=== PATIENT | male | born 1945 | race Caucasian/White ===

== ENCOUNTER 2018-10-11 19:55 | Inpatient (IN) | payer MEDICARE ==
[2018-10-11] MEDS ORDERED: FUROSEMIDE 10 MG/ML 4 ML VIAL IV STA (20:30)
[2018-10-11] MEDS ORDERED: NITROGLYCERIN OINT 1 INCH/GM PACKET TOPICAL STA (20:30)
[2018-10-11] MEDS ORDERED: ASPIRIN 81 MG PO STA (20:32)
[2018-10-11 20:44] LABS: Basophils % (A) 1 %; Eosinophils # (A) 0.1 k/uL (0-0.7); Eosinophils % (A) 3 %; HCT 33.8 % (39.0-53.0); HGB 10.2 gm/dL (13.0-17.5); Hypochromasia Marked; Lymphocytes # (A) 0.7 k/uL (1.0-4.8); Lymphocytes % (A) 26 %; MCH 25.9 pg (25.0-35.0); MCHC 30.2 g/dL (31.0-37.0); MCV 85.6 fL (80.0-100.0); Mean Platelet Volume 6.3; Monocytes # (A) 0.2 k/uL (0-1.0); Monocytes % (A) 7 %; Neutrophils # (A) 1.7 k/uL (1.3-7.7); Neutrophils % (A) 60 %; Platelet Count 306 k/uL (150-450); Poikilocytosis Slight; RBC 3.95 m/uL (4.30-5.90); RDW 14.9 % (11.5-15.5); WBC 2.9 k/uL (3.8-10.6)
[2018-10-11 20:57] LABS: Calcium 7.9 mg/dL (8.4-10.2); Potassium 4.6 mmol/L (3.5-5.1); Total Bilirubin 0.5 mg/dL (0.2-1.3); Total Protein 4.2 g/dL (6.3-8.2)
[2018-10-11 21:02] LABS: Prothrombin Time 10.3 sec (9.0-12.0)
[2018-10-11 21:03] LABS: Partial Thromboplastin Time 21.2 sec (22.0-30.0)
[2018-10-11 21:21] LABS: VBG PH 7.46 (7.31-7.41)
--- NOTE | 2018-10-11 21:35 | ED ---
General Adult HPI - General Chief complaint: Shortness of Breath Stated complaint: nstemi Time Seen by Provider: 10/11/18 20:20 Source: patient, EMS Mode of arrival: EMS - History of Present Illness Initial comments: Patient is 73-year-old male presents with a chief complaint of shortness of breath. He was initially seen at an outside hospital and transferred for an STEMI. After review of the patient's results, he had a mildly elevated troponin at 0.5. EKG shows no acute changes. Patient appears comfortable. He states that he has been increasingly short of breath for about 2 days. Is a history of CHF, COPD, and previous NH. He states that he is getting increasingly exertional short of breath and states that he felt he was going to pass out today. He cannot identify an inciting incident. There are no exacerbating or alleviating factors. - Related Data Home Medications Medication Instructions Recorded Confirmed Albuterol Inhaler [Ventolin Hfa 1 - 2 puff INHALATION RT-QID 10/11/18 10/11/18 Inhaler] Aspirin 81 mg PO HS 10/11/18 10/11/18 Atorvastatin [Lipitor] 40 mg PO HS 10/11/18 10/11/18 Clopidogrel [Plavix] 75 mg PO DAILY 10/11/18 10/11/18 Furosemide [Lasix] 20 mg PO DAILY 10/11/18 10/11/18 Lisinopril [Zestril] 5 mg PO DAILY 10/11/18 10/11/18 Metoprolol Tartrate [Lopressor] 25 mg PO BID 10/11/18 10/11/18 Montelukast [Singulair] 10 mg PO HS 10/11/18 10/11/18 Potassium Chloride ER [K-Dur 10] 10 meq PO DAILY 10/11/18 10/11/18 Allergies Allergy/AdvReac Type Severity Reaction Status Date / Time No Known Allergies Allergy Verified 10/11/18 20:43 Review of Systems ROS Statement: Those systems with pertinent positive or pertinent negative responses have been documented in the HPI. ROS Other: All systems not noted in ROS Statement are negative. Respiratory: Reports: dyspnea Cardiovascular: Reports: dyspnea on exertion Past Medical History Past Medical History: Heart Failure, COPD History of Any Multi-Drug Resistant Organisms: None Reported Past Surgical History: Coronary Bypass/CABG Past Psychological History: No Psychological Hx Reported Smoking Status: Never smoker Past Alcohol Use History: None Reported Past Drug Use History: None Reported General Exam Limitations: no limitations General appearance: alert, in no apparent distress Head exam: Present: atraumatic, normocephalic Eye exam: Present: normal appearance ENT exam: Present: normal exam Neck exam: Present: normal inspection Respiratory exam: Present: decreased breath sounds Cardiovascular Exam: Present: regular rate, normal rhythm GI/Abdominal exam: Present: soft. Absent: distended, tenderness Rectal exam: Present: deferred exam: Present: scrotal swelling Extremities exam: Present: normal inspection Back exam: Present: normal inspection Neurological exam: Present: alert, oriented X3 Psychiatric exam: Present: normal affect, normal mood Skin exam: Present: warm, dry, intact Course Vital Signs 10/11/18 20:01 Temperature 97.9 F Pulse Rate 16 L Respiratory 96 H Rate Blood Pressure 140/84 O2 Sat by Pulse 95 Oximetry Medical Decision Making - Medical Decision Making Patient presents with a chief complaint of exertional dyspnea. He is sent from an outside facility with a diagnosis of an STEMI. EKG is unremarkable. Troponin the outside facility was 0.5. Redraw in the emergency department is equivocal. We'll hold on heparin at this time as patient is likely suffering from exacerbation of congestive heart failure. He was given a half-inch of Nitropaste, 40 mg of IV Lasix. Labs are otherwise unremarkable. We'll plan to admit patient. He received aspirin. Patient is hypokalemic at 2.9, he'll be given oral replacement. 10:20 PM Case discussed with Dr. Enciso who accepts admission. Patient given 40 mg of Lasix and nitro paste to initiate diuresis. Labs ordered for the morning. Patient agreeable with the care plan. He stable for transfer to the floor. - Lab Data Result diagrams: 10/11/18 20:26 10/11/18 20:26 Lab Results 10/11/18 10/11/18 10/11/18 Range/Units 20:26 20:26 20:26 WBC 2.9 L (3.8-10.6) k/uL RBC 3.95 L (4.30-5.90) m/uL Hgb 10.2 L (13.0-17.5) gm/dL Hct 33.8 L (39.0-53.0) % MCV 85.6 (80.0-100.0) fL MCH 25.9 (25.0-35.0) pg MCHC 30.2 L (31.0-37.0) g/dL RDW 14.9 (11.5-15.5) % Plt Count 306 (150-450) k/uL Neutrophils % 60 % Lymphocytes % 26 % Monocytes % 7 % Eosinophils % 3 % Basophils % 1 % Neutrophils # 1.7 (1.3-7.7) k/uL Lymphocytes # 0.7 L (1.0-4.8) k/uL Monocytes # 0.2 (0-1.0) k/uL Eosinophils # 0.1 (0-0.7) k/uL Basophils # 0.0 (0-0.2) k/uL Hypochromasia Marked Poikilocytosis Slight PT 10.3 (9.0-12.0) sec INR 1.0 (<1.2) APTT 21.2 L (22.0-30.0) sec VBG pH (7.31-7.41) VBG pCO2 (37-51) mmHg VBG HCO3 (24-28) mmol/L Sodium (137-145) mmol/L Potassium (3.5-5.1) mmol/L Chloride (98-107) mmol/L Carbon Dioxide (22-30) mmol/L Anion Gap mmol/L BUN (9-20) mg/dL Creatinine (0.66-1.25) mg/dL Est GFR (CKD-EPI)AfAm (>60 ml/min/1.73 sqM) Est GFR (CKD-EPI)NonAf (>60 ml/min/1.73 sqM) Glucose (74-99) mg/dL Calcium (8.4-10.2) mg/dL Total Bilirubin (0.2-1.3) mg/dL AST (17-59) U/L ALT (21-72) U/L Alkaline Phosphatase (38-126) U/L Troponin I (0.000-0.034) ng/mL NT-Pro-B Natriuret Pep 4430 pg/mL Total Protein (6.3-8.2) g/dL Albumin (3.5-5.0) g/dL 10/11/18 10/11/18 10/11/18 Range/Units 20:26 20:26 20:56 WBC (3.8-10.6) k/uL RBC (4.30-5.90) m/uL Hgb (13.0-17.5) gm/dL Hct (39.0-53.0) % MCV (80.0-100.0) fL MCH (25.0-35.0) pg MCHC (31.0-37.0) g/dL RDW (11.5-15.5) % Plt Count (150-450) k/uL Neutrophils % % Lymphocytes % % Monocytes % % Eosinophils % % Basophils % % Neutrophils # (1.3-7.7) k/uL Lymphocytes # (1.0-4.8) k/uL Monocytes # (0-1.0) k/uL Eosinophils # (0-0.7) k/uL Basophils # (0-0.2) k/uL Hypochromasia Poikilocytosis PT (9.0-12.0) sec INR (<1.2) APTT (22.0-30.0) sec VBG pH 7.46 H (7.31-7.41) VBG pCO2 35 L (37-51) mmHg VBG HCO3 24 (24-28) mmol/L Sodium 136 L (137-145) mmol/L Potassium 4.6 (3.5-5.1) mmol/L Chloride 109 H (98-107) mmol/L Carbon Dioxide 27 (22-30) mmol/L Anion Gap 0 mmol/L BUN 32 H (9-20) mg/dL Creatinine 1.01 (0.66-1.25) mg/dL Est GFR (CKD-EPI)AfAm 86 (>60 ml/min/1.73 sqM) Est GFR (CKD-EPI)NonAf 75 (>60 ml/min/1.73 sqM) Glucose 92 (74-99) mg/dL Calcium 7.9 L (8.4-10.2) mg/dL Total Bilirubin 0.5 (0.2-1.3) mg/dL AST 50 (17-59) U/L ALT 42 (21-72) U/L Alkaline Phosphatase 74 (38-126) U/L Troponin I 0.528 H* (0.000-0.034) ng/mL NT-Pro-B Natriuret Pep pg/mL Total Protein 4.2 L (6.3-8.2) g/dL Albumin 2.0 L (3.5-5.0) g/dL Disposition Clinical Impression: CHF exacerbation, Elevated troponin, Hypokalemia, Anasarca Disposition: ADMITTED IP TO THIS HOSP Condition: Good Is patient prescribed a controlled substance at d/c from ED?: No Referrals: None,Stated [Primary Care Provider] - 1-2 days Decision to Admit Reason: Admit from EC - Out of Hospital Transfer - Req. Specs Out of Hospital Transfer - Requested Specifics: Other Non-Acute
[2018-10-11] MEDS ORDERED: POTASSIUM CHLORIDE ER 20 MEQ TAB.ER PO STA (21:36)
[2018-10-11] MEDS ORDERED: NALOXONE 0.4 MG/ML 1 ML VIAL IV PRN (22:16)
[2018-10-11] MEDS ORDERED: IPRATROPIUM-ALBUTEROL 3 ML NEB INHALATION PRN (23:54)
--- NOTE | 2018-10-12 00:22 | P.HPIM ---
History of Present Illness H&P Date: 10/11/18 Chief Complaint: SOB 73 year old male with history of CHF. patient presented to our hospital from another facility for NSTEMI. patient is reporting that he is feeling fine now. He claims that he went to the doctor to check on his penis as there was swelling over the pubic area most likely fluid overload. he also reported some worsening exertional dyspnea over the past two days. however, he is not sure how he ended from one facility to another to finally be admitted to our hospital . I tried to explain that at the other facility he was found to be in congestive hearrt failure exacerbation for which he was given IV lasix to help reduce the fluids around his lungs, legs and pubic area possibly . He was also found to have slightly elevated troponins at 0.5 for which he was transfered to our facility to R/O ACS. patient denies any chest pain at this time or even earlier, denies any current SOB, however, he seems to be catching his breath when he starts talking. he is not sure if he has orthopnea or PNDs and actually denies both. he claims to be comfortable at the moment and cant wait to go home. denies any fever, chills, cough, chest pain, or SOB at this time . He was also found to have low K at the other facility , however, this has since been corrected upon repeating labs here. Review of Systems Pertinent positives as noted in HPI. All other systems were reviewed and are negative Past Medical History Past Medical History: Heart Failure, COPD History of Any Multi-Drug Resistant Organisms: None Reported Past Surgical History: Coronary Bypass/CABG Past Psychological History: No Psychological Hx Reported Smoking Status: Never smoker Past Alcohol Use History: None Reported Past Drug Use History: None Reported - Past Family History family Family Medical History: No Reported History Medications and Allergies Home Medications Medication Instructions Recorded Confirmed Type Albuterol Inhaler [Ventolin Hfa 1 - 2 puff INHALATION RT-QID 10/11/18 10/11/18 History Inhaler] Aspirin 81 mg PO HS 10/11/18 10/11/18 History Atorvastatin [Lipitor] 40 mg PO HS 10/11/18 10/11/18 History Clopidogrel [Plavix] 75 mg PO DAILY 10/11/18 10/11/18 History Furosemide [Lasix] 20 mg PO DAILY 10/11/18 10/11/18 History Lisinopril [Zestril] 5 mg PO DAILY 10/11/18 10/11/18 History Metoprolol Tartrate [Lopressor] 25 mg PO BID 10/11/18 10/11/18 History Montelukast [Singulair] 10 mg PO HS 10/11/18 10/11/18 History Potassium Chloride ER [K-Dur 10] 10 meq PO DAILY 10/11/18 10/11/18 History Allergies Allergy/AdvReac Type Severity Reaction Status Date / Time No Known Allergies Allergy Verified 10/11/18 20:43 Physical Exam Vitals: Vital Signs Temp Pulse Pulse Resp BP BP Pulse Ox 10/11/18 23:35 98 18 10/11/18 23:17 97.8 F 98 18 139/71 98 10/11/18 22:59 98 16 140/89 95 10/11/18 20:01 97.9 F 16 L 96 H 140/84 95 Intake and Output 10/11/18 10/11/18 10/12/18 14:59 22:59 06:59 Other: Voiding Method Toilet Urinal # Voids 1 Weight 108.817 kg Constitutional: No acute distress, conversant, pleasant, on nasal eileen rhina currently was eating pudding Eyes: Anicteric sclerae, moist conjunctiva, no lid-lag Pupils equal round reactive to light ENMT: NC/AT Oropharynx clear, no erythema, exudates Neck: Supple, FROM, no masses, or JVD No carotid bruits No thyromegaly Lungs: decreased breath sounds at lung bases bilaterally with some inspiratory rales , some scattered end expiratory rhonchi Clear to percussion Normal respiratory effort, no accessory muscle use Cardiovascular: Heart regular in rate and rhythm, No murmurs, gallops, or rubs +2 peripheral edema bilaterally Abdominal: Soft Nontender, no guarding, rebound or rigidity Abdomen moving with respiration Normoactive bowel sounds No hepatomegaly, No splenomegaly No palpable mass No abdominal wall hernia noted Skin: Normal temperature, tone, texture, turgor No induration No subcutaneous nodules No rash, lesions No ulcers Extremities: No digital cyanosis No clubbing Pedal pulses intact and symmetrical Radial pulses intact and symmetrical No calf tenderness Psychiatric: Alert and oriented to person, place not to time Appropriate affect fair judgment Neuro Muscles Strength 4/5 in all 4 extremities Sensation to light touch grossly present throughout Cranial nerves II-XII grossly intact No focal sensory deficits Lymphatics: no palpable cervical or supraclavicular , or inguinal lymph nodes Results CBC & Chem 7: 10/11/18 20:26 10/11/18 20:26 Labs: Abnormal Lab Results - Last 24 Hours (Table) 10/11/18 10/11/18 10/11/18 Range/Units 20:26 20:26 20:26 WBC 2.9 L (3.8-10.6) k/uL RBC 3.95 L (4.30-5.90) m/uL Hgb 10.2 L (13.0-17.5) gm/dL Hct 33.8 L (39.0-53.0) % MCHC 30.2 L (31.0-37.0) g/dL Lymphocytes # 0.7 L (1.0-4.8) k/uL APTT 21.2 L (22.0-30.0) sec VBG pH (7.31-7.41) VBG pCO2 (37-51) mmHg Sodium (137-145) mmol/L Chloride (98-107) mmol/L BUN (9-20) mg/dL Calcium (8.4-10.2) mg/dL Troponin I 0.528 H* (0.000-0.034) ng/mL Total Protein (6.3-8.2) g/dL Albumin (3.5-5.0) g/dL 10/11/18 10/11/18 Range/Units 20:26 20:56 WBC (3.8-10.6) k/uL RBC (4.30-5.90) m/uL Hgb (13.0-17.5) gm/dL Hct (39.0-53.0) % MCHC (31.0-37.0) g/dL Lymphocytes # (1.0-4.8) k/uL APTT (22.0-30.0) sec VBG pH 7.46 H (7.31-7.41) VBG pCO2 35 L (37-51) mmHg Sodium 136 L (137-145) mmol/L Chloride 109 H (98-107) mmol/L BUN 32 H (9-20) mg/dL Calcium 7.9 L (8.4-10.2) mg/dL Troponin I (0.000-0.034) ng/mL Total Protein 4.2 L (6.3-8.2) g/dL Albumin 2.0 L (3.5-5.0) g/dL Thrombosis Risk Factor Assmnt - Choose All That Apply Any of the Below Risk Factors Present?: Yes Each Factor Represents 1 point: Abnormal pulmonary function (COPD) Other Risk Factors: Yes Each Risk Factor Represents 2 Points: Age 61-74 years Other congenital or acquired thrombophilia - If yes, enter type in comment: No Thrombosis Risk Factor Assessment Total Risk Factor Score: 3 Thrombosis Risk Factor Assessment Level: Moderate Risk Assessment and Plan Assessment: 73-year-old male with history of COPD and CHF admitted as an observation with anticipated length of stay of less than 48 hours for acute CHF exacerbation with exertional dyspnea and slightly elevated troponins and rule out ACS. Currently patient denies any exertional dyspnea or chest pain. Seems like he responded well to initial diuresis. We'll continue monitoring overnight trending his troponins and cardiac enzymes, with cardiac monitoring. Continue with IV Lasix. Plan: Acute systolic congestive heart failure exacerbation Worsening exertional dyspnea Worsening peripheral edema Slightly elevated troponins and rule out ACS Continue with IV diuresis Nitropaste Repeat chest x-ray in the morning Trend cardiac enzymes Resume home meds Aspirin and statin Plavix Cardiology evaluation anemia, and leukopenia unknown baseline denies any GI bleeding continue to monitor Chronic conditions Hypertension, history of CAD DVT prophylaxis heparin subcu 3 times a day Surrogate decision-maker: Patient CODE STATUS: Full code Discussed with: Patient, ER, RN Anticipated discharge: <[address]: Home A total of 60 minutes was spent on the care of this complex patient more than 50% of the time was spent in counseling and care coordination.
[2018-10-12] MEDS: METOPROLOL TARTRATE 25 MG TAB PO SCH ×3 (00:26→19:33)
[2018-10-12] MEDS: MONTELUKAST 10 MG TAB PO SCH ×2 (00:26→19:33)
[2018-10-12] MEDS: HEPARIN SODIUM,PORCINE 5,000 UNIT/ML 1 ML VIAL SQ SCH ×4 (00:26→22:50)
[2018-10-12 07:50] LABS: Basophils # (A) 0.1 k/uL (0-0.2); Basophils % (A) 1 %; Eosinophils # (A) 0.2 k/uL (0-0.7); Eosinophils % (A) 4 %; HCT 28.1 % (39.0-53.0); HGB 8.8 gm/dL (13.0-17.5); Hypochromasia Marked; Lymphocytes # (A) 0.7 k/uL (1.0-4.8); Lymphocytes % (A) 19 %; MCHC 31.4 g/dL (31.0-37.0); MCV 85.9 fL (80.0-100.0); Mean Platelet Volume 5.9; Monocytes # (A) 0.3 k/uL (0-1.0); Monocytes % (A) 7 %; Neutrophils # (A) 2.4 k/uL (1.3-7.7); Neutrophils % (A) 66 %; Platelet Count 365 k/uL (150-450); Poikilocytosis Slight; RBC 3.27 m/uL (4.30-5.90); RDW 14.3 % (11.5-15.5); WBC 3.7 k/uL (3.8-10.6)
[2018-10-12 07:56] LABS: Calcium 7.6 mg/dL (8.4-10.2); Magnesium 2.1 mg/dL (1.6-2.3); Potassium 4.9 mmol/L (3.5-5.1)
--- NOTE | 2018-10-12 08:27 | XR ---
EXAMINATION TYPE: XR chest 1V DATE OF EXAM: 10/12/2018 COMPARISON: 10/11/2018 HISTORY: Shortness of breath TECHNIQUE: Single frontal view of the chest is obtained. FINDINGS: Cardiomegaly with the postsurgical changes are noted there is a diffuse interstitial patte rn with bilateral infiltrate and pleural effusion. Calcification along the right humeral head can be associated with calcific tendinosis. IMPRESSION: Correlate for CHF with pulmonary edema otherwise consider pneumonia.
[2018-10-12] MEDS: FUROSEMIDE 10 MG/ML 2 ML VIAL IV SCH ×2 (08:38→19:33)
[2018-10-12] MEDS ORDERED: METOPROLOL TARTRATE 25 MG TAB PO SCH (09:00)
[2018-10-12] MEDS ORDERED: CLOPIDOGREL 75 MG TAB PO SCH (09:00)
--- NOTE | 2018-10-12 11:22 | P.CRDCN ---
History of Present Illness Consult date: 10/12/18 History of present illness: This is a 73-year-old gentleman, who apparently was transferred from [facility], for evaluation and treatment of congestive heart failure. This patient is unable to give any detailed history and seemed to be slightly confused. He was taken to the hospital by his complaints of shortness of breath. He was also developed scrotal swelling and peripheral edema. His chest x-ray showed evidence of congestive heart failure. His proBNP is elevated. Patient has been treated with IV Lasix with good diuresis. His renal function is normal. Patient's hemoglobin was 10 g which a drop to below 9 g. It appears that the anemia is new. Apparently his hemoglobin is normal at 2017. He denies any chest pain. Doesn't appear to be in acute distress. Lungs shows mild wheezing and diminished breath sounds. Heart sounds are distant. I'm going to get an echocardiogram done. I'm going to add Aldactone 12.5 mg. We'll going to get a GI consult. Further recommendations depend upon the clinical course Review of Systems As per the chart Past Medical History Past Medical History: Heart Failure, COPD History of Any Multi-Drug Resistant Organisms: None Reported Past Surgical History: Coronary Bypass/CABG Past Psychological History: No Psychological Hx Reported Smoking Status: Never smoker Past Alcohol Use History: None Reported Past Drug Use History: None Reported - Past Family History family Family Medical History: No Reported History Medications and Allergies Home Medications Medication Instructions Recorded Confirmed Type Albuterol Inhaler [Ventolin Hfa 1 - 2 puff INHALATION RT-QID 10/11/18 10/11/18 History Inhaler] Aspirin 81 mg PO HS 10/11/18 10/11/18 History Atorvastatin [Lipitor] 40 mg PO HS 10/11/18 10/11/18 History Clopidogrel [Plavix] 75 mg PO DAILY 10/11/18 10/11/18 History Furosemide [Lasix] 20 mg PO DAILY 10/11/18 10/11/18 History Lisinopril [Zestril] 5 mg PO DAILY 10/11/18 10/11/18 History Metoprolol Tartrate [Lopressor] 25 mg PO BID 10/11/18 10/11/18 History Montelukast [Singulair] 10 mg PO HS 10/11/18 10/11/18 History Potassium Chloride ER [K-Dur 10] 10 meq PO DAILY 10/11/18 10/11/18 History Allergies Allergy/AdvReac Type Severity Reaction Status Date / Time No Known Allergies Allergy Verified 10/11/18 20:43 Physical Exam Vitals: Vital Signs Temp Pulse Pulse Resp BP BP Pulse Ox 10/12/18 10:12 100 10/12/18 10:02 96 10/12/18 10:01 100 10/12/18 08:00 97.9 F 103 H 24 145/92 95 10/12/18 04:00 97.4 F L 89 18 107/66 90 L 10/11/18 23:35 98 18 10/11/18 23:17 97.8 F 98 18 139/71 98 10/11/18 22:59 98 16 140/89 95 10/11/18 20:01 97.9 F 16 L 96 H 140/84 95 Intake and Output 10/11/18 10/12/18 10/12/18 22:59 06:59 14:59 Output Total 100 500 Balance -100 -500 Output: Urine 100 500 Other: Voiding Method Toilet Toilet Urinal Urinal # Voids 2 Weight 108.817 kg 88 kg 88 kg GENERAL EXAM: Patient is alert but doesn't seem to fully oriented and doesn't appear to be in any acute distress HEENT: Normocephalic. Normal reaction of pupils, equal size, normal range of extraocular motion. No erythema or exudates in the throat. NECK: No masses, no nuchal rigidity. CHEST: No chest wall deformity. LUNGS: Show diminished breath sounds HEART: S1 and S2 normal . Distant heart sounds ABDOMEN: No hepatosplenomegaly, normal bowel sounds, no guarding or rigidity. SKIN: No rashes CENTRAL NERVOUS SYSTEM: No focal deficits. EXTREMITIES: Significant edema involving the scrotum also Results 10/12/18 07:25 10/12/18 07:25 Cardiac Enzymes 10/11/18 10/11/18 10/12/18 Range/Units 20:26 20:26 02:17 AST 50 (17-59) U/L Troponin I 0.528 H* 0.513 H* (0.000-0.034) ng/mL 10/12/18 Range/Units 07:25 AST (17-59) U/L Troponin I 0.438 H* (0.000-0.034) ng/mL Coagulation 10/11/18 Range/Units 20:26 PT 10.3 (9.0-12.0) sec APTT 21.2 L (22.0-30.0) sec CBC 10/11/18 10/12/18 Range/Units 20:26 07:25 WBC 2.9 L 3.7 L (3.8-10.6) k/uL RBC 3.95 L 3.27 L (4.30-5.90) m/uL Hgb 10.2 L 8.8 L (13.0-17.5) gm/dL Hct 33.8 L 28.1 L (39.0-53.0) % Plt Count 306 365 (150-450) k/uL Comprehensive Metabolic Panel 10/11/18 10/12/18 Range/Units 20:26 07:25 Sodium 136 L 139 (137-145) mmol/L Potassium 4.6 4.9 (3.5-5.1) mmol/L Chloride 109 H 109 H (98-107) mmol/L Carbon Dioxide 27 31 H (22-30) mmol/L BUN 32 H 32 H (9-20) mg/dL Creatinine 1.01 1.11 (0.66-1.25) mg/dL Glucose 92 94 (74-99) mg/dL Calcium 7.9 L 7.6 L (8.4-10.2) mg/dL AST 50 (17-59) U/L ALT 42 (21-72) U/L Alkaline Phosphatase 74 (38-126) U/L Total Protein 4.2 L (6.3-8.2) g/dL Albumin 2.0 L (3.5-5.0) g/dL Current Medications Generic Name Dose Route Start Last Admin Trade Name Freq PRN Reason Stop Dose Admin Albuterol/Ipratropium 3 ml 10/11/18 23:54 10/12/18 10:01 Duoneb 0.5 Mg-3 Mg/3 Ml Soln INHALATION 3 ml RT-QID PRN Administration Shortness Of Breath Or Wheezing Atorvastatin Calcium 40 mg 10/12/18 21:00 Lipitor PO HS JULI Clopidogrel Bisulfate 75 mg 10/12/18 09:00 10/12/18 08:38 Plavix PO 75 mg DAILY JULI Administration Furosemide 20 mg 10/12/18 09:00 10/12/18 08:38 Lasix IV 20 mg Q12HR JULI Administration Heparin Sodium (Porcine) 5,000 unit 10/12/18 00:00 10/12/18 08:28 Heparin SQ 5,000 unit Q8HR JULI Administration Lisinopril 5 mg 10/12/18 09:00 Zestril PO DAILY JULI Metoprolol Tartrate 25 mg 10/12/18 00:02 10/12/18 08:38 Lopressor PO 25 mg BID JULI Administration Montelukast Sodium 10 mg 10/11/18 23:45 10/12/18 00:26 Singulair PO 10 mg HS JULI Administration Naloxone HCl 0.2 mg 10/11/18 22:16 Narcan IV Q2M PRN Opioid Reversal Spironolactone 12.5 mg 10/12/18 11:15 Aldactone PO DAILY JULI Intake and Output 10/11/18 10/12/18 10/12/18 22:59 06:59 14:59 Output Total 100 500 Balance -100 -500 Output: Urine 100 500 Other: Voiding Method Toilet Toilet Urinal Urinal # Voids 2 Weight 108.817 kg 88 kg 88 kg Patient Weight 10/13/18 06:59 Weight 88 kg 10/12/18 07:25 10/12/18 07:25 EKG Interpretations (text) Sinus rhythm with nonspecific intraventricular conduction delay Assessment and Plan (1) COPD (chronic obstructive pulmonary disease) Current Visit: Yes Status: Acute Code(s): J44.9 - CHRONIC OBSTRUCTIVE PULMONARY DISEASE, UNSPECIFIED SNOMED Code(s): 70050225 (2) Anasarca Current Visit: Yes Status: Acute Code(s): R60.1 - GENERALIZED EDEMA SNOMED Code(s): 999268463 (3) CHF exacerbation Current Visit: Yes Status: Acute Code(s): I50.9 - HEART FAILURE, UNSPECIFIED SNOMED Code(s): 95920897 (4) Elevated troponin Current Visit: Yes Status: Acute Code(s): R74.8 - ABNORMAL LEVELS OF OTHER SERUM ENZYMES SNOMED Code(s): 265354011 (5) Hypokalemia Current Visit: Yes Status: Acute Code(s): E87.6 - HYPOKALEMIA SNOMED Code(s): 02107009 (6) Acute anemia Current Visit: Yes Status: Acute Code(s): D64.9 - ANEMIA, UNSPECIFIED SNOMED Code(s): 521646022 Plan: This patient seemed to be in congestive heart failure. The etiology is unclear. Rule out cardiomyopathy. Patient also has anemia, which may be contributing to the congestive heart failure. I'm going to continue IV Lasix and add small dose of Aldactone. Get an echocardiogram. GI consult for evaluation of anemia and possible GI bleeding. Further recommendations depends upon the clinical course. Prognosis is guarded. His troponins are elevated but the pattern is not consistent with acute NH.
[2018-10-12] MEDS: SPIRONOLACTONE 25 MG TAB PO SCH (12:21)
--- NOTE | 2018-10-12 12:27 | P.PN ---
Subjective Progress Note Date: 10/12/18 Principal diagnosis: Acute Exacerbation of CHF. 73 year old male with history of CHF, presented to our hospital from another facility for NSTEMI. patient is reporting that he is feeling fine now. He claims that he went to the doctor to check on his penis as there was swelling over the pubic area most likely fluid overload. he also reported some worsening exertional dyspnea over the past two days. however, he is not sure how he ended from one facility to another to finally be admitted to our hospital . I tried to explain that at the other facility he was found to be in congestive hearrt failure exacerbation for which he was given IV lasix to help reduce the fluids around his lungs, legs and pubic area possibly . He was also found to have slightly elevated troponins at 0.5 for which he was transfered to our facility to R/O ACS. patient denies any chest pain at this time or even earlier, denies any current SOB, however, he seems to be catching his breath when he starts talking. he is not sure if he has orthopnea or PNDs and actually denies both. he claims to be comfortable at the moment and cant wait to go home. denies any fever, chills, cough, chest pain, or SOB at this time . He was also found to have low K at the other facility, now improved. Pt. was given I/V LASIX and now he reports that he is breathing better and feeling better but still he has retracted penis and is bothering him. Cardiology input appreciated for his cardiac condition. Nurse reported that pt. is still SOB with exertion and has bilateral wheezes. Pt. was noted to have PRN HHN with Duoneb but is not getting as he is not noted to have significant SOB. Pt's trops are slowly improving (not as in the case of Acute NSTEMI). Objective - Vital Signs Vital signs: Vital Signs Temp 98.2 F 10/12/18 11:45 Pulse 86 10/12/18 11:45 Resp 16 10/12/18 11:45 BP 112/57 10/12/18 11:45 Pulse Ox 96 10/12/18 11:45 Intake & Output 10/11/18 10/12/18 10/12/18 18:59 06:59 18:59 Output Total 100 600 Balance -100 -600 Weight 88 kg 88 kg Output: Urine 100 600 Other: Voiding Method Toilet Toilet Urinal Urinal # Voids 2 - Constitutional General appearance: Present: cooperative, no acute distress, obese - EENT Eyes: Present: EOMI, PERRLA, normal appearance ENT: Present: hard of hearing. Absent: hearing grossly normal - Neck Neck: Present: normal ROM. Absent: lymphadenopathy, rigidity, stridor, thyromegaly - Respiratory Details: Scattered wheezes and ronchi with decreased breath sounds at the bases. - Cardiovascular Rhythm: regular Abnormal Heart Sounds: Absent: systolic murmur, diastolic murmur, rub, S3 Gallop, S4 Gallop - Gastrointestinal General gastrointestinal: Present: normal bowel sounds, soft. Absent: distended, organomegaly, rigid, tenderness - Genitourinary Genitourinary Comment(s): Pubic edema with some scrotal edema and retracted penis without signs of infection. - Labs CBC & Chem 7: 10/12/18 07:25 10/12/18 07:25 Labs: Abnormal Lab Results - Last 24 Hours (Table) 10/11/18 10/11/18 10/11/18 Range/Units 20:26 20:26 20:26 WBC 2.9 L (3.8-10.6) k/uL RBC 3.95 L (4.30-5.90) m/uL Hgb 10.2 L (13.0-17.5) gm/dL Hct 33.8 L (39.0-53.0) % MCHC 30.2 L (31.0-37.0) g/dL Lymphocytes # 0.7 L (1.0-4.8) k/uL APTT 21.2 L (22.0-30.0) sec VBG pH (7.31-7.41) VBG pCO2 (37-51) mmHg Sodium (137-145) mmol/L Chloride (98-107) mmol/L Carbon Dioxide (22-30) mmol/L BUN (9-20) mg/dL Calcium (8.4-10.2) mg/dL Troponin I 0.528 H* (0.000-0.034) ng/mL Total Protein (6.3-8.2) g/dL Albumin (3.5-5.0) g/dL 10/11/18 10/11/18 10/12/18 Range/Units 20:26 20:56 02:17 WBC (3.8-10.6) k/uL RBC (4.30-5.90) m/uL Hgb (13.0-17.5) gm/dL Hct (39.0-53.0) % MCHC (31.0-37.0) g/dL Lymphocytes # (1.0-4.8) k/uL APTT (22.0-30.0) sec VBG pH 7.46 H (7.31-7.41) VBG pCO2 35 L (37-51) mmHg Sodium 136 L (137-145) mmol/L Chloride 109 H (98-107) mmol/L Carbon Dioxide (22-30) mmol/L BUN 32 H (9-20) mg/dL Calcium 7.9 L (8.4-10.2) mg/dL Troponin I 0.513 H* (0.000-0.034) ng/mL Total Protein 4.2 L (6.3-8.2) g/dL Albumin 2.0 L (3.5-5.0) g/dL 10/12/18 10/12/18 10/12/18 Range/Units 07:25 07:25 07:25 WBC 3.7 L (3.8-10.6) k/uL RBC 3.27 L (4.30-5.90) m/uL Hgb 8.8 L (13.0-17.5) gm/dL Hct 28.1 L (39.0-53.0) % MCHC (31.0-37.0) g/dL Lymphocytes # 0.7 L (1.0-4.8) k/uL APTT (22.0-30.0) sec VBG pH (7.31-7.41) VBG pCO2 (37-51) mmHg Sodium (137-145) mmol/L Chloride 109 H (98-107) mmol/L Carbon Dioxide 31 H (22-30) mmol/L BUN 32 H (9-20) mg/dL Calcium 7.6 L (8.4-10.2) mg/dL Troponin I 0.438 H* (0.000-0.034) ng/mL Total Protein (6.3-8.2) g/dL Albumin (3.5-5.0) g/dL - Imaging and Cardiology Chest x-ray: report reviewed (Pulmonary edema.) Assessment and Plan (1) Acute anemia Narrative/Plan: GI consulted for the ealuation and management of acute worsening anemia, no clinical signs or symptoms of acute GI bleed noted, await GI recs. Current Visit: Yes Status: Acute Priority: Medium Code(s): D64.9 - ANEMIA, UNSPECIFIED SNOMED Code(s): 322855499 (2) CHF exacerbation Narrative/Plan: Clinically improving a little at this time but he is only less than 24 hours here at this facility, will continue current diuretic management and monitor, cardio recs appreciated. Current Visit: Yes Status: Acute Code(s): I50.9 - HEART FAILURE, UNSPECIFIED SNOMED Code(s): 39519945 (3) COPD (chronic obstructive pulmonary disease) Narrative/Plan: Baseline COPD with no scheduled treatment, will give Duoneb scheduled HHn and will monitor for wheezing. It may be cardiac wheezing but that will improve with I/V diuretics. Current Visit: Yes Status: Acute Code(s): J44.9 - CHRONIC OBSTRUCTIVE PULMONARY DISEASE, UNSPECIFIED SNOMED Code(s): 43591099 (4) Elevated troponin Narrative/Plan: Slowly improving trops, will not monitor until worsening in pt's clinical condition is noted. Current Visit: Yes Status: Acute Code(s): R74.8 - ABNORMAL LEVELS OF OTHER SERUM ENZYMES SNOMED Code(s): 617566477 (5) Hypokalemia Narrative/Plan: Stable at this point in time, may need more replacement with diuretic use, will monitor. Current Visit: Yes Status: Acute Code(s): E87.6 - HYPOKALEMIA SNOMED Code(s): 38216207 Plan: as noted above. Time with Patient: Greater than 30 (Most of the time spent in care coordination and management and counselling patient and his step son per pt's verbal consent.)
[2018-10-12] MEDS: IPRATROPIUM-ALBUTEROL 3 ML NEB INHALATION SCH ×2 (12:47→19:46)
--- NOTE | 2018-10-12 13:21 | ECHOF ---
Referral Reason:Chest pain and cardiomyopathy MEASUREMENTS -------- HEIGHT: 162.6 cm WEIGHT: 88.0 kg BP: IVSd: 1.4 cm (0.6 - 1.1) LVIDd: 5.5 cm (3.9 - 5.3) LVPWd: 0.8 cm (0.6 - 1.1) IVSs: 1.6 cm LVIDs: 4.7 cm LVPWs: 0.7 cm LA Diam: 4.5 cm (2.7 - 3.8) LAESV Index (A-L): 41.89 ml/m Ao Diam: 3.4 cm (2.0 - 3.7) AV Cusp: 1.8 cm (1.5 - 2.6) LA Diam: 4.0 cm (2.7 - 3.8) MV EXCURSION: 22.907 mm (> 18.000) MV EF SLOPE: 102 mm/s (70 - 150) EPSS: 1.4 cm MV E Armando: 1.02 m/s MV DecT: 126 ms MV A Armando: 0.95 m/s MV E/A Ratio: 1.08 RAP: 5.00 mmHg RVSP: 37.87 mmHg FINDINGS -------- Undetermined rhythm. This was a techncally difficult study with suboptimal views, , Definity utilized for enhancement of i mages. The left ventricular size is normal. Left ventricular wall thickness is normal. There is severe g lobal hypokinesis of LV . Overall left ventricular systolic function is severely impaired with, an EF < 20%. Anterseptal Hypokinesis Inferiorlateral Hypokinesis The right ventricle is normal in size. The left atrium is markedly dilated. LA is severely dilated >40 ml/m2 The right atrial size is normal. Lumason used There is mild aortic valve sclerosis. There is no evidence of aortic regurgitation. Mild mitral annular calcification present. Moderate mitral regurgitation is present. Mild tricuspid regurgitation present. There is mild pulmonary hypertension. The right ventricular systolic pressure, as measured by Doppler, is 37.87mmHg. Trace/mild (physiologic) pulmonic regurgitation. The aortic root size is normal. There is no pericardial effusion. CONCLUSIONS -------- 1. This was a techncally difficult study with suboptimal views, , Definity utilized for enhancement o f images. 2. The left ventricular size is normal. 3. Left ventricular wall thickness is normal. 4. There is severe global hypokinesis of LV . 5. Overall left ventricular systolic function is severely impaired with, an EF < 20%. 6. Anterseptal Hypokinesis 7. Inferiorlateral Hypokinesis 8. The right ventricle is normal in size. 9. The left atrium is markedly dilated. 10. LA is severely dilated >40 ml/m2 11. The right atrial size is normal. 12. Lumason used 13. There is mild aortic valve sclerosis. 14. Mild mitral annular calcification present. 15. Moderate mitral regurgitation is present. 16. Mild tricuspid regurgitation present. 17. There is mild pulmonary hypertension. 18. The right ventricular systolic pressure, as measured by Doppler, is 37.87mmHg. 19. Trace/mild (physiologic) pulmonic regurgitation. 20. The aortic root size is normal. 21. There is no pericardial effusion. NURSING PROGRAM CHAIR: Shilpa Holman RDCS
[2018-10-12] MEDS: LISINOPRIL 5 MG TAB PO SCH (15:42)
[2018-10-12] MEDS: ATORVASTATIN 40 MG TAB PO SCH (19:33)
[2018-10-13 07:28] LABS: HCT 28.4 % (39.0-53.0); HGB 8.7 gm/dL (13.0-17.5); Hypochromasia Marked; MCH 26.1 pg (25.0-35.0); MCHC 30.5 g/dL (31.0-37.0); MCV 85.6 fL (80.0-100.0); Mean Platelet Volume 6.4; Platelet Count 331 k/uL (150-450); Poikilocytosis Slight; RBC 3.32 m/uL (4.30-5.90); RDW 14.8 % (11.5-15.5); WBC 4.3 k/uL (3.8-10.6)
--- NOTE | 2018-10-13 07:50 | XR ---
EXAMINATION TYPE: XR chest 2V DATE OF EXAM: 10/13/2018 COMPARISON: 10/12/2018 HISTORY: Congestive heart failure. Shortness of breath. TECHNIQUE: Frontal and lateral views of the chest are obtained. FINDINGS: There is a small left and trace right pleural effusion. The right pleural effusion has dev eloped in the interim in the left has improved. Pulmonary vascular congestion as seen on the prior lemus s nearly resolved. Cardia mediastinal silhouette is stable with postoperative change. IMPRESSION: Near complete resolution of the interstitial edema/pulmonary vascular congestion and imp rovement of the left pleural effusion with new trace right pleural effusion.
[2018-10-13 07:55] LABS: Calcium 7.5 mg/dL (8.4-10.2); Potassium 4.5 mmol/L (3.5-5.1)
[2018-10-13] MEDS: IPRATROPIUM-ALBUTEROL 3 ML NEB INHALATION SCH ×3 (08:11→19:19)
[2018-10-13] MEDS: HEPARIN SODIUM,PORCINE 5,000 UNIT/ML 1 ML VIAL SQ SCH ×3 (08:36→22:52)
[2018-10-13] MEDS: FUROSEMIDE 10 MG/ML 2 ML VIAL IV SCH ×2 (08:37→20:27)
[2018-10-13] MEDS: METOPROLOL TARTRATE 25 MG TAB PO SCH ×2 (08:37→20:27)
[2018-10-13] MEDS: SPIRONOLACTONE 25 MG TAB PO SCH (08:37)
[2018-10-13] MEDS: LISINOPRIL 5 MG TAB PO SCH (08:37)
--- NOTE | 2018-10-13 10:29 | P.PN ---
Subjective Progress Note Date: 10/13/18 Principal diagnosis: Acute Exacerbation of CHF. 73 year old male with history of CHF, presented to our hospital from another facility for NSTEMI. patient is reporting that he is feeling fine now. He claims that he went to the doctor to check on his penis as there was swelling over the pubic area most likely fluid overload. he also reported some worsening exertional dyspnea over the past two days. however, he is not sure how he ended from one facility to another to finally be admitted to our hospital . I tried to explain that at the other facility he was found to be in congestive hearrt failure exacerbation for which he was given IV lasix to help reduce the fluids around his lungs, legs and pubic area possibly . He was also found to have slightly elevated troponins at 0.5 for which he was transfered to our facility to R/O ACS. patient denies any chest pain at this time or even earlier, denies any current SOB, however, he seems to be catching his breath when he starts talking. he is not sure if he has orthopnea or PNDs and actually denies both. he claims to be comfortable at the moment and cant wait to go home. denies any fever, chills, cough, chest pain, or SOB at this time . He was also found to have low K at the other facility, now improved. Patient reports that he is the breathing better after scheduled nebulize treatment. Patient's nurse reported that patient wheezing is improved and his coughing spells are improved. Patient was referred to gastrointestinal drug he services for anemia and there but he still pending. Patient hemoglobin was noted to be 8.7 which is stable from yesterday. No evidence of the GI bleed noted at this point in time. Patient denied bleeding per rectum. Patient denies chest pain, palpitation, diaphoresis, fever, chills, nausea, vomiting and denies rest of the review system. Patient reports his bowels are moving fairly well and is urinating well. Patient chest x-ray report was reviewed which showed almost complete resolution of interstitial edema in the lungs and possible new development of small right pleural effusion when compared to prior x-ray. But this was compared with a portable view and due to exposure difference that may be small effusion which was not visible in the earlier total x-ray film. Objective - Vital Signs Vital signs: Vital Signs Temp 97.0 F L 10/13/18 07:40 Pulse 92 10/13/18 08:23 Resp 16 10/13/18 07:40 BP 138/72 10/13/18 07:40 Pulse Ox 95 10/13/18 08:11 Intake & Output 10/12/18 10/13/18 10/13/18 18:59 06:59 18:59 Intake Total 222 480 Output Total 750 1000 450 Balance -528 -1000 30 Weight 88 kg 88 kg Intake: Oral 222 480 Output: Urine 750 1000 450 Other: Voiding Method Toilet Toilet Toilet Urinal Urinal Urinal # Voids 1 - Constitutional General appearance: Present: cooperative, no acute distress, obese - EENT Eyes: Present: anicteric sclerae, EOMI, PERRLA ENT: Present: hard of hearing - Neck Neck: Present: normal ROM. Absent: lymphadenopathy, rigidity, stridor, thyromegaly - Respiratory Respiratory: bilateral: diminished, rales (Central and coarse.), wheezing (Scattered.) - Cardiovascular Rhythm: regular Heart sounds: normal: S1, S2 Abnormal Heart Sounds: Absent: systolic murmur, diastolic murmur, rub, S3 Gallop, S4 Gallop, click - Gastrointestinal General gastrointestinal: Present: normal bowel sounds, soft. Absent: distended, organomegaly, rigid, tenderness - Psychiatric Psychiatric: Present: A&O x's 3, appropriate affect, intact judgment & insight - Labs CBC & Chem 7: 10/13/18 06:21 10/13/18 06:21 Labs: Abnormal Lab Results - Last 24 Hours (Table) 10/13/18 10/13/18 Range/Units 06:21 06:21 RBC 3.32 L (4.30-5.90) m/uL Hgb 8.7 L (13.0-17.5) gm/dL Hct 28.4 L (39.0-53.0) % MCHC 30.5 L (31.0-37.0) g/dL Sodium 135 L (137-145) mmol/L BUN 26 H (9-20) mg/dL Calcium 7.5 L (8.4-10.2) mg/dL - Imaging and Cardiology Chest x-ray: report reviewed, image reviewed Assessment and Plan (1) Acute anemia Current Visit: Yes Status: Acute Priority: Medium Code(s): D64.9 - ANEMIA, UNSPECIFIED SNOMED Code(s): 438422599 (2) CHF exacerbation Current Visit: Yes Status: Acute Code(s): I50.9 - HEART FAILURE, UNSPECIFIED SNOMED Code(s): 38083921 (3) COPD (chronic obstructive pulmonary disease) Current Visit: Yes Status: Acute Code(s): J44.9 - CHRONIC OBSTRUCTIVE PULMONARY DISEASE, UNSPECIFIED SNOMED Code(s): 23406831 (4) Elevated troponin Current Visit: Yes Status: Acute Code(s): R74.8 - ABNORMAL LEVELS OF OTHER SERUM ENZYMES SNOMED Code(s): 352962186 (5) Hypokalemia Current Visit: Yes Status: Acute Code(s): E87.6 - HYPOKALEMIA SNOMED Code(s): 44982432 Plan: 1 Patient anemia stable, clinically no evidence of active/acute bleeding. This could be a measurement error initially or a true GI bleed which is not evident yet. Gastroenterology was consulted and currently await their evaluation and input. Most likely patient will need acute intervention but this will help in getting hooked up with the gastric nephrology team so that evaluation can be done as an outpatient. Patient and his was updated and all questions were answered. 2 Patient's CHF is fairly controlled and we will change diuretics to oral. Cardiology team is on board and their input appreciated. Patient's reported that patient has weak heart with ejection fraction less than 20% and she was asking questions about life expectancy. It was recommended To discuss this issue with cardiology team and at this point patient clinical condition is much improved so we will continue medical management. Patient was advised to increase activity as tolerated with assistance and if everything remains stable and if it is okay by cardiology team that patient may be discharged in the morning but short follow-up with PCP/cardiology. Initially there was possible plan for late discharged today but patient requested for tomorrow discharge as he stated that he is not feeling as good to go home today. 3 patient was rescheduled and her liver less treatment with albuterol and that has improved his wheezing/breathing significantly. Patient and his requested to have nebulizer prescribed to him at the time of discharge. 4 patient rest of the management for his chronic stable medical problems will be continued as it is. If patient remains stable and is cleared by cardiology team that he can be discharged home but short follow-up in next 24-48 hours. Time with Patient: Greater than 30 (Patient's pulse was updated per patient's verbal consent and all questions were answered and more than 50% time was spent in counseling.)
--- NOTE | 2018-10-13 17:57 | P.PN ---
Subjective Progress Note Date: 10/13/18 This patient is a 73-year-old gentleman was admitted with evidence of CHF. Patient had previous bypass surgery. Echo showed severely impaired LV function with ejection fraction of less than 20%. Patient is diuresing well. His edema is down. He looks more alert. His hemoglobin is about 8.7 and is potassium is 4.5. Creatinine is 1. Patient is is to be followed by a rv mechanic in [facility]. We'll going to get information regarding previous echocardiogram. Patient could be candidate for possible AICD for LV function is down for a long time. We'll also going to switch him to Entresto. We'll hold her lisinopril now. Continue current medical therapy. Follow electrolytes closely . Objective - Vital Signs Vital signs: Vital Signs Temp 97.4 F L 10/13/18 16:00 Pulse 101 H 10/13/18 16:00 Resp 16 10/13/18 16:00 BP 137/75 10/13/18 16:00 Pulse Ox 98 10/13/18 16:00 Intake & Output 10/12/18 10/13/18 10/13/18 18:59 06:59 18:59 Intake Total 222 720 Output Total 750 1000 950 Balance -528 -1000 -230 Weight 88 kg 88 kg Intake: Oral 222 720 Output: Urine 750 1000 950 Other: Voiding Method Toilet Toilet Toilet Urinal Urinal Urinal # Voids 1 - Exam GENERAL EXAM: Patient is alert and oriented and doesn't appear to be in any acute distress. Looks better than yesterday HEENT: Normocephalic. Normal reaction of pupils, equal size, normal range of extraocular motion. No erythema or exudates in the throat. NECK: No masses, no nuchal rigidity. CHEST: No chest wall deformity. LUNGS: Equal air entry with no crackles or wheeze. HEART: S1 and S2 normal with no audible mumurs or gallops. Regular rhythm, femorals equal on both sides.. ABDOMEN: No hepatosplenomegaly, normal bowel sounds, no guarding or rigidity. SKIN: No rashes CENTRAL NERVOUS SYSTEM: No focal deficits. EXTREMITIES: Resolving edema - Labs CBC & Chem 7: 10/13/18 06:21 10/13/18 06:21 Labs: Abnormal Lab Results - Last 24 Hours (Table) 10/13/18 10/13/18 Range/Units 06:21 06:21 RBC 3.32 L (4.30-5.90) m/uL Hgb 8.7 L (13.0-17.5) gm/dL Hct 28.4 L (39.0-53.0) % MCHC 30.5 L (31.0-37.0) g/dL Sodium 135 L (137-145) mmol/L BUN 26 H (9-20) mg/dL Calcium 7.5 L (8.4-10.2) mg/dL Assessment and Plan (1) COPD (chronic obstructive pulmonary disease) Current Visit: Yes Status: Acute Code(s): J44.9 - CHRONIC OBSTRUCTIVE PULMONARY DISEASE, UNSPECIFIED SNOMED Code(s): 78305446 (2) Anasarca Current Visit: Yes Status: Acute Code(s): R60.1 - GENERALIZED EDEMA SNOMED Code(s): 679340435 (3) CHF exacerbation Current Visit: Yes Status: Acute Code(s): I50.9 - HEART FAILURE, UNSPECIFIED SNOMED Code(s): 21611103 (4) Elevated troponin Current Visit: Yes Status: Acute Code(s): R74.8 - ABNORMAL LEVELS OF OTHER SERUM ENZYMES SNOMED Code(s): 925740087 (5) Hypokalemia Current Visit: Yes Status: Acute Code(s): E87.6 - HYPOKALEMIA SNOMED Code(s): 28736214 (6) Acute anemia Current Visit: Yes Status: Acute Priority: Medium Code(s): D64.9 - ANEMIA, UNSPECIFIED SNOMED Code(s): 732376749 Plan: Patient is feeling better. Seems to be more alert. Diuresing well. Edema is down. LV function is poor. We'll try to get previous records. Patient could be candidate for AICD implantation. We will also try to switch to Entresto.
[2018-10-13] MEDS: MONTELUKAST 10 MG TAB PO SCH (20:27)
[2018-10-13] MEDS: ATORVASTATIN 40 MG TAB PO SCH (20:27)
[2018-10-14 06:39] LABS: HCT 28.2 % (39.0-53.0); Hypochromasia Marked; MCH 26.5 pg (25.0-35.0); Mean Platelet Volume 6.4; Platelet Count 348 k/uL (150-450); Poikilocytosis Slight; RDW 14.7 % (11.5-15.5); WBC 4.6 k/uL (3.8-10.6)
[2018-10-14 07:06] LABS: Calcium 7.4 mg/dL (8.4-10.2); Potassium 4.4 mmol/L (3.5-5.1)
[2018-10-14] MEDS: IPRATROPIUM-ALBUTEROL 3 ML NEB INHALATION SCH ×3 (07:47→20:32)
[2018-10-14] MEDS: HEPARIN SODIUM,PORCINE 5,000 UNIT/ML 1 ML VIAL SQ SCH ×2 (08:38→15:40)
[2018-10-14] MEDS: FUROSEMIDE 40 MG TAB PO SCH ×2 (08:39→15:40)
[2018-10-14] MEDS: METOPROLOL TARTRATE 25 MG TAB PO SCH ×2 (08:39→22:31)
[2018-10-14] MEDS: SPIRONOLACTONE 25 MG TAB PO SCH (08:39)
--- NOTE | 2018-10-14 11:26 | P.PN ---
Subjective Progress Note Date: 10/14/18 Principal diagnosis: lower extremity edema, shortness of breath Patient is a 73-year-old male to past medical history of congestive heart failure, COPD, and coronary artery disease who presented as a transfer to our hospital for acute exacerbation of congestive heart failure and elevated troponin. He was placed on Lasix, Nitropaste, and his troponins were trended. Cardiology was consulted. Patient underwent echocardiogram which showed an ejection fraction less than 20%. In addition to Lasix and Aldactone was started. He has been progressing slowly. Patient seen and examined at bedside. He denies any chest pain, shortness breath, nausea, or vomiting. He states his lower extremity edema is improving. Objective - Vital Signs Vital signs: Vital Signs Temp 97.4 F L 10/14/18 07:38 Pulse 108 H 10/14/18 07:59 Resp 16 10/14/18 07:38 BP 154/79 10/14/18 07:38 Pulse Ox 95 10/14/18 07:47 Intake & Output 10/13/18 10/14/18 10/14/18 17:59 06:59 18:59 Intake Total 400 Output Total Balance 400 Weight Intake: Oral 400 Output: Urine Other: Voiding Method # Voids 1 - Exam General: non toxic, no distress, appears at stated age Derm: warm, dry Head: atraumatic, normocephalic, symmetric Eyes: EOMI, no lid lag, anicteric sclera Mouth: no lip lesion, mucus membranes moist Cardiovascular: S1S2 reg, no murmur, positive posterior tibial pulse bilateral, Lungs: CTA bilateral, no rhonchi, no rales , no accessory muscle use Abdominal: soft, nontender to palpation, no guarding, no appreciable organomegaly Ext: no gross muscle atrophy, trace edema, no contractures Neuro: CN II-XI grossly intact, no focal neuro deficits Psych: Alert, oriented to self and situation, appropriate affect - Labs CBC & Chem 7: 10/14/18 06:04 10/14/18 06:04 Labs: Abnormal Lab Results - Last 24 Hours (Table) 10/14/18 10/14/18 Range/Units 06:04 06:04 RBC 3.40 L (4.30-5.90) m/uL Hgb 9.0 L (13.0-17.5) gm/dL Hct 28.2 L (39.0-53.0) % Sodium 135 L (137-145) mmol/L Carbon Dioxide 33 H (22-30) mmol/L BUN 25 H (9-20) mg/dL Calcium 7.4 L (8.4-10.2) mg/dL Assessment and Plan Assessment: Acute exacerbation of systolic congestive heart ejection fraction less than 20 percent -lopressor, enterestro, lasix, aldactone - strict I and O daily weights - follow vitals - repeat BMP in AM - will need home health, consider palliative care. not at bedside at this time. -? need for AICD - cardio awaiting records from [facility] craps dealer to decided on life vest/aicd. Anemia,stable - outpatinet eval - no signs of bleeding - hgb stable COPD without exacerbation - prn bronchidilators - add claritin Elevated troponin not consistent with MA - cardio recs - continue ASA and plavix - lopressor - statin leukopenia, resolved - follow CBC as outpatient DVT prophylaxis: lovenox Discussed with: patient, nursing, Molly Anticipated discharge: [address]: home with home health A total of 35 minutes was spent on the care of this complex patient more than 50% of the time was spent in counseling and care coordination.
[2018-10-14] MEDS: LORATADINE 10 MG TAB PO SCH (13:09)
--- NOTE | 2018-10-14 13:30 | P.PN ---
Subjective This is a pleasant 73-year-old male admitted to the hospital with congestive heart failure. Past medical history significant for coronary artery disease status post bypass grafting, COPD, dyslipidemia and hypertension. Echocardiogram obtained on this admission reveals severely impaired left ventricular systolic function with ejection fraction less than 20%. Per the patient and his there unsure if this is a chronic condition. He does follow with a shipyard laborer Dr. Hua out of [place] and we will request records from his office first thing tomorrow morning. He is seen and examined sitting up in bed in no acute distress. He states overall he seems to be feeling much better. He denies symptoms of chest pain, shortness of breath, dizziness or palpitations. Laboratory data reviewed, WBC 4.6, hgb 9.0, plt 348, sodium 135, potassium 4.4, creatinine 1.11. Currently maintained on atorvastatin 40 mg daily, lasix IV BID, lopressor 25 mg BID and aldactone 12.5 mg daily. Entresto 24/26 mg BID to start tomorrow morning. GENERAL: Well-appearing, well-nourished and in no acute distress. NECK: Supple without JVD or thyromegaly. LUNGS: Faint scattered expiratory wheezes noted. No rales or rhonchi. Respiration equal and unlabored. HEART: Regular rate and rhythm without murmurs, rubs or gallops. S1 and S2 heard. EXTREMITIES: Normal range of motion, trace bilateral lower extremity edema improving. No clubbing or cyanosis. Peripheral pulses intact. ASSESSMENT Acute systolic heart failure COPD Anasarca Acute anemia Troponin abnormality not consistent with an acute myocardial infarction PLAN Continue current medical regimen. Entresto to begin tomorrow morning. We will await records from his primary shipyard laborer and make a decision regarding AICD implantation/recommendations. Nurse Practitioner note has been reviewed, I agree with a documented findings and plan of care. Patient was seen and examined. Objective - Vital Signs Vital signs: Vital Signs Temp 97.3 F L 10/14/18 11:32 Pulse 90 10/14/18 13:05 Resp 16 10/14/18 11:32 BP 124/73 10/14/18 11:32 Pulse Ox 96 10/14/18 11:32 Intake & Output 10/13/18 10/14/18 10/14/18 17:59 06:59 18:59 Intake Total 640 Output Total Balance 640 Weight Intake: Oral 640 Output: Urine Other: Voiding Method # Voids 1 - Labs CBC & Chem 7: 10/14/18 06:04 10/14/18 06:04 Labs: Abnormal Lab Results - Last 24 Hours (Table) 10/14/18 10/14/18 Range/Units 06:04 06:04 RBC 3.40 L (4.30-5.90) m/uL Hgb 9.0 L (13.0-17.5) gm/dL Hct 28.2 L (39.0-53.0) % Sodium 135 L (137-145) mmol/L Carbon Dioxide 33 H (22-30) mmol/L BUN 25 H (9-20) mg/dL Calcium 7.4 L (8.4-10.2) mg/dL
[2018-10-14] MEDS ORDERED: PANTOPRAZOLE 40 MG/10 ML VIAL IVP ONE (18:51)
[2018-10-14] MEDS: ONDANSETRON 4 MG/2 ML VIAL IVP PRN (18:58)
--- NOTE | 2018-10-14 18:59 | P.PN ---
Progress Note - Text Progress Note Date: 10/14/18 Hospitalist Interval Note Called to see patient regarding sudden onset of abdominal pain. Patient seen and examined at bedside. He states that he ate dinner and had one bite of pork. After that he started having sudden onset left abdominal pain, left lower quadrant without radiation. He describes it as sharp in nature. It was immediately followed by vomiting of dark emesis. He denies any diarrhea. Not having any chest pain or shortness of breath. Vital signs reviewed General: Ill appearing, moderate distress, appears at stated age Derm: warm, dry Head: atraumatic, normocephalic, symmetric Eyes: EOMI, no lid lag, anicteric sclera Mouth: no lip lesion, mucus membranes moist Cardiovascular: S1S2 reg, no murmur, positive posterior tibial pulse bilateral, Lungs: Decreased breath sounds bilateral, no rhonchi, no rales , no accessory muscle use Abdominal: soft, tender to palpation left lower quadrant, no guarding, no appreciable organomegaly, no rebound Psych: Alert, oriented, appropriate affect Assessment/Plan: 1. Acute onset left lower quadrant pain associated with vomiting-check CBC, CMP, EKG did not show any acute ischemic changes, check troponin, stat CT abdomen and pelvis without contrast to rule out obstruction or perforation. Protonic IV push. Nothing by mouth. Zofran. We will follow closely. CBC again in 6 hours. Emesis does not appear bloody on exam. Patient is in sinus tach with know documented known afib. Concerns are for obstruction, perforation, ischemic colitis, diverticulitis, sigmoid volvus. gentle IVF due to vomiting. Hold lasix. Follow vitals closely and maintain telemetry This is an update note for patient , for full note on 10/14 see progress note. There is no charge associated with this note.
[2018-10-14] MEDS ORDERED: SODIUM CHLORIDE 0.9% 500 ML 250 ML IV ONE (19:00)
[2018-10-14 19:04] LABS: Basophils % (A) 1 %; Eosinophils # (A) 0.1 k/uL (0-0.7); Eosinophils % (A) 4 %; HCT 29.5 % (39.0-53.0); Hypochromasia Marked; Lymphocytes # (A) 0.8 k/uL (1.0-4.8); Lymphocytes % (A) 20 %; MCH 25.4 pg (25.0-35.0); MCHC 30.3 g/dL (31.0-37.0); MCV 83.8 fL (80.0-100.0); Mean Platelet Volume 6.3; Monocytes # (A) 0.2 k/uL (0-1.0); Monocytes % (A) 6 %; Neutrophils # (A) 2.7 k/uL (1.3-7.7); Neutrophils % (A) 67 %; Platelet Count 416 k/uL (150-450); Poikilocytosis Slight; RBC 3.53 m/uL (4.30-5.90); RDW 14.6 % (11.5-15.5)
[2018-10-14] MEDS ORDERED: MORPHINE SULFATE 2 MG/ML SYRINGE IVP PRN (19:14)
[2018-10-14] MEDS ORDERED: MORPHINE SULFATE 4 MG/ML SYRINGE IVP PRN (19:14)
[2018-10-14] MEDS ORDERED: ACETAMINOPHEN TAB 325 MG TAB PO PRN (19:15)
[2018-10-14 19:17] LABS: Albumin 1.9 g/dL (3.5-5.0); Calcium 7.5 mg/dL (8.4-10.2); Potassium 4.2 mmol/L (3.5-5.1); Total Bilirubin 0.4 mg/dL (0.2-1.3); Total Protein 4.1 g/dL (6.3-8.2)
[2018-10-14] MEDS: SODIUM CHLORIDE 0.9% 1,000 ML IV SCH (19:53)
--- NOTE | 2018-10-14 20:12 | CT ---
EXAMINATION TYPE: CT abdomen pelvis wo con DATE OF EXAM: 10/14/2018 COMPARISON: Chest x-ray 10/13/2018 HISTORY: Acute abdominal pain, vomiting CT DLP: 616.6 mGycm Automated exposure control for dose reduction was used. TECHNIQUE: Helical acquisition of images from the lung bases through the pelvis. FINDINGS: Lack of contrast may compromise sensitivity. There is an intrathoracic stomach present. The stomach is dilated and shows an air-fluid level. Portion of the stomach is present in the left upper quadrant, proximal small bowel also present within the hiatal hernia within the chest. Heart is like ly enlarged. LUNG BASES: Bibasilar effusions and associated atelectasis. Some increased density present in the lef t lung base is indeterminate. AORTA: No abdominal aorta shows atheromatous change and is dilated at 3.6 cm infrarenal location. LIVER/GB: No significant abnormality is appreciated. PANCREAS: No significant abnormality is seen. SPLEEN: No significant abnormality is seen. ADRENALS: No significant abnormality is seen. KIDNEYS: Cystic focus is associated with the posterior left kidney REPRODUCTIVE ORGANS: Prostate is enlarged. Fluid density present in the left inguinal canal. URINARY BLADDER: Small calcification present in the urinary bladder near the level of the distal ure ter BOWEL: Extensive diverticular changes associated especially with the sigmoid colon FREE AIR: No Free Air is visible. ASCITES: None visible. PELVIC ADENOPATHY: None visualized. RETROPERITONEAL ADENOPATHY: No Retroperitoneal Adenopathy visible. OSSEOUS STRUCTURES: No significant abnormality is seen. IMPRESSION: FINDINGS COMPATIBLE WITH GASTRIC VOLVULUS WITH LARGE HIATAL HERNIA. RECOMMEND SURGICAL CONSULT NONCON TRAST EXAM. INFRARENAL ABDOMINAL AORTIC ANEURYSM. DIVERTICULOSIS. BLADDER CALCULUS.
--- NOTE | 2018-10-14 21:02 | P.PN ---
Progress Note - Text Progress Note Date: 10/14/18 I checked on the patient and examined him after the results of the CAT scan clinically he looks stable and comfortable he has some coffee-ground emesis on the bedside small amounts. Patient is not a complainer he denies any issues he seemed to be comfortable he was holding his breathing treatments with his own hands. Patient only complaining of some left lower quadrant pain Vital signs seems to be stable except from tachycardia at 10 4 bpm Abdomen seems to be soft some tenderness to palpation over the left lower quadrant no guarding no rebound tenderness, bowel sounds are positive Chest good breath sounds bilaterally some decreased breath sounds at lung bases I did call Dr. Hoskins from general surgery and discussed the case with him he will review the images for further recommendations We'll keep the patient nothing by mouth for now Continue with IV fluid hydration Discontinue heparin for DVT prophylaxis Discontinue spironolactone Check lactic acid Continue with close monitoring PPI twice a day IV GI is already on the case and consulted I think the patient continues to be appropriate to be managed on the stepdown unit for now, we'll continue close monitoring and if any deterioration or changes in his clinical status we'll reassess and make further recommendations.
[2018-10-14] MEDS: MONTELUKAST 10 MG TAB PO SCH (22:32)
[2018-10-14] MEDS: ATORVASTATIN 40 MG TAB PO SCH (22:32)
[2018-10-15 02:04] LABS: HCT 24.9 % (39.0-53.0); Hypochromasia Marked; MCH 25.3 pg (25.0-35.0); MCHC 30.3 g/dL (31.0-37.0); MCV 83.7 fL (80.0-100.0); Mean Platelet Volume 6.4; Platelet Count 375 k/uL (150-450); Poikilocytosis Slight; RBC 2.98 m/uL (4.30-5.90); RDW 14.7 % (11.5-15.5); WBC 4.6 k/uL (3.8-10.6)
[2018-10-15 02:24] LABS: HGB 7.5 gm/dL (13.0-17.5)
[2018-10-15 06:43] LABS: HCT 24.3 % (39.0-53.0); HGB 7.4 gm/dL (13.0-17.5); Hypochromasia Marked; MCH 25.4 pg (25.0-35.0); MCHC 30.3 g/dL (31.0-37.0); MCV 83.8 fL (80.0-100.0); Platelet Count 348 k/uL (150-450); Poikilocytosis Slight; RDW 14.5 % (11.5-15.5)
[2018-10-15 06:50] LABS: Calcium 7.1 mg/dL (8.4-10.2); Potassium 5.1 mmol/L (3.5-5.1)
[2018-10-15] MEDS: SODIUM CHLORIDE 0.9% 1,000 ML IV SCH ×2 (06:59→15:09)
[2018-10-15] MEDS: IPRATROPIUM-ALBUTEROL 3 ML NEB INHALATION SCH ×3 (07:34→19:07)
[2018-10-15] MEDS: METOPROLOL TARTRATE 25 MG TAB PO SCH ×2 (09:29→19:48)
[2018-10-15] MEDS: LORATADINE 10 MG TAB PO SCH (09:29)
[2018-10-15] MEDS: SACUBITRIL/VALSARTAN 24 MG-26 MG TABLET PO SCH ×2 (09:29→19:49)
[2018-10-15] MEDS: PANTOPRAZOLE 40 MG/10 ML VIAL IVP SCH ×2 (09:44→19:54)
--- NOTE | 2018-10-15 10:03 | XR ---
EXAMINATION TYPE: XR chest 1V portable DATE OF EXAM: 10/15/2018 CLINICAL HISTORY: Difficulty breathing progress study. TECHNIQUE: Single AP portable upright view of the chest is obtained. COMPARISON: Chest x-ray from 2 days earlier and older studies. FINDINGS: New nasogastric tube is felt coiled with tip projecting back towards dima. Post CABG changes with mediastinal clips and sternal wires is redemonstrated. There is chronic emphys ematous change with left greater than right bibasilar opacities remaining present. Cardiac silhouette size is stable and upper limits of normal. Osseous structures are intact. IMPRESSION: 1. New nasogastric tube coiled projecting cranially in the distal esophagus. Repositioning advised. 2. Persistent chronic emphysematous change with small to tiny left greater than right pleural effusio ns and focal left basilar atelectasis and/or infiltrate all redemonstrated.
[2018-10-15] MEDS ORDERED: PROPOFOL 10 MG/ML 20 ML VIAL IV ONE (10:36)
[2018-10-15] MEDS ORDERED: LIDOCAINE 1% INJ 10MG/ML (20 ML MDV) ONE (10:36)
[2018-10-15] MEDS ORDERED: IV FLUID CONTINUATION 800 ML IV ONE (10:37)
--- NOTE | 2018-10-15 10:37 | P.GSCN ---
History of Present Illness Consult date: 10/15/18 Reason for Consult: Gastric volvulus, intrathoracic stomach History of present illness: Cyst 73-year-old male admitted to the medicine service. Patient had an episode of vomiting with hematemesis yesterday. Patient had a noncontrast CAT scan which showed evidence of a hiatal hernia with intrathoracic stomach and possible gastric volvulus. She denies any significant abdominal pain. He has had nausea vomiting for a few days. Past Medical History Past Medical History: Heart Failure, COPD History of Any Multi-Drug Resistant Organisms: None Reported Past Surgical History: Coronary Bypass/CABG Past Psychological History: No Psychological Hx Reported Smoking Status: Never smoker Past Alcohol Use History: None Reported Past Drug Use History: None Reported - Past Family History family Family Medical History: No Reported History Medications and Allergies Home Medications Medication Instructions Recorded Confirmed Type Albuterol Inhaler [Ventolin Hfa 1 - 2 puff INHALATION RT-QID 10/11/18 10/11/18 History Inhaler] Aspirin 81 mg PO HS 10/11/18 10/11/18 History Atorvastatin [Lipitor] 40 mg PO HS 10/11/18 10/11/18 History Clopidogrel [Plavix] 75 mg PO DAILY 10/11/18 10/11/18 History Furosemide [Lasix] 20 mg PO DAILY 10/11/18 10/11/18 History Lisinopril [Zestril] 5 mg PO DAILY 10/11/18 10/11/18 History Metoprolol Tartrate [Lopressor] 25 mg PO BID 10/11/18 10/11/18 History Montelukast [Singulair] 10 mg PO HS 10/11/18 10/11/18 History Potassium Chloride ER [K-Dur 10] 10 meq PO DAILY 10/11/18 10/11/18 History Allergies Allergy/AdvReac Type Severity Reaction Status Date / Time No Known Allergies Allergy Verified 10/11/18 20:43 Surgical - Exam Vital Signs Temp Pulse Resp BP Pulse Ox 97.9 F 16 L 96 H 140/84 95 10/11/18 20:01 10/11/18 20:01 10/11/18 20:01 10/11/18 20:01 10/11/18 20:01 - General well developed, well nourished, no distress - Eyes PERRL - ENT normal pinna - Neck no masses - Respiratory normal expansion - Cardiovascular Rhythm: regular - Abdomen Abdomen: soft, non tender Results - Labs 10/15/18 05:54 10/15/18 05:54 Abnormal Lab Results - Last 24 Hours (Table) 10/14/18 10/14/18 10/14/18 Range/Units 18:45 18:45 18:45 RBC 3.53 L (4.30-5.90) m/uL Hgb 9.0 L (13.0-17.5) gm/dL Hct 29.5 L (39.0-53.0) % MCHC 30.3 L (31.0-37.0) g/dL Lymphocytes # 0.8 L (1.0-4.8) k/uL Sodium 136 L (137-145) mmol/L Carbon Dioxide 35 H (22-30) mmol/L BUN 32 H (9-20) mg/dL Creatinine 1.30 H (0.66-1.25) mg/dL Glucose 119 H (74-99) mg/dL Calcium 7.5 L (8.4-10.2) mg/dL Troponin I 0.203 H* (0.000-0.034) ng/mL Total Protein 4.1 L (6.3-8.2) g/dL Albumin 1.9 L (3.5-5.0) g/dL 10/15/18 10/15/18 10/15/18 Range/Units 01:20 05:54 05:54 RBC 2.98 L 2.90 L (4.30-5.90) m/uL Hgb 7.5 L D 7.4 L (13.0-17.5) gm/dL Hct 24.9 L 24.3 L (39.0-53.0) % MCHC 30.3 L 30.3 L (31.0-37.0) g/dL Lymphocytes # (1.0-4.8) k/uL Sodium 135 L (137-145) mmol/L Carbon Dioxide (22-30) mmol/L BUN 44 H (9-20) mg/dL Creatinine (0.66-1.25) mg/dL Glucose (74-99) mg/dL Calcium 7.1 L (8.4-10.2) mg/dL Troponin I (0.000-0.034) ng/mL Total Protein (6.3-8.2) g/dL Albumin (3.5-5.0) g/dL Diabetes panel 10/14/18 10/15/18 Range/Units 18:45 05:54 Sodium 136 L 135 L (137-145) mmol/L Potassium 4.2 5.1 (3.5-5.1) mmol/L Chloride 100 105 (98-107) mmol/L Carbon Dioxide 35 H 29 (22-30) mmol/L BUN 32 H 44 H (9-20) mg/dL Creatinine 1.30 H 1.24 (0.66-1.25) mg/dL Glucose 119 H 93 (74-99) mg/dL Calcium 7.5 L 7.1 L (8.4-10.2) mg/dL AST 37 (17-59) U/L ALT 38 (21-72) U/L Alkaline Phosphatase 92 (38-126) U/L Total Protein 4.1 L (6.3-8.2) g/dL Albumin 1.9 L (3.5-5.0) g/dL Calcium panel 10/14/18 10/15/18 Range/Units 18:45 05:54 Calcium 7.5 L 7.1 L (8.4-10.2) mg/dL Albumin 1.9 L (3.5-5.0) g/dL Pituitary panel 10/14/18 10/15/18 Range/Units 18:45 05:54 Sodium 136 L 135 L (137-145) mmol/L Potassium 4.2 5.1 (3.5-5.1) mmol/L Chloride 100 105 (98-107) mmol/L Carbon Dioxide 35 H 29 (22-30) mmol/L BUN 32 H 44 H (9-20) mg/dL Creatinine 1.30 H 1.24 (0.66-1.25) mg/dL Glucose 119 H 93 (74-99) mg/dL Calcium 7.5 L 7.1 L (8.4-10.2) mg/dL Adrenal panel 10/14/18 10/15/18 Range/Units 18:45 05:54 Sodium 136 L 135 L (137-145) mmol/L Potassium 4.2 5.1 (3.5-5.1) mmol/L Chloride 100 105 (98-107) mmol/L Carbon Dioxide 35 H 29 (22-30) mmol/L BUN 32 H 44 H (9-20) mg/dL Creatinine 1.30 H 1.24 (0.66-1.25) mg/dL Glucose 119 H 93 (74-99) mg/dL Calcium 7.5 L 7.1 L (8.4-10.2) mg/dL Total Bilirubin 0.4 (0.2-1.3) mg/dL AST 37 (17-59) U/L ALT 38 (21-72) U/L Alkaline Phosphatase 92 (38-126) U/L Total Protein 4.1 L (6.3-8.2) g/dL Albumin 1.9 L (3.5-5.0) g/dL Assessment and Plan Assessment: Intrathoracic stomach with gastric volvulus and hiatal hernia. Patient will un dergo EGD today. He may require emergent repair of his hiatal hernia and reduction of gastric volvulus.
--- NOTE | 2018-10-15 10:38 | P.GSCN ---
History of Present Illness Consult date: 10/15/18 Reason for Consult: Stomach volvulus and hiatal hernia Requesting physician: Perlita Mclaughlin History of present illness: CHIEF COMPLAINT: Stomach volvulus and hiatal hernia HISTORY OF PRESENT ILLNESS: 73-year-old male who was originally admitted to the hospital with congestive heart failure. Yesterday patient had a sudden onset of abdominal pain after eating one bite of his dinner. The patient also had dark emesis yesterday. He underwent CT abdomen and pelvis yesterday which revealed findings compatible with gastric volvulus with large hiatal hernia. NG tube was placed by nursing this morning. X-ray reveals NG is in the patient's esophagus. Spoke with RN, Erlinda, and relayed message that patient's NG tube needs to be repositioned. PAST MEDICAL HISTORY: See list. PAST SURGICAL HISTORY: See list. MEDICATIONS: See list. ALLERGIES: See list. SOCIAL HISTORY: No illicit drug use. REVIEW OF SYSTEMS: CONSTITUTIONAL: Denies fever or chills. HEENT: Denies blurred vision, vision changes, or eye pain. Denies hemoptysis ENDOCRINE: Denies heat or cold intolerance. CARDIOVASCULAR: Denies chest pain or pressure. RESPIRATORY: No shortness of breath. GASTROINTESTINAL: Reports abdominal pain. Reports nausea and vomiting yesterday. NEURO: Denies history of seizures. PSYCH: No depression or suicidal ideation HEMATOLOGIC: Denies bleeding disorders. LYMPHATIC: The patient denies any lumps and bumps around the neck. GENITOURINARY: Denies any blood in urine or increased urinary frequency. MUSCULOSKELETAL: Denies myalgias. Denies joint swelling. Denies decreased range of motion beyond patients baseline. SKIN: Denies pruitis. Denies rash. PHYSICAL EXAM: VITAL SIGNS: Currently stable. GENERAL: Well-developed in no acute distress. HEENT: NG to LIS. No sclera icterus. Extraocular movements grossly intact. Moist buccal mucosa. Head is atraumatic, normocephalic. Hears conversational speech. No nasal drainage. NECK: Supple without lymphadenopathy. CHEST: Non-labored respirations and equal bilateral excursions. CARDIOVASCULAR: Regular rate with regular rhythm. Palpable 2+ radial pulses. ABDOMEN: Soft. Nondistended. Tenderness upon palpation of all 4 quadrants. MUSCULOSKELETAL: No clubbing, cyanosis. NEUROLOGIC: No focal or lateralizing signs. Cranial nerves II through XII grossly intact. PSYCH: Appropriate affect. Alert and oriented to person, place and time. SKIN: Well perfused. Good skin turgor. ASSESSMENT: 1. Abdominal pain with episode of emesis 2. Gastric volvulus with large hiatal hernia PLAN: 1. NPO 2. RN notified to adjust NG tube 3. Patient to undergo EGD 4. Possible laparoscopic repair of hiatal hernia and gastric volvulus Nurse practitioner note has been reviewed by physician. Signing provider agrees with the documented findings, assessment, and plan of care. Past Medical History Past Medical History: Heart Failure, COPD History of Any Multi-Drug Resistant Organisms: None Reported Past Surgical History: Coronary Bypass/CABG Past Psychological History: No Psychological Hx Reported Smoking Status: Never smoker Past Alcohol Use History: None Reported Past Drug Use History: None Reported - Past Family History family Family Medical History: No Reported History Medications and Allergies Home Medications Medication Instructions Recorded Confirmed Type Albuterol Inhaler [Ventolin Hfa 1 - 2 puff INHALATION RT-QID 10/11/18 10/11/18 History Inhaler] Aspirin 81 mg PO HS 10/11/18 10/11/18 History Atorvastatin [Lipitor] 40 mg PO HS 10/11/18 10/11/18 History Clopidogrel [Plavix] 75 mg PO DAILY 10/11/18 10/11/18 History Furosemide [Lasix] 20 mg PO DAILY 10/11/18 10/11/18 History Lisinopril [Zestril] 5 mg PO DAILY 10/11/18 10/11/18 History Metoprolol Tartrate [Lopressor] 25 mg PO BID 10/11/18 10/11/18 History Montelukast [Singulair] 10 mg PO HS 10/11/18 10/11/18 History Potassium Chloride ER [K-Dur 10] 10 meq PO DAILY 10/11/18 10/11/18 History Allergies Allergy/AdvReac Type Severity Reaction Status Date / Time No Known Allergies Allergy Verified 10/11/18 20:43 Surgical - Exam Vital Signs Temp Pulse Resp BP Pulse Ox 97.9 F 16 L 96 H 140/84 95 10/11/18 20:01 10/11/18 20:01 10/11/18 20:01 10/11/18 20:01 10/11/18 20:01 Results - Labs 10/15/18 05:54 10/15/18 05:54 Abnormal Lab Results - Last 24 Hours (Table) 10/14/18 10/14/18 10/14/18 Range/Units 18:45 18:45 18:45 RBC 3.53 L (4.30-5.90) m/uL Hgb 9.0 L (13.0-17.5) gm/dL Hct 29.5 L (39.0-53.0) % MCHC 30.3 L (31.0-37.0) g/dL Lymphocytes # 0.8 L (1.0-4.8) k/uL Sodium 136 L (137-145) mmol/L Carbon Dioxide 35 H (22-30) mmol/L BUN 32 H (9-20) mg/dL Creatinine 1.30 H (0.66-1.25) mg/dL Glucose 119 H (74-99) mg/dL Calcium 7.5 L (8.4-10.2) mg/dL Troponin I 0.203 H* (0.000-0.034) ng/mL Total Protein 4.1 L (6.3-8.2) g/dL Albumin 1.9 L (3.5-5.0) g/dL 10/15/18 10/15/18 10/15/18 Range/Units 01:20 05:54 05:54 RBC 2.98 L 2.90 L (4.30-5.90) m/uL Hgb 7.5 L D 7.4 L (13.0-17.5) gm/dL Hct 24.9 L 24.3 L (39.0-53.0) % MCHC 30.3 L 30.3 L (31.0-37.0) g/dL Lymphocytes # (1.0-4.8) k/uL Sodium 135 L (137-145) mmol/L Carbon Dioxide (22-30) mmol/L BUN 44 H (9-20) mg/dL Creatinine (0.66-1.25) mg/dL Glucose (74-99) mg/dL Calcium 7.1 L (8.4-10.2) mg/dL Troponin I (0.000-0.034) ng/mL Total Protein (6.3-8.2) g/dL Albumin (3.5-5.0) g/dL Diabetes panel 10/14/18 10/15/18 Range/Units 18:45 05:54 Sodium 136 L 135 L (137-145) mmol/L Potassium 4.2 5.1 (3.5-5.1) mmol/L Chloride 100 105 (98-107) mmol/L Carbon Dioxide 35 H 29 (22-30) mmol/L BUN 32 H 44 H (9-20) mg/dL Creatinine 1.30 H 1.24 (0.66-1.25) mg/dL Glucose 119 H 93 (74-99) mg/dL Calcium 7.5 L 7.1 L (8.4-10.2) mg/dL AST 37 (17-59) U/L ALT 38 (21-72) U/L Alkaline Phosphatase 92 (38-126) U/L Total Protein 4.1 L (6.3-8.2) g/dL Albumin 1.9 L (3.5-5.0) g/dL Calcium panel 10/14/18 10/15/18 Range/Units 18:45 05:54 Calcium 7.5 L 7.1 L (8.4-10.2) mg/dL Albumin 1.9 L (3.5-5.0) g/dL Pituitary panel 10/14/18 10/15/18 Range/Units 18:45 05:54 Sodium 136 L 135 L (137-145) mmol/L Potassium 4.2 5.1 (3.5-5.1) mmol/L Chloride 100 105 (98-107) mmol/L Carbon Dioxide 35 H 29 (22-30) mmol/L BUN 32 H 44 H (9-20) mg/dL Creatinine 1.30 H 1.24 (0.66-1.25) mg/dL Glucose 119 H 93 (74-99) mg/dL Calcium 7.5 L 7.1 L (8.4-10.2) mg/dL Adrenal panel 10/14/18 10/15/18 Range/Units 18:45 05:54 Sodium 136 L 135 L (137-145) mmol/L Potassium 4.2 5.1 (3.5-5.1) mmol/L Chloride 100 105 (98-107) mmol/L Carbon Dioxide 35 H 29 (22-30) mmol/L BUN 32 H 44 H (9-20) mg/dL Creatinine 1.30 H 1.24 (0.66-1.25) mg/dL Glucose 119 H 93 (74-99) mg/dL Calcium 7.5 L 7.1 L (8.4-10.2) mg/dL Total Bilirubin 0.4 (0.2-1.3) mg/dL AST 37 (17-59) U/L ALT 38 (21-72) U/L Alkaline Phosphatase 92 (38-126) U/L Total Protein 4.1 L (6.3-8.2) g/dL Albumin 1.9 L (3.5-5.0) g/dL
--- NOTE | 2018-10-15 10:47 | P.OP ---
Date of Procedure: 10/15/18 Preoperative Diagnosis: Intrathoracic stomach, gastric volvulus Postoperative Diagnosis: Interthoracic stomach, gastric volvulus Procedure(s) Performed: EGD Anesthesia: MAC Surgeon: Gustavo Hoskins Pathology: none sent Condition: stable Disposition: floor Description of Procedure: The patient's placed on the endoscopy table in the lateral position. He received IV sedation. The gastroscope placed oropharynx and passed in the esophagus and into the stomach. The patient had intrathoracic stomach. The scope could not be passed in the distal stomach secondary to torsion of the stomach suggestive of a gastric volvulus. At this point the scope was withdrawn. The mucosa stomach appeared viable. There is known to any ischemia. The GE junction was at 36 cm. The distal esophagus and proximal esophagus appeared normal. Scope was withdrawn for patient.
--- NOTE | 2018-10-15 11:41 | P.PN ---
Subjective Progress Note Date: 10/15/18 (Delayed charting patient seen at 0920) Principal diagnosis: lower extremity edema, shortness of breath Patient is a 73-year-old male to past medical history of congestive heart failure, COPD, and coronary artery disease who presented as a transfer to our hospital for acute exacerbation of congestive heart failure and elevated troponin. He was placed on Lasix, Nitropaste, and his troponins were trended. Cardiology was consulted. Patient underwent echocardiogram which showed an ejection fraction less than 20%. In addition to Lasix and Aldactone was started. He has been progressing slowly. On the evening of 10/14 he developed sudden onset abdominal and underwent emergent CT which shower haital hernia and gastric volvulus. He was seen by Dr. Eid on 10/15 and underwent EGD but volvulus unable to be reduced. Patient seen and examined at bedside. Patient states he is feeling well other than the pain in his nose form the NGT. He denies any chest pain, abdomianl pain, sob, or nausea. Patient is a poor historian but denies any recent chest pain or shortness of breath recnetly states he walks without difficulty. Objective - Vital Signs Vital signs: Vital Signs Temp 98.9 F 10/15/18 07:58 Pulse 99 10/15/18 07:58 Resp 16 10/15/18 07:58 BP 122/70 10/15/18 07:58 Pulse Ox 94 L 10/15/18 07:58 Intake & Output 10/14/18 10/15/18 10/15/18 18:59 06:59 18:59 Intake Total 740 50 Output Total 700 Balance 740 -700 50 Weight 89 kg Intake: IV 50 Oral 740 Output: Urine 700 Other: Voiding Method Toilet Urinal # Voids 1 1 # Emeses 3 - Exam General: non toxic, no distress, appears at stated age Derm: warm, dry Head: atraumatic, normocephalic, symmetric Eyes: EOMI, no lid lag, anicteric sclera Mouth: no lip lesion, mucus membranes moist Cardiovascular: S1S2 reg, no murmur, positive posterior tibial pulse bilateral, Lungs: decreased bs bilateral, no rhonchi, no rales , no accessory muscle use Abdominal: soft, nontender to palpation, no guarding, no appreciable organomegaly Ext: no gross muscle atrophy, trace edema, no contractures Neuro: CN II-XI grossly intact, no focal neuro deficits Psych: Alert, oriented to self and situation, appropriate affect - Labs CBC & Chem 7: 10/15/18 05:54 10/15/18 05:54 Labs: Abnormal Lab Results - Last 24 Hours (Table) 10/14/18 10/14/18 10/14/18 Range/Units 18:45 18:45 18:45 RBC 3.53 L (4.30-5.90) m/uL Hgb 9.0 L (13.0-17.5) gm/dL Hct 29.5 L (39.0-53.0) % MCHC 30.3 L (31.0-37.0) g/dL Lymphocytes # 0.8 L (1.0-4.8) k/uL Sodium 136 L (137-145) mmol/L Carbon Dioxide 35 H (22-30) mmol/L BUN 32 H (9-20) mg/dL Creatinine 1.30 H (0.66-1.25) mg/dL Glucose 119 H (74-99) mg/dL Calcium 7.5 L (8.4-10.2) mg/dL Troponin I 0.203 H* (0.000-0.034) ng/mL Total Protein 4.1 L (6.3-8.2) g/dL Albumin 1.9 L (3.5-5.0) g/dL 10/15/18 10/15/18 10/15/18 Range/Units 01:20 05:54 05:54 RBC 2.98 L 2.90 L (4.30-5.90) m/uL Hgb 7.5 L D 7.4 L (13.0-17.5) gm/dL Hct 24.9 L 24.3 L (39.0-53.0) % MCHC 30.3 L 30.3 L (31.0-37.0) g/dL Lymphocytes # (1.0-4.8) k/uL Sodium 135 L (137-145) mmol/L Carbon Dioxide (22-30) mmol/L BUN 44 H (9-20) mg/dL Creatinine (0.66-1.25) mg/dL Glucose (74-99) mg/dL Calcium 7.1 L (8.4-10.2) mg/dL Troponin I (0.000-0.034) ng/mL Total Protein (6.3-8.2) g/dL Albumin (3.5-5.0) g/dL EKG, Sinus tach, normal interval, normal axis, no ischemic changes. Assessment and Plan Assessment: Gastric volvulus - NGT - Pain medications - surgery consult, plan is for OR today - Patient is at high, but not prehibitive risk for this non cardiac surgery. I do not recommended any additional testing prior to surgery. His RCRI 3 associated with a 15 % risk, Recommned NT pro BNP again today and if greater than 300 should have an EKG in PACU and a troponin in the morning. Acute exacerbation of systolic congestive heart ejection fraction less than 20 percent - lopressor, enterestro, lasix, aldactone, High copay for enteresto and CM to check with if able to afford. - strict I and O daily weights - follow vitals - repeat BMP in AM - will need home health, consider palliative care. not at bedside at this time. -? need for AICD - cardio [facility] to decided on life vest/aicd. Anemia,slight drop yesterday [facility] - dark emesis, on IV protonix - GI on consult COPD without exacerbation - prn bronchidilators - claritin Elevated troponin not consistent with AR - cardio recs - continue ASA and plavix - lopressor - statin leukopenia, resolved - follow CBC as outpatient DVT prophylaxis: lovenox Discussed with: patient, nursing, Kathie SAMPLE PROCESSOR Anticipated discharge: undetermined pending surgical eval Anticipated discharge place: home with home health A total of 45 minutes was spent on the care of this complex patient more than 50 % of the time was spent in counseling and care coordination.
--- NOTE | 2018-10-15 12:12 | XR ---
EXAMINATION TYPE: XR chest 1V portable DATE OF EXAM: 10/15/2018 HISTORY: Shortness of breath. COMPARISON: 10/15/2018 TECHNIQUE: Single view of the chest is submitted. FINDINGS: NG tube is seen coursing into the stomach. Large fixed hiatal hernia. Demonstrated are scattered senescent parenchymal change. Left basilar increased density may reflect underlying infiltrate, effusion and/or atelectasis. The heart is stable. Hilar and mediastinal structures are within normal limits. Degenerative changes are seen of the dorsal spine. IMPRESSION: 1. Left basilar increased density may reflect underlying infiltrate, effusion and/or atelectasis.
[2018-10-15] MEDS ORDERED: HYDROmorphone 1 MG/ML 1 ML SYRINGE IVP ONE (13:03)
--- NOTE | 2018-10-15 13:12 | P.PN ---
Subjective Progress Note Date: 10/15/18 This is a pleasant 73-year-old male admitted to the hospital with congestive heart failure. Past medical history significant for coronary artery disease status post bypass grafting, COPD, dyslipidemia and hypertension. Echocardiogram obtained on this admission reveals severely impaired left v entricular systolic function with ejection fraction less than 20%. Per the patient and his there unsure if this is a chronic condition. He does follow with a information systems technician Dr. Hua out of [place] and we will request records from his office first thing tomorrow morning. He is seen and examined sitting up in bed in no acute distress. He states overall he seems to be feeling much better. He denies symptoms of chest pain, shortness of breath, dizziness or palpitations. Laboratory data reviewed, WBC 4.6, hgb 9.0, plt 348, sodium 135, potassium 4.4, creatinine 1.11. Currently maintained on atorvastatin 40 mg daily, lasix IV BID, lopressor 25 mg BID and aldactone 12.5 mg daily. Entresto 24/26 mg BID to start today. Throughout the evening last night, patient developed abdominal discomfort, CT of the abdomen was performed, compatible with gastric volvulus with large hiatal hernia. Patient has been seen by surgery, advised to undergo urgent surgery. His echocardiogram with Doppler study performed here showed an ejection fraction of less than 20%. We did have a discussion with the patient explaining that his need for surgery is eminent however his risk is considered high. Objective - Vital Signs Vital signs: Vital Signs Temp 98.9 F 10/15/18 07:58 Pulse 104 H 10/15/18 11:45 Resp 16 10/15/18 11:45 BP 160/94 10/15/18 11:45 Pulse Ox 94 L 10/15/18 11:45 Intake & Output 10/14/18 10/15/18 10/15/18 18:59 06:59 18:59 Intake Total 740 50 Output Total 700 Balance 740 -700 50 Weight 89 kg Intake: IV 50 Oral 740 Output: Urine 700 Other: Voiding Method Toilet Urinal # Voids 1 1 # Emeses 3 - Exam GENERAL: Well-appearing, well-nourished and in no acute distress. NECK: Supple without JVD or thyromegaly. NG tube in place. LUNGS: Faint scattered expiratory wheezes noted. No rales or rhonchi. Respiration equal and unlabored. HEART: Regular rate and rhythm without murmurs, rubs or gallops. S1 and S2 heard. EXTREMITIES: Normal range of motion, trace bilateral lower extremity edema improving. No clubbing or cyanosis. Peripheral pulses intact. - Labs CBC & Chem 7: 10/15/18 05:54 10/15/18 05:54 Labs: Abnormal Lab Results - Last 24 Hours (Table) 10/14/18 10/14/18 10/14/18 Range/Units 18:45 18:45 18:45 RBC 3.53 L (4.30-5.90) m/uL Hgb 9.0 L (13.0-17.5) gm/dL Hct 29.5 L (39.0-53.0) % MCHC 30.3 L (31.0-37.0) g/dL Lymphocytes # 0.8 L (1.0-4.8) k/uL Sodium 136 L (137-145) mmol/L Carbon Dioxide 35 H (22-30) mmol/L BUN 32 H (9-20) mg/dL Creatinine 1.30 H (0.66-1.25) mg/dL Glucose 119 H (74-99) mg/dL Calcium 7.5 L (8.4-10.2) mg/dL Troponin I 0.203 H* (0.000-0.034) ng/mL Total Protein 4.1 L (6.3-8.2) g/dL Albumin 1.9 L (3.5-5.0) g/dL 10/15/18 10/15/18 10/15/18 Range/Units 01:20 05:54 05:54 RBC 2.98 L 2.90 L (4.30-5.90) m/uL Hgb 7.5 L D 7.4 L (13.0-17.5) gm/dL Hct 24.9 L 24.3 L (39.0-53.0) % MCHC 30.3 L 30.3 L (31.0-37.0) g/dL Lymphocytes # (1.0-4.8) k/uL Sodium 135 L (137-145) mmol/L Carbon Dioxide (22-30) mmol/L BUN 44 H (9-20) mg/dL Creatinine (0.66-1.25) mg/dL Glucose (74-99) mg/dL Calcium 7.1 L (8.4-10.2) mg/dL Troponin I (0.000-0.034) ng/mL Total Protein (6.3-8.2) g/dL Albumin (3.5-5.0) g/dL Assessment and Plan Plan: ASSESSMENT #1 Acute systolic heart failure #2COPD #3Anasarca #4Acute anemia #5Troponin abnormality not consistent with an acute myocardial infarction #6 evidence of gastric volvulus requiring surgery #7 nonischemic cardiomyopathy Plan Patient will need to urgently undergo surgery, for the volvulus, we did have a d iscussion with the patient this morning explaining that he is considered a high risk however the surgery needs to be performed. We will continue to follow along with you. DNP note has been reviewed, I agree with a documented findings and plan of care. Patient was seen and examined.
[2018-10-15] MEDS ORDERED: IV FLUID CONTINUATION 1,000 ML IV ONE (13:53)
[2018-10-15] MEDS ORDERED: DEXAMETHASONE SOD PHOS (MDV) 100 MG/10 ML VIAL IV ONE (14:15)
[2018-10-15] MEDS: ONDANSETRON 4 MG/2 ML VIAL IVP PRN (14:16)
[2018-10-15] MEDS ORDERED: BUPIVACAINE-EPI 0.5%-1:200,000 10 ML VIAL SQ ONE (14:59)
[2018-10-15] MEDS ORDERED: ROCURONIUM BROMIDE 10 MG/ML 10 ML VIAL IV ONE (15:00)
[2018-10-15] MEDS ORDERED: ETOMIDATE 2 MG/ML 10 ML VIAL ONE (15:00)
[2018-10-15] MEDS ORDERED: PHENYLEPHRINE-0.9% NACL SYG 1 MG/10 ML SYRINGE ONE (15:00)
[2018-10-15] MEDS ORDERED: GLYCOPYRROLATE 0.2 MG/ML 2 ML VIAL ONE (15:00)
[2018-10-15] MEDS ORDERED: NEOSTIGMINE 1 MG/ML 10 ML VIAL ONE (15:00)
[2018-10-15] MEDS ORDERED: fentaNYL (PF) 50 MCG/ML 2 ML AMP ONE (15:00)
[2018-10-15] MEDS ORDERED: ceFAZolin IN SWFI 2 GM/20 ML SYRINGE IVP ONE (15:18)
[2018-10-15] MEDS ORDERED: SODIUM CHLORIDE 0.9% 50 ML with ceFAZolin 2,000 MG IV ONE ×2 (15:18)
[2018-10-15] MEDS ORDERED: BUPIVACAIN-EPI 0.5%-1:200,000 30 ML VIAL SQ ONE (15:29)
[2018-10-15] MEDS ORDERED: fentaNYL (PF) 50 MCG/ML 2 ML AMP IVP ONE (16:47)
--- NOTE | 2018-10-15 16:54 | P.OP ---
Date of Procedure: 10/15/18 Preoperative Diagnosis: Intrathoracic stomach Gastric volvulus Postoperative Diagnosis: Intrathoracic stomach Gastric volvulus Procedure(s) Performed: Laparoscopic hiatal hernia repair with anterior and fundoplication and mesh repair of hiatus Anesthesia: SHAHIDA Surgeon: Gustavo Hoskins Estimated Blood Loss (ml): 20 Pathology: none sent Condition: stable Description of Procedure: The patient was placed on the operating table in the supine position. The patient received general anesthesia. And was placed in dorsal lithotomy position. The patient was prepped and draped in the usual sterile fashion. The skin incision sites were anesthetized with 1% local Xylocaine. The skin was incised in the left periumbilical area and then using a blade less 5 mm trocar under direct visualization panel cavity was entered. After adequate insufflation the laparoscope was then placed into the peritoneal cavity. Next a 5 mm trochars placed in the right epigastric position. Another 5 millimeter trocar the right lateral position. Another 5 millimeter trocar in the left lateral position a 5 mm trocar is placed in the left epigastric position. And then the initial 5 mm trocar was exchanged for a 10 mm trocar. The left lateral lobe liver was retracted. The stomach was almost entirely in the chest. The stomach was reduced. The hernia was seen. The hernia sac was dissected free from the hiatus and then dissected free from the chest. The hernia sac was completely reduced into peritoneal cavity. The crural defect was then dissected using the Harmonic scissors device. A 360 crural dissection was performed the esophagus stomach was reduced back into the peritoneal Cavity. The crural defect was then closed using 2-0 Ethibond suture. The bio a mesh was then placed over top the crural repair and secured with 2-0 Ethibond suture. Next the fundus of the stomach was mobilized using the Harmonic scissors device. and then a 58-Ukrainian bougie dilator was placed oropharynx passed into the esophagus and stomach the anterior 180 fundal plication wrap was then performed by grasping the fundus posteriorly and bringing it around the esophagus and stomach fundoplication was then performed using 2-0 Ethibond suture. Care was taken that the fundal location rested over top of the intra- abdominal esophagus. There was no injury seen to the stomach or esophagus. The dilator was then withdrawn. The abdomen was irrigated there is no bleeding seen. The trochars were then withdrawn and then skin incision sites were closed using 3-0 Monocryl suture Steri-Strips are applied. Patient thought procedure well and sent to recovery room in stable condition.
[2018-10-15] MEDS ORDERED: MIDAZOLAM 2 MG/2 ML VIAL IVP ONE (16:55)
[2018-10-15] MEDS ORDERED: HYDROmorphone 0.5 MG/0.5 ML SYRINGE IVP PRN (16:55)
[2018-10-15] MEDS ORDERED: HALOPERIDOL LACTATE 5 MG/ML 1 ML VIAL IM STA (19:39)
[2018-10-15] MEDS: ATORVASTATIN 40 MG TAB PO SCH (19:48)
[2018-10-15] MEDS: MONTELUKAST 10 MG TAB PO SCH (19:48)
--- NOTE | 2018-10-15 20:43 | P.CONS ---
History of Present Illness - Reason for Consult Consult date: 10/14/18 Anemia - History of Present Illness The patient is a 73-year-old male who was admitted to the hospital with congestive heart failure. Past medical history significant for coronary artery disease status post bypass grafting, COPD, dyslipidemia and hypertension. Echocardiogram obtained on this admission reveals severely impaired left ventricular systolic function with ejection fraction less than 20%. Per the patient and his they are unsure if this is a chronic condition. He does follow with a ice delivery driver Dr. Hua out of [place]. We are asked to see him because of drop in his hemoglobin. The patient had no nausea, vomiting or hematemesis or any hematochezia or melena. Was not having any abdominal sympt oms. Laboratory workup WBC 4.6, hgb 9.0, plt 348, sodium 135, potassium 4.4, creatinine 1.11. Review of Systems Constitutional: Denied fever, chills or unintentional weight loss Neurologic: No headaches, double vision or other sensory or motor changes Cardiopulmonary: No chest pains, shortness of breath or palpitations Gastrointestinal: See present illness above Genitourinary: No hematuria, dysuria or frequency Endocrine: No history of diabetes or thyroid disease Hematologic: No history of anemia or bleeding tendency Musculoskeletal: No joint pains or swelling Skin: No rashes Psychiatric: No anxiety or depression Past Medical History Past Medical History: Heart Failure, COPD History of Any Multi-Drug Resistant Organisms: None Reported Past Surgical History: Coronary Bypass/CABG Past Psychological History: No Psychological Hx Reported Smoking Status: Never smoker Past Alcohol Use History: None Reported Past Drug Use History: None Reported - Past Family History family Family Medical History: No Reported History Medications and Allergies Home Medications Medication Instructions Recorded Confirmed Type Albuterol Inhaler [Ventolin Hfa 1 - 2 puff INHALATION RT-QID 10/11/18 10/11/18 History Inhaler] Aspirin 81 mg PO HS 10/11/18 10/11/18 History Atorvastatin [Lipitor] 40 mg PO HS 10/11/18 10/11/18 History Clopidogrel [Plavix] 75 mg PO DAILY 10/11/18 10/11/18 History Furosemide [Lasix] 20 mg PO DAILY 10/11/18 10/11/18 History Lisinopril [Zestril] 5 mg PO DAILY 10/11/18 10/11/18 History Metoprolol Tartrate [Lopressor] 25 mg PO BID 10/11/18 10/11/18 History Montelukast [Singulair] 10 mg PO HS 10/11/18 10/11/18 History Potassium Chloride ER [K-Dur 10] 10 meq PO DAILY 10/11/18 10/11/18 History Allergies Allergy/AdvReac Type Severity Reaction Status Date / Time No Known Allergies Allergy Verified 10/15/18 14:26 Physical Exam Vitals: Vital Signs Temp Pulse Pulse Resp BP Pulse Ox 10/14/18 11:32 97.3 F L 84 16 124/73 96 10/14/18 07:59 108 H 10/14/18 07:47 109 H 95 10/14/18 07:38 97.4 F L 106 H 16 154/79 93 L 10/14/18 04:00 98.0 F 122 H 18 113/67 91 L 10/14/18 03:59 104 H 19 10/13/18 23:37 90 19 10/13/18 23:30 98.7 F 90 19 137/51 96 10/13/18 20:00 97.6 F 97 18 153/83 98 10/13/18 19:33 92 10/13/18 19:22 90 10/13/18 16:00 97.4 F L 101 H 16 137/75 98 10/13/18 12:54 92 10/13/18 12:41 88 10/13/18 11:23 97.3 F L 71 16 122/68 94 L Intake and Output 10/13/18 10/14/18 10/14/18 21:59 06:59 14:59 Intake Total 400 Output Total Balance 400 Intake: Oral 400 Output: Urine Other: Voiding Method # Voids 1 Weight General: Appeared stated age, very pleasant in no acute distress Head and neck: Normocephalic and atraumatic, conjunctivae pink and sclerae not icteric, mucous membranes moist and pink. No masses in the neck or tracheal shifts Lungs: Clear to auscultation with no dullness to percussion Heart: Regular, no abnormal sounds, murmurs, gallops or friction rubs ABDOMEN: Soft no masses, organomegalies or tenderness. Bowel sounds present Extremities: No clubbing, cyanosis or edema Neurologic: Alert and oriented 3. Cranial nerves grossly intact. No gross sensory or motor other abnormalities Results CBC & Chem 7: 10/15/18 05:54 10/15/18 05:54 Labs: Abnormal Lab Results - Last 24 Hours (Table) 10/14/18 10/14/18 Range/Units 06:04 06:04 RBC 3.40 L (4.30-5.90) m/uL Hgb 9.0 L (13.0-17.5) gm/dL Hct 28.2 L (39.0-53.0) % Sodium 135 L (137-145) mmol/L Carbon Dioxide 33 H (22-30) mmol/L BUN 25 H (9-20) mg/dL Calcium 7.4 L (8.4-10.2) mg/dL Assessment and Plan Assessment: Drop in hemoglobin with no specific GI complaints at this time or overt bleeding. Patient is in the hospital because of shortness of breath and has evidence of congestive heart failure. Plan: Agree with your current management. We will monitor his condition closely and consider an upper endoscopy tomorrow based on his course, blood counts and cardiac status.
[2018-10-15] MEDS ORDERED: HALOPERIDOL LACTATE 5 MG/ML 1 ML VIAL IM PRN (22:18)
[2018-10-16] MEDS: SODIUM CHLORIDE 0.9% 1,000 ML IV SCH ×3 (00:08→20:17)
[2018-10-16 00:10] LABS: Basophils % (A) 0 %; Eosinophils % (A) 0 %; HCT 27.2 % (39.0-53.0); HGB 8.1 gm/dL (13.0-17.5); Hypochromasia Marked; Lymphocytes # (A) 0.5 k/uL (1.0-4.8); Lymphocytes % (A) 8 %; MCH 25.2 pg (25.0-35.0); MCHC 29.9 g/dL (31.0-37.0); MCV 84.3 fL (80.0-100.0); Mean Platelet Volume 6.5; Monocytes # (A) 0.3 k/uL (0-1.0); Monocytes % (A) 5 %; Neutrophils # (A) 5.9 k/uL (1.3-7.7); Neutrophils % (A) 86 %; Platelet Count 359 k/uL (150-450); Poikilocytosis Slight; RBC 3.23 m/uL (4.30-5.90); RDW 14.7 % (11.5-15.5); WBC 6.9 k/uL (3.8-10.6)
[2018-10-16 07:13] LABS: HCT 25.6 % (39.0-53.0); HGB 7.8 gm/dL (13.0-17.5); Hypochromasia Marked; MCH 25.5 pg (25.0-35.0); MCHC 30.3 g/dL (31.0-37.0); MCV 84.1 fL (80.0-100.0); Mean Platelet Volume 6.2; Platelet Count 389 k/uL (150-450); Poikilocytosis Moderate; RBC 3.05 m/uL (4.30-5.90); RDW 14.7 % (11.5-15.5); WBC 7.4 k/uL (3.8-10.6)
[2018-10-16 07:25] LABS: Calcium 7.3 mg/dL (8.4-10.2); Potassium 5.4 mmol/L (3.5-5.1)
[2018-10-16] MEDS: IPRATROPIUM-ALBUTEROL 3 ML NEB INHALATION SCH ×3 (07:50→20:14)
[2018-10-16] MEDS ORDERED: FUROSEMIDE 10 MG/ML 4 ML VIAL IV STA (08:01)
[2018-10-16] MEDS: LORATADINE 10 MG TAB PO SCH (08:50)
[2018-10-16] MEDS: METOPROLOL TARTRATE 25 MG TAB PO SCH ×2 (08:50→20:27)
[2018-10-16] MEDS: PANTOPRAZOLE 40 MG/10 ML VIAL IVP SCH ×2 (08:50→20:27)
[2018-10-16] MEDS: SACUBITRIL/VALSARTAN 24 MG-26 MG TABLET PO SCH ×2 (08:51→20:27)
--- NOTE | 2018-10-16 10:22 | P.PN ---
Subjective Progress Note Date: 10/16/18 CHIEF COMPLAINT: Stomach volvulus and hiatal hernia HISTORY OF PRESENT ILLNESS: patient is status post laparoscopic hiatal hernia repair with anterior 180 fundoplication. POD #1. Patient is examined at the bedside. He apparently was very confused and combative overnight, which has resolved. He is awake and alert. Denies pain or discomfort. Denies nausea. WBC 7 .4. Hemoglobin 7.8. Heart rate is in the 110s. PHYSICAL EXAM: VITAL SIGNS: Currently stable. GENERAL: Well-developed in no acute distress. HEENT: No sclera icterus. Extraocular movements grossly intact. Moist buccal mucosa. Head is atraumatic, normocephalic. Hears conversational speech. No nasal drainage. NECK: Supple without lymphadenopathy. CHEST: Non-labored respirations and equal bilateral excursions. CARDIOVASCULAR: Regular rate with regular rhythm. Palpable 2+ radial pulses. ABDOMEN: Soft. Nondistended. Surgical incision sites without drainage. MUSCULOSKELETAL: No clubbing, cyanosis. NEUROLOGIC: No focal or lateralizing signs. Cranial nerves II through XII grossly intact. PSYCH: Appropriate affect. Alert and oriented. SKIN: Well perfused. Good skin turgor. ASSESSMENT: 1. Abdominal pain with episode of emesis 2. Gastric volvulus with large hiatal hernia, s/p laparoscopic hiatal hernia repair with anterior 180 fundoplication PLAN: 1. NPO 2. Esophagram to be completed this morning 3. Further recommendations pending patients clinical course Nurse practitioner note has been reviewed by physician. Signing provider agrees with the documented findings, assessment, and plan of care. Objective - Vital Signs Vital signs: Vital Signs Temp 97.8 F 10/16/18 07:50 Pulse 116 H 10/16/18 08:01 Resp 16 10/16/18 07:50 BP 117/73 10/16/18 07:50 Pulse Ox 97 10/16/18 07:50 Intake & Output 10/15/18 10/16/18 10/16/18 18:59 06:59 18:59 Intake Total 700 Output Total 210 500 Balance 490 -500 Weight 88 kg Intake: IV 700 Output: Urine 200 500 Estimated Blood Loss 10 Other: Voiding Method Toilet Urinal # Voids 1 1 - Labs CBC & Chem 7: 10/16/18 06:20 10/16/18 06:20 Labs: Abnormal Lab Results - Last 24 Hours (Table) 10/15/18 10/16/18 10/16/18 Range/Units 23:26 06:20 06:20 RBC 3.23 L 3.05 L (4.30-5.90) m/uL Hgb 8.1 L 7.8 L (13.0-17.5) gm/dL Hct 27.2 L 25.6 L (39.0-53.0) % MCHC 29.9 L 30.3 L (31.0-37.0) g/dL Lymphocytes # 0.5 L (1.0-4.8) k/uL Potassium 5.4 H (3.5-5.1) mmol/L BUN 47 H (9-20) mg/dL Creatinine 1.57 H (0.66-1.25) mg/dL Glucose 111 H (74-99) mg/dL Calcium 7.3 L (8.4-10.2) mg/dL Troponin I (0.000-0.034) ng/mL 10/16/18 Range/Units 06:20 RBC (4.30-5.90) m/uL Hgb (13.0-17.5) gm/dL Hct (39.0-53.0) % MCHC (31.0-37.0) g/dL Lymphocytes # (1.0-4.8) k/uL Potassium (3.5-5.1) mmol/L BUN (9-20) mg/dL Creatinine (0.66-1.25) mg/dL Glucose (74-99) mg/dL Calcium (8.4-10.2) mg/dL Troponin I 0.199 H* (0.000-0.034) ng/mL
--- NOTE | 2018-10-16 10:46 | P.PN ---
Subjective Progress Note Date: 10/16/18 Principal diagnosis: Anemia Status post EGD laparoscopic hiatal hernia repair fundoplication secondary to intrathoracic stomach. No active bleeding. Hemoglobin 7.8. White count 7.4. Platelets 389. MCV 84. BUN 47. Creatinine 1.5. Troponin 0.199. Feels well. Minimal abdominal pain. No nausea vomiting. Confusion last night at bedside presently alert and oriented 3. Objective - Vital Signs Vital signs: Vital Signs Temp 97.8 F 10/16/18 07:50 Pulse 116 H 10/16/18 08:01 Resp 16 10/16/18 07:50 BP 117/73 10/16/18 07:50 Pulse Ox 97 10/16/18 07:50 Intake & Output 10/15/18 10/16/18 10/16/18 18:59 06:59 18:59 Intake Total 700 Output Total 210 500 Balance 490 -500 Weight 88 kg Intake: IV 700 Output: Urine 200 500 Estimated Blood Loss 10 Other: Voiding Method Toilet Urinal # Voids 1 1 - Exam General appearance: The patient is alert, oriented, in no acute distress. HET: Head is normocephalic and atraumatic. Pupils are equal and reactive. Oropharynx is clear without lesions. Neck: Supple without lymphadenopathy. Trachea midline. Heart: S1 S2. Regular rate and rhythm. Lungs: No crackles or wheezes are heard. Abdomen: Soft, laparoscopic incisions without erythema or drainage nontender, nondistended with bowel sounds. No peritoneal signs. No palpable organomegaly or masses. Extremities: Normal skin color and turgor. No cyanosis, rash, ulceration, clubbing, or edema. Radial and pedal pulses are 2/4 bilaterally. Neurological: No focal deficits. Strength and sensation are grossly intact. - Labs CBC & Chem 7: 10/16/18 06:20 10/16/18 06:20 Labs: Abnormal Lab Results - Last 24 Hours (Table) 10/15/18 10/16/18 10/16/18 Range/Units 23:26 06:20 06:20 RBC 3.23 L 3.05 L (4.30-5.90) m/uL Hgb 8.1 L 7.8 L (13.0-17.5) gm/dL Hct 27.2 L 25.6 L (39.0-53.0) % MCHC 29.9 L 30.3 L (31.0-37.0) g/dL Lymphocytes # 0.5 L (1.0-4.8) k/uL Potassium 5.4 H (3.5-5.1) mmol/L BUN 47 H (9-20) mg/dL Creatinine 1.57 H (0.66-1.25) mg/dL Glucose 111 H (74-99) mg/dL Calcium 7.3 L (8.4-10.2) mg/dL Troponin I (0.000-0.034) ng/mL 10/16/18 Range/Units 06:20 RBC (4.30-5.90) m/uL Hgb (13.0-17.5) gm/dL Hct (39.0-53.0) % MCHC (31.0-37.0) g/dL Lymphocytes # (1.0-4.8) k/uL Potassium (3.5-5.1) mmol/L BUN (9-20) mg/dL Creatinine (0.66-1.25) mg/dL Glucose (74-99) mg/dL Calcium (8.4-10.2) mg/dL Troponin I 0.199 H* (0.000-0.034) ng/mL Assessment and Plan (1) Normocytic hypochromic anemia Narrative/Plan: 73-year-old male admitted with shortness of breath elevated troponin CHF with underlying normocytic hypochromic anemia without overt bleeding and intrathoracic stomach status post EGD laparoscopic hiatal hernia repair postoperative day 1. Current Visit: Yes Status: Acute Code(s): D50.9 - IRON DEFICIENCY ANEMIA, UN SPECIFIED SNOMED Code(s): 61569835 (2) Gastric volvulus Current Visit: Yes Status: Acute Code(s): K31.89 - OTHER DISEASES OF STOMACH AND DUODENUM SNOMED Code(s): 31085855 (3) CHF exacerbation Current Visit: Yes Status: Acute Code(s): I50.9 - HEART FAILURE, UNSPECIFIED SNOMED Code(s): 20829441 (4) Elevated troponin Current Visit: Yes Status: Acute Code(s): R74.8 - ABNORMAL LEVELS OF OTHER SERUM ENZYMES SNOMED Code(s): 421547712 Plan: 1. Iron indices. Continue monitor CBC. GI prophylaxis. General surgery following. Diet per surgery. Assessment and plan a care discussed with Dr. Early
--- NOTE | 2018-10-16 12:43 | FL ---
Single contrast esophagram EXAMINATION TYPE: FL UGI w esophagus DATE OF EXAM: 10/16/2018 12:39 PM COMPARISON: NONE CLINICAL HISTORY: Status post Nikita fundoplication Dr. Adair. 25 sec fluoro time. Pt given 50 ml omni 370. The patient ingested contrast without difficulty or delay. Noted are changes of Nikita fundoplicatio n. There is no evidence for leak or obstruction. Small amount of residual contrast within the distal esophagus. IMPRESSION: Post-surgical change of Nikita fundoplication without evidence for leak or obstruction.
--- NOTE | 2018-10-16 15:21 | P.PN ---
Subjective Progress Note Date: 10/16/18 (delayed charting patient seen at 0915) Principal diagnosis: lower extremity edema, shortness of breath Patient is a 73-year-old male to past medical history of congestive heart failure, COPD, and coronary artery disease who presented as a transfer to our hospital for acute exacerbation of congestive heart failure and elevated troponin. He was placed on Lasix, Nitropaste, and his troponins were trended. Cardiology was consulted. Patient underwent echocardiogram which showed an ejection fraction less than 20%. In addition to Lasix and Aldactone was started. He has been progressing slowly. On the evening of 10/14 he developed sudden onset abdominal and underwent emergent CT which shower haital hernia and gastric volvulus. He was seen by Dr. Eid on 10/15 and underwent EGD but volvulus unable to be reduced. He underwent laproscopic gastric volvulus repair with repair of hiatal hernia. He developed some post-op delerim requiring a dose of haldol. Patient seen and examined at bedside.Feeling well this morning, no abdomianl pain, no nausea, no shortness of breath, no chest pain. at bedside and all questions answered. Objective - Vital Signs Vital signs: Vital Signs Temp 97.8 F 10/16/18 07:50 Pulse 104 H 10/16/18 15:04 Resp 16 10/16/18 12:00 BP 122/64 10/16/18 12:00 Pulse Ox 94 L 10/16/18 12:00 Intake & Output 10/15/18 10/16/18 10/16/18 18:59 06:59 18:59 Intake Total 700 240 Output Total 210 500 Balance 490 -500 240 Weight 88 kg 88 kg Intake: IV 700 Oral 240 Output: Urine 200 500 Estimated Blood Loss 10 Other: Voiding Method Toilet Urinal # Voids 1 1 - Exam General: non toxic, no distress, appears at stated age Derm: warm, dry Head: atraumatic, normocephalic, symmetric Eyes: EOMI, no lid lag, anicteric sclera Mouth: no lip lesion, mucus membranes moist Cardiovascular: S1S2 reg, no murmur, positive posterior tibial pulse bilateral, Lungs: decreased bs bilateral, no rhonchi, no rales , no accessory muscle use Abdominal: soft, nontender to palpation, no guarding, no appreciable organomegaly Ext: no gross muscle atrophy, trace edema, no contractures Neuro: CN II-XI grossly intact, no focal neuro deficits Psych: Alert, oriented to self and situation, appropriate affect - Labs CBC & Chem 7: 10/16/18 06:20 10/16/18 06:20 Labs: Abnormal Lab Results - Last 24 Hours (Table) 10/15/18 10/16/18 10/16/18 Range/Units 23:26 06:20 06:20 RBC 3.23 L 3.05 L (4.30-5.90) m/uL Hgb 8.1 L 7.8 L (13.0-17.5) gm/dL Hct 27.2 L 25.6 L (39.0-53.0) % MCHC 29.9 L 30.3 L (31.0-37.0) g/dL Lymphocytes # 0.5 L (1.0-4.8) k/uL Potassium 5.4 H (3.5-5.1) mmol/L BUN 47 H (9-20) mg/dL Creatinine 1.57 H (0.66-1.25) mg/dL Glucose 111 H (74-99) mg/dL Calcium 7.3 L (8.4-10.2) mg/dL Troponin I (0.000-0.034) ng/mL 10/16/18 Range/Units 06:20 RBC (4.30-5.90) m/uL Hgb (13.0-17.5) gm/dL Hct (39.0-53.0) % MCHC (31.0-37.0) g/dL Lymphocytes # (1.0-4.8) k/uL Potassium (3.5-5.1) mmol/L BUN (9-20) mg/dL Creatinine (0.66-1.25) mg/dL Glucose (74-99) mg/dL Calcium (8.4-10.2) mg/dL Troponin I 0.199 H* (0.000-0.034) ng/mL Assessment and Plan Assessment: VALERIE with hyperkalemia, likely due to fluid shift - hold entresto - Gentle IVF - Lasix X 1 for hyperkalemia, repeat labs ordered for 1300 and pending - repeat BMP in AM Gastric volvulus s/p nisssian fundoplication - Pain medications - surgery recs appreciated - will start clear liquids today Acute exacerbation of systolic congestive heart ejection fraction less than 20 percent - lopressor, enterestro (on hold), lasix, aldactone - strict I and O daily weights - follow vitals - repeat BMP in AM - will need home health, agreeable does not want rehab -? need for AICD awaiting cardio recs Anemia,slight drop yesterday - outpatinet eval for EGD and colon - dark emesis, on IV protonix - GI recs appreciated - Follow Iron studies COPD without exacerbation - prn bronchidilators - claritin Elevated troponin not consistent with [place] - cardio recs - lopressor - statin leukopenia, resolved - follow CBC as outpatient DVT prophylaxis: resume heparin when okay with surgery Discussed with: patient, nursing, Kathie FISCAL MANAGER Anticipated discharge: undetermined pending surgical eval Anticipated discharge place: home with home health A total of 25 minutes was spent on the care of this complex patient more than 50% of the time was spent in counseling and care coordination.
--- NOTE | 2018-10-16 15:49 | P.PN ---
Subjective Progress Note Date: 10/16/18 This is a pleasant 73-year-old male admitted to the hospital with congestive heart failure. Past medical history significant for coronary artery disease status post bypass grafting, COPD, dyslipidemia and hypertension. Echocardiogram obtained on this admission reveals severely impaired left v entricular systolic function with ejection fraction less than 20%. Per the patient and his there unsure if this is a chronic condition. He does follow with a compressor mechanic bus Dr. Hua out of [place] and we will request records from his office first thing tomorrow morning. He is seen and examined sitting up in bed in no acute distress. He states overall he seems to be feeling much better. He denies symptoms of chest pain, shortness of breath, dizziness or palpitations. Laboratory data reviewed, WBC 4.6, hgb 9.0, plt 348, sodium 135, potassium 4.4, creatinine 1.11. Currently maintained on atorvastatin 40 mg daily, lasix IV BID, lopressor 25 mg BID and aldactone 12.5 mg daily. Entresto 24/26 mg BID to start today. Throughout the evening last night, patient developed abdominal discomfort, CT of the abdomen was performed, compatible with gastric volvulus with large hiatal hernia. Patient has been seen by surgery, advised to undergo urgent surgery. His echocardiogram with Doppler study performed here showed an ejection fraction of less than 20%. We did have a discussion with the patient explaining that his need for surgery is eminent however his risk is considered high. 10/16/2018 Patient underwent laparoscopic hiatal hernia repair with anterior and fundoplication mesh repair of hiatus yesterday. Seen and examined today, taking oral fluids at present. Starting today on Entresto. Hemodynamically stable. Mildly confused, sitter at bedside. Objective - Vital Signs Vital signs: Vital Signs Temp 97.8 F 10/16/18 07:50 Pulse 105 H 10/16/18 15:27 Resp 16 10/16/18 15:27 BP 122/73 10/16/18 15:27 Pulse Ox 94 L 10/16/18 15:27 Intake & Output 10/15/18 10/16/18 10/16/18 18:59 06:59 18:59 Intake Total 700 240 Output Total 210 500 350 Balance 490 -500 -110 Weight 88 kg 88 kg Intake: IV 700 Oral 240 Output: Urine 200 500 350 Estimated Blood Loss 10 Other: Voiding Method Toilet Urinal Urinal # Voids 1 1 - Exam GENERAL: Well-appearing, well-nourished and in no acute distress. NECK: Supple without JVD or thyromegaly. NG tube in place. LUNGS: Faint scattered expiratory wheezes noted. No rales or rhonchi. Respiration equal and unlabored. HEART: Regular rate and rhythm without murmurs, rubs or gallops. S1 and S2 heard. EXTREMITIES: Normal range of motion, trace bilateral lower extremity edema improving. No clubbing or cyanosis. Peripheral pulses intact. - Labs CBC & Chem 7: 10/16/18 06:20 10/16/18 06:20 Labs: Abnormal Lab Results - Last 24 Hours (Table) 10/15/18 10/16/18 10/16/18 Range/Units 23:26 06:20 06:20 RBC 3.23 L 3.05 L (4.30-5.90) m/uL Hgb 8.1 L 7.8 L (13.0-17.5) gm/dL Hct 27.2 L 25.6 L (39.0-53.0) % MCHC 29.9 L 30.3 L (31.0-37.0) g/dL Lymphocytes # 0.5 L (1.0-4.8) k/uL Potassium 5.4 H (3.5-5.1) mmol/L BUN 47 H (9-20) mg/dL Creatinine 1.57 H (0.66-1.25) mg/dL Glucose 111 H (74-99) mg/dL Calcium 7.3 L (8.4-10.2) mg/dL Troponin I (0.000-0.034) ng/mL 10/16/18 Range/Units 06:20 RBC (4.30-5.90) m/uL Hgb (13.0-17.5) gm/dL Hct (39.0-53.0) % MCHC (31.0-37.0) g/dL Lymphocytes # (1.0-4.8) k/uL Potassium (3.5-5.1) mmol/L BUN (9-20) mg/dL Creatinine (0.66-1.25) mg/dL Glucose (74-99) mg/dL Calcium (8.4-10.2) mg/dL Troponin I 0.199 H* (0.000-0.034) ng/mL Assessment and Plan Plan: ASSESSMENT #1 Acute on chronic systolic heart failure #2COPD #3Anasarca #4Acute anemia #5Troponin abnormality not consistent with an acute myocardial infarction #6 evidence of gastric volvulus requiring surgery #7 nonischemic cardiomyopathy Plan Patient did undergo laparoscopic hiatal hernia repair with anterior fundic patient mesh repair yesterday. He is taking oral medications, we will start on Entresto. We will repeat a chest x-ray tomorrow. DNP note has been reviewed, I agree with a documented findings and plan of care. Patient was seen and examined.
[2018-10-16 15:56] LABS: Calcium 7.1 mg/dL (8.4-10.2); Potassium 5.7 mmol/L (3.5-5.1)
[2018-10-16] MEDS ORDERED: DEXTROSE 50%-WATER 50 ML SYRINGE IVP STA ×2 (16:25→22:08)
[2018-10-16] MEDS ORDERED: SODIUM CHLORIDE 0.9% 500 ML 500 ML IV ONE (16:26)
[2018-10-16] MEDS ORDERED: FUROSEMIDE 10 MG/ML 10 ML VIAL IV STA (16:29)
[2018-10-16] MEDS ORDERED: INSULIN REGULAR 100 UNIT/ML VIAL IV ONE (16:30)
[2018-10-16] MEDS ORDERED: CALCIUM GLUCONATE 1 GM in SODIUM CHLORIDE 0.9% 100 ML IVPB ONE (16:45)
[2018-10-16] MEDS: MONTELUKAST 10 MG TAB PO SCH (20:27)
[2018-10-16] MEDS: ATORVASTATIN 40 MG TAB PO SCH (20:27)
[2018-10-16 21:35] LABS: Calcium 7.4 mg/dL (8.4-10.2)
[2018-10-16 22:26] LABS: Glucose,Whole Blood 52 mg/dL (75-99)
[2018-10-16 22:26] LABS: Glucose,Whole Blood 52 mg/dL (75-99)
[2018-10-16 22:53] LABS: Glucose,Whole Blood 132 mg/dL (75-99)
[2018-10-17 01:40] LABS: Iron Saturation 1.18 (15.00-50.00)
[2018-10-17 02:47] LABS: Glucose,Whole Blood 217 mg/dL (75-99)
[2018-10-17] MEDS: SODIUM CHLORIDE 0.9% 1,000 ML IV SCH ×2 (05:01→08:09)
[2018-10-17 06:36] LABS: HCT 24.2 % (39.0-53.0); HGB 7.4 gm/dL (13.0-17.5); Hypochromasia Marked; MCH 25.5 pg (25.0-35.0); MCHC 30.3 g/dL (31.0-37.0); MCV 84.2 fL (80.0-100.0); Mean Platelet Volume 6.2; Platelet Count 382 k/uL (150-450); Poikilocytosis Moderate; RBC 2.88 m/uL (4.30-5.90); RDW 14.7 % (11.5-15.5); WBC 7.7 k/uL (3.8-10.6)
[2018-10-17 06:44] LABS: Calcium 7.4 mg/dL (8.4-10.2)
[2018-10-17] MEDS: IPRATROPIUM-ALBUTEROL 3 ML NEB INHALATION SCH ×3 (07:19→20:45)
--- NOTE | 2018-10-17 08:17 | XR ---
EXAMINATION TYPE: XR chest 2V DATE OF EXAM: 10/17/2018 COMPARISON: 10/15/2018 HISTORY: Congestive heart failure TECHNIQUE: Frontal and lateral views of the chest are obtained. FINDINGS: Cardiomediastinal silhouette is enlarged with postoperative changes. Retrocardiac airspace disease is noted but improved from the prior. Flattening of the hemidiaphragms suggest underlying CO PD. Blunting of the costophrenic angles relates to trace pleural effusion. Mild pulmonary vascular co ngestion is seen. IMPRESSION: Continued retrocardiac airspace disease although improved from the prior likely represen ts atelectasis with small bilateral pleural effusions, underlying CHF, and underlying COPD.
--- NOTE | 2018-10-17 09:59 | P.PN ---
Subjective Progress Note Date: 10/17/18 Principal diagnosis: lower extremity edema, shortness of breath Patient is a 73-year-old male to past medical history of congestive heart failure, COPD, and coronary artery disease who presented as a transfer to our hospital for acute exacerbation of congestive heart failure and elevated troponin. He was placed on Lasix, Nitropaste, and his troponins were trended. Cardiology was consulted. Patient underwent echocardiogram which showed an ejection fraction less than 20%. In addition to Lasix and Aldactone was started. He has been progressing slowly. On the evening of 10/14 he developed sudden onset abdominal and underwent emergent CT which shower haital hernia and gastric volvulus. He was seen by Dr. Eid on 10/15 and underwent EGD but volvulus unable to be reduced. He underwent laproscopic gastric volvulus repair with repair of hiatal hernia. He developed some post-op delerim requiring a dose of haldol. He then developed worsening VALERIE and his entresto was held, he had some hyperkalemia which responded to lasix. Developed hypoglycemia while NPO re solved with food and D50. Patient seen and examined at bedside. He denies any chest pain, sob, nausea, or vomiting. He wants to go home. at bedside and all questions answered. Plans are for home with home health, hopefully Dinesh with Telehealth Objective - Vital Signs Vital signs: Vital Signs Temp 97.4 F L 10/17/18 04:00 Pulse 101 H 10/17/18 07:30 Resp 16 10/17/18 07:30 BP 89/53 10/17/18 04:00 Pulse Ox 96 10/17/18 07:20 Intake & Output 10/16/18 10/17/18 10/17/18 18:59 06:59 18:59 Intake Total 462 360 Output Total 350 200 Balance 112 -200 360 Weight 88 kg 88.5 kg Intake: Oral 462 360 Output: Urine 350 200 Other: Voiding Method Urinal Urinal # Voids 1 - Exam General: non toxic, no distress, appears at stated age Derm: warm, dry Head: atraumatic, normocephalic, symmetric Eyes: EOMI, no lid lag, anicteric sclera Mouth: no lip lesion, mucus membranes moist Cardiovascular: S1S2 reg, no murmur, positive posterior tibial pulse bilateral, Lungs: wheeze b/l bilateral, no rhonchi, no rales , no accessory muscle use Abdominal: soft, nontender to palpation, no guarding, no appreciable organomegaly Ext: no gross muscle atrophy, 1+ edema, no contractures Neuro: CN II-XI grossly intact, no focal neuro deficits Psych: Alert, oriented to self and situation, appropriate affect - Labs CBC & Chem 7: 10/17/18 05:49 10/17/18 05:49 Labs: Abnormal Lab Results - Last 24 Hours (Table) 10/16/18 10/16/18 10/16/18 Range/Units 15:21 15:21 21:15 RBC (4.30-5.90) m/uL Hgb (13.0-17.5) gm/dL Hct (39.0-53.0) % MCHC (31.0-37.0) g/dL Sodium (137-145) mmol/L Potassium 5.7 H (3.5-5.1) mmol/L Chloride 109 H (98-107) mmol/L Carbon Dioxide (22-30) mmol/L BUN 57 H 58 H (9-20) mg/dL Creatinine 1.62 H 1.65 H (0.66-1.25) mg/dL Glucose 105 H 31 L* (74-99) mg/dL POC Glucose (mg/dL) (75-99) mg/dL Calcium 7.1 L 7.4 L (8.4-10.2) mg/dL Iron 3 L (65-175) ug/dL Iron Saturation 1.18 L (15.00-50.00) 10/16/18 10/16/18 10/16/18 Range/Units 21:46 22:07 22:34 RBC (4.30-5.90) m/uL Hgb (13.0-17.5) gm/dL Hct (39.0-53.0) % MCHC (31.0-37.0) g/dL Sodium (137-145) mmol/L Potassium (3.5-5.1) mmol/L Chloride (98-107) mmol/L Carbon Dioxide (22-30) mmol/L BUN (9-20) mg/dL Creatinine (0.66-1.25) mg/dL Glucose (74-99) mg/dL POC Glucose (mg/dL) 52 L 52 L 132 H (75-99) mg/dL Calcium (8.4-10.2) mg/dL Iron (65-175) ug/dL Iron Saturation (15.00-50.00) 10/17/18 10/17/18 10/17/18 Range/Units 01:56 05:49 05:49 RBC 2.88 L (4.30-5.90) m/uL Hgb 7.4 L (13.0-17.5) gm/dL Hct 24.2 L (39.0-53.0) % MCHC 30.3 L (31.0-37.0) g/dL Sodium 136 L (137-145) mmol/L Potassium (3.5-5.1) mmol/L Chloride (98-107) mmol/L Carbon Dioxide 31 H (22-30) mmol/L BUN 63 H (9-20) mg/dL Creatinine 2.05 H (0.66-1.25) mg/dL Glucose (74-99) mg/dL POC Glucose (mg/dL) 217 H (75-99) mg/dL Calcium 7.4 L (8.4-10.2) mg/dL Iron (65-175) ug/dL Iron Saturation (15.00-50.00) Assessment and Plan Assessment: VALERIE, likely due to fluid shift - hold entresto - Gentle IVF stop today at noon - consult nephro - Avoid additional nephrotic agents - repeat BMP in AM Gastric volvulus s/p nisssian fundoplication - Pain medications - surgery recs appreciated - on clear liquid diet Hypoglycemia - likely due to NPO status - improved q6h accucheck for 24 hours Acute exacerbation of systolic congestive heart ejection fraction less than 20 percent - lopressor, enterestro (on hold), lasix on hold due to VALERIE - strict I and O daily weights - follow vitals - repeat BMP in AM - will need home health, agreeable does not want rehab -outpatient follow-up for AICD, no candidate for lifevest due to inability to operate device with confusion and . Anemia,slight drop yesterday, iron deficiency suspected - Hgb stable considering use of IVF, Change for IV to PO protonix - outpatinet eval for EGD and colon - GI recs appreciated COPD without exacerbation - prn bronchidilators - claritin Elevated troponin not consistent with [place] - cardio recs - lopressor - statin leukopenia, resolved - follow CBC as outpatient Hyperkalemia, resolved DVT prophylaxis: resume heparin when okay with surgery Discussed with: patient, nursing, Mess DNP Anticipated discharge: on 10/19 if HgB and Cr stable Anticipated discharge place: home with home health A total of 25 minutes was spent on the care of this complex patient more than 50% of the time was spent in counseling and care coordination.
[2018-10-17] MEDS: METOPROLOL TARTRATE 25 MG TAB PO SCH ×2 (10:07→20:09)
[2018-10-17] MEDS: LORATADINE 10 MG TAB PO SCH (10:07)
--- NOTE | 2018-10-17 11:15 | P.PN ---
Subjective Progress Note Date: 10/17/18 Principal diagnosis: Anemia Status post EGD laparoscopic hiatal hernia repair fundoplication secondary to intrathoracic stomach. No active bleeding. Hemoglobin 7.4. Iron indices consistent with iron deficiency. Feels well. Minimal abdominal pain. No nausea vomiting. Tolerating full liquids. Objective - Vital Signs Vital signs: Vital Signs Temp 97.8 F 10/17/18 08:00 Pulse 84 10/17/18 08:00 Resp 18 10/17/18 08:00 BP 111/63 10/17/18 08:00 Pulse Ox 94 L 10/17/18 08:00 Intake & Output 10/16/18 10/17/18 10/17/18 18:59 06:59 18:59 Intake Total 462 360 Output Total 350 200 Balance 112 -200 360 Weight 88 kg 88.5 kg Intake: Oral 462 360 Output: Urine 350 200 Other: Voiding Method Urinal Urinal # Voids 1 - Exam General appearance: The patient is alert, oriented, in no acute distress. HET: Head is normocephalic and atraumatic. Pupils are equal and reactive. Oropharynx is clear without lesions. Neck: Supple without lymphadenopathy. Trachea midline. Heart: S1 S2. Regular rate and rhythm. Lungs: No crackles or wheezes are heard. Abdomen: Soft, laparoscopic incisions without erythema or drainage nontender, nondistended with bowel sounds. No peritoneal signs. No palpable organomegaly or masses. Extremities: Normal skin color and turgor. No cyanosis, rash, ulceration, clubbing, or edema. Radial and pedal pulses are 2/4 bilaterally. Neurological: No focal deficits. Strength and sensation are grossly intact. - Labs CBC & Chem 7: 10/17/18 05:49 10/17/18 05:49 Labs: Abnormal Lab Results - Last 24 Hours (Table) 10/16/18 10/16/18 10/16/18 Range/Units 15:21 15:21 21:15 RBC (4.30-5.90) m/uL Hgb (13.0-17.5) gm/dL Hct (39.0-53.0) % MCHC (31.0-37.0) g/dL Sodium (137-145) mmol/L Potassium 5.7 H (3.5-5.1) mmol/L Chloride 109 H (98-107) mmol/L Carbon Dioxide (22-30) mmol/L BUN 57 H 58 H (9-20) mg/dL Creatinine 1.62 H 1.65 H (0.66-1.25) mg/dL Glucose 105 H 31 L* (74-99) mg/dL POC Glucose (mg/dL) (75-99) mg/dL Calcium 7.1 L 7.4 L (8.4-10.2) mg/dL Iron 3 L (65-175) ug/dL Iron Saturation 1.18 L (15.00-50.00) 10/16/18 10/16/18 10/16/18 Range/Units 21:46 22:07 22:34 RBC (4.30-5.90) m/uL Hgb (13.0-17.5) gm/dL Hct (39.0-53.0) % MCHC (31.0-37.0) g/dL Sodium (137-145) mmol/L Potassium (3.5-5.1) mmol/L Chloride (98-107) mmol/L Carbon Dioxide (22-30) mmol/L BUN (9-20) mg/dL Creatinine (0.66-1.25) mg/dL Glucose (74-99) mg/dL POC Glucose (mg/dL) 52 L 52 L 132 H (75-99) mg/dL Calcium (8.4-10.2) mg/dL Iron (65-175) ug/dL Iron Saturation (15.00-50.00) 10/17/18 10/17/18 10/17/18 Range/Units 01:56 05:49 05:49 RBC 2.88 L (4.30-5.90) m/uL Hgb 7.4 L (13.0-17.5) gm/dL Hct 24.2 L (39.0-53.0) % MCHC 30.3 L (31.0-37.0) g/dL Sodium 136 L (137-145) mmol/L Potassium (3.5-5.1) mmol/L Chloride (98-107) mmol/L Carbon Dioxide 31 H (22-30) mmol/L BUN 63 H (9-20) mg/dL Creatinine 2.05 H (0.66-1.25) mg/dL Glucose (74-99) mg/dL POC Glucose (mg/dL) 217 H (75-99) mg/dL Calcium 7.4 L (8.4-10.2) mg/dL Iron (65-175) ug/dL Iron Saturation (15.00-50.00) Assessment and Plan (1) Normocytic hypochromic anemia Narrative/Plan: 73-year-old male admitted with shortness of breath elevated troponin CHF with underlying normocytic hypochromic iron deficient anemia without overt bleeding and intrathoracic stomach status post EGD laparoscopic hiatal hernia repair. Current Visit: Yes Status: Acute Code(s): D50.9 - IRON DEFICIENCY ANEMIA, UNSPECIFIED SNOMED Code(s): 77451241 (2) Gastric volvulus Current Visit: Yes Status: Acute Code(s): K31.89 - OTHER DISEASES OF STOMACH AND DUODENUM SNOMED Code(s): 56926029 (3) CHF exacerbation Current Visit: Yes Status: Acute Code(s): I50.9 - HEART FAILURE, UNSPECIFIED SNOMED Code(s): 85931827 (4) Elevated troponin Current Visit: Yes Status: Acute Code(s): R74.8 - ABNORMAL LEVELS OF OTHER SERUM ENZYMES SNOMED Code(s): 872070866 Plan: 1. Iron indices reviewed. Possible discharge tomorrow as long as hemoglobin remains stable. Diet per surgery. Return to [facility] office in 2 weeks for reevaluation discussion of outpatient endoscopy. Continue monitor CBC. GI prophylaxis. Assessment and plan a care discussed with Dr. Early
--- NOTE | 2018-10-17 11:16 | P.PN ---
Subjective Progress Note Date: 10/17/18 CHIEF COMPLAINT: Stomach volvulus and hiatal hernia HISTORY OF PRESENT ILLNESS: patient is status post laparoscopic hiatal hernia repair with anterior 180 fundoplication. POD #2. Patient is examined at the bedside. Patient reports his pain is tolerable. He is tolerating clear liquid diet. No nausea. Reports occasional flatus. No BM. W BC 7.7. Hemoglobin 7.4. PHYSICAL EXAM: VITAL SIGNS: Currently stable. GENERAL: Well-developed in no acute distress. HEENT: No sclera icterus. Extraocular movements grossly intact. Moist buccal mucosa. Head is atraumatic, normocephalic. Hears conversational speech. No nasal drainage. NECK: Supple without lymphadenopathy. CHEST: Non-labored respirations and equal bilateral excursions. CARDIOVASCULAR: Regular rate with regular rhythm. Palpable 2+ radial pulses. ABDOMEN: Soft. Nondistended. Surgical incision sites without drainage. MUSCULOSKELETAL: No clubbing, cyanosis. NEUROLOGIC: No focal or lateralizing signs. Cranial nerves II through XII grossly intact. PSYCH: Appropriate affect. Alert and oriented. SKIN: Well perfused. Good skin turgor. ASSESSMENT: 1. Abdominal pain with episode of emesis 2. Gastric volvulus with large hiatal hernia, s/p laparoscopic hiatal hernia repair with anterior 180 fundoplication PLAN: May advance diet to full liquid. Await BM. Activity as tolerated. Nurse practitioner note has been reviewed by physician. Signing provider agrees with the documented findings, assessment, and plan of care. Objective - Vital Signs Vital signs: Vital Signs Temp 97.8 F 10/17/18 08:00 Pulse 84 10/17/18 08:00 Resp 18 10/17/18 08:00 BP 111/63 10/17/18 08:00 Pulse Ox 94 L 10/17/18 08:00 Intake & Output 10/16/18 10/17/18 10/17/18 18:59 06:59 18:59 Intake Total 462 360 Output Total 350 200 Balance 112 -200 360 Weight 88 kg 88.5 kg Intake: Oral 462 360 Output: Urine 350 200 Other: Voiding Method Urinal Urinal # Voids 1 - Labs CBC & Chem 7: 10/17/18 05:49 10/17/18 05:49 Labs: Abnormal Lab Results - Last 24 Hours (Table) 10/16/18 10/16/1810/16/19 Range/Units 15:21 15:21 21:15 RBC (4.30-5.90) m/uL Hgb (13.0-17.5) gm/dL Hct (39.0-53.0) % MCHC (31.0-37.0) g/dL Sodium (137-145) mmol/L Potassium 5.7 H (3.5-5.1) mmol/L Chloride 109 H (98-107) mmol/L Carbon Dioxide (22-30) mmol/L BUN 57 H 58 H (9-20) mg/dL Creatinine 1.62 H 1.65 H (0.66-1.25) mg/dL Glucose 105 H 31 L* (74-99) mg/dL POC Glucose (mg/dL) (75-99) mg/dL Calcium 7.1 L 7.4 L (8.4-10.2) mg/dL Iron 3 L (65-175) ug/dL Iron Saturation 1.18 L (15.00-50.00) 10/16/18 10/16/18 10/16/18 Range/Units 21:46 22:07 22:34 RBC (4.30-5.90) m/uL Hgb (13.0-17.5) gm/dL Hct (39.0-53.0) % MCHC (31.0-37.0) g/dL Sodium (137-145) mmol/L Potassium (3.5-5.1) mmol/L Chloride (98-107) mmol/L Carbon Dioxide (22-30) mmol/L BUN (9-20) mg/dL Creatinine (0.66-1.25) mg/dL Glucose (74-99) mg/dL POC Glucose (mg/dL) 52 L 52 L 132 H (75-99) mg/dL Calcium (8.4-10.2) mg/dL Iron (65-175) ug/dL Iron Saturation (15.00-50.00) 10/17/18 10/17/18 10/17/18 Range/Units 01:56 05:49 05:49 RBC 2.88 L (4.30-5.90) m/uL Hgb 7.4 L (13.0-17.5) gm/dL Hct 24.2 L (39.0-53.0) % MCHC 30.3 L (31.0-37.0) g/dL Sodium 136 L (137-145) mmol/L Potassium (3.5-5.1) mmol/L Chloride (98-107) mmol/L Carbon Dioxide 31 H (22-30) mmol/L BUN 63 H (9-20) mg/dL Creatinine 2.05 H (0.66-1.25) mg/dL Glucose (74-99) mg/dL POC Glucose (mg/dL) 217 H (75-99) mg/dL Calcium 7.4 L (8.4-10.2) mg/dL Iron (65-175) ug/dL Iron Saturation (15.00-50.00)
--- NOTE | 2018-10-17 12:22 | P.PN ---
Subjective Progress Note Date: 10/17/18 This is a pleasant 73-year-old male admitted to the hospital with congestive heart failure. Past medical history significant for coronary artery disease status post bypass grafting, COPD, dyslipidemia and hypertension. Echocardiogram obtained on this admission reveals severely impaired left v entricular systolic function with ejection fraction less than 20%. Per the patient and his there unsure if this is a chronic condition. He does follow with a windows server administrator Dr. Hua out of [place] and we will request records from his office first thing tomorrow morning. He is seen and examined sitting up in bed in no acute distress. He states overall he seems to be feeling much better. He denies symptoms of chest pain, shortness of breath, dizziness or palpitations. Laboratory data reviewed, WBC 4.6, hgb 9.0, plt 348, sodium 135, potassium 4.4, creatinine 1.11. Currently maintained on atorvastatin 40 mg daily, lasix IV BID, lopressor 25 mg BID and aldactone 12.5 mg daily. Entresto 24/26 mg BID to start today. Throughout the evening last night, patient developed abdominal discomfort, CT of the abdomen was performed, compatible with gastric volvulus with large hiatal hernia. Patient has been seen by surgery, advised to undergo urgent surgery. His echocardiogram with Doppler study performed here showed an ejection fraction of less than 20%. We did have a discussion with the patient explaining that his need for surgery is eminent however his risk is considered high. 10/16/2018 Patient underwent laparoscopic hiatal hernia repair with anterior and fundoplication mesh repair of hiatus yesterday. Seen and examined today, taking oral fluids at present. Starting today on Entresto. Hemodynamically stable. Mildly confused, sitter at bedside. 10/17/2018 Patient was seen and examined this morning, overall feeling well. Creatinine today is up to 2.05, hemoglobin 7.4, potassium 5.0. Would recommend to hold any diuretics at this time. Entresto was discontinued this morning by the hospitalist because of the worsening renal function. We will repeat a BMP, if i t is same are improving, we would like to try to keep the patient on the Entresto, monitoring the electrolytes BUN and creatinine closely. Objective - Vital Signs Vital signs: Vital Signs Temp 97.8 F 10/17/18 08:00 Pulse 84 10/17/18 08:00 Resp 18 10/17/18 08:00 BP 111/63 10/17/18 08:00 Pulse Ox 94 L 10/17/18 08:00 Intake & Output 10/16/18 10/17/18 10/17/18 18:59 06:59 18:59 Intake Total 462 360 Output Total 350 200 Balance 112 -200 360 Weight 88 kg 88.5 kg Intake: Oral 462 360 Output: Urine 350 200 Other: Voiding Method Urinal Urinal # Voids 1 - Exam GENERAL: Well-appearing, well-nourished and in no acute distress. NECK: Supple without JVD or thyromegaly. NG tube in place. LUNGS: Faint scattered expiratory wheezes noted. No rales or rhonchi. Respiration equal and unlabored. HEART: Regular rate and rhythm without murmurs, rubs or gallops. S1 and S2 heard. EXTREMITIES: Normal range of motion, trace bilateral lower extremity edema improving. No clubbing or cyanosis. Peripheral pulses intact. - Labs CBC & Chem 7: 10/17/18 05:49 10/17/18 05:49 Labs: Abnormal Lab Results - Last 24 Hours (Table) 10/16/18 10/16/18 10/16/18 Range/Units 15:21 15:21 21:15 RBC (4.30-5.90) m/uL Hgb (13.0-17.5) gm/dL Hct (39.0-53.0) % MCHC (31.0-37.0) g/dL Sodium (137-145) mmol/L Potassium 5.7 H (3.5-5.1) mmol/L Chloride 109 H (98-107) mmol/L Carbon Dioxide (22-30) mmol/L BUN 57 H 58 H (9-20) mg/dL Creatinine 1.62 H 1.65 H (0.66-1.25) mg/dL Glucose 105 H 31 L* (74-99) mg/dL POC Glucose (mg/dL) (75-99) mg/dL Calcium 7.1 L 7.4 L (8.4-10.2) mg/dL Iron 3 L (65-175) ug/dL Iron Saturation 1.18 L (15.00-50.00) 10/16/18 10/16/18 10/16/18 Range/Units 21:46 22:07 22:34 RBC (4.30-5.90) m/uL Hgb (13.0-17.5) gm/dL Hct (39.0-53.0) % MCHC (31.0-37.0) g/dL Sodium (137-145) mmol/L Potassium (3.5-5.1) mmol/L Chloride (98-107) mmol/L Carbon Dioxide (22-30) mmol/L BUN (9-20) mg/dL Creatinine (0.66-1.25) mg/dL Glucose (74-99) mg/dL POC Glucose (mg/dL) 52 L 52 L 132 H (75-99) mg/dL Calcium (8.4-10.2) mg/dL Iron (65-175) ug/dL Iron Saturation (15.00-50.00) 10/17/18 10/17/18 10/17/18 Range/Units 01:56 05:49 05:49 RBC 2.88 L (4.30-5.90) m/uL Hgb 7.4 L (13.0-17.5) gm/dL Hct 24.2 L (39.0-53.0) % MCHC 30.3 L (31.0-37.0) g/dL Sodium 136 L (137-145) mmol/L Potassium (3.5-5.1) mmol/L Chloride (98-107) mmol/L Carbon Dioxide 31 H (22-30) mmol/L BUN 63 H (9-20) mg/dL Creatinine 2.05 H (0.66-1.25) mg/dL Glucose (74-99) mg/dL POC Glucose (mg/dL) 217 H (75-99) mg/dL Calcium 7.4 L (8.4-10.2) mg/dL Iron (65-175) ug/dL Iron Saturation (15.00-50.00) Assessment and Plan Plan: ASSESSMENT #1 Acute on chronic systolic heart failure #2COPD #3Anasarca #4Acute anemia #5Troponin abnormality not consistent with an acute myocardial infarction #6 evidence of gastric volvulus requiring surgery #7 nonischemic cardiomyopathy Plan Patient's creatinine today up to 2.0. All diuretics are currently on hold. Patient's Entresto was discontinued at this morning because of the elevated creatinine and potassium, we will repeat his labs, if the creatinine is improving we would recommend to try resuming the Entresto, monitoring the creatinine and potassium closely. DNP note has been reviewed, I agree with a documented findings and plan of care. Patient was seen and examined.
[2018-10-17 13:30] LABS: Calcium 7.4 mg/dL (8.4-10.2); Potassium 4.6 mmol/L (3.5-5.1)
--- NOTE | 2018-10-17 17:55 | CONS ---
CONSULTATION REASON FOR CONSULT: Renal failure. HISTORY OF PRESENT ILLNESS: Patient is a 73-year-old male who was admitted to the hospital on 10/11/2018 with the volume overload CHF exacerbation. He had also sustained a non ST elevation IA. The serum creatinine was about 1.0 mg/dL. It did go up to 1.3 on 10/14/2018 and has progressively increased to 2.1 now. The patient has not had any cardiac catheterization. Abdominal CT was done without any contrast. The patient was found to have a gastric volvulus with large hiatal hernia. Echocardiogram on 10/12/2018 showed ejection fraction less than 20% with severe global hypokinesis. The patient is currently maintained on normal saline this morning. He was previously being diuresed. The patient was also on Entresto which is now discontinued. Blood pressure has been on the lower side with systolic as low as 89 mmHg earlier this morning. During this time, patient had a Barroso catheter for some time, but currently he is voiding. PAST MEDICAL HISTORY: Significant for COPD, coronary artery disease, CHF, cardiomyopathy, ejection fraction less than 20% on current echocardiogram. Dyslipidemia. PAST SURGICAL HISTORY: Significant for coronary artery bypass surgery. MEDICATIONS: Medications at home include Lipitor, Plavix, Lasix, Zestril, Lopressor, singular, potassium. ALLERGIES: None. REVIEW OF SYSTEMS: Currently negative for fever, chills, nausea, vomiting or diarrhea. PHYSICAL EXAMINATION: Patient is comfortable, awake. He is not in any acute distress. This morning, blood pressure was 111/63, earlier this morning we had a pressure of 89/53. Heart rate of 90 per minute. Patient is afebrile. Examination of the heart S1, S2. Examination of the lungs bilateral breath sounds are heard. Abdomen is soft, nontender. Examination of the lower extremities shows edema 1+ bilaterally. WINDOWS SERVER SUPPORT TECHNICIAN exam is grossly intact. LAB: Show sodium 135, potassium 4.6, chloride 104, BUN 60, serum creatinine 2.14. Hemoglobin was 7.4 g/dL. No active bleeding noted at this time. ASSESSMENT: 1. Acute kidney injury, mainly secondary to hypotension hypoperfusion. The patient was also recently diuresed. He was maintained on Entresto which contains angiotensin receptor blockers and this is now on hold. The patient also received IV fluids. However, he remains volume overloaded. Therefore, I agree with discontinuation of IV fluids. As long as he is breathing comfortably, I will hold off on diuretics for now. Avoid hypotension and repeat labs in a.m. and check postvoid residual to rule out urine retention. 2. Status post acute myocardial infarction. 3. Gastric volvulus with large hiatal hernia, status post laparoscopic hiatal hernia repair with anterior fundoplication. 4. Anemia. No active bleeding noted at this time. 5. Hypoglycemia. 6. Chronic obstructive pulmonary disease. PLAN: Continue to hold off on Entresto to avoid hypotension. Repeat labs in a.m. and check postvoid residual volume. Rule out urine retention. I will check a urinalysis as well. Give IV iron if the patient has not received yet. Iron saturation was 1.1% on 10/16/2018. Thank you for this consultation. We will continue to follow the patient with you during his hospitalization. MMLIZETL / IJN: [id number] /
[2018-10-17 18:22] LABS: Calcium 7.4 mg/dL (8.4-10.2); Potassium 5.1 mmol/L (3.5-5.1)
[2018-10-17] MEDS: SODIUM FERRIC GLUCONAT-SUCROSE 125 MG in SODIUM CHLORIDE 0.9% 100 ML IVPB SCH (18:59)
[2018-10-17] MEDS: ATORVASTATIN 40 MG TAB PO SCH (20:09)
[2018-10-17] MEDS: MONTELUKAST 10 MG TAB PO SCH (20:09)
[2018-10-17] MEDS: PANTOPRAZOLE 40 MG/10 ML VIAL IVP SCH (20:49)
[2018-10-18 01:36] LABS: Glucose,Whole Blood 106 mg/dL (75-99)
[2018-10-18 05:57] LABS: Glucose,Whole Blood 108 mg/dL (75-99)
[2018-10-18 06:59] LABS: HGB 7.2 gm/dL (13.0-17.5); Hypochromasia Marked; MCH 24.9 pg (25.0-35.0); MCHC 29.9 g/dL (31.0-37.0); MCV 83.3 fL (80.0-100.0); Mean Platelet Volume 6.2; Platelet Count 388 k/uL (150-450); Poikilocytosis Moderate; RBC 2.89 m/uL (4.30-5.90); RDW 14.6 % (11.5-15.5); WBC 6.4 k/uL (3.8-10.6)
[2018-10-18] MEDS: IPRATROPIUM-ALBUTEROL 3 ML NEB INHALATION SCH ×3 (07:05→19:55)
[2018-10-18 07:10] LABS: Calcium 7.4 mg/dL (8.4-10.2); Magnesium 2.6 mg/dL (1.6-2.3); Potassium 4.9 mmol/L (3.5-5.1)
--- NOTE | 2018-10-18 09:29 | P.PN ---
Progress Note - Text Progress Note Date: 10/18/18 This is a 73-year-old gentleman was admitted with significant peripheral edema and evidence of CHF and evidence of severe cardiomyopathy with an ejection fraction of 20-25%. Unfortunately, patient developed acute abdomen requiring surgery. Patient is doing well from that aspect. Patient is eating well and doesn't seem to be in acute distress. However, patient's creatinine went up. It could be secondary to medication because patient was started on Entresto. All the diuretics are held at this time including Lasix and Aldactone. Lisinopril was held long time ago. Entresto was discontinued. His renal function seemed to be improving. At this point I'm going to change his metoprolol to Coreg and start him on small dose of hydralazine. Once his kidney function is more stable, we'll Resume his diuretics and possibly lisinopril. Patient was on lisinopril at home and his creatinine was normal when he came in. Further recommendations depend upon clinical course. Lab values today showed Creatinine of 1.55. BUN is 54. Potassium is 4.9. Hemoglobin is 7.2. Chest x-ray from the showed continued. Return Cardiac history is disease with some improvement. Bilateral pleural effusion. Underlying COPD gradient CHF. GENERAL EXAM: Patient is alert and oriented and doesn't appear to be in any acute distress HEENT: Normocephalic. Normal reaction of pupils, equal size, normal range of extraocular motion. No erythema or exudates in the throat. NECK: No masses, no nuchal rigidity. CHEST: No chest wall deformity. LUNGS: Equal air entry with no crackles or wheeze. HEART: S1 and S2 normal with no audible mumurs or gallops. Regular rhythm, femorals equal on both sides.. ABDOMEN: No hepatosplenomegaly, normal bowel sounds, no guarding or rigidity. SKIN: No rashes CENTRAL NERVOUS SYSTEM: No focal deficits. EXTREMITIES: Moderate bilateral edema. Final impression: #1. Acute on chronic congestive heart failure #2. Ischemic cardiomyopathy #3. Acute abdomen, postsurgical. #4. Acute renal failure. Could be from her medications, though the possibility of acute EKG kidney injury related to acute abdomen and surgery also to be considered. Plan: Continue to follow his kidney function studies. I will put him on combination of Coreg and hydralazine. Once the renal functions are more stable, we'll resume his diuretics along with probably lisinopril. Prognosis is guarded
[2018-10-18] MEDS: LORATADINE 10 MG TAB PO SCH (09:32)
[2018-10-18] MEDS: SODIUM FERRIC GLUCONAT-SUCROSE 125 MG in SODIUM CHLORIDE 0.9% 100 ML IVPB SCH (09:32)
[2018-10-18] MEDS: CARVEDILOL 3.125 MG TAB PO SCH ×2 (09:37→17:13)
[2018-10-18] MEDS: METOPROLOL TARTRATE 25 MG TAB PO SCH (09:39)
--- NOTE | 2018-10-18 10:25 | P.PN ---
Subjective Progress Note Date: 10/18/18 CHIEF COMPLAINT: Stomach volvulus and hiatal hernia HISTORY OF PRESENT ILLNESS: patient is status post laparoscopic hiatal hernia repair with anterior 180 fundoplication. POD #3. Patient is examined at the bedside. Patient reports his pain is tolerable. He is tolerating full liquid diet. No nausea. Reports passing flatus. No BM. WBC 6.4. Hemoglobin 7.2. PHYSICAL EXAM: VITAL SIGNS: Currently stable. GENERAL: Well-developed in no acute distress. HEENT: No sclera icterus. Extraocular movements grossly intact. Moist buccal mucosa. Head is atraumatic, normocephalic. Hears conversational speech. No nasal drainage. NECK: Supple without lymphadenopathy. CHEST: Non-labored respirations and equal bilateral excursions. CARDIOVASCULAR: Regular rate with regular rhythm. Palpable 2+ radial pulses. ABDOMEN: Soft. Nondistended. Surgical incision sites without drainage. MUSCULOSKELETAL: No clubbing, cyanosis. NEUROLOGIC: No focal or lateralizing signs. Cranial nerves II through XII grossly intact. PSYCH: Appropriate affect. Alert and oriented. SKIN: Well perfused. Good skin turgor. ASSESSMENT: 1. Abdominal pain with episode of emesis 2. Gastric volvulus with large hiatal hernia, s/p laparoscopic hiatal hernia repair with anterior 180 fundoplication PLAN: Patient is stable from a surgical perspective. He is to remain on a full liquid diet for 2 weeks at the time of discharge. Nurse practitioner note has been reviewed by physician. Signing provider agrees with the documented findings, assessment, and plan of care. Objective - Vital Signs Vital signs: Vital Signs Temp 97.9 F 10/18/18 04:02 Pulse 88 10/18/18 07:15 Resp 18 10/18/18 04:02 BP 110/51 10/18/18 04:02 Pulse Ox 93 L 10/18/18 07:05 Intake & Output 10/17/18 10/18/18 10/18/18 18:59 06:59 18:59 Intake Total 1520 480 Output Total 400 225 Balance 1520 -400 255 Weight 89.4 kg Intake: Intake, IV Titration 0 Amount Sodium Chloride 0.9% 50 0 ml @ 0 mls/hr IV .STK-MED ONE with ceFAZolin 2,000 mg Rx#:[id number] Oral 1520 480 Output: Urine 400 225 Other: Voiding Method Urinal # Voids 1 2 - Labs CBC & Chem 7: 10/18/18 06:21 10/18/18 06:21 Labs: Abnormal Lab Results - Last 24 Hours (Table) 10/17/18 10/17/18 10/18/18 Range/Units 12:39 17:43 01:34 RBC (4.30-5.90) m/uL Hgb (13.0-17.5) gm/dL Hct (39.0-53.0) % MCH (25.0-35.0) pg MCHC (31.0-37.0) g/dL Sodium 135 L (137-145) mmol/L BUN 60 H 63 H (9-20) mg/dL Creatinine 2.14 H 1.79 H (0.66-1.25) mg/dL Glucose 132 H (74-99) mg/dL POC Glucose (mg/dL) 106 H (75-99) mg/dL Calcium 7.4 L 7.4 L (8.4-10.2) mg/dL Magnesium (1.6-2.3) mg/dL 10/18/18 10/18/18 10/18/18 Range/Units 05:56 06:21 06:21 RBC 2.89 L (4.30-5.90) m/uL Hgb 7.2 L (13.0-17.5) gm/dL Hct 24.0 L (39.0-53.0) % MCH 24.9 L (25.0-35.0) pg MCHC 29.9 L (31.0-37.0) g/dL Sodium 136 L (137-145) mmol/L BUN 54 H (9-20) mg/dL Creatinine 1.55 H (0.66-1.25) mg/dL Glucose (74-99) mg/dL POC Glucose (mg/dL) 108 H (75-99) mg/dL Calcium 7.4 L (8.4-10.2) mg/dL Magnesium 2.6 H (1.6-2.3) mg/dL
[2018-10-18 11:37] VITALS: BMI 27.4
[2018-10-18 11:42] LABS: Glucose,Whole Blood 141 mg/dL (75-99)
--- NOTE | 2018-10-18 13:10 | P.PN ---
Subjective Progress Note Date: 10/18/18 Principal diagnosis: Volvulus, CHF exacerbation Patient was seen and examined. No acute events overnight. Patient reports complete resolution of his abdominal pain. He reports passing gas but no bowel movement as of yet. Patient also reports that his breathing has been improving. He denies any shortness of breath, cough or chest pain. Patient believes that he is back to baseline. Objective - Vital Signs Vital signs: Vital Signs Temp 97.5 F L 10/18/18 08:00 Pulse 100 10/18/18 12:00 Resp 18 10/18/18 12:00 BP 122/71 10/18/18 08:00 Pulse Ox 93 L 10/18/18 08:00 Intake & Output 10/17/18 10/18/18 10/18/18 18:59 06:59 18:59 Intake Total 1520 1200 Output Total 400 225 Balance 1520 -400 975 Weight 89.4 kg 89.4 kg Intake: Intake, IV Titration 0 Amount Sodium Chloride 0.9% 50 0 ml @ 0 mls/hr IV .STK-MED ONE with ceFAZolin 2,000 mg Rx#:[id number] Oral 1520 1200 Output: Urine 400 225 Other: Voiding Method Urinal Urinal # Voids 1 1 - Exam General: [non toxic], [no distress], [appears at stated age] Derm: [warm], [dry] Head: [atraumatic], [normocephalic], [symmetric] Eyes: [EOMI], [no lid lag], [anicteric sclera] Mouth: [no lip lesion], [mucus membranes moist] Cardiovascular: [S1S2 reg], [no murmur], [positive DP pulse bilateral] Lungs: [CTA bilateral], [no rhonchi, no rales] , [no accessory muscle use] Abdominal: [soft], [ nontender to palpation], [no guarding], [no appreciable organomegaly], [surgical scar is intact] Ext: [no gross muscle atrophy], [2+ pitting lower extremity edema], [no contractures] Neuro: [no focal neuro deficits] Psych: [Alert], [oriented], [appropriate affect] - Labs CBC & Chem 7: 10/18/18 06:21 10/18/18 06:21 Labs: Abnormal Lab Results - Last 24 Hours (Table) 10/17/18 10/17/18 10/18/18 Range/Units 12:39 17:43 01:34 RBC (4.30-5.90) m/uL Hgb (13.0-17.5) gm/dL Hct (39.0-53.0) % MCH (25.0-35.0) pg MCHC (31.0-37.0) g/dL Sodium 135 L (137-145) mmol/L BUN 60 H 63 H (9-20) mg/dL Creatinine 2.14 H 1.79 H (0.66-1.25) mg/dL Glucose 132 H (74-99) mg/dL POC Glucose (mg/dL) 106 H (75-99) mg/dL Calcium 7.4 L 7.4 L (8.4-10.2) mg/dL Magnesium (1.6-2.3) mg/dL 10/18/18 10/18/18 10/18/18 Range/Units 05:56 06:21 06:21 RBC 2.89 L (4.30-5.90) m/uL Hgb 7.2 L (13.0-17.5) gm/dL Hct 24.0 L (39.0-53.0) % MCH 24.9 L (25.0-35.0) pg MCHC 29.9 L (31.0-37.0) g/dL Sodium 136 L (137-145) mmol/L BUN 54 H (9-20) mg/dL Creatinine 1.55 H (0.66-1.25) mg/dL Glucose (74-99) mg/dL POC Glucose (mg/dL) 108 H (75-99) mg/dL Calcium 7.4 L (8.4-10.2) mg/dL Magnesium 2.6 H (1.6-2.3) mg/dL 10/18/18 Range/Units 11:35 RBC (4.30-5.90) m/uL Hgb (13.0-17.5) gm/dL Hct (39.0-53.0) % MCH (25.0-35.0) pg MCHC (31.0-37.0) g/dL Sodium (137-145) mmol/L BUN (9-20) mg/dL Creatinine (0.66-1.25) mg/dL Glucose (74-99) mg/dL POC Glucose (mg/dL) 141 H (75-99) mg/dL Calcium (8.4-10.2) mg/dL Magnesium (1.6-2.3) mg/dL Assessment and Plan Assessment: Assessment and Plan 1. Gastric volvulus 2. Acute exacerbation of systolic congestive heart failure EF less than 20% 3. Acute kidney injury 4. Anemia 5. COPD 6. Elevated troponin 1. Endoscopy on 10/15/2018 showing volvulus. Underwent Brian fundoplication 10/15/2018. Patient reports no complaints since then. Pain management with Tylenol by mouth, morphine IV as needed. Zofran as needed for nausea or vomiting. 2. Previously diuresed with Lasix IV. Continue Coreg 3.125 mg by mouth twice a day. Hydralazine 10 mg by mouth twice a day added. Hold ILA inhibitor or ARB due to acute kidney injury. Echocardiogram shows less than 20% EF. Telemetry monitoring. Daily weights. Strict in and out. Will follow cardiology recommendations. Not a candidate for life vest due to history of confusion and sundowning. Follow cardiology in the outpatient setting for AICD placement. 3. BUN 32-54. Creatinine 1.30-1.55. Likely secondary to hypo-tension and IV diuresing. Hold Entresto. Hold IVF due to overload status. Avoid nephrotoxins. Will follow nephrology consult. 4. Likely secondary to acute blood loss from surgery, chronic disease. Continue IV iron. Transfuse if hemoglobin less than 7. Daily CBC. 5. Stable. DuoNeb as needed for shortness of breath or wheezing. Continue Cla ritin. Continue Singulair. Oxygen per nasal cannula to maintain oxygen saturation greater than 92%. 6. Troponin 0.203, 0.199. Likely secondary to CHF, troponin leak. Telemetry monitoring. Will follow cardiology recommendations. Patient admitted for CHF exacerbation, cardiology on board. Nephrology on board for acute kidney injury. Possible DC in 1-2 days. Will discharge home with home health.
--- NOTE | 2018-10-18 16:21 | PN ---
PROGRESS NOTE Patient is seen for followup for acute kidney injury. His renal function has improved. The acute kidney injury is mostly related to recent hypotension and hypoperfusion in the setting of use of Entresto, which contains angiotensin receptor blockers. Renal function has improved. Patient did receive IV fluids for a short period of time, which are now discontinued. He is currently off of Lasix and IV fluids. On examination, blood pressure was 119/74, heart rate 76 per minute. He is afebrile. EXAMINATION OF THE HEART: S1 and S2. EXAMINATION OF LUNGS: Bilateral breath sounds are heard. ABDOMEN: Soft, non-tender. Examination of lower extremities shows edema 1+ bilaterally. CHILD CARE ASSISTANT exam is grossly intact. Labs show sodium 136, potassium 4.9, BUN 54, serum creatinine 1.5. Hemoglobin was 7.2 g/dL. ASSESSMENT: 1. Acute kidney injury associated with hypotension and hypoperfusion, currently improved. Patient is off of Entresto, and I will continue to hold off on it for now. We can resume as outpatient once he is more hemodynamically stable. Continue off of IV fluids and continue off of diuretics for now. 2. Gastric volvulus and large hiatal hernia, status post laparoscopic hiatal hernia repair with anterior fundoplication. 3. Chronic obstructive pulmonary disease. 4. Anemia with evidence of iron deficiency, maintained on IV iron. PLAN: Continue with IV iron for now, at least for 3 doses. We can likely resume low-dose diuretics at the time of discharge. Continue to hold off on angiotensin receptor nain/Entresto for now. MMODL / IJN: [id number] /
[2018-10-18 16:26] LABS: Glucose,Whole Blood 113 mg/dL (75-99)
[2018-10-18] MEDS: MONTELUKAST 10 MG TAB PO SCH (21:08)
[2018-10-18] MEDS: hydrALAZINE HCL 10 MG TAB PO SCH (21:08)
[2018-10-18] MEDS: ATORVASTATIN 40 MG TAB PO SCH (21:09)
[2018-10-19 01:25] LABS: Glucose,Whole Blood 136 mg/dL (75-99)
[2018-10-19 05:48] LABS: Glucose,Whole Blood 109 mg/dL (75-99)
[2018-10-19] MEDS: CARVEDILOL 3.125 MG TAB PO SCH (06:41)
[2018-10-19 08:13] VITALS: RESP 16; TEMP 98.4
[2018-10-19] MEDS: hydrALAZINE HCL 10 MG TAB PO SCH (08:24)
[2018-10-19] MEDS: LORATADINE 10 MG TAB PO SCH (08:24)
[2018-10-19] MEDS: IPRATROPIUM-ALBUTEROL 3 ML NEB INHALATION SCH ×2 (08:40→13:54)
--- NOTE | 2018-10-19 10:14 | P.PN ---
Subjective Progress Note Date: 10/19/18 CHIEF COMPLAINT: Stomach volvulus and hiatal hernia HISTORY OF PRESENT ILLNESS: patient is status post laparoscopic hiatal hernia repair with anterior 180 fundoplication. POD #4. Patient is examined at the bedside. Patient reports his pain is tolerable. He is tolerating full liquid diet. No nausea. Reports passing flatus. PHYSICAL EXAM: VITAL SIGNS: Currently stable. GENERAL: Well-developed in no acute distress. HEENT: No sclera icterus. Extraocular movements grossly intact. Moist buccal mucosa. Head is atraumatic, normocephalic. Hears conversational speech. No nasal drainage. NECK: Supple without lymphadenopathy. CHEST: Non-labored respirations and equal bilateral excursions. CARDIOVASCULAR: Regular rate with regular rhythm. Palpable 2+ radial pulses. ABDOMEN: Soft. Nondistended. Surgical incision sites without drainage. MUSCULOSKELETAL: No clubbing, cyanosis. NEUROLOGIC: No focal or lateralizing signs. Cranial nerves II through XII grossly intact. PSYCH: Appropriate affect. Alert and oriented. SKIN: Well perfused. Good skin turgor. ASSESSMENT: 1. Abdominal pain with episode of emesis 2. Gastric volvulus with large hiatal hernia, s/p laparoscopic hiatal hernia repair with anterior 180 fundoplication PLAN: Patient is stable from a surgical perspective. He is to remain on a full liquid diet for 2 weeks at the time of discharge. Nurse practitioner note has been reviewed by physician. Signing provider agrees with the documented findings, assessment, and plan of care. Objective - Vital Signs Vital signs: Vital Signs Temp 98.4 F 10/19/18 08:00 Pulse 80 10/19/18 08:54 Resp 16 10/19/18 08:00 BP 147/76 10/19/18 08:00 Pulse Ox 96 10/19/18 08:00 Intake & Output 10/18/18 10/19/18 10/19/18 18:59 06:59 18:59 Intake Total 1680 260 Output Total 400 Balance 1280 260 Weight 89.4 kg 89.6 kg Intake: Oral 1680 260 Output: Urine 400 Other: Voiding Method Urinal Toilet Urinal # Voids 1 1 - Labs CBC & Chem 7: 10/19/18 10:23 10/19/18 10:23 Labs: Abnormal Lab Results - Last 24 Hours (Table) 10/18/18 10/18/1819 Range/Units 11:35 16:21 01:23 POC Glucose (mg/dL) 141 H 113 H 136 H (75-99) mg/dL 10/19/18 Range/Units 05:46 POC Glucose (mg/dL) 109 H (75-99) mg/dL
[2018-10-19 11:01] LABS: Albumin 1.8 g/dL (3.5-5.0); Calcium 7.6 mg/dL (8.4-10.2); Potassium 4.7 mmol/L (3.5-5.1); Total Bilirubin 0.4 mg/dL (0.2-1.3); Total Protein 3.7 g/dL (6.3-8.2)
[2018-10-19 11:03] LABS: HCT 24.7 % (39.0-53.0); HGB 7.7 gm/dL (13.0-17.5); Hypochromasia Marked; MCH 25.8 pg (25.0-35.0); MCHC 31.1 g/dL (31.0-37.0); MCV 83.1 fL (80.0-100.0); Mean Platelet Volume 6.1; Platelet Count 390 k/uL (150-450); Poikilocytosis Moderate; RBC 2.97 m/uL (4.30-5.90); RDW 15.3 % (11.5-15.5); WBC 6.5 k/uL (3.8-10.6)
[2018-10-19 11:07] VITALS: BP 145/81
[2018-10-19] MEDS: SODIUM FERRIC GLUCONAT-SUCROSE 125 MG in SODIUM CHLORIDE 0.9% 100 ML IVPB SCH (11:15)
--- NOTE | 2018-10-19 11:37 | PN ---
PROGRESS NOTE The patient is seen for followup for acute kidney injury. His renal function is improved. We do not have labs from today. Serum creatinine was down to 1.5 from a peak of 2.1 mg/dL. The patient's blood pressure was low. He was maintained on which is now on hold. He did receive IV fluids for a short period of time after initial diuresis for admission for CHF exacerbation. Currently, he is not on any IV fluids or diuretics. Overall, patient states he is feeling well. He denies any chest pains or shortness of breath. Blood pressure was 147/76, heart rate 101 per minute. He is afebrile. EXAMINATION OF THE HEART: S1, S2. EXAMINATION OF THE LUNGS: Decreased breath sounds at the bases. No crackles or wheezing is heard. Abdomen is soft, nontender. Examination of the lower extremities shows trace edema bilaterally. Chronic skin changes are noted. Labs are not available from today. ASSESSMENT: 1. Acute kidney injury secondary to hypotension hypoperfusion currently improved. Continue off of angiotensin receptor blockers. 2. Gastric volvulus and large hiatal hernia, status post laparoscopic hiatal hernia repair and anterior fundoplication. 3. Chronic obstructive pulmonary disease. 4. Anemia with iron deficiency, currently maintained on IV iron. We will discontinue the IV iron tomorrow. 5. Congestive heart failure on initial admission, acute on top of chronic, mainly systolic, currently improved. 6. Cardiomyopathy, ejection fraction less than 20%, stable. PLAN: We can resume low-dose diuretics at the time of discharge. Continue to hold off on angiotensin receptor blockers for now. MMODL / IJN: [id number] /
[2018-10-19 12:02] LABS: Glucose,Whole Blood 154 mg/dL (75-99)
--- NOTE | 2018-10-19 12:38 | P.PN ---
Subjective Progress Note Date: 10/19/18 This 73-year-old gentleman is admitted with evidence of CHF, edema and cardiomyopathy with an ejection fraction of 20 to 25%. Patient was initiated on aggressive medication for CHF. Unfortunately, patient developed valveless requiring emergency surgery. Patient is recovering very well. Patient also dev eloped acute renal failure. He was taken off lisinopril, Aldactone, and also Eliquis. His renal function is gradually improving. His back on hydralazine and Coreg. We'll Resume small amount of diuretic today in the form of Lasix. Patient wants to go home. Overall he is feeling better. Objective - Vital Signs Vital signs: Vital Signs Temp 98.4 F 10/19/18 08:00 Pulse 88 10/19/18 11:35 Resp 16 10/19/18 11:35 BP 145/81 10/19/18 11:06 Pulse Ox 93 L 10/19/18 11:06 Intake & Output 10/18/18 10/19/18 10/19/18 18:59 06:59 18:59 Intake Total 1680 360 Output Total 400 Balance 1280 360 Weight 89.4 kg 89.6 kg Intake: Intake, IV Titration 100 Amount Sodium Ferric Gluconat- 100 Sucrose 125 mg In Sodium Chloride 0.9% 100 ml @ 100 mls/hr IVPB DAILY [facility] Rx#:[id number] Oral 1680 260 Output: Urine 400 Other: Voiding Method Urinal Toilet Urinal # Voids 1 1 - Exam GENERAL EXAM: Patient is alert and oriented and doesn't appear to be in any acute distress. Looks better than yesterday HEENT: Normocephalic. Normal reaction of pupils, equal size, normal range of extraocular motion. No erythema or exudates in the throat. NECK: No masses, no nuchal rigidity. CHEST: No chest wall deformity. LUNGS: Equal air entry with no crackles or wheeze. HEART: S1 and S2 normal with no audible mumurs or gallops. Regular rhythm, femorals equal on both sides.. ABDOMEN: No hepatosplenomegaly, normal bowel sounds, no guarding or rigidity. SKIN: No rashes CENTRAL NERVOUS SYSTEM: No focal deficits. EXTREMITIES: Resolving edema - Labs CBC & Chem 7: 10/19/18 10:23 10/19/18 10:23 Labs: Abnormal Lab Results - Last 24 Hours (Table) 10/18/18 10/19/18 10/19/18 Range/Units 16:21 01:23 05:46 RBC (4.30-5.90) m/uL Hgb (13.0-17.5) gm/dL Hct (39.0-53.0) % Sodium (137-145) mmol/L Carbon Dioxide (22-30) mmol/L BUN (9-20) mg/dL Glucose (74-99) mg/dL POC Glucose (mg/dL) 113 H 136 H 109 H (75-99) mg/dL Calcium (8.4-10.2) mg/dL Total Protein (6.3-8.2) g/dL Albumin (3.5-5.0) g/dL 10/19/18 10/19/18 10/19/18 Range/Units 10:23 10:23 11:56 RBC 2.97 L (4.30-5.90) m/uL Hgb 7.7 L (13.0-17.5) gm/dL Hct 24.7 L (39.0-53.0) % Sodium 136 L (137-145) mmol/L Carbon Dioxide 32 H (22-30) mmol/L BUN 34 H (9-20) mg/dL Glucose 110 H (74-99) mg/dL POC Glucose (mg/dL) 154 H (75-99) mg/dL Calcium 7.6 L (8.4-10.2) mg/dL Total Protein 3.7 L (6.3-8.2) g/dL Albumin 1.8 L (3.5-5.0) g/dL Assessment and Plan (1) COPD (chronic obstructive pulmonary disease) Current Visit: Yes Status: Acute Code(s): J44.9 - CHRONIC OBSTRUCTIVE PULMONARY DISEASE, UNSPECIFIED SNOMED Code(s): 05322782 (2) Anasarca Current Visit: Yes Status: Acute Code(s): R60.1 - GENERALIZED EDEMA SNOMED Code(s): 251913978 (3) CHF exacerbation Current Visit: Yes Status: Acute Code(s): I50.9 - HEART FAILURE, UNSPECIFIED SNOMED Code(s): 23509487 (4) Elevated troponin Current Visit: Yes Status: Acute Code(s): R74.8 - ABNORMAL LEVELS OF OTHER SERUM ENZYMES SNOMED Code(s): 783211294 (5) Hypokalemia Current Visit: Yes Status: Acute Code(s): E87.6 - HYPOKALEMIA SNOMED Code(s): 51759930 (6) Acute anemia Current Visit: Yes Status: Acute Priority: Medium Code(s): D64.9 - ANEMIA, UNSPECIFIED SNOMED Code(s): 680688176 Plan: Patient is gradually getting better. His renal function is improving. I'm going to increase the dose of Coreg and hydralazine and add small dose of diuretic. Further recommendations depend upon the clinical course
--- NOTE | 2018-10-19 13:35 | P.PN ---
Subjective Progress Note Date: 10/19/18 Principal diagnosis: Volvulus, CHF exacerbation Patient was seen and examined. No acute events overnight. Patient reports no abdominal pain. Eating full liquid comfortably. He denies any shortness of breath, chest pain or palpitations. No nausea or vomiting. Objective - Vital Signs Vital signs: Vital Signs Temp 98.4 F 10/19/18 08:00 Pulse 88 10/19/18 11:35 Resp 16 10/19/18 11:35 BP 145/81 10/19/18 11:06 Pulse Ox 93 L 10/19/18 11:06 Intake & Output 10/18/18 10/19/18 10/19/18 18:59 06:59 18:59 Intake Total 1680 360 Output Total 400 Balance 1280 360 Weight 89.4 kg 89.6 kg Intake: Intake, IV Titration 100 Amount Sodium Ferric Gluconat- 100 Sucrose 125 mg In Sodium Chloride 0.9% 100 ml @ 100 mls/hr IVPB DAILY [facility] Rx#:[id number] Oral 1680 260 Output: Urine 400 Other: Voiding Method Urinal Toilet Urinal # Voids 1 1 - Exam General: [non toxic], [no distress], [appears at stated age] Derm: [warm], [dry] Head: [atraumatic], [normocephalic], [symmetric] Eyes: [EOMI], [no lid lag], [anicteric sclera] Mouth: [no lip lesion], [mucus membranes moist] Cardiovascular: [S1S2 reg], [no murmur], [positive DP pulse bilateral] Lungs: [CTA bilateral], [no rhonchi, no rales] , [no accessory muscle use] Abdominal: [soft], [ nontender to palpation], [no guarding], [no appreciable organomegaly], [surgical scar is intact] Ext: [no gross muscle atrophy], [2+ pitting lower extremity edema], [no contractures] Neuro: [no focal neuro deficits] Psych: [Alert], [oriented], [appropriate affect] - Labs CBC & Chem 7: 10/19/18 10:23 10/19/18 10:23 Labs: Abnormal Lab Results - Last 24 Hours (Table) 10/18/18 10/19/18 10/19/18 Range/Units 16:21 01:23 05:46 RBC (4.30-5.90) m/uL Hgb (13.0-17.5) gm/dL Hct (39.0-53.0) % Sodium (137-145) mmol/L Carbon Dioxide (22-30) mmol/L BUN (9-20) mg/dL Glucose (74-99) mg/dL POC Glucose (mg/dL) 113 H 136 H 109 H (75-99) mg/dL Calcium (8.4-10.2) mg/dL Total Protein (6.3-8.2) g/dL Albumin (3.5-5.0) g/dL 10/19/18 10/19/18 10/19/18 Range/Units 10:23 10:23 11:56 RBC 2.97 L (4.30-5.90) m/uL Hgb 7.7 L (13.0-17.5) gm/dL Hct 24.7 L (39.0-53.0) % Sodium 136 L (137-145) mmol/L Carbon Dioxide 32 H (22-30) mmol/L BUN 34 H (9-20) mg/dL Glucose 110 H (74-99) mg/dL POC Glucose (mg/dL) 154 H (75-99) mg/dL Calcium 7.6 L (8.4-10.2) mg/dL Total Protein 3.7 L (6.3-8.2) g/dL Albumin 1.8 L (3.5-5.0) g/dL Assessment and Plan Assessment: Assessment and Plan 1. Gastric volvulus 2. Acute exacerbation of systolic congestive heart failure EF less than 20% 3. Acute kidney injury 4. Anemia 5. COPD 6. Elevated troponin 1. Endoscopy on 10/15/2018 showing volvulus. Underwent Brian fundoplication 10/15/2018. Patient reports no complaints since then. Pain management with Tylenol by mouth, morphine IV as needed. Zofran as needed for nausea or vomiting. 2. Previously diuresed with Lasix IV. Increase Coreg to 6.25 mg by mouth twice a day. Hydralazine 10 mg by mouth twice a day increased to 25, Imdur 15 mg by mouth daily added. Start Lasix 20 mg by mouth twice a day. Hold ILA inhibitor or ARB due to acute kidney injury. Echocardiogram shows less than 20% EF. Telemetry monitoring. Daily weights. Strict in and out. Will follow cardiology recommendations. Not a candidate for life vest due to history of confusion and sundowning. Follow cardiology in the outpatient setting for AICD placement. 3. BUN 32-54-34. Creatinine 1.30-1.55-within normal limits. Likely secondary to hypo-tension and IV diuresing. Continuing to hold ILA inhibitor and Entresto as per nephrology recommendation. Hold IVF due to overload status. Avoid nephrotoxins. Will follow nephrology consult. 4. Hemoglobin maintaining stable at 7.7. Likely secondary to acute blood loss from surgery, chronic disease. Continue IV iron. Transfuse if hemoglobin less than 7. Daily CBC. 5. Stable. DuoNeb as needed for shortness of breath or wheezing. Continue Claritin. Continue Singulair. Oxygen per nasal cannula to maintain oxygen saturation greater than 92%. 6. Troponin 0.203, 0.199. Likely secondary to CHF, troponin leak. Telemetry monitoring. Will follow cardiology recommendations. Patient admitted for CHF exacerbation, cardiology on board, stepwise introduction of BP and cardioprotective meds. Nephrology on board for acute kidney injury, creatinine improving. General surgery consulted for volvulus, signed off. Possible DC in 1-2 days. Will discharge home with home health.
[2018-10-19 14:06] VITALS: PULSE 84
[2018-10-19] MEDS ORDERED: FUROSEMIDE 20 MG TAB PO SCH (16:00)
[2018-10-19] MEDS ORDERED: CARVEDILOL 6.25 MG TAB PO SCH (17:30)
[2018-10-19] MEDS ORDERED: hydrALAZINE HCL 25 MG TAB PO SCH (21:00)
[2018-10-20] MEDS ORDERED: ISOSORBIDE MONONITRATE ER 15 MG TAB PO SCH (09:00)
== END 2018-10-19 15:21 | disposition home health service (06) | DRG 982 ==
LOC: EC 19:55 → 3SCARD 22:23
PROVIDERS: ADMIT Internal Medicine; ATTEND Internal Medicine
PROC: 0DV44ZZ Restriction of Esophagogastric Junction, Percutaneous Endoscopic Approach (ICD-10-PCS; 2018-10-15)
PROC: 0DJ08ZZ Inspection of Upper Intestinal Tract, Via Natural or Artificial Opening Endoscopic (ICD-10-PCS; 2018-10-15)
PROC: 0BUT4JZ Supplement Diaphragm with Synthetic Substitute, Percutaneous Endoscopic Approach (ICD-10-PCS; principal; 2018-10-15 08:35)
DX: I11.0 Hypertensive heart disease with heart failure (principal); K92.0 Hematemesis; N17.9 Acute kidney failure, unspecified; D62 Acute posthemorrhagic anemia; I50.23 Acute on chronic systolic (congestive) heart failure; I95.9 Hypotension, unspecified; E87.5 Hyperkalemia; J44.9 Chronic obstructive pulmonary disease, unspecified; I25.5 Ischemic cardiomyopathy; I48.2 Chronic atrial fibrillation; D50.9 Iron deficiency anemia, unspecified; D72.819 Decreased white blood cell count, unspecified; E16.2 Hypoglycemia, unspecified; E78.5 Hyperlipidemia, unspecified; I25.10 Atherosclerotic heart disease of native coronary artery without angina pectoris; I25.2 Old myocardial infarction; K31.89 Other diseases of stomach and duodenum; K44.9 Diaphragmatic hernia without obstruction or gangrene; H91.90 Unspecified hearing loss, unspecified ear; R77.9 Abnormality of plasma protein, unspecified; Z79.82 Long term (current) use of aspirin; Z79.02 Long term (current) use of antithrombotics/antiplatelets; Z79.899 Other long term (current) drug therapy; Z95.1 Presence of aortocoronary bypass graft
CPT/HCPCS: 36415; 43235; 71045; 71046; 74176; 74240; 80048; 80053; 82728; 82803; 83540; 83550; 83605; 83735; 83880; 84484; 85025; 85027; 85610; 85730; 86850; 86900; 86901; 93005; 93306; 94640; 94760; 96374; 99285

== ENCOUNTER 2018-12-30 19:09 | Inpatient (IN) | payer MEDICARE ==
--- NOTE | 2018-12-30 19:26 | ED ---
General Adult HPI - General Chief complaint: Fall Stated complaint: CHF/renal failure Time Seen by Provider: 12/30/18 19:10 Source: patient, EMS Mode of arrival: EMS Limitations: no limitations - History of Present Illness Initial comments: Patient transferred from outside facility with a chief complaint of fall that occurred last night. Per report the fall was unwitnessed, they're unsure what the injuries are. The patient himself is a poor historian and just keeps stating "my penis keeps getting swollen" Patient has a known history of CHF and renal failure. Per the outside records he is also anemic with a hemoglobin of 7.1. - Related Data Home Medications Medication Instructions Recorded Confirmed Aspirin 81 mg PO HS 10/11/18 12/30/18 Atorvastatin [Lipitor] 40 mg PO HS 10/11/18 12/30/18 Clopidogrel [Plavix] 75 mg PO DAILY 10/11/18 12/30/18 Montelukast [Singulair] 10 mg PO HS 10/11/18 12/30/18 Cholecalciferol (Vitamin D3) 2,000 unit PO DAILY 12/30/18 12/30/18 [Vitamin D3] Fexofenadine/Pseudoephedrine 1 tab PO DAILY 12/30/18 12/30/18 [Hailey-D 24 Hour Tablet] Furosemide [Lasix] 20 mg PO DAILY 12/30/18 12/30/18 Isosorbide Mononitrate ER [Imdur] 30 mg PO DAILY 12/30/18 12/30/18 Multivitamins, Thera [Multivitamin 1 tab PO DAILY 12/30/18 12/30/18 (formulary)] Allergies Allergy/AdvReac Type Severity Reaction Status Date / Time No Known Allergies Allergy Verified 12/30/18 19:29 Review of Systems ROS Statement: Those systems with pertinent positive or pertinent negative responses have been documented in the HPI. ROS unable to be obtained secondary to patient being a poor historian ROS Other: All systems not noted in ROS Statement are negative. Past Medical History Past Medical History: Heart Failure, COPD History of Any Multi-Drug Resistant Organisms: None Reported Past Surgical History: Coronary Bypass/CABG Past Psychological History: No Psychological Hx Reported Smoking Status: Never smoker Past Alcohol Use History: None Reported Past Drug Use History: None Reported - Past Family History family Family Medical History: No Reported History General Exam - General Exam Comments Initial Comments: General: Awake, alert, No acute Distress HENT: Normocephalic. Atraumatic Eyes: PERRL. EOMI. No scleral icterus. No injected conjunctiva Neck: Full ROM Chest/Lungs: Bilateral rales Cardiac: Sinus tachycardia. No murmurs or rubs. Lower extremity edema Abdomen/GI: Soft, nondistended. Generalized abdominal tenderness. No rebound, guarding, or rigidity. Musculoskeletal: Full ROM Skin: Warm, dry, intact : No gross blood on exam. Edema to testicles. Neurologic: A/Ox1, no weakness, no sensory deficit, no abnormal gait, no coordination deficit Limitations: no limitations Course Vital Signs 12/30/18 12/30/18 12/30/18 19:16 21:09 21:10 Temperature 97.1 F L Pulse Rate 95 99 96 Respiratory 18 18 16 Rate Blood Pressure 139/98 145/89 145/89 O2 Sat by Pulse 96 97 99 Oximetry 12/30/18 12/30/18 12/30/18 22:00 22:46 22:48 Temperature 97.4 F L 97.2 F L Pulse Rate 102 H 97 97 Respiratory 20 20 20 Rate Blood Pressure 143/93 151/89 141/83 O2 Sat by Pulse 89 L 100 97 Oximetry 12/30/18 12/30/18 22:58 23:28 Temperature 97.3 F L 97.2 F L Pulse Rate 96 98 Respiratory 20 16 Rate Blood Pressure 133/86 147/86 O2 Sat by Pulse 98 98 Oximetry Medical Decision Making - Medical Decision Making 73 yoM presenting with CHF. On initial exam the patient is awake, alert, but is confused. He is unable to give any history. Patient was sent from an outside facility. Her laboratory workup here revealed a hemoglobin of 6.9, BNP of over 72,000, a troponin of 0.098, and a creatinine of 3.92 with potassium of 5.8. Patient is on 2 L nasal cannula and is not in any respiratory distress. His CT abdomen and pelvis showed his bilateral pleural effusions with groundglass opacities. He was started on Levaquin for HCAP as I did not want to give Vancomycin secondary to his VALERIE. I spoke with the patient's , Sommer ([phone]) is agreeable to blood transfusion and intubation should the patient decompensate. Patient's previous echo from October an EF of less than 20%. I spoke with Dr. Randall was agreeable to admission with cardiology and nephrology on consult. A sullivan was placed for accurate Is and Os. Patient responded well to 40 mg of Lasix. This and the patient requires ICU admission. I spoke with Dr. Ferrer who agreed in transfusing 1 unit and giving the patient Lasix for his CHF. Patient was given protonic for his anemia and aspirin was held. There was no gross blood in his rectal exam. Believe his elevated troponin is a type II and STEMI secondary to his CHF exacerbation. Patient's FOBT positive. GI consulted. We'll hold aspirin and will not start heparin in lieu of the GI bleed. - Lab Data Result diagrams: 12/30/18 19:57 12/30/18 19:57 Lab Results 12/30/18 12/30/18 12/30/18 Range/Units 19:57 19:57 19:57 WBC (3.8-10.6) k/uL RBC (4.30-5.90) m/uL Hgb (13.0-17.5) gm/dL Hct (39.0-53.0) % MCV (80.0-100.0) fL MCH (25.0-35.0) pg MCHC (31.0-37.0) g/dL RDW (11.5-15.5) % Plt Count (150-450) k/uL Neutrophils % % Lymphocytes % % Monocytes % % Eosinophils % % Basophils % % Neutrophils # (1.3-7.7) k/uL Lymphocytes # (1.0-4.8) k/uL Monocytes # (0-1.0) k/uL Eosinophils # (0-0.7) k/uL Basophils # (0-0.2) k/uL Hypochromasia Poikilocytosis Anisocytosis Microcytosis VBG pH 7.37 (7.31-7.41) VBG pCO2 41 (37-51) mmHg VBG HCO3 23 L (24-28) mmol/L Sodium 135 L (137-145) mmol/L Potassium 5.8 H (3.5-5.1) mmol/L Chloride 106 (98-107) mmol/L Carbon Dioxide 22 (22-30) mmol/L Anion Gap 7 mmol/L BUN 209 H* (9-20) mg/dL Creatinine 3.92 H (0.66-1.25) mg/dL Est GFR (CKD-EPI)AfAm 17 (>60 ml/min/1.73 sqM) Est GFR (CKD-EPI)NonAf 14 (>60 ml/min/1.73 sqM) Glucose 96 (74-99) mg/dL Plasma Lactic Acid Panda (0.7-2.0) mmol/L Calcium 8.1 L (8.4-10.2) mg/dL Troponin I (0.000-0.034) ng/mL NT-Pro-B Natriuret Pep pg/mL Stool Occult Blood (Negative) Blood Type O Positive Blood Type Recheck No Antibody Screen NEGATIVE Crossmatch See Detail 12/30/18 12/30/18 12/30/18 Range/Units 19:57 19:57 19:57 WBC 10.7 H (3.8-10.6) k/uL RBC 3.25 L (4.30-5.90) m/uL Hgb 6.9 L* (13.0-17.5) gm/dL Hct 23.0 L (39.0-53.0) % MCV 70.8 L (80.0-100.0) fL MCH 21.1 L (25.0-35.0) pg MCHC 29.8 L (31.0-37.0) g/dL RDW 22.6 H (11.5-15.5) % Plt Count 435 (150-450) k/uL Neutrophils % 85 % Lymphocytes % 8 % Monocytes % 4 % Eosinophils % 2 % Basophils % 0 % Neutrophils # 9.1 H (1.3-7.7) k/uL Lymphocytes # 0.9 L (1.0-4.8) k/uL Monocytes # 0.4 (0-1.0) k/uL Eosinophils # 0.2 (0-0.7) k/uL Basophils # 0.0 (0-0.2) k/uL Hypochromasia Marked Poikilocytosis Slight Anisocytosis Moderate Microcytosis Marked VBG pH (7.31-7.41) VBG pCO2 (37-51) mmHg VBG HCO3 (24-28) mmol/L Sodium (137-145) mmol/L Potassium (3.5-5.1) mmol/L Chloride (98-107) mmol/L Carbon Dioxide (22-30) mmol/L Anion Gap mmol/L BUN (9-20) mg/dL Creatinine (0.66-1.25) mg/dL Est GFR (CKD-EPI)AfAm (>60 ml/min/1.73 sqM) Est GFR (CKD-EPI)NonAf (>60 ml/min/1.73 sqM) Glucose (74-99) mg/dL Plasma Lactic Acid Panda 0.9 (0.7-2.0) mmol/L Calcium (8.4-10.2) mg/dL Troponin I (0.000-0.034) ng/mL NT-Pro-B Natriuret Pep 58791 pg/mL Stool Occult Blood (Negative) Blood Type Blood Type Recheck Antibody Screen Crossmatch 12/30/18 12/30/18 Range/Units 19:57 20:12 WBC (3.8-10.6) k/uL RBC (4.30-5.90) m/uL Hgb (13.0-17.5) gm/dL Hct (39.0-53.0) % MCV (80.0-100.0) fL MCH (25.0-35.0) pg MCHC (31.0-37.0) g/dL RDW (11.5-15.5) % Plt Count (150-450) k/uL Neutrophils % % Lymphocytes % % Monocytes % % Eosinophils % % Basophils % % Neutrophils # (1.3-7.7) k/uL Lymphocytes # (1.0-4.8) k/uL Monocytes # (0-1.0) k/uL Eosinophils # (0-0.7) k/uL Basophils # (0-0.2) k/uL Hypochromasia Poikilocytosis Anisocytosis Microcytosis VBG pH (7.31-7.41) VBG pCO2 (37-51) mmHg VBG HCO3 (24-28) mmol/L Sodium (137-145) mmol/L Potassium (3.5-5.1) mmol/L Chloride (98-107) mmol/L Carbon Dioxide (22-30) mmol/L Anion Gap mmol/L BUN (9-20) mg/dL Creatinine (0.66-1.25) mg/dL Est GFR (CKD-EPI)AfAm (>60 ml/min/1.73 sqM) Est GFR (CKD-EPI)NonAf (>60 ml/min/1.73 sqM) Glucose (74-99) mg/dL Plasma Lactic Acid Panda (0.7-2.0) mmol/L Calcium (8.4-10.2) mg/dL Troponin I 0.095 H* (0.000-0.034) ng/mL NT-Pro-B Natriuret Pep pg/mL Stool Occult Blood Positive (Negative) Blood Type Blood Type Recheck Antibody Screen Crossmatch Disposition Clinical Impression: CHF exacerbation, Elevated troponin, Acute anemia, VALERIE (acute kidney injury), Confusion, HCAP (healthcare-associated pneumonia) Disposition: ADMITTED IP TO THIS [facility] Condition: Serious Decision to Admit Reason: Admit from EC Decision Date: 12/30/18 Decision Time: 22:59
[2018-12-30 20:06] LABS: VBG PH 7.37 (7.31-7.41)
[2018-12-30 20:09] LABS: Anisocytosis Moderate; Basophils % (A) 0 %; Eosinophils # (A) 0.2 k/uL (0-0.7); Eosinophils % (A) 2 %; Hypochromasia Marked; Lymphocytes # (A) 0.9 k/uL (1.0-4.8); Lymphocytes % (A) 8 %; MCH 21.1 pg (25.0-35.0); MCHC 29.8 g/dL (31.0-37.0); MCV 70.8 fL (80.0-100.0); Mean Platelet Volume 6.8; Microcytosis Marked; Monocytes # (A) 0.4 k/uL (0-1.0); Monocytes % (A) 4 %; Neutrophils # (A) 9.1 k/uL (1.3-7.7); Neutrophils % (A) 85 %; Platelet Count 435 k/uL (150-450); Poikilocytosis Slight; RBC 3.25 m/uL (4.30-5.90); RDW 22.6 % (11.5-15.5); WBC 10.7 k/uL (3.8-10.6)
[2018-12-30 20:13] LABS: HGB 6.9 gm/dL (13.0-17.5)
[2018-12-30 20:14] LABS: Calcium 8.1 mg/dL (8.4-10.2); Potassium 5.8 mmol/L (3.5-5.1)
--- NOTE | 2018-12-30 21:08 | XR ---
EXAMINATION TYPE: XR chest 2V DATE OF EXAM: 12/30/2018 COMPARISON: 10/17/2018 INDICATION: Pain lower leg edema TECHNIQUE: Frontal and lateral views of the chest are obtained. FINDINGS: The heart size is enlarged. The pulmonary vasculature is prominent. There is diffuse increased lung markings. A small left pleural effusion is present. Findings can be c ompatible with congestive heart failure the proper clinical setting.. IMPRESSION: 1. Findings suggestive for CHF.
--- NOTE | 2018-12-30 21:24 | CT ---
EXAMINATION TYPE: CT brain paola mancuso DATE OF EXAM: 12/30/2018 COMPARISON: HISTORY: Altered mental status. CT DLP: 1495.5 mGycm, Automated exposure control for dose reduction was used. CONTRAST: Patient injected with mL of . CT of the brain is performed utilizing 3 mm thick sections through the posterior fossa and 3 mm thick sections through the remaining calvarium. Study is performed within 24 hours of arrival to the hospital. No abnormal hyperdensity is present to suggest an acute intracranial hemorrhage. No mass lesion is evident. No acute infarcts are evident. Ventricles are prominent for the patient age. There may be some mild rounding of the right temporal horn lateral ventricle. Left temporal horn lateral ventricle appears appropriate for the level of atr ophy. Sulci are prominent. Paranasal sinuses and mastoid air cells within the [id number] are clear. IMPRESSIONS: 1. Atrophy CT cervical spine. COMPARISON: None CT of the cervical spine is performed in the axial plane at 2 mm thick sections. Reconstructed image s in the coronal, and sagittal plane are reviewed on the computer. No acute fractures are evident. Vertebral body alignment is normal. There is diffuse loss of disc height through the cervical spine. Posterior endplate spurring is noted C5-6. No spinal canal stenosis is evident. Vertebral body heights are preserved. No spinal canal stenosis is evident. Left facet hypertrophy is present C2-3. Left facet hypertrophy is also noted C5 5. Uncovertebral join t hypertrophy is present C5-6 with moderate foraminal narrowing. There is diffuse increased lung markings at the lung apices bilaterally. Pleural effusions are presen t. IMPRESSIONS: 1. Degenerative changes. No acute osseous abnormality is evident.
[2018-12-30] MEDS ORDERED: CALCIUM CHLORIDE 100 MG/ML 10 ML SYRINGE IVP STA (21:30)
[2018-12-30] MEDS ORDERED: INSULIN REGULAR 100 UNIT/ML VIAL IV ONE (21:30)
[2018-12-30] MEDS ORDERED: DEXTROSE 50% SYRINGE 50 ML IVP STA (21:30)
[2018-12-30] MEDS ORDERED: FUROSEMIDE 10 MG/ML 4 ML VIAL IV STA (21:31)
[2018-12-30] MEDS ORDERED: FUROSEMIDE 10 MG/ML 4 ML VIAL IV PRN (21:57)
[2018-12-30] MEDS ORDERED: PANTOPRAZOLE 40 MG/10 ML VIAL IVP STA (21:59)
[2018-12-30] MEDS ORDERED: NALOXONE 0.4 MG/ML 1 ML VIAL IV PRN (22:27)
--- NOTE | 2018-12-30 22:28 | CT ---
History: ITS.REASON CT Reason: Pain Exam: CT ABDOMEN + PELVIS Without Contrast Technique more: CTDI is 17.07 mGy and DLP is 1066.4 mGy-cm. Technique more: This CT exam was performed using one or more of the following dose reduction techniques: automated exposure control, adjustment of the mA and/or kV according to patient size, and/or use of iterative reconstruction technique. Comparison: 10/14/2018 FINDINGS: Bilateral left larger than right appearing small to moderate partially imaged pleural effusions and associated passive partial collapse and patchy basilar ground-glass opacities. Visualization of the intraventricular septum on noncontrast imaging can be seen with anemia, nonspecific. Status post sternotomy with coronary calcification or stents. Anasarca. Small amount of abdominal pelvic free fluid. May correlate for third spacing. Artifact upper abdomen from the arms. Abdominal solid organs and gallbladder otherwise appear within limits on noncontrast imaging. Focal infrarenal abdominal aortic aneurysm measuring 3.6 x 3.5 cm. No evidence of retroperitoneal hematoma. No bowel dilation or free air. Diverticulosis. Small dependent bladder calcification, stone measuring around 4 mm now seen on the right side previously seen on the left side. IMPRESSION: Bilateral left larger than right appearing small to moderate partially imaged pleural effusions and associated passive partial collapse and patchy basilar ground-glass opacities. Visualization of the intraventricular septum on noncontrast imaging can be seen with anemia, nonspecific. Anasarca. Small amount of abdominal pelvic free fluid. May correlate for third spacing. Focal infrarenal abdominal aortic aneurysm measuring 3.6 x 3.5 cm. No evidence of retroperitoneal hematoma. Diverticulosis. Small dependent bladder calcification, stone measuring around 4 mm now seen on the right side previously seen on the left side.
[2018-12-30] MEDS ORDERED: LEVOFLOXACIN 750MG-D5W PMX 750 MG in DEXTROSE/WATER 1 150ML.BAG IVPB STA (22:44)
[2018-12-30] MEDS ORDERED: LEVOFLOXACIN 750MG-D5W PMX 750 MG in DEXTROSE/WATER 1 150ML.BAG IVPB SCH (22:45)
[2018-12-30 23:11] LABS: Amorphous Sediment,Urine Rare /hpf; Appearance,Urine Cloudy (Clear); Bilirubin,Urine Negative (Negative); Blood,Urine Moderate (Negative); Color,Urine Yellow; Glucose,Urine (UA) Trace (Negative); Hyaline Casts,Urine 6 /lpf (0-2); Ketones,Urine Negative (Negative); Leukocyte Esterase,Urine Negative (Negative); Nitrite,Urine Negative (Negative); Protein,Urine 3+ (Negative); RBC,Urine 2 /hpf (0-5); Specific Gravity,Urine 1.019 (1.001-1.035); Urobilinogen,Urine <2.0 mg/dL (<2.0); WBC,Urine 1 /hpf (0-5)
[2018-12-31] MEDS: FUROSEMIDE 10 MG/ML 4 ML VIAL IV SCH ×3 (04:06→12:13)
--- NOTE | 2018-12-31 09:14 | HP ---
HISTORY AND PHYSICAL . SUBJECTIVE: 73-year-old white male had a fall last night. Fall was witnessed she is a poor historian. Just keeps saying my penis hurts and gets swollen. History of CHF and renal failure. Also anemic with hemoglobin of 7.1. HOME MEDICATIONS: 1. Aspirin 81 mg daily. 2. Lipitor 40 mg daily. 3. Plavix 75 mg daily. 4. Singulair 10 mg daily. 5. Fexofenadine 1 daily. 6. Lasix 20 daily. 7. Imdur 30 daily. 8. Multivitamin daily. ALLERGIES: Negative. REVIEW OF SYSTEMS: Fourteen point review of systems negative except for mentioned in HPI. PAST MEDICAL HISTORY: Heart failure, COPD, CABG surgery. SOCIAL HISTORY: No smoking. FAMILY HISTORY: Negative. PHYSICAL EXAM: Vital signs reviewed. He is in no acute distress. HEAD: Normocephalic, atraumatic. Pupils equal, round, reactive. NECK: Supple. LUNGS: Bilateral rales. CARDIAC: Sinus tachy. No murmurs. EXTREMITIES: He has edema in his lower extremities. ABDOMEN: Soft, distended, generalized tenderness. No rebound. No guarding. SKIN: Warm, dry, intact. no gross bladder edema or on exam edema to testicles. NEUROLOGIC: Cranial nerves are intact. VITAL SIGNS: Blood pressure 130s to 140s over 80s and 90s, temp 97.1, heart rate 90 to 96, respiratory 16-20, temp 97.4. ASSESSMENT: 1. Altered mental status. 2. Congestive heart failure with BNP over 72,000. 3. Acute on chronic anemia. One unit of blood will be given for severe anemia of unclear etiology, possible chronic. 4. Acute on chronic renal failure, creatinine 3.92. 5. Hyperkalemia with potassium 5.8. 6. Bilateral pleural effusions. Started on Levaquin. No Vanco due to VALERIE. Family agreed to intubation, blood transfusion. He has ejection fraction less than 20%, acute systolic CHF. Pulmonary also consulted. Possible STEMI with elevated troponins. Fecal occult blood test positive. GI consulted. Hold aspirin due to possible GI bleed. The patient appears to have multifactorial sickness and multiple medical conditions. PROGNOSIS: Extremely guarded. Treatment as above. MMODL / IJN: [id number] /
[2018-12-31] MEDS: ISOSORBIDE MONONITRATE ER 30 MG TAB.ER.24H PO SCH (09:26)
[2018-12-31] MEDS: PANTOPRAZOLE 40 MG/10 ML VIAL IV SCH (09:26)
--- NOTE | 2018-12-31 10:34 | XR ---
EXAMINATION TYPE: XR chest 1V DATE OF EXAM: 12/31/2018 COMPARISON: 12/30/2018 INDICATION: CHF TECHNIQUE: Single frontal view of the chest is obtained. FINDINGS: The heart size is enlarged. The pulmonary vasculature is prominent. There is diffuse increased lung markings. Findings can be compatible with worsening congestive heart failure in the proper clinical setting. Continued follow-up is recommended. IMPRESSION: 1. Congestive heart failure. Continued follow-up is recommended.
--- NOTE | 2018-12-31 14:04 | P.NPCON ---
History of Present Illness - Reason for Consult Consult date: 12/31/18 acute renal failure - Chief Complaint Acute kidney injury with chronic kidney disease - History of Present Illness This is a 73-year-old male seen in consultation because of acute kidney injury, hyperkalemia, significant anemia, CK D. His potassium is 5.8 creatinine is 3.9, BUN is 209. Hemoglobin of 6.8 . He came in with generalized weakness for the last few weeks. Unable to walk. He is known with chronic kidney disease, most recent visit was dated 12/11/[address] Chambers in the office with 2+ edema. Subsequent to that, he has been having cough with yellowish-white sputum. No fever chills no nausea vomiting. Appetite is fair denied any chest pain or shortness of breath. He has had worsening edema. Workup here has shown bilateral pleural effusions He has baseline dementia and has been getting worse. Past history significant for chronic kidney disease stage III, nephrosclerosis, COPD, ASHD, bypass graft, cardiomyopathy ejection fraction of 20%, an deficiency anemia and had infusion given to him. Recently underwent colonoscopy which was supposedly unremarkable. His also normal with a abdominal aortic aneurysm of 3.6 cm. Past Medical History Past Medical History: Heart Failure, COPD History of Any Multi-Drug Resistant Organisms: None Reported Past Surgical History: Coronary Bypass/CABG Past Psychological History: No Psychological Hx Reported Smoking Status: Never smoker Past Alcohol Use History: None Reported Past Drug Use History: None Reported - Past Family History family Family Medical History: No Reported History Medications and Allergies Home Medications Medication Instructions Recorded Confirmed Type Aspirin 81 mg PO HS 10/11/18 12/30/18 History Atorvastatin [Lipitor] 40 mg PO HS 10/11/18 12/30/18 History Clopidogrel [Plavix] 75 mg PO DAILY 10/11/18 12/30/18 History Montelukast [Singulair] 10 mg PO HS 10/11/18 12/30/18 History Cholecalciferol (Vitamin D3) 2,000 unit PO DAILY 12/30/18 12/30/18 History [Vitamin D3] Fexofenadine/Pseudoephedrine 1 tab PO DAILY 12/30/18 12/30/18 History [Hailey-D 24 Hour Tablet] Furosemide [Lasix] 20 mg PO DAILY 12/30/18 12/30/18 History Isosorbide Mononitrate ER [Imdur] 30 mg PO DAILY 12/30/18 12/30/18 History Multivitamins, Thera [Multivitamin 1 tab PO DAILY 12/30/18 12/30/18 History (formulary)] Allergies Allergy/AdvReac Type Severity Reaction Status Date / Time No Known Allergies Allergy Verified 12/30/18 19:29 Physical Exam Vitals: Vital Signs Temp Pulse Resp BP Pulse Ox 12/31/18 12:15 93 22 140/79 100 12/31/18 11:13 93 20 139/82 99 12/31/18 09:17 92 20 140/87 100 12/31/18 07:54 97 F L 93 24 138/81 95 12/31/18 07:00 97.3 F L 93 20 133/83 12/31/18 06:39 96.8 F L 93 19 133/83 3 L 12/31/18 06:00 92 20 142/77 90 L 12/31/18 05:00 95 16 142/86 86 L 12/31/18 04:30 98 16 142/86 88 L 12/31/18 03:50 96 20 140/87 89 L 12/31/18 03:00 96 20 136/83 98 12/31/18 02:00 96 18 139/80 97 12/31/18 01:30 96 16 138/86 87 L 12/31/18 01:00 97.1 F L 94 20 133/74 97 12/31/18 00:58 97.3 F L 92 22 137/90 97 12/31/18 00:40 96 16 116/85 98 12/31/18 00:00 100 22 139/89 99 12/30/18 23:30 98 16 138/85 99 12/30/18 23:28 97.2 F L 98 16 147/86 98 12/30/18 22:58 97.3 F L 96 20 133/86 98 12/30/18 22:48 97.2 F L 97 20 141/83 97 12/30/18 22:46 97.4 F L 97 20 151/89 100 12/30/18 22:00 102 H 20 143/93 89 L 12/30/18 21:10 96 16 145/89 99 12/30/18 21:09 99 18 145/89 97 12/30/18 19:16 97.1 F L 95 18 139/98 96 Intake and Output 12/30/18 12/31/18 12/31/18 22:59 06:59 14:59 Intake Total 0 310 Output Total 900 Balance 0 310 -900 Intake: Blood Product 0 310 Rc Pheresis 2 As3 Unit 0 310 [id number] Output: Urine 900 Other: Weight 81.647 kg On examination is awake alert cooperative but forgetful HEENT exam no JVP neck is supple no facial asymmetry Lungs are significant for an occasional basis fine crackle. Fairly good air entry bilaterally Heart sounds are unremarkable for any murmur rub gallop Abdomen soft nontender no organomegaly ascites masses Extremity exam was 2+ edema. His extremities are pale Neurologically awake alert but disoriented to place, was able to appropriately identify the year but not the month. Oriented to person. No asterixis noted no focal motor deficit but generalized weakness noted. Results - Lab Results Most recent lab results Calcium 8.1 mg/dL (8.4-10.2) L 12/30/18 19:57 12/30/18 19:57 12/30/18 19:57 Assessment and Plan Assessment: Impression 1. Acute kidney injury secondary to congestive heart failure and severe anemia. d. 2. Chronic kidney disease stage III, Creatinine baseline is fluctuating between 1.03 to 1.24. Etiology is possibly glomerular or interstitial disease. This is because he has 3+ proteinuria which is not quantified. 3. Hyperkalemia secondary to possibly GI bleed and acute kidney injury, rule out obstructive nephropathy such as neurogenic bladder 4. out of proportion increase in BUN indicating GI bleed possibly 5. Mild degree of renal tubular acidosis, bicarb is 22, anion gap is 7 6. AAA 3.6 cm 7. Cardiomyopathy ejection fraction is 20% 8. History of ASHD HD. 9. Bilateral effusions. 10. Anemia off and deficiency and chronic kidney disease. Recommendation 1. Agree with diuretic currently on Lasix 40 every 6. Change it for convenience to Lasix 80 every 12 hours. 2. Check iron saturation. 3. Transfuse 2 units of packed cells. 4. Check urine protein to creatinine ratio and urine immunofixation. Check CARMENZA, complement 3 and 4, ANCA 5. Monitor labs. 6. Expected potassium to improve. 7. Possible EGD to rule out GI bleed, patient had a colonoscopy recently a month ago
--- NOTE | 2018-12-31 14:25 | P.CRDCN ---
History of Present Illness Consult date: 12/31/18 Chief complaint: Progressive weakness History of present illness: This is a 73-year-old gentleman with an extensive past medical history who was transferred from [facility] to the emergency room here for further evaluation and management. The patient does have history of coronary artery disease and prior coronary artery bypass grafting was performed out of the town with unknown details, known chronic systolic congestive heart failure, known severe cardiomyopathy was EF of 20% based on echocardiogram in October 2018, stage III chronic kidney disease, hypertension, and dyslipidemia. The patient was admitted to the hospital back in October 2018 with congestive heart failure exacerbation and he underwent an echo which revealed severe cardiomyopathy. This time, he was brought by his family to the emergency room because he was not feeling well. The patient himself is a poor historian and somewhat. The history was taken from his as well as from his daughters in the room. For the last 3 weeks, he has been feeling weak and tired and has no energy. Normally he calms down stairs to eat with his family but lately he was unable even to come downstairs because he was feeling too weak and tired and fatigued. Beside that he his noticed progressive bilateral lower extremities edema. Also he was experiencing progressive exertional dyspnea. No symptoms of chest pain or chest discomfort, dizziness, heart racing, or syncope. His oral intake was also diminished. In the emergency room, the patient was found severe be anemic with a hemoglobin of 6.9. His baseline hemoglobin is around 8.5. Also his creatinine was above 3 and his baseline creatinine was 1.6. The BNP is 70,000. The chest x-ray showed findings consistent with CHF. Currently he is in process of receiving 2 units of packed RBC. On examination he does have severe bilateral lower extremities eating edema. He is on Lasix at 40 mg IV twice a day which was started in the emergency room. Beside that I reviewed the EKG which revealed sinus tachycardia with heart rate around 90s. His blood pressure has been stable so far. I am going to start the patient on small dose of metoprolol to slow the heart rate down limits. Once he received a blood his heart rate hopefully will come down a bit as well. Nephrology is consulted to see the patient as well. The chest x-ray revealed finding consistent with CHF. Past Medical History Past Medical History: Heart Failure, COPD History of Any Multi-Drug Resistant Organisms: None Reported Past Surgical History: Coronary Bypass/CABG Past Psychological History: No Psychological Hx Reported Smoking Status: Never smoker Past Alcohol Use History: None Reported Past Drug Use History: None Reported - Past Family History family Family Medical History: No Reported History Medications and Allergies Home Medications Medication Instructions Recorded Confirmed Type Aspirin 81 mg PO HS 10/11/18 12/30/18 History Atorvastatin [Lipitor] 40 mg PO HS 10/11/18 12/30/18 History Clopidogrel [Plavix] 75 mg PO DAILY 10/11/18 12/30/18 History Montelukast [Singulair] 10 mg PO HS 10/11/18 12/30/18 History Cholecalciferol (Vitamin D3) 2,000 unit PO DAILY 12/30/18 12/30/18 History [Vitamin D3] Fexofenadine/Pseudoephedrine 1 tab PO DAILY 12/30/18 12/30/18 History [Hailey-D 24 Hour Tablet] Furosemide [Lasix] 20 mg PO DAILY 12/30/18 12/30/18 History Isosorbide Mononitrate ER [Imdur] 30 mg PO DAILY 12/30/18 12/30/18 History Multivitamins, Thera [Multivitamin 1 tab PO DAILY 12/30/18 12/30/18 History (formulary)] Allergies Allergy/AdvReac Type Severity Reaction Status Date / Time No Known Allergies Allergy Verified 12/30/18 19:29 Physical Exam Vitals: Vital Signs Temp Pulse Resp BP Pulse Ox 12/31/18 14:10 97 F L 93 18 139/85 96 12/31/18 12:15 93 22 140/79 100 12/31/18 11:13 93 20 139/82 99 12/31/18 09:17 92 20 140/87 100 12/31/18 07:54 97 F L 93 24 138/81 95 12/31/18 07:00 97.3 F L 93 20 133/83 12/31/18 06:39 96.8 F L 93 19 133/83 3 L 12/31/18 06:00 92 20 142/77 90 L 12/31/18 05:00 95 16 142/86 86 L 12/31/18 04:30 98 16 142/86 88 L 12/31/18 03:50 96 20 140/87 89 L 12/31/18 03:00 96 20 136/83 98 12/31/18 02:00 96 18 139/80 97 12/31/18 01:30 96 16 138/86 87 L 12/31/18 01:00 97.1 F L 94 20 133/74 97 12/31/18 00:58 97.3 F L 92 22 137/90 97 12/31/18 00:40 96 16 116/85 98 12/31/18 00:00 100 22 139/89 99 12/30/18 23:30 98 16 138/85 99 12/30/18 23:28 97.2 F L 98 16 147/86 98 12/30/18 22:58 97.3 F L 96 20 133/86 98 12/30/18 22:48 97.2 F L 97 20 141/83 97 12/30/18 22:46 97.4 F L 97 20 151/89 100 12/30/18 22:00 102 H 20 143/93 89 L 12/30/18 21:10 96 16 145/89 99 12/30/18 21:09 99 18 145/89 97 12/30/18 19:16 97.1 F L 95 18 139/98 96 Intake and Output 12/30/18 12/31/18 12/31/18 22:59 06:59 14:59 Intake Total 0 310 Output Total 900 Balance 0 310 -900 Intake: Blood Product 0 310 Rc Pheresis 2 As3 Unit 0 310 [id number] Output: Urine 900 Other: Weight 81.647 kg - Constitutional General appearance: no acute distress - Respiratory Respiratory: bilateral: diminished - Cardiovascular Rhythm: regular Heart sounds: normal: S1, S2 Abnormal Heart Sounds: systolic murmur Results 12/30/18 19:57 12/30/18 19:57 Cardiac Enzymes 12/30/18 Range/Units 19:57 Troponin I 0.095 H* (0.000-0.034) ng/mL CBC 12/30/18 Range/Units 19:57 WBC 10.7 H (3.8-10.6) k/uL RBC 3.25 L (4.30-5.90) m/uL Hgb 6.9 L* (13.0-17.5) gm/dL Hct 23.0 L (39.0-53.0) % Plt Count 435 (150-450) k/uL Comprehensive Metabolic Panel 12/30/18 Range/Units 19:57 Sodium 135 L (137-145) mmol/L Potassium 5.8 H (3.5-5.1) mmol/L Chloride 106 (98-107) mmol/L Carbon Dioxide 22 (22-30) mmol/L BUN 209 H* (9-20) mg/dL Creatinine 3.92 H (0.66-1.25) mg/dL Glucose 96 (74-99) mg/dL Calcium 8.1 L (8.4-10.2) mg/dL Current Medications Generic Name Dose Route Start Last Admin Trade Name Freq PRN Reason Stop Dose Admin Albuterol/Ipratropium 3 ml 12/30/18 22:27 Duoneb 0.5 Mg-3 Mg/3 Ml Soln INHALATION RT-Q4H PRN Shortness Of Breath Or Wheezing Atorvastatin Calcium 40 mg 12/31/18 21:00 Lipitor PO HS JULI Furosemide 80 mg 12/31/18 21:00 Lasix IV Q12HR JULI Levofloxacin 500 mg/ IV 100 mls @ 100 mls/hr 01/01/19 22:45 Solution IVPB Q48H JULI Isosorbide Mononitrate 30 mg 12/31/18 09:00 12/31/18 09:26 Imdur PO 30 mg DAILY JULI Administration Montelukast Sodium 10 mg 12/31/18 21:00 Singulair PO HS JULI Naloxone HCl 0.2 mg 12/30/18 22:27 Narcan IV Q2M PRN Opioid Reversal Pantoprazole Sodium 40 mg 12/31/18 09:00 12/31/18 09:26 Protonix IV 40 mg DAILY JULI Administration Intake and Output 12/30/18 12/31/18 12/31/18 22:59 06:59 14:59 Intake Total 0 310 Output Total 900 Balance 0 310 -900 Intake: Blood Product 0 310 Rc Pheresis 2 As3 Unit 0 310 [id number] Output: Urine 900 Other: Weight 81.647 kg 12/30/18 19:57 12/30/18 19:57 Assessment and Plan Assessment: Assessment #1 congestive heart failure exacerbation secondary to systolic dysfunction with evidence of right more than left heart failure #2 acute on chronic renal failure #3 severe anemia #4 known severe ischemic cardiomyopathy with EF of 20% on recent echo #5 known severe underlying coronary artery disease and prior coronary revascularization #6 multiple comorbid conditions Plan #1 the patient was started on Lasix IV #2 we'll continue monitor the kidney function and electrolytes. Nephrology on the case as well #3 start the patient on small dose of metoprolol to slow the heart rate down #4 no need to repeat the echocardiogram in view of recent echo showing severe cardiomyopathy #5 he is in process of receiving 2 units of packed RBC #6 we'll continue monitor the hemoglobin Thank you for allowing us participate in his care and we'll continue following up with the patient
[2018-12-31] MEDS: IPRATROPIUM-ALBUTEROL 3 ML NEB INHALATION PRN (15:55)
[2018-12-31 16:11] LABS: Anisocytosis Moderate; Basophils % (A) 0 %; Eosinophils # (A) 0.1 k/uL (0-0.7); Eosinophils % (A) 1 %; HCT 26.7 % (39.0-53.0); HGB 7.9 gm/dL (13.0-17.5); Hypochromasia Marked; Lymphocytes # (A) 0.9 k/uL (1.0-4.8); Lymphocytes % (A) 8 %; MCH 21.7 pg (25.0-35.0); MCHC 29.7 g/dL (31.0-37.0); Mean Platelet Volume 6.8; Microcytosis Marked; Monocytes # (A) 0.5 k/uL (0-1.0); Monocytes % (A) 4 %; Neutrophils # (A) 9.3 k/uL (1.3-7.7); Neutrophils % (A) 86 %; Platelet Count 349 k/uL (150-450); Poikilocytosis Slight; RBC 3.66 m/uL (4.30-5.90); RDW 22.6 % (11.5-15.5); WBC 10.8 k/uL (3.8-10.6)
--- NOTE | 2018-12-31 16:16 | P.CNPUL ---
History of Present Illness Consult date: 12/31/18 Reason for consult: dyspnea History of present illness: 73-year-old male patient with known history of congestion heart failure with an ejection fraction of less than 20%, in addition to known history of coronary artery disease, previous bypass surgery, previous non-STEMI, known history of large hiatal hernia with a stomach volvulus, COPD, hypertension and hyperlipidemia, coming into the hospital because of worsening shortness of breath. The patient came into the hospital because of worsening shortness of breath. The patient apparently was not feeling well. The patient himself is a poor historian. Over the past 3 weeks, he was feeling weak and tired and had no energy. He was having also difficulties climbing up and down the stairs and he was very much fatigued. He had increased in lower extremity edema. He was experiencing exertional dyspnea and orthopnea. The patient was found to be anemic in the ED with a hemoglobin of 6.9. Note that based on hemoglobin was at 8.5. No reported history of any GI bleed. His creatinine was also had 3 with a baseline creatinine of 1.6. ProBNP level was 70,000. The patient was given 1 units of packed RBC transfusion. The patient was given IV Lasix and she was started dose of 40 mg IV push every 12 hours and the burst department. EKG was sinus. In addition, the patient is complaining of some lower back pain. CAT scan of the abdomen that was done showed a small infrarenal abdominal aortic aneurysm. I also some small bilateral pleural effusion. The patient is currently on Lasix 80 mg IV push every 12 hours. Barro[place] cath is in place. Response to diuretics is suboptimal. Review of Systems All systems: negative Constitutional: Reports daytime sleepiness, Reports lethargy, Reports poor appetite, Reports weakness, Reports weight gain Eyes: bilateral blurred vision, denies bulging eye, denies decreased vision Ears: bilateral: decreased hearing, deny: ear discharge, earache, tinnitus Ears, nose, mouth and throat: Denies headache, Denies sore throat Cardiovascular: Reports decreased exercise tolerance, Reports dyspnea on exertion, Reports shortness of breath Respiratory: Reports dyspnea Gastrointestinal: Denies abdominal pain, Denies diarrhea, Denies nausea, Denies vomiting Genitourinary: Reports as per HPI Musculoskeletal: Reports as per HPI Musculoskeletal: bilateral: ankle swelling, absent: ankle pain, ankle stiffness Integumentary: Reports as per HPI Neurological: Reports as per HPI, Reports weakness Psychiatric: Reports as per HPI Endocrine: Reports as per HPI, Reports fatigue Hematologic/Lymphatic: Reports as per HPI Allergic/Immunologic: Reports as per HPI Past Medical History Past Medical History: Heart Failure, COPD Additional Past Medical History / Comment(s): Coronary artery disease, previous bypass surgery, previous and STEMI, CHF systolic failure with an ejection fraction of less than 20%, stage III kidney disease chronic, hypertension, hyperlipidemia, bronchial asthma my large hiatal hernia, stomach volvulus, chronic anemia History of Any Multi-Drug Resistant Organisms: None Reported Past Surgical History: Coronary Bypass/CABG Past Psychological History: No Psychological Hx Reported Smoking Status: Never smoker Past Alcohol Use History: None Reported Past Drug Use History: None Reported - Past Family History family Family Medical History: No Reported History Medications and Allergies Home Medications Medication Instructions Recorded Confirmed Type Aspirin 81 mg PO HS 10/11/18 12/30/18 History Atorvastatin [Lipitor] 40 mg PO HS 10/11/18 12/30/18 History Clopidogrel [Plavix] 75 mg PO DAILY 10/11/18 12/30/18 History Montelukast [Singulair] 10 mg PO HS 10/11/18 12/30/18 History Cholecalciferol (Vitamin D3) 2,000 unit PO DAILY 12/30/18 12/30/18 History [Vitamin D3] Fexofenadine/Pseudoephedrine 1 tab PO DAILY 12/30/18 12/30/18 History [Hailey-D 24 Hour Tablet] Furosemide [Lasix] 20 mg PO DAILY 12/30/18 12/30/18 History Isosorbide Mononitrate ER [Imdur] 30 mg PO DAILY 12/30/18 12/30/18 History Multivitamins, Thera [Multivitamin 1 tab PO DAILY 12/30/18 12/30/18 History (formulary)] Allergies Allergy/AdvReac Type Severity Reaction Status Date / Time No Known Allergies Allergy Verified 12/30/18 19:29 Physical Exam Vitals: Vital Signs Temp Pulse Resp BP Pulse Ox 12/31/18 14:10 97 F L 93 18 139/85 96 12/31/18 12:15 93 22 140/79 100 12/31/18 11:13 93 20 139/82 99 12/31/18 09:17 92 20 140/87 100 12/31/18 07:54 97 F L 93 24 138/81 95 12/31/18 07:00 97.3 F L 93 20 133/83 12/31/18 06:39 96.8 F L 93 19 133/83 3 L 12/31/18 06:00 92 20 142/77 90 L 12/31/18 05:00 95 16 142/86 86 L 12/31/18 04:30 98 16 142/86 88 L 12/31/18 03:50 96 20 140/87 89 L 12/31/18 03:00 96 20 136/83 98 12/31/18 02:00 96 18 139/80 97 12/31/18 01:30 96 16 138/86 87 L 12/31/18 01:00 97.1 F L 94 20 133/74 97 12/31/18 00:58 97.3 F L 92 22 137/90 97 12/31/18 00:40 96 16 116/85 98 12/31/18 00:00 100 22 139/89 99 12/30/18 23:30 98 16 138/85 99 12/30/18 23:28 97.2 F L 98 16 147/86 98 12/30/18 22:58 97.3 F L 96 20 133/86 98 12/30/18 22:48 97.2 F L 97 20 141/83 97 12/30/18 22:46 97.4 F L 97 20 151/89 100 12/30/18 22:00 102 H 20 143/93 89 L 12/30/18 21:10 96 16 145/89 99 12/30/18 21:09 99 18 145/89 97 12/30/18 19:16 97.1 F L 95 18 139/98 96 Intake and Output 12/30/18 12/31/18 12/31/18 22:59 06:59 14:59 Intake Total 0 310 Output Total 900 Balance 0 310 -900 Intake: Blood Product 0 310 Rc Pheresis 2 As3 Unit 0 310 [id number] Output: Urine 900 Other: Weight 81.647 kg General: non toxic, no distress, appears at stated age, currently on 4 L of oxygen nasal cannula. Derm: warm, dry Head: Head exam was generally normal. There was no scleral icterus or corneal arcus. Mucous membranes were moist. Neck was supple and with jugular venous distension, thyromegaly, or carotid bruits. Carotids were easily palpable bilaterally. There was no adenopathy. Eyes: EOMI, no lid lag, anicteric sclera Mouth: no lip lesion, mucus membranes moist Cardiovascular: S1S2 reg, no murmur, positive posterior tibial pulse bilateral, and the patient has extensive pedal edema bilaterally with +1-2 pitting edema. Lungs: decreased bs bilateral, no rhonchi, no rales , no accessory muscle use Abdominal: soft, nontender to palpation, no guarding, no appreciable organomegaly Ext: no gross muscle atrophy, trace edema, no contractures Neuro: CN II-XI grossly intact, no focal neuro deficits Psych: Alert, oriented to self and situation, appropriate affect Results - Laboratory Findings CBC and BMP: 12/31/18 15:54 12/30/18 19:57 Abnormal lab findings: Abnormal Labs 12/30/18 12/30/18 12/30/18 19:57 19:57 19:57 WBC RBC Hgb Hct MCV MCH MCHC RDW Neutrophils # Lymphocytes # VBG HCO3 23 L Sodium 135 L Potassium 5.8 H BUN 209 H* Creatinine 3.92 H Calcium 8.1 L Troponin I Urine Protein Urine Glucose (UA) Urine Blood Amorphous Sediment Hyaline Casts Crossmatch See Detail 12/30/18 12/30/18 12/30/18 19:57 19:57 22:58 WBC 10.7 H RBC 3.25 L Hgb 6.9 L* Hct 23.0 L MCV 70.8 L MCH 21.1 L MCHC 29.8 L RDW 22.6 H Neutrophils # 9.1 H Lymphocytes # 0.9 L VBG HCO3 Sodium Potassium BUN Creatinine Calcium Troponin I 0.095 H* Urine Protein 3+ H Urine Glucose (UA) Trace H Urine Blood Moderate H Amorphous Sediment Rare H Hyaline Casts 6 H Crossmatch - Diagnostic Findings Chest x-ray: image reviewed Assessment and Plan Plan: 1 acute decompensated of chronic systolic heart failure with ejection action of less than 20%. Currently the patient is in acute pulmonary edema 2 acute pulmonary edema secondary to above 3 acute hypoxic respiratory failure currently on 4 L of oxygen by nasal cannula 4 chronic shortness of breath multifactorial. Predominantly related to CHF. Anemia is also contributing to the patient's dyspnea the patient's hemoglobin is up to 6.9 5 acute on chronic anemia with interval drop in hemoglobin down to 6. down without evidence of any acute bleeding 6 COPD 7 coronary artery disease previous bypass surgery 8 chronic lower oximetry edema 9 hypertension 10 hyperlipidemia 11 recent non-STEMI treated medically 12 large hiatal hernia 13 recent gastric volvulus treated medically without any surgical intervention 14 acute kidney injury on top of chronic kidney disease stage III 15 infrarenal abdominal aortic aneurysm, small, doubt dissection. Plan The patient will need ICU admission. Patient was given a unit of packed RBC in the emergency department. The patient was started on IV Lasix. I will bit concerned of his acute kidney injury. The elevation in the BUN also raises the suspicion for an upper GI bleeding. We'll monitor the hemoglobin. Monitor renal function. May benefit from dobutamine and this will be discussed with cardiology. May also need a Lasix drip. We'll move him to the intensive care unit and will make further recommendations based on his overall clinical respons e to IV Lasix 80 mg IV push every 12 hours. We'll need to repeat his labs. Monitor cardiac enzymes including troponin. Monitor back pain Condition is critical. We'll continue to follow.
[2018-12-31 16:22] LABS: Albumin 2.1 g/dL (3.5-5.0); Calcium 8.5 mg/dL (8.4-10.2); Total Bilirubin 0.4 mg/dL (0.2-1.3); Total Protein 4.3 g/dL (6.3-8.2)
[2018-12-31 16:24] LABS: Ovalocytes Present
[2018-12-31 17:48] LABS: Glucose,Whole Blood 116 mg/dL (75-99)
[2018-12-31] MEDS: METOPROLOL TARTRATE 12.5 MG TAB PO SCH (20:09)
[2018-12-31] MEDS: ATORVASTATIN 40 MG TAB PO SCH (20:09)
[2018-12-31] MEDS: FUROSEMIDE 10 MG/ML 10 ML VIAL IV SCH (20:11)
[2018-12-31] MEDS: MONTELUKAST 10 MG TAB PO SCH (20:16)
[2019-01-01 06:20] LABS: Albumin 2.3 g/dL (3.5-5.0); Calcium 8.3 mg/dL (8.4-10.2); Potassium 5.9 mmol/L (3.5-5.1); Total Bilirubin 0.4 mg/dL (0.2-1.3); Total Protein 4.8 g/dL (6.3-8.2)
[2019-01-01 07:33] LABS: Anisocytosis Moderate; Basophils % (A) 0 %; Eosinophils # (A) 0.1 k/uL (0-0.7); Eosinophils % (A) 1 %; HCT 25.8 % (39.0-53.0); HGB 7.5 gm/dL (13.0-17.5); Hypochromasia Marked; Lymphocytes # (A) 0.6 k/uL (1.0-4.8); Lymphocytes % (A) 6 %; MCHC 29.2 g/dL (31.0-37.0); MCV 75.5 fL (80.0-100.0); Mean Platelet Volume 6.9; Microcytosis Moderate; Monocytes # (A) 0.4 k/uL (0-1.0); Monocytes % (A) 4 %; Neutrophils % (A) 87 %; Platelet Count 369 k/uL (150-450); Poikilocytosis Slight; RBC 3.42 m/uL (4.30-5.90); RDW 22.9 % (11.5-15.5); WBC 10.3 k/uL (3.8-10.6)
[2019-01-01] MEDS: IPRATROPIUM-ALBUTEROL 3 ML NEB INHALATION PRN (07:33)
[2019-01-01] MEDS ORDERED: IPRATROPIUM-ALBUTEROL 3 ML NEB INHALATION PRN (07:48)
[2019-01-01] MEDS: FUROSEMIDE 10 MG/ML 10 ML VIAL IV SCH ×2 (08:00→21:02)
[2019-01-01] MEDS: METOPROLOL TARTRATE 12.5 MG TAB PO SCH ×2 (08:01→21:01)
[2019-01-01] MEDS: ISOSORBIDE MONONITRATE ER 30 MG TAB.ER.24H PO SCH (08:01)
[2019-01-01] MEDS: PANTOPRAZOLE 40 MG/10 ML VIAL IV SCH (08:01)
[2019-01-01] MEDS: IPRATROPIUM-ALBUTEROL 3 ML NEB INHALATION SCH ×3 (08:14→19:37)
--- NOTE | 2019-01-01 08:51 | XR ---
EXAMINATION TYPE: XR chest 1V portable DATE OF EXAM: 01/01/2019 COMPARISON: 12/31/2018 HISTORY: Congestive heart failure and shortness of breath TECHNIQUE: Single frontal view of the chest is obtained. FINDINGS: Diffuse interstitial prominence is seen. Scattered alveolar opacities predominantly in the central lungs. Post CABG changes are seen of the chest examination with cardiomegaly. Moderate left pleural effusion and trace right pleural effusion are seen. IMPRESSION: Findings favor similar degree of decompensated congestive heart failure with moderate le ft pleural effusion, trace right pleural effusion and predominately central multifocal airspace disea se with interstitial pulmonary edema.
--- NOTE | 2019-01-01 10:04 | P.CONS ---
History of Present Illness - Reason for Consult Consult date: 01/01/19 Anemia Requesting physician: Eugenio Randall - Chief Complaint Weakness - History of Present Illness 73-year-old gentleman with a history of gastric volvulus/ intrathoracic stomach October 2018 status post laparoscopic hiatal hernia repair with anterior fundoplication and mesh repair of hiatus, chronic kidney disease, CAD CABG maintained on dual antiplatelet therapy admitted with CHF exacerbation. Patient admitted with generalized weakness and elevated BUN/creatinine and anemia. Admission hemoglobin 6.9 received 1 unit of blood present hemoglobin is 7.5. Platelet 435. Average hemoglobin over the last few months between 7-10 range. BUN 209. Creatinine 3.9. Urine output today is low. Nephrology consulted. Patient was seen in the outpatient setting by nephrology recently and placed on IV iron. Patient denies overt bleeding such as hematuria, epistaxis, hemat emesis hematochezia or melena. FOBT positive. EGD October [address] Mcnally in [place] was incomplete secondary to large intrathoracic stomach. Colonoscopy 12/04/[address] Mcnally in [place] no evidence of bleeding sources or neoplasia. Denies abdominal pain. No weight loss. Chest x-ray decompensated CHF with moderate left pleural effusion and interstitial pulmonary edema. Review of Systems Constitutional: Denies fever, chills, sweats, weight gain, or loss. Weakness. HEENT: Negative for migraines, blurred vision or loss, earaches, drainage, tinnitus, oral mucosal lesions, dysphagia, or odynophagia. Cardiac: Negative for chest pain, arrhythmias, or palpitation. Respiratory: Negative for shortness of breath, hemoptysis, cough, or sputum production. Gastrointestinal: See HPI for pertinent findings. Genitourinary: Negative for hematuria, urgency, frequency, polyuria, dysuria, or penile discharge. Musculoskeletal: Negative for muscle aches, swelling, arthritis, and arthralgias. Neurologic: Negative for stroke or TIA. Endocrine: Negative for thyroid problems. Skin: Negative for rash or itching. Psychiatric: Negative history for depression and anxiety Past Medical History Past Medical History: Heart Failure, COPD Additional Past Medical History / Comment(s): Coronary artery disease, previous bypass surgery, previous and STEMI, CHF systolic failure with an ejection fraction of less than 20%, stage III kidney disease chronic, hypertension, hyperlipidemia, bronchial asthma my large hiatal hernia, stomach volvulus, chronic anemia History of Any Multi-Drug Resistant Organisms: None Reported Past Surgical History: Coronary Bypass/CABG Additional Past Surgical History / Comment(s): 2005 CABG Covenent Past Anesthesia/Blood Transfusion Reactions: No Reported Reaction Past Psychological History: No Psychological Hx Reported Smoking Status: Never smoker Past Alcohol Use History: None Reported Past Drug Use History: None Reported - Past Family History family Family Medical History: No Reported History Medications and Allergies Home Medications Medication Instructions Recorded Confirmed Type Aspirin 81 mg PO HS 10/11/18 12/30/18 History Atorvastatin [Lipitor] 40 mg PO HS 10/11/18 12/30/18 History Clopidogrel [Plavix] 75 mg PO DAILY 10/11/18 12/30/18 History Montelukast [Singulair] 10 mg PO HS 10/11/18 12/30/18 History Cholecalciferol (Vitamin D3) 2,000 unit PO DAILY 12/30/18 12/30/18 History [Vitamin D3] Fexofenadine/Pseudoephedrine 1 tab PO DAILY 12/30/18 12/30/18 History [Hailey-D 24 Hour Tablet] Furosemide [Lasix] 20 mg PO DAILY 12/30/18 12/30/18 History Isosorbide Mononitrate ER [Imdur] 30 mg PO DAILY 12/30/18 12/30/18 History Multivitamins, Thera [Multivitamin 1 tab PO DAILY 12/30/18 12/30/18 History (formulary)] Allergies Allergy/AdvReac Type Severity Reaction Status Date / Time No Known Allergies Allergy Verified 12/30/18 19:29 Physical Exam Vitals: Vital Signs Temp Pulse Pulse Resp BP BP Pulse Ox 01/01/19 09:00 84 29 H 144/80 94 L 01/01/19 08:00 95 18 154/108 96 01/01/19 07:44 94 01/01/19 07:33 93 95 01/01/19 07:00 93 23 138/102 96 01/01/19 06:00 92 23 141/84 97 01/01/19 05:00 94 19 143/87 95 01/01/19 04:00 94 32 H 138/76 92 L 01/01/19 03:00 91 30 H 146/91 93 L 01/01/19 02:00 89 17 139/85 98 01/01/19 01:00 89 17 137/70 98 01/01/19 00:00 97.8 F 87 24 143/89 100 12/31/18 23:00 85 18 131/95 100 12/31/18 22:00 83 19 141/82 89 L 12/31/18 21:00 90 17 149/90 96 12/31/18 20:00 96 19 145/85 95 12/31/18 19:00 95 22 145/83 92 L 12/31/18 18:45 96 18 145/83 99 12/31/18 18:30 97 24 117/63 89 L 12/31/18 18:00 96 18 135/87 96 12/31/18 17:48 97.6 F 96 18 135/87 12/31/18 17:20 97.6 F 70 18 131/87 96 12/31/18 16:04 84 12/31/18 16:00 97.6 F 12/31/18 15:57 93 12/31/18 15:00 82 20 148/84 98 12/31/18 14:10 97 F L 93 18 139/85 96 12/31/18 12:15 93 22 140/79 100 12/31/18 11:13 93 20 139/82 99 Intake and Output 12/31/18 01/01/19 01/01/19 22:59 06:59 14:59 Intake Total 60 300 Output Total 290 240 130 Balance -230 60 -130 Intake: Oral 60 300 Output: Urine 290 240 130 Other: Voiding Method Indwelling Catheter Indwelling Catheter Indwelling Catheter Weight 97.6 kg 97.6 kg General appearance: The patient is alert, oriented, in no acute distress. HET: Head is normocephalic and atraumatic. Pupils are equal and reactive. Oropharynx is clear without lesions. Neck: Supple without lymphadenopathy. Trachea midline. Heart: S1 S2. Regular rate and rhythm. Lungs: Diminished bilaterally. Abdomen: Soft, nontender, nondistended with bowel sounds. No peritoneal signs. No palpable organomegaly or masses. Extremities: Normal skin color and turgor. No cyanosis, rash, ulceration, clubbing, or edema. Radial and pedal pulses are 2/4 bilaterally. Neurological: No focal deficits. Strength and sensation are grossly intact. Results CBC & Chem 7: 01/01/19 07:03 01/01/19 05:38 Labs: Abnormal Lab Results - Last 24 Hours (Table) 12/31/18 12/31/18 12/31/18 Range/Units 15:15 15:54 15:54 WBC 10.8 H (3.8-10.6) k/uL RBC 3.66 L (4.30-5.90) m/uL Hgb 7.9 L (13.0-17.5) gm/dL Hct 26.7 L (39.0-53.0) % MCV 73.0 L (80.0-100.0) fL MCH 21.7 L (25.0-35.0) pg MCHC 29.7 L (31.0-37.0) g/dL RDW 22.6 H (11.5-15.5) % Neutrophils # 9.3 H (1.3-7.7) k/uL Lymphocytes # 0.9 L (1.0-4.8) k/uL Potassium 6.0 H (3.5-5.1) mmol/L Chloride (98-107) mmol/L Carbon Dioxide (22-30) mmol/L BUN 210 H* (9-20) mg/dL Creatinine 4.07 H (0.66-1.25) mg/dL POC Glucose (mg/dL) (75-99) mg/dL Calcium (8.4-10.2) mg/dL Troponin I (0.000-0.034) ng/mL Total Protein 4.3 L (6.3-8.2) g/dL Albumin 2.1 L (3.5-5.0) g/dL U Random Total Protein >600 H (<12) mg/dL 12/31/18 12/31/18 01/01/19 Range/Units 15:54 17:37 05:38 WBC (3.8-10.6) k/uL RBC (4.30-5.90) m/uL Hgb (13.0-17.5) gm/dL Hct (39.0-53.0) % MCV (80.0-100.0) fL MCH (25.0-35.0) pg MCHC (31.0-37.0) g/dL RDW (11.5-15.5) % Neutrophils # (1.3-7.7) k/uL Lymphocytes # (1.0-4.8) k/uL Potassium 5.9 H (3.5-5.1) mmol/L Chloride 110 H (98-107) mmol/L Carbon Dioxide 19 L (22-30) mmol/L BUN 223 H* (9-20) mg/dL Creatinine 4.07 H (0.66-1.25) mg/dL POC Glucose (mg/dL) 116 H (75-99) mg/dL Calcium 8.3 L (8.4-10.2) mg/dL Troponin I 1.060 H* (0.000-0.034) ng/mL Total Protein 4.8 L (6.3-8.2) g/dL Albumin 2.3 L (3.5-5.0) g/dL U Random Total Protein (<12) mg/dL 01/01/19 Range/Units 07:03 WBC (3.8-10.6) k/uL RBC 3.42 L (4.30-5.90) m/uL Hgb 7.5 L (13.0-17.5) gm/dL Hct 25.8 L (39.0-53.0) % MCV 75.5 L (80.0-100.0) fL MCH 22.0 L (25.0-35.0) pg MCHC 29.2 L (31.0-37.0) g/dL RDW 22.9 H (11.5-15.5) % Neutrophils # 9.0 H (1.3-7.7) k/uL Lymphocytes # 0.6 L (1.0-4.8) k/uL Potassium (3.5-5.1) mmol/L Chloride (98-107) mmol/L Carbon Dioxide (22-30) mmol/L BUN (9-20) mg/dL Creatinine (0.66-1.25) mg/dL POC Glucose (mg/dL) (75-99) mg/dL Calcium (8.4-10.2) mg/dL Troponin I (0.000-0.034) ng/mL Total Protein (6.3-8.2) g/dL Albumin (3.5-5.0) g/dL U Random Total Protein (<12) mg/dL Microbiology - Last 24 Hours (Table) 12/30/18 22:50 Blood Culture - Preliminary Blood No Growth after 24 hours Assessment and Plan (1) Anemia Narrative/Plan: 73-year-old gentleman admitted with symptomatic microcytic hypochromic anemia without overt bleeding and acute kidney injury with underlying chronic kidney disease. History of large intrathoracic stomach status post repair October 2018 with incomplete EGD. Colonoscopy November 2018 reported no evidence of bleeding sources or colorectal neoplasia. Current Visit: Yes Status: Acute Code(s): D64.9 - ANEMIA, UNSPECIFIED SNOMED Code(s): 972013973 (2) VALERIE (acute kidney injury) Current Visit: Yes Status: Acute Code(s): N17.9 - ACUTE KIDNEY FAILURE, UNSPECIFIED SNOMED Code(s): 79247121 (3) CHF exacerbation Current Visit: Yes Status: Acute Code(s): I50.9 - HEART FAILURE, UNSPECIFIED SNOMED Code(s): 866112335 Plan: 1. Presently clinically no evidence to suggest active overt GI bleeding. Would recommend repeating EGD possible small bowel capsule endoscopy once medically optimized. Case was discussed with nephrology as well as sound effects manager. We'll continue to monitor on a daily basis with CBC monitoring. Continue GI prophylaxis. We'll follow closely with you. Thank you for this kind referral and the opportunity to participate in the care of your patient. This consultation was discussed with Dr. Monson. The impression and plan of care have been directed as dictated.
[2019-01-01] MEDS ORDERED: SODIUM BICARB 8.4% 50 ML SYR (1 MEQ/ML) IV STA ×2 (10:18→10:31)
[2019-01-01] MEDS ORDERED: INSULIN REGULAR 100 UNIT/ML VIAL IV ONE (10:18)
[2019-01-01] MEDS ORDERED: DEXTROSE 50% SYRINGE 50 ML IVP STA (10:31)
--- NOTE | 2019-01-01 10:56 | P.PN ---
Subjective Patient is seen in follow-up for acute kidney injury on chronic kidney disease. Patient has chronic kidney disease stage III Baseline creatinine in the range of 1-1.3. Creatinine today is up to 4.07. He is maintained on Lasix 80 mg IV twice daily. Urine output has been 30-35 mL an hour. Patient remains quite edematous. Patient did receive blood transfusions this admission. No active bleeding at this time. Hemoglobin is 7.5 today. Patient has been confused this admission. His BUN is up to 223 today. Potassium is also on the higher side. Vital signs are stable. General: The patient appeared well nourished and normally developed. HEENT: Head exam is unremarkable. Neck is without jugular venous distension. LUNGS: Breath sounds decreased. HEART: Rate and Rhythm are regular. First and second heart sounds normal. No murmurs, rubs or gallops. ABDOMEN: Abdominal exam reveals normal bowel sounds. Non-tender and non- distended. EXTREMITITES: 2+ edema. Objective - Vital Signs Vital signs: Vital Signs Temp 98.6 F 01/01/19 08:00 Pulse 82 01/01/19 10:00 Resp 19 01/01/19 10:00 BP 150/87 01/01/19 10:00 Pulse Ox 97 01/01/19 10:00 Intake & Output 12/31/18 01/01/19 01/01/19 18:59 06:59 18:59 Intake Total 360 Output Total 1050 380 195 Balance -1050 -20 -195 Weight 97.6 kg 97.6 kg 97.6 kg Intake: Oral 360 Output: Urine 1050 380 195 Other: Voiding Method Indwelling Catheter Indwelling Catheter Indwelling Catheter - Labs CBC & Chem 7: 01/01/19 07:03 01/01/19 05:38 Labs: Abnormal Lab Results - Last 24 Hours (Table) 12/31/18 12/31/18 12/31/18 Range/Units 15:15 15:54 15:54 WBC 10.8 H (3.8-10.6) k/uL RBC 3.66 L (4.30-5.90) m/uL Hgb 7.9 L (13.0-17.5) gm/dL Hct 26.7 L (39.0-53.0) % MCV 73.0 L (80.0-100.0) fL MCH 21.7 L (25.0-35.0) pg MCHC 29.7 L (31.0-37.0) g/dL RDW 22.6 H (11.5-15.5) % Neutrophils # 9.3 H (1.3-7.7) k/uL Lymphocytes # 0.9 L (1.0-4.8) k/uL Potassium 6.0 H (3.5-5.1) mmol/L Chloride (98-107) mmol/L Carbon Dioxide (22-30) mmol/L BUN 210 H* (9-20) mg/dL Creatinine 4.07 H (0.66-1.25) mg/dL POC Glucose (mg/dL) (75-99) mg/dL Calcium (8.4-10.2) mg/dL Troponin I (0.000-0.034) ng/mL Total Protein 4.3 L (6.3-8.2) g/dL Albumin 2.1 L (3.5-5.0) g/dL U Random Total Protein >600 H (<12) mg/dL 12/31/18 12/31/18 01/01/19 Range/Units 15:54 17:37 05:38 WBC (3.8-10.6) k/uL RBC (4.30-5.90) m/uL Hgb (13.0-17.5) gm/dL Hct (39.0-53.0) % MCV (80.0-100.0) fL MCH (25.0-35.0) pg MCHC (31.0-37.0) g/dL RDW (11.5-15.5) % Neutrophils # (1.3-7.7) k/uL Lymphocytes # (1.0-4.8) k/uL Potassium 5.9 H (3.5-5.1) mmol/L Chloride 110 H (98-107) mmol/L Carbon Dioxide 19 L (22-30) mmol/L BUN 223 H* (9-20) mg/dL Creatinine 4.07 H (0.66-1.25) mg/dL POC Glucose (mg/dL) 116 H (75-99) mg/dL Calcium 8.3 L (8.4-10.2) mg/dL Troponin I 1.060 H* (0.000-0.034) ng/mL Total Protein 4.8 L (6.3-8.2) g/dL Albumin 2.3 L (3.5-5.0) g/dL U Random Total Protein (<12) mg/dL 01/01/19 Range/Units 07:03 WBC (3.8-10.6) k/uL RBC 3.42 L (4.30-5.90) m/uL Hgb 7.5 L (13.0-17.5) gm/dL Hct 25.8 L (39.0-53.0) % MCV 75.5 L (80.0-100.0) fL MCH 22.0 L (25.0-35.0) pg MCHC 29.2 L (31.0-37.0) g/dL RDW 22.9 H (11.5-15.5) % Neutrophils # 9.0 H (1.3-7.7) k/uL Lymphocytes # 0.6 L (1.0-4.8) k/uL Potassium (3.5-5.1) mmol/L Chloride (98-107) mmol/L Carbon Dioxide (22-30) mmol/L BUN (9-20) mg/dL Creatinine (0.66-1.25) mg/dL POC Glucose (mg/dL) (75-99) mg/dL Calcium (8.4-10.2) mg/dL Troponin I (0.000-0.034) ng/mL Total Protein (6.3-8.2) g/dL Albumin (3.5-5.0) g/dL U Random Total Protein (<12) mg/dL Microbiology - Last 24 Hours (Table) 12/30/18 22:50 Blood Culture - Preliminary Blood No Growth after 24 hours Assessment and Plan Plan: Assessment: 1. Acute kidney injury secondary to ATN secondary to cardiorenal syndrome. Creatinine stable at 4.07 today. 2. Systolic CHF with ejection fraction of less than 20% and moderate mitral regurgitation. 3. Volume overload. 4. Acute blood loss anemia status post blood transition. GI following. No active bleeding noted. 5. Hyperkalemia secondary to acute kidney injury and metabolic acidosis. 6. Encephalopathy. There is concern for uremia. Patient's BUN is 223. Patient is not on any steroids. No active GI bleeding at this time. 7. Metabolic acidosis secondary to acute kidney injury. 8. Proteinuria. This can be nonspecific in the setting for acute kidney injury. However quantification was in the nephrotic range. Need to rule out GN. Plan: With persistent hyperkalemia and signs of uremia, I will start renal replacement therapy today. I will use low blood flows and do a 2 hr treatment today. I did discuss with the family present at bedside that he may not be able to tolerate hemodialysis due to the significant cardiomyopathy. Case was also discussed with the account information clerk. Consult vascular surgery for dialysis catheter placement. 2 A bicarb IV push along with 10 units of IV insulin with D50 now. Repeat potassium level this afternoon. Maintain Lasix 80 mg IV twice daily. Continue to monitor renal function and urine output. Check renal ultrasound. Check serologies.
[2019-01-01] MEDS ORDERED: SODIUM BICARB 8.4% 50 ML SYR (1 MEQ/ML) ONE (11:49)
--- NOTE | 2019-01-01 12:25 | P.PN ---
Subjective Progress Note Date: 01/01/19 Principal diagnosis: Acute systolic congestive heart failure and pulmonary edema. 73-year-old male patient with known history of congestion heart failure with an ejection fraction of less than 20%, in addition to known history of coronary artery disease, previous bypass surgery, previous non-STEMI, known history of large hiatal hernia with a stomach volvulus, COPD, hypertension and hyperlipidemia, coming into the hospital because of worsening shortness of breath. The patient came into the hospital because of worsening shortness of breath. The patient apparently was not feeling well. The patient himself is a poor historian. Over the past 3 weeks, he was feeling weak and tired and had no energy. He was having also difficulties climbing up and down the stairs and he was very much fatigued. He had increased in lower extremity edema. He was experiencing exertional dyspnea and orthopnea. The patient was found to be anemic in the ED with a hemoglobin of 6.9. Note that based on hemoglobin was at 8.5. No reported history of any GI bleed. His creatinine was also had 3 with a baseline creatinine of 1.6. ProBNP level was 70,000. The patient was given 1 units of packed RBC transfusion. The patient was given IV Lasix and she was started dose of 40 mg IV push every 12 hours and the burst department. EKG was sinus. In addition, the patient is complaining of some lower back pain. CAT scan of the abdomen that was done showed a small infrarenal abdominal aortic aneurysm. I also some small bilateral pleural effusion. The patient is currently on Lasix 80 mg IV push every 12 hours. Barro[place] cath is in place. Response to diuretics is suboptimal. Reevaluated today on 01/01/2019, patient remains in the ICU, chest x-ray is showing worsening congestive heart failure, patient is on few liters nasal cannula, O2 saturation is marginal, not improving much with diuretics, his BUN is extremely elevated, and I discussed his condition with nephrology and gastroe nterology. The plan is to start hemodialysis, and will consider EGD for further assessment of his anemia in the next few days. is at bedside, and she was updated on his condition. Hemoglobin is 7.5. Potassium is 5.9 BUN is 223 creatinine is 4.07. Objective - Vital Signs Vital signs: Vital Signs Temp 97.4 F L 01/01/19 12:00 Pulse 98 01/01/19 12:00 Resp 19 01/01/19 12:00 BP 151/82 01/01/19 12:00 Pulse Ox 97 01/01/19 12:00 Intake & Output 12/31/18 01/01/19 01/01/19 18:59 06:59 18:59 Intake Total 360 Output Total 1050 380 275 Balance -1050 -20 -275 Weight 97.6 kg 97.6 kg 97.6 kg Intake: Oral 360 Output: Urine 1050 380 275 Other: Voiding Method Indwelling Catheter Indwelling Catheter Indwelling Catheter - Exam Physical Exam: Revealed a 73-year-old white male on 4 L nasal cannula, in no distress. Head: Atraumatic, normocephalic. HEENT:[Neck is supple.] [No neck masses.] [No thyromegaly.] [No JVD.] PERRLA, EOMI, no icterus. Moist mucous membranes noted. Chest: Crackles and rhonchi at the bases. Symmetrical chest expansion, no chest wall tenderness, sternal scar noted from previous CABG..] Cardiac Exam: [Normal S1 and S2, no S3 gallop, 2/6 systolic murmur thought the precordium. Abdomen: [Soft, nontender, no megaly, no rebound, no guarding, normal bowel sounds.] Extremities: [No clubbing, 2+ bipedal edema, no cyanosis Neurological Exam: Alert oriented 3, no gross focal neurologic deficit. Psychiatric: Normal mood affect and mental status examination. Lymphatics: No lymphadenopathy. Skin: No rashes. - Labs CBC & Chem 7: 01/01/19 07:03 01/01/19 05:38 Labs: Abnormal Lab Results - Last 24 Hours (Table) 12/31/18 12/31/18 12/31/18 Range/Units 15:15 15:54 15:54 WBC 10.8 H (3.8-10.6) k/uL RBC 3.66 L (4.30-5.90) m/uL Hgb 7.9 L (13.0-17.5) gm/dL Hct 26.7 L (39.0-53.0) % MCV 73.0 L (80.0-100.0) fL MCH 21.7 L (25.0-35.0) pg MCHC 29.7 L (31.0-37.0) g/dL RDW 22.6 H (11.5-15.5) % Neutrophils # 9.3 H (1.3-7.7) k/uL Lymphocytes # 0.9 L (1.0-4.8) k/uL Potassium 6.0 H (3.5-5.1) mmol/L Chloride (98-107) mmol/L Carbon Dioxide (22-30) mmol/L BUN 210 H* (9-20) mg/dL Creatinine 4.07 H (0.66-1.25) mg/dL POC Glucose (mg/dL) (75-99) mg/dL Calcium (8.4-10.2) mg/dL Troponin I (0.000-0.034) ng/mL Total Protein 4.3 L (6.3-8.2) g/dL Albumin 2.1 L (3.5-5.0) g/dL U Random Total Protein >600 H (<12) mg/dL 12/31/18 12/31/18 01/01/19 Range/Units 15:54 17:37 05:38 WBC (3.8-10.6) k/uL RBC (4.30-5.90) m/uL Hgb (13.0-17.5) gm/dL Hct (39.0-53.0) % MCV (80.0-100.0) fL MCH (25.0-35.0) pg MCHC (31.0-37.0) g/dL RDW (11.5-15.5) % Neutrophils # (1.3-7.7) k/uL Lymphocytes # (1.0-4.8) k/uL Potassium 5.9 H (3.5-5.1) mmol/L Chloride 110 H (98-107) mmol/L Carbon Dioxide 19 L (22-30) mmol/L BUN 223 H* (9-20) mg/dL Creatinine 4.07 H (0.66-1.25) mg/dL POC Glucose (mg/dL) 116 H (75-99) mg/dL Calcium 8.3 L (8.4-10.2) mg/dL Troponin I 1.060 H* (0.000-0.034) ng/mL Total Protein 4.8 L (6.3-8.2) g/dL Albumin 2.3 L (3.5-5.0) g/dL U Random Total Protein (<12) mg/dL 01/01/19 Range/Units 07:03 WBC (3.8-10.6) k/uL RBC 3.42 L (4.30-5.90) m/uL Hgb 7.5 L (13.0-17.5) gm/dL Hct 25.8 L (39.0-53.0) % MCV 75.5 L (80.0-100.0) fL MCH 22.0 L (25.0-35.0) pg MCHC 29.2 L (31.0-37.0) g/dL RDW 22.9 H (11.5-15.5) % Neutrophils # 9.0 H (1.3-7.7) k/uL Lymphocytes # 0.6 L (1.0-4.8) k/uL Potassium (3.5-5.1) mmol/L Chloride (98-107) mmol/L Carbon Dioxide (22-30) mmol/L BUN (9-20) mg/dL Creatinine (0.66-1.25) mg/dL POC Glucose (mg/dL) (75-99) mg/dL Calcium (8.4-10.2) mg/dL Troponin I (0.000-0.034) ng/mL Total Protein (6.3-8.2) g/dL Albumin (3.5-5.0) g/dL U Random Total Protein (<12) mg/dL Microbiology - Last 24 Hours (Table) 12/30/18 22:50 Blood Culture - Preliminary Blood No Growth after 24 hours Assessment and Plan Assessment: Impression: 1 acute systolic congestive heart failure, ejection fraction less than 20%. 2 acute hypoxic respiratory failure secondary to pulmonary edema 3 chronic anemia, being addressed by gastroenterology for possible ongoing GI blood losses. Previous workup on outpatient basis was nondiagnostic. 4 history of COPD relatively under control, inactive. 5 coronary artery disease and previous CABG 6 chronic lower extremities edema 8 hyperlipidemia 9 recent non-ST elevation myocardial infarction 10 recent the gastric volvulus requiring surgery by Dr. Hoskins and hiatal hernia repair. 11 infrarenal abdominal aortic aneurysm, small, 12 acute kidney injury on top of chronic kidney disease stage III. 13 acute hyperkalemia secondary to acute on chronic renal failure. 14 mild uremic encephalopathy is suspected. 15 protein oriented being addressed by nephrology. Recommendation: Patient will remain in the ICU, he was already given a unit of packed RBCs and his hemoglobin is 7.5. Discussed his condition with g astroenterology and nephrology, patient will be dialyzed today, may require pressors while on dialysis. Patient is not responding to diuretics. His hyperkalemia and renal issues are being addressed by nephrology. His was updated on his condition. Patient received already sodium bicarb and insulin as well as D50. Vascular surgery was consulted for dialysis catheter placement. Continue Lasix at 80 mg IV push twice a day for now. Renal ultrasound was ordered. We will continue to follow. Prognosis is definitely poor and guarded considering his severe cardiomyopathy and LV dysfunction. Time with Patient: Greater than 30
[2019-01-01 12:45] LABS: Iron Saturation 20.68 (15.00-50.00)
[2019-01-01] MEDS ORDERED: HEPARIN SODIUM 1,000 UN/ML (10ML VL) ONE (13:12)
[2019-01-01] MEDS ORDERED: LIDOCAINE 1% INJ 10MG/ML (20 ML MDV) ONE (13:12)
--- NOTE | 2019-01-01 13:26 | US ---
EXAMINATION TYPE: US kidneys/renal and bladder DATE OF EXAM: 01/01/2019 COMPARISON: CT 12/30/18 CLINICAL HISTORY: graciela. EXAM MEASUREMENTS: Right Kidney: 12.8 x 6.1 x 5.4 cm Left Kidney: 12.8 x 6.8 x 5.5 cm Post Void Residual Volume: Patient has sullivan catheter in place mL Right Kidney: No hydronephrosis or nephrolithiasis Left Kidney: Nearly anechoic lesion in the medial superior pole measures 3.5 x 3.3 x 1.6 cm. When cor related with the prior CT of 12/30/2018 there is a subtle cyst as described in the examination. Bladder: sullivan catheter seen in place. Bladder undistended and unable to evaluate. Bilateral Jets seen: No Normal Post Void Residual: N/A There is no evidence for hydronephrosis at this point in time. No nephrolithiasis is seen. The urina ry bladder is incompletely distended with a Sullivan catheter in place. small amount of free fluid noted in pelvis. Right>Left. IMPRESSION: 1. No hydronephrosis of either kidney in this patient with acute kidney injury. 2. Small amount of ascites is noted within the bladder. 3. Probable left renal cyst.
--- NOTE | 2019-01-01 14:18 | PN ---
PROGRESS NOTE This patient's remains confused. Patient's electronic medical records and the clinical panels as well as the medications are reviewed. Patient is lying comfortably in the bed without any acute respiratory distress. Patient denies any chest pain or shortness of breath. Patient has acute on chronic renal failure. His creatinine is up to 4.07. Blood pressure is 150/87 mmHg. First and second heart sounds are normal. Lungs reveal bilateral diminished air entry. Patient's hemoglobin is 7.9. BUN is 223, creatinine is 4.07. FINAL IMPRESSION: This patient has acute on chronic systolic heart failure and acute renal failure. Patient has possibly metabolic encephalopathy. Patient is willing to be considered for starting for dialysis today. Patient's overall prognosis is guarded. MMODL / IJN: [id number] /
--- NOTE | 2019-01-01 15:12 | WCPN ---
[facility] - PROGRESS NOTE his is a 73-year-old gentleman seen in the intensive care unit for urgent dialysis catheter placement. Patient has history of is acute decompensated chronic systolic heart failure with ejection fraction of less than 20%, history of acute pulmonary edema, history of acute chronic renal failure, high with a history of hypertension. This is the patient. The patient was seen in her in his room. The patient is very short of breath neck is supple. No bruit appreciated chest few rhonchi in lung bases abdomen is protuberant. Femorals are 1+. The patient has marked swelling of the both the abdominal wall and lower extremities. PLAN: Placement of the dialysis catheter. Risks and complications discussed. MMODL / IJN: [id number] /
--- NOTE | 2019-01-01 15:41 | WWPLETTER ---
PREOPERATIVE DIAGNOSIS: Acute chronic failure. PROCEDURE: Ultrasound-guided dialysis catheter placed left femoral approach. Patient was seen in the intensive care unit. Right and left groins were prepped and draped under sterile manner. 1% lidocaine plain to the left groin area ultrasound was performed renal vein was visualized. Then we placed a micropuncture into the left common femoral vein and micropuncture guidewire was passed and 4-Azeri dilator advanced on the top of the guidewire. After that, we place a 4-Azeri sheath on the top of the guidewire then we passed a regular guidewire then using dilator. The dilator advanced on the top of the guidewire then we placed a dialysis catheter on the top of the guidewire. The guidewire was removed. There was a free flow noted flushed with heparin saline and secured with 3-0 nylon with a suture and dressing applied. Patient tolerated the procedure well. MMODL / IJN: [id number] /
[2019-01-01 18:38] LABS: Hepatitis A Antibody IgM Non-Reactive (Non-Reactive); Hepatitis B Core IgM Non-Reactive (Non-Reactive)
[2019-01-01] MEDS: MONTELUKAST 10 MG TAB PO SCH (21:01)
[2019-01-01] MEDS: ATORVASTATIN 40 MG TAB PO SCH (21:01)
[2019-01-01] MEDS ORDERED: LEVOFLOXACIN 500MG-D5W PMX 500 MG in DEXTROSE/WATER 1 100ML.BAG IVPB SCH (22:45)
[2019-01-02 05:59] LABS: Anti-DNA, DS unit <1.0 IU/mL; DNA Double-Stranded NEGATIVE (NEGATIVE)
[2019-01-02 07:01] LABS: Anisocytosis Marked; Basophils % (A) 0 %; Eosinophils # (A) 0.2 k/uL (0-0.7); Eosinophils % (A) 2 %; HCT 24.3 % (39.0-53.0); HGB 7.3 gm/dL (13.0-17.5); Hypochromasia Marked; Lymphocytes # (A) 0.6 k/uL (1.0-4.8); Lymphocytes % (A) 7 %; MCH 22.3 pg (25.0-35.0); MCHC 30.2 g/dL (31.0-37.0); MCV 73.6 fL (80.0-100.0); Mean Platelet Volume 7.2; Microcytosis Marked; Monocytes # (A) 0.3 k/uL (0-1.0); Monocytes % (A) 4 %; Neutrophils # (A) 6.6 k/uL (1.3-7.7); Neutrophils % (A) 85 %; Platelet Count 328 k/uL (150-450); Poikilocytosis Slight; RDW 24.7 % (11.5-15.5); WBC 7.7 k/uL (3.8-10.6)
[2019-01-02 07:08] LABS: Albumin 2.1 g/dL (3.5-5.0); Calcium 8.2 mg/dL (8.4-10.2); Potassium 5.5 mmol/L (3.5-5.1); Total Bilirubin 0.5 mg/dL (0.2-1.3); Total Protein 4.3 g/dL (6.3-8.2)
--- NOTE | 2019-01-02 08:10 | XR ---
EXAMINATION TYPE: XR chest 1V portable DATE OF EXAM: 01/02/2019 COMPARISON: 01/01/2019 HISTORY: Shortness of breath FINDINGS: Noted is pulmonary venous congestion with scattered infiltrates. There is also cardiomegaly and small effusions. IMPRESSION: Findings compatible with stable congestive failure. Infiltrates of other etiology are not excluded. Clinical correlation and progress studies are recommended.
[2019-01-02] MEDS: IPRATROPIUM-ALBUTEROL 3 ML NEB INHALATION SCH ×3 (08:40→19:42)
[2019-01-02] MEDS: PANTOPRAZOLE 40 MG TABLET PO SCH (08:59)
[2019-01-02] MEDS: METOPROLOL TARTRATE 12.5 MG TAB PO SCH ×2 (08:59→21:08)
[2019-01-02] MEDS: ISOSORBIDE MONONITRATE ER 30 MG TAB.ER.24H PO SCH (08:59)
[2019-01-02] MEDS: FUROSEMIDE 10 MG/ML 10 ML VIAL IV SCH ×2 (08:59→21:08)
--- NOTE | 2019-01-02 10:26 | P.PN ---
Subjective Patient is seen in follow-up for acute kidney injury on chronic kidney disease. Patient has chronic kidney disease stage III Baseline creatinine in the range of 1-1.3. Due to worsening renal function and volume overload, he was started on hemodialysis on December 24. He is maintained on Lasix 80 mg IV twice daily. Urine output has been 20-25 mL an hour. Patient remains quite edematous. Patient did receive blood transfusions this admission. No active bleeding at this time. Hemoglobin is 7.3 today. Patient has been confused this admission. Vital signs are stable. General: The patient appeared well nourished and normally developed. HEENT: Head exam is unremarkable. Neck is without jugular venous distension. LUNGS: Breath sounds decreased. HEART: Rate and Rhythm are regular. First and second heart sounds normal. No murmurs, rubs or gallops. ABDOMEN: Abdominal exam reveals normal bowel sounds. Non-tender and non- distended. EXTREMITITES: 2+ edema. Objective - Vital Signs Vital signs: Vital Signs Temp 98.8 F 01/02/19 08:00 Pulse 91 01/02/19 09:00 Resp 16 01/02/19 09:00 BP 139/92 01/02/19 09:00 Pulse Ox 96 01/02/19 09:00 Intake & Output 01/01/19 01/02/19 01/02/19 18:59 06:59 18:59 Intake Total 500 60 60 Output Total 1935 290 80 Balance -1435 -230 -20 Weight 97.6 kg 101.5 kg Intake: Oral 60 60 Hemodialysis 500 Output: Urine 435 290 80 Hemodialysis 1500 Other: Voiding Method Indwelling Catheter Indwelling Catheter Indwelling Catheter - Labs CBC & Chem 7: 01/02/19 06:20 01/02/19 06:20 Labs: Abnormal Lab Results - Last 24 Hours (Table) 01/01/19 01/01/19 01/01/19 Range/Units 05:38 07:03 14:13 RBC (4.30-5.90) m/uL Hgb (13.0-17.5) gm/dL Hct (39.0-53.0) % MCV (80.0-100.0) fL MCH (25.0-35.0) pg MCHC (31.0-37.0) g/dL RDW (11.5-15.5) % Lymphocytes # (1.0-4.8) k/uL Potassium 5.6 H (3.5-5.1) mmol/L BUN (9-20) mg/dL Creatinine (0.66-1.25) mg/dL Calcium (8.4-10.2) mg/dL Iron 61 L (65-175) ug/dL AST (17-59) U/L Total Protein (6.3-8.2) g/dL Albumin (3.5-5.0) g/dL CARMENZA Screen POSITIVE H (NEGATIVE) 01/02/19 01/02/19 Range/Units 06:20 06:20 RBC 3.30 L (4.30-5.90) m/uL Hgb 7.3 L (13.0-17.5) gm/dL Hct 24.3 L (39.0-53.0) % MCV 73.6 L (80.0-100.0) fL MCH 22.3 L (25.0-35.0) pg MCHC 30.2 L (31.0-37.0) g/dL RDW 24.7 H (11.5-15.5) % Lymphocytes # 0.6 L (1.0-4.8) k/uL Potassium 5.5 H (3.5-5.1) mmol/L BUN 172 H* (9-20) mg/dL Creatinine 4.03 H (0.66-1.25) mg/dL Calcium 8.2 L (8.4-10.2) mg/dL Iron (65-175) ug/dL AST 15 L (17-59) U/L Total Protein 4.3 L (6.3-8.2) g/dL Albumin 2.1 L (3.5-5.0) g/dL CARMENZA Screen (NEGATIVE) Microbiology - Last 24 Hours (Table) 12/30/18 22:50 Blood Culture - Preliminary Blood No Growth after 48 hours Assessment and Plan Plan: Assessment: 1. Acute kidney injury secondary to ATN secondary to cardiorenal syndrome. Due to worsening renal function, uremia and volume overload, he was started on hemodialysis on January 01. No hydronephrosis noted on renal ultrasound. 2. Systolic CHF with ejection fraction of less than 20% and moderate mitral regurgitation. 3. Volume overload. 4. Acute blood loss anemia status post blood transfusion. GI following. No a ctive bleeding noted. 5. Hyperkalemia secondary to acute kidney injury and metabolic acidosis. Bet ter. 6. Encephalopathy. There is concern for uremia. Patient's BUN peaked at 223. Patient is not on any steroids. No active GI bleeding at this time. 7. Metabolic acidosis secondary to acute kidney injury. 8. Proteinuria. This can be nonspecific in the setting for acute kidney injury. However quantification was in the nephrotic range. Need to rule out GN -CARMENZA positive. Plan: Currently seen while undergoing hemodialysis - will try for 2 L ultrafiltration. Another treatment tomorrow. Follow-up serologies. Maintain IV Lasix.
--- NOTE | 2019-01-02 10:28 | P.PN ---
Subjective Progress Note Date: 01/02/19 Principal diagnosis: Anemia No episodes of hematemesis hematochezia or melena. Receiving dialysis. Hemoglobin 7.3. BUN improved 172. Creatinine 4.0. Iron 61. Iron saturation 20%. Objective - Vital Signs Vital signs: Vital Signs Temp 98.8 F 01/02/19 08:00 Pulse 85 01/02/19 10:00 Resp 15 01/02/19 10:00 BP 113/70 01/02/19 10:00 Pulse Ox 96 01/02/19 10:00 Intake & Output 01/01/19 01/02/19 01/02/19 18:59 06:59 18:59 Intake Total 500 60 60 Output Total 1935 290 95 Balance -1435 -230 -35 Weight 97.6 kg 101.5 kg Intake: Oral 60 60 Hemodialysis 500 Output: Urine 435 290 95 Hemodialysis 1500 Other: Voiding Method Indwelling Catheter Indwelling Catheter Indwelling Catheter - Exam General appearance: The patient is alert, oriented, in no acute distress. HET: Head is normocephalic and atraumatic. Pupils are equal and reactive. Oropharynx is clear without lesions. Neck: Supple without lymphadenopathy. Trachea midline. Heart: S1 S2. Lungs: Diminished bilaterally. Abdomen: Soft, nontender, nondistended with bowel sounds. No peritoneal signs. No palpable organomegaly or masses. Extremities: Anasarca. Neurological: No focal deficits. Strength and sensation are grossly intact. - Labs CBC & Chem 7: 01/02/19 06:20 01/02/19 06:20 Labs: Abnormal Lab Results - Last 24 Hours (Table) 01/01/19 01/01/19 01/01/19 Range/Units 05:38 07:03 14:13 RBC (4.30-5.90) m/uL Hgb (13.0-17.5) gm/dL Hct (39.0-53.0) % MCV (80.0-100.0) fL MCH (25.0-35.0) pg MCHC (31.0-37.0) g/dL RDW (11.5-15.5) % Lymphocytes # (1.0-4.8) k/uL Potassium 5.6 H (3.5-5.1) mmol/L BUN (9-20) mg/dL Creatinine (0.66-1.25) mg/dL Calcium (8.4-10.2) mg/dL Iron 61 L (65-175) ug/dL AST (17-59) U/L Total Protein (6.3-8.2) g/dL Albumin (3.5-5.0) g/dL CARMENZA Screen POSITIVE H (NEGATIVE) 01/02/19 01/02/19 Range/Units 06:20 06:20 RBC 3.30 L (4.30-5.90) m/uL Hgb 7.3 L (13.0-17.5) gm/dL Hct 24.3 L (39.0-53.0) % MCV 73.6 L (80.0-100.0) fL MCH 22.3 L (25.0-35.0) pg MCHC 30.2 L (31.0-37.0) g/dL RDW 24.7 H (11.5-15.5) % Lymphocytes # 0.6 L (1.0-4.8) k/uL Potassium 5.5 H (3.5-5.1) mmol/L BUN 172 H* (9-20) mg/dL Creatinine 4.03 H (0.66-1.25) mg/dL Calcium 8.2 L (8.4-10.2) mg/dL Iron (65-175) ug/dL AST 15 L (17-59) U/L Total Protein 4.3 L (6.3-8.2) g/dL Albumin 2.1 L (3.5-5.0) g/dL CARMENZA Screen (NEGATIVE) Microbiology - Last 24 Hours (Table) 12/30/18 22:50 Blood Culture - Preliminary Blood No Growth after 48 hours Assessment and Plan (1) Anemia Narrative/Plan: 73-year-old gentleman admitted with symptomatic microcytic hypochromic iron deficiency anemia without overt bleeding and acute kidney injury with underlying chronic kidney disease. History of large intrathoracic stomach status post repair October 2018 with incomplete EGD. Colonoscopy November 2018 reported no evidence of bleeding sources or colorectal neoplasia. Current Visit: Yes Status: Acute Code(s): D64.9 - ANEMIA, UNSPECIFIED SNOMED Code(s): 816617113 (2) VALERIE (acute kidney injury) Current Visit: Yes Status: Acute Code(s): N17.9 - ACUTE KIDNEY FAILURE, UNSPECIFIED SNOMED Code(s): 23231033 (3) CHF exacerbation Current Visit: Yes Status: Acute Code(s): I50.9 - HEART FAILURE, UNSPECIFIED SNOMED Code(s): 944563303 Plan: 1. Receiving dialysis. Presently clinically no evidence to suggest active overt GI bleeding. Would recommend repeating EGD possible small bowel capsule endoscopy once medically optimized. Case was discussed with nephrology as well as slab lifting engineer. We'll continue to monitor on a daily basis with CBC monitoring. Continue GI prophylaxis. We'll follow closely with you. Assessment and plan a care discussed with Dr. Monson
--- NOTE | 2019-01-02 12:35 | PN ---
PROGRESS NOTE This patient is admitted with acute on chronic systolic heart failure and acute renal failure. Because of the persistent fluid overload, patient has been started on hemodialysis yesterday. He still remains confused. He is lying comfortably in the bed without any acute shortness of breath. Blood pressure is 139/92 mmHg, heart rate is 90 per minute. First and second heart sounds are normal. Lung examinations revealed bilateral scattered rales at the bases. Abdomen is soft. There is a 2+ pedal edema. Chest x-ray still shows evidence of congestive cardiac failure. Patient's hemoglobin is 7.3. FINAL IMPRESSION: This patient has end-stage renal failure. He is currently getting dialysis. Patient has acute on chronic systolic heart failure. Continue the current medications. The patient's overall prognosis is poor. MMODL / IJN: [id number] /
--- NOTE | 2019-01-02 13:02 | P.PN ---
Subjective Progress Note Date: 01/02/19 Principal diagnosis: Acute systolic congestive heart failure and pulmonary edema. 73-year-old male patient with known history of congestion heart failure with an ejection fraction of less than 20%, in addition to known history of coronary artery disease, previous bypass surgery, previous non-STEMI, known history of large hiatal hernia with a stomach volvulus, COPD, hypertension and hyperlipidemia, coming into the hospital because of worsening shortness of breath. The patient came into the hospital because of worsening shortness of breath. The patient apparently was not feeling well. The patient himself is a poor historian. Over the past 3 weeks, he was feeling weak and tired and had no energy. He was having also difficulties climbing up and down the stairs and he was very much fatigued. He had increased in lower extremity edema. He was experiencing exertional dyspnea and orthopnea. The patient was found to be anemic in the ED with a hemoglobin of 6.9. Note that based on hemoglobin was at 8.5. No reported history of any GI bleed. His creatinine was also had 3 with a baseline creatinine of 1.6. ProBNP level was 70,000. The patient was given 1 units of packed RBC transfusion. The patient was given IV Lasix and she was started dose of 40 mg IV push every 12 hours and the burst department. EKG was sinus. In addition, the patient is complaining of some lower back pain. CAT scan of the abdomen that was done showed a small infrarenal abdominal aortic aneurysm. I also some small bilateral pleural effusion. The patient is currently on Lasix 80 mg IV push every 12 hours. Barroso cath is in place. Response to diuretics is suboptimal. Reevaluated today on 01/01/2019, patient remains in the ICU, chest x-ray is showing worsening congestive heart failure, patient is on few liters nasal cannula, O2 saturation is marginal, not improving much with diuretics, his BUN is extremely elevated, and I discussed his condition with nephrology and gastroe nterology. The plan is to start hemodialysis, and will consider EGD for further assessment of his anemia in the next few days. is at bedside, and she was updated on his condition. Hemoglobin is 7.5. Potassium is 5.9 BUN is 223 creatinine is 4.07. Reevaluated today on 01/02/2019, patient remains in the ICU, patient received hemodialysis and he is maintained on Lasix 80 mg IV twice a day. Urine output is marginal at 20-25 mL per hour, patient remains edematous, and his chest x-ray continues to show evidence of pulmonary edema. Patient is hemodynamically stable, in no form of respiratory distress, he does have intermittent episodes of confusion. All labs were reviewed, his BUN is down to 173 creatinine remains 4.03. No clinical evidence of overt GI bleeding patient may require eventually repeat EGD or possible small bowel capsule endoscopy once he is medically optimized. Today I plan to transfer the patient out of the ICU to a monitor bed on selective Objective - Vital Signs Vital signs: Vital Signs Temp 98.4 F 01/02/19 12:00 Pulse 92 01/02/19 12:26 Resp 15 01/02/19 12:00 BP 140/81 01/02/19 12:00 Pulse Ox 97 01/02/19 12:00 Intake & Output 01/01/19 01/02/19 01/02/19 18:59 06:59 18:59 Intake Total 500 60 120 Output Total 0839 679 5903 Balance -6015 230 Weight 97.6 kg 101.5 kg Intake: Oral 60 120 Hemodialysis 500 Output: Urine 435 290 125 Hemodialysis 1500 2000 Other: Voiding Method Indwelling Catheter Indwelling Catheter Indwelling Catheter - Exam Physical Exam: Revealed a 73-year-old white male on 4 L nasal cannula, in no distress. Head: Atraumatic, normocephalic. HEENT:[Neck is supple.] [No neck masses.] [No thyromegaly.] [No JVD.] PERRLA, EOMI, no icterus. Moist mucous membranes noted. Chest: Crackles and rhonchi at the bases. Symmetrical chest expansion, no chest wall tenderness, sternal scar noted from previous CABG..] Cardiac Exam: [Normal S1 and S2, no S3 gallop, 2/6 systolic murmur thought the precordium. Abdomen: [Soft, nontender, no megaly, no rebound, no guarding, normal bowel sounds.] Extremities: [No clubbing, 2+ bipedal edema, no cyanosis Neurological Exam: Alert oriented 3, no gross focal neurologic deficit. Psychiatric: Normal mood affect and mental status examination. Lymphatics: No lymphadenopathy. Skin: No rashes. - Labs CBC & Chem 7: 01/02/19 06:20 01/02/19 06:20 Labs: Abnormal Lab Results - Last 24 Hours (Table) 01/01/19 01/01/19 01/02/19 Range/Units 07:03 14:13 06:20 RBC 3.30 L (4.30-5.90) m/uL Hgb 7.3 L (13.0-17.5) gm/dL Hct 24.3 L (39.0-53.0) % MCV 73.6 L (80.0-100.0) fL MCH 22.3 L (25.0-35.0) pg MCHC 30.2 L (31.0-37.0) g/dL RDW 24.7 H (11.5-15.5) % Lymphocytes # 0.6 L (1.0-4.8) k/uL Potassium 5.6 H (3.5-5.1) mmol/L BUN (9-20) mg/dL Creatinine (0.66-1.25) mg/dL Calcium (8.4-10.2) mg/dL AST (17-59) U/L Total Protein (6.3-8.2) g/dL Albumin (3.5-5.0) g/dL CARMENZA Screen POSITIVE H (NEGATIVE) 01/02/19 Range/Units 06:20 RBC (4.30-5.90) m/uL Hgb (13.0-17.5) gm/dL Hct (39.0-53.0) % MCV (80.0-100.0) fL MCH (25.0-35.0) pg MCHC (31.0-37.0) g/dL RDW (11.5-15.5) % Lymphocytes # (1.0-4.8) k/uL Potassium 5.5 H (3.5-5.1) mmol/L BUN 172 H* (9-20) mg/dL Creatinine 4.03 H (0.66-1.25) mg/dL Calcium 8.2 L (8.4-10.2) mg/dL AST 15 L (17-59) U/L Total Protein 4.3 L (6.3-8.2) g/dL Albumin 2.1 L (3.5-5.0) g/dL CARMENZA Screen (NEGATIVE) Microbiology - Last 24 Hours (Table) 12/30/18 22:50 Blood Culture - Preliminary Blood No Growth after 48 hours Assessment and Plan Assessment: Impression: 1 acute systolic congestive heart failure, ejection fraction less than 20%. 2 acute hypoxic respiratory failure secondary to pulmonary edema 3 chronic anemia, being addressed by gastroenterology for possible ongoing GI blood losses. Previous workup on outpatient basis was nondiagnostic. 4 history of COPD relatively under control, inactive. 5 coronary artery disease and previous CABG 6 chronic lower extremities edema 8 hyperlipidemia 9 recent non-ST elevation myocardial infarction 10 recent the gastric volvulus requiring surgery by Dr. Hoskins and hiatal hernia repair. 11 infrarenal abdominal aortic aneurysm, small, 12 acute kidney injury on top of chronic kidney disease stage III. 13 acute hyperkalemia secondary to acute on chronic renal failure. 14 mild uremic encephalopathy is suspected. 15 proteinuria being addressed by nephrology. Recommendation: Continue hemodialysis as per nephrology, continue Lasix, continue to monitor electrolytes and renal profile on a daily basis, continue to monitor chest x-ray, expected to improve with hemodialysis and ultrafiltration. His electrolytes and hyperkalemia is being addressed by nephrology. Patient will be transferred out of the ICU to a monitor bed on selective, we'll continue Lasix at 80 mg IV push twice a day. We'll continue to follow prognosis remains guarded and poor considering his profound LV dysfunction. Time with Patient: Less than 30
--- NOTE | 2019-01-02 14:14 | PN ---
PROGRESS NOTE DATE OF SERVICE: 01/01/2019 Kemar Srinivasan is a white male who was admitted with systolic CHF, acute renal failure, metabolic encephalopathy, dialysis. He was given 1 unit of blood. Hemoglobin is up in the normal range, over 8. He has history of large hiatal hernia. and stomach volvulus. Neurology and Gastroenterology is seeing him. Possible EGD will be done. He is going to have hemodialysis. His creatinine is 4.07, BUN is 223, potassium 5.9, hemoglobin 7.5. Temp 97.4, pulse of 90 to 98, respiratory 16 to 18, blood pressure 140 to 150s/80s. O2 is 97. CARDIOVASCULAR: S1-S2. LUNGS: Show rales at the bases. HEMATOLOGIC: 2+ pedal edema. NEUROLOGIC: Cranial nerves are intact. PSYCH: Fair mood and affect. ASSESSMENT: 1. Severe anemia, metabolic acidosis. 2. Acute systolic congestive heart failure. 3. Chronic anemia, suspect a possible gastrointestinal bleed, positive Hemoccult stool. 4. Chronic obstructive pulmonary disease exacerbation. 5. Coronary artery disease. 6. Dyslipidemia. 7. Non STEMI. 8. Gastric volvulus. 9. Infrarenal abdominal aortic aneurysm. 10.Acute renal tubular necrosis secondary to chronic kidney disease III and above. 11.Problems of acute hyperkalemia for which Kayexalate will be given. PLAN: Give him a unit of blood. Remain in the ICU. Await for Gastroenterology and Nephrology, possibly give IV iron, sodium bicarb, insulin and D50 for hyperkalemia and possible Kayexalate, dialysis. Continue with IV Lasix. Renal ultrasound. Prognosis is guarded. Please see further orders. MMODL / IJN: [id number] /
[2019-01-02 14:20] LABS: C-ANCA <1:20 Titer (<1:20); P-ANCA <1:20 Titer (<1:20)
[2019-01-02 15:20] LABS: ANA Pattern Speckled; ANA Pattern 2 Nucleolar
[2019-01-02] MEDS: MONTELUKAST 10 MG TAB PO SCH (21:08)
[2019-01-02] MEDS: ATORVASTATIN 40 MG TAB PO SCH (21:08)
[2019-01-03 05:41] LABS: Anisocytosis Marked; Basophils % (A) 0 %; Eosinophils # (A) 0.4 k/uL (0-0.7); Eosinophils % (A) 4 %; HCT 23.7 % (39.0-53.0); HGB 7.1 gm/dL (13.0-17.5); Hypochromasia Marked; Lymphocytes # (A) 0.7 k/uL (1.0-4.8); Lymphocytes % (A) 7 %; MCH 22.4 pg (25.0-35.0); MCHC 29.7 g/dL (31.0-37.0); MCV 75.4 fL (80.0-100.0); Microcytosis Marked; Monocytes # (A) 0.6 k/uL (0-1.0); Monocytes % (A) 6 %; Neutrophils # (A) 8.1 k/uL (1.3-7.7); Neutrophils % (A) 82 %; Platelet Count 269 k/uL (150-450); Poikilocytosis Slight; RBC 3.14 m/uL (4.30-5.90); WBC 9.8 k/uL (3.8-10.6)
[2019-01-03 05:44] LABS: RDW 26.1 % (11.5-15.5)
[2019-01-03 06:02] LABS: Albumin 2.1 g/dL (3.5-5.0); Calcium 7.6 mg/dL (8.4-10.2); Potassium 5.1 mmol/L (3.5-5.1); Total Bilirubin 0.4 mg/dL (0.2-1.3); Total Protein 4.3 g/dL (6.3-8.2)
[2019-01-03] MEDS: IPRATROPIUM-ALBUTEROL 3 ML NEB INHALATION SCH ×3 (07:08→21:05)
--- NOTE | 2019-01-03 08:38 | XR ---
EXAMINATION TYPE: XR chest 1V portable DATE OF EXAM: 01/03/2019 COMPARISON: 01/02/2019 INDICATION: Congestive heart failure TECHNIQUE: Single frontal view of the chest is obtained. Patient is rotated to the left. FINDINGS: The heart size is mildly prominent. The pulmonary vasculature is prominent. Diffuse increased lung markings are present greater at the lung bases. Small left pleural effusion ma y be present. IMPRESSION: 1. Findings compatible with congestive heart failure the proper clinical setting. Findings appear sim ilar to prior exam. Continued follow-up is recommended.
--- NOTE | 2019-01-03 08:56 | P.PN ---
Subjective Patient is seen in follow-up for acute kidney injury on chronic kidney disease. Patient has chronic kidney disease stage III with baseline creatinine in the range of 1-1.3. Due to worsening renal function and volume overload, he was started on hemodialysis on January 01. He is maintained on Lasix 80 mg IV twice daily. Urine output has been 10-15 mL an hour. Patient remains quite edematous. Patient did receive blood transfusions this admission. No active bleeding at this time. Hemoglobin is 7.1 today. Patient has been confused this admission. Currently seen while undergoing hemodialysis. Patient's femoral catheter is not working too well. Vital signs are stable. General: The patient appeared well nourished and normally developed. HEENT: Head exam is unremarkable. Neck is without jugular venous distension. LUNGS: Breath sounds decreased. HEART: Rate and Rhythm are regular. First and second heart sounds normal. No murmurs, rubs or gallops. ABDOMEN: Abdominal exam reveals normal bowel sounds. Non-tender and non- distended. EXTREMITITES: 2+ edema. Objective - Vital Signs Vital signs: Vital Signs Temp 97.9 F 01/03/19 04:00 Pulse 90 01/03/19 07:20 Resp 16 01/03/19 07:20 BP 132/82 01/03/19 04:00 Pulse Ox 96 01/03/19 04:00 Intake & Output 01/02/19 01/03/19 01/03/19 18:59 06:59 18:59 Intake Total 280 140 Output Total 2200 80 Balance -1920 60 Weight 96.4 kg Intake: Oral 280 140 Output: Urine 200 80 Hemodialysis 2000 Other: Voiding Method Indwelling Catheter Indwelling Catheter - Labs CBC & Chem 7: 01/03/19 05:05 01/03/19 05:05 Labs: Abnormal Lab Results - Last 24 Hours (Table) 01/03/19 01/03/19 Range/Units 05:05 05:05 RBC 3.14 L (4.30-5.90) m/uL Hgb 7.1 L (13.0-17.5) gm/dL Hct 23.7 L (39.0-53.0) % MCV 75.4 L (80.0-100.0) fL MCH 22.4 L (25.0-35.0) pg MCHC 29.7 L (31.0-37.0) g/dL RDW 26.1 H (11.5-15.5) % Neutrophils # 8.1 H (1.3-7.7) k/uL Lymphocytes # 0.7 L (1.0-4.8) k/uL Sodium 132 L (137-145) mmol/L BUN 131 H* (9-20) mg/dL Creatinine 3.79 H (0.66-1.25) mg/dL Glucose 117 H (74-99) mg/dL Calcium 7.6 L (8.4-10.2) mg/dL AST 16 L (17-59) U/L Total Protein 4.3 L (6.3-8.2) g/dL Albumin 2.1 L (3.5-5.0) g/dL Microbiology - Last 24 Hours (Table) 12/30/18 22:50 Blood Culture - Preliminary Blood No Growth after 72 hours Assessment and Plan Plan: Assessment: 1. Acute kidney injury secondary to ATN secondary to cardiorenal syndrome. Due to worsening renal function, uremia and volume overload, he was started on hemodialysis on January 01. No hydronephrosis noted on renal ultrasound. 2. Systolic CHF with ejection fraction of less than 20% and moderate mitral regurgitation. 3. Volume overload. Improving with ultrafiltration. 4. Acute blood loss anemia status post blood transfusion. GI following. No active bleeding noted. Iron deficiency noted. 5. Hyperkalemia secondary to acute kidney injury and metabolic acidosis. Better. 6. Encephalopathy. There is concern for uremia. Patient's BUN peaked at 223. Patient is not on any steroids. No active GI bleeding at this time. 7. Metabolic acidosis secondary to acute kidney injury. 8. Proteinuria. This can be nonspecific in the setting for acute kidney injury. However quantification was in the nephrotic range. Need to rule out GN -CARMENZA positive. 9. Chronic kidney disease stage III. Baseline creatinine in the range of 1- 1.3. Etiology is likely nephrosclerosis and cardiorenal syndrome. Plan: Currently seen while undergoing hemodialysis - will try for 3 L ultrafiltration. Another treatment tomorrow. Follow-up serologies. Maintain IV Lasix. I will give him 2 doses of IV albumin today. IV iron 2 doses. Patient will likely need a new dialysis catheter as the current catheter is not functioning too well.
[2019-01-03] MEDS: PANTOPRAZOLE 40 MG TABLET PO SCH (09:09)
[2019-01-03] MEDS: FUROSEMIDE 10 MG/ML 10 ML VIAL IV SCH ×2 (09:09→20:41)
[2019-01-03] MEDS: SODIUM FERRIC GLUCONAT-SUCROSE 125 MG in SODIUM CHLORIDE 0.9% 100 ML IVPB SCH (10:12)
[2019-01-03] MEDS: ALBUMIN HUMAN 25% 50 ML in EMPTY BAG 1 BAG IVPB SCH ×4 (11:19→21:18)
--- NOTE | 2019-01-03 11:50 | P.PN ---
Subjective Progress Note Date: 01/03/19 Principal diagnosis: Acute systolic congestive heart failure and pulmonary edema. 73-year-old male patient with known history of congestion heart failure with an ejection fraction of less than 20%, in addition to known history of coronary artery disease, previous bypass surgery, previous non-STEMI, known history of large hiatal hernia with a stomach volvulus, COPD, hypertension and hyperlipidemia, coming into the hospital because of worsening shortness of breath. The patient came into the hospital because of worsening shortness of breath. The patient apparently was not feeling well. The patient himself is a poor historian. Over the past 3 weeks, he was feeling weak and tired and had no energy. He was having also difficulties climbing up and down the stairs and he was very much fatigued. He had increased in lower extremity edema. He was experiencing exertional dyspnea and orthopnea. The patient was found to be anemic in the ED with a hemoglobin of 6.9. Note that based on hemoglobin was at 8.5. No reported history of any GI bleed. His creatinine was also had 3 with a baseline creatinine of 1.6. ProBNP level was 70,000. The patient was given 1 units of packed RBC transfusion. The patient was given IV Lasix and she was started dose of 40 mg IV push every 12 hours and the burst department. EKG was sinus. In addition, the patient is complaining of some lower back pain. CAT scan of the abdomen that was done showed a small infrarenal abdominal aortic aneurysm. I also some small bilateral pleural effusion. The patient is currently on Lasix 80 mg IV push every 12 hours. Barroso cath is in place. Response to diuretics is suboptimal. Reevaluated today on 01/01/2019, patient remains in the ICU, chest x-ray is showing worsening congestive heart failure, patient is on few liters nasal cannula, O2 saturation is marginal, not improving much with diuretics, his BUN is extremely elevated, and I discussed his condition with nephrology and gastroe nterology. The plan is to start hemodialysis, and will consider EGD for further assessment of his anemia in the next few days. is at bedside, and she was updated on his condition. Hemoglobin is 7.5. Potassium is 5.9 BUN is 223 creatinine is 4.07. Reevaluated today on 01/02/2019, patient remains in the ICU, patient received hemodialysis and he is maintained on Lasix 80 mg IV twice a day. Urine output is marginal at 20-25 mL per hour, patient remains edematous, and his chest x-ray continues to show evidence of pulmonary edema. Patient is hemodynamically stable, in no form of respiratory distress, he does have intermittent episodes of confusion. All labs were reviewed, his BUN is down to 173 creatinine remains 4.03. No clinical evidence of overt GI bleeding patient may require eventually repeat EGD or possible small bowel capsule endoscopy once he is medically optimized. Today I plan to transfer the patient out of the ICU to a monitor bed on [facility] Patient was reevaluated today on 01/03/2019, he is presently an overflow from [facility], remains on hemodialysis, remains on diuretics, his hemodialysis was initiated on January 01, urine output is marginal 10-15 mL per hour, remains edematous and swollen, hemoglobin today is 7.1. Patient is intermittently confused, he is oriented 1 only. Hemodialysis staff are encountering problems with the dialysis catheter, and that may have to be addressed by vascular surgery again. CBC showed a hemoglobin of 7.1, O2 sat is 90.8, electrolytes are normal BUN is down to 131 creatinine is down to 3.79. Chest x-ray continues to show evidence of pulmonary edema Objective - Vital Signs Vital signs: Vital Signs Temp 97.9 F 01/03/19 04:00 Pulse 96 01/03/19 08:00 Resp 21 01/03/19 08:00 BP 144/77 01/03/19 08:00 Pulse Ox 93 L 01/03/19 08:00 Intake & Output 01/02/19 01/03/19 01/03/19 18:59 06:59 18:59 Intake Total 280 140 50 Output Total 2200 80 1800 Balance -1920 60 -1750 Weight 96.4 kg Intake: Oral 280 140 50 Output: Urine 200 80 Hemodialysis 2000 Other 1800 Other: Voiding Method Indwelling Catheter Indwelling Catheter Indwelling Catheter - Exam Physical Exam: Revealed a 73-year-old white male on 4 L nasal cannula, confused, oriented 1 only. Head: Atraumatic, normocephalic. HEENT:[Neck is supple.] [No neck masses.] [No thyromegaly.] [No JVD.] PERRLA, EOMI, no icterus. Moist mucous membranes noted. Chest: Crackles and rhonchi at the bases. Symmetrical chest expansion, no chest wall tenderness, sternal scar noted from previous CABG..] Cardiac Exam: [Normal S1 and S2, no S3 gallop, 2/6 systolic murmur thought the precordium. Abdomen: [Soft, nontender, no megaly, no rebound, no guarding, normal bowel sounds.] Extremities: [No clubbing, 2+ bipedal edema, no cyanosis Neurological Exam: Alert oriented 1 otherwise, no gross focal neurologic deficit. Psychiatric: Normal mood affect, noted to be intermittently confused. Lymphatics: No lymphadenopathy. Skin: No rashes. - Labs CBC & Chem 7: 01/03/19 05:05 01/03/19 05:05 Labs: Abnormal Lab Results - Last 24 Hours (Table) 01/03/19 01/03/19 Range/Units 05:05 05:05 RBC 3.14 L (4.30-5.90) m/uL Hgb 7.1 L (13.0-17.5) gm/dL Hct 23.7 L (39.0-53.0) % MCV 75.4 L (80.0-100.0) fL MCH 22.4 L (25.0-35.0) pg MCHC 29.7 L (31.0-37.0) g/dL RDW 26.1 H (11.5-15.5) % Neutrophils # 8.1 H (1.3-7.7) k/uL Lymphocytes # 0.7 L (1.0-4.8) k/uL Sodium 132 L (137-145) mmol/L BUN 131 H* (9-20) mg/dL Creatinine 3.79 H (0.66-1.25) mg/dL Glucose 117 H (74-99) mg/dL Calcium 7.6 L (8.4-10.2) mg/dL AST 16 L (17-59) U/L Total Protein 4.3 L (6.3-8.2) g/dL Albumin 2.1 L (3.5-5.0) g/dL Microbiology - Last 24 Hours (Table) 12/30/18 22:50 Blood Culture - Preliminary Blood No Growth after 72 hours Assessment and Plan Assessment: Impression: 1 acute systolic congestive heart failure, ejection fraction less than 20%. 2 acute hypoxic respiratory failure secondary to pulmonary edema 3 chronic anemia, being addressed by gastroenterology for possible ongoing GI blood losses. 4 history of COPD relatively under control, inactive. 5 coronary artery disease and previous CABG 6 chronic lower extremities edema 8 hyperlipidemia 9 recent non-ST elevation myocardial infarction 10 recent the gastric volvulus requiring surgery by Dr. Hoskins and hiatal hernia repair. 11 infrarenal abdominal aortic aneurysm, small, 12 acute kidney injury on top of chronic kidney disease stage III. 13 acute hyperkalemia secondary to acute on chronic renal failure. 14 mild uremic encephalopathy is suspected. 15 proteinuria being addressed by nephrology. Patient had abnormal CARMENZA, speckled pattern, may have underlying connective tissue disease process. May eventually require a kidney biopsy. Recommendation: Continue dialysis, issues related to the dialysis catheter are being addressed by vascular surgery, continue diuretics, continue to monitor electrolytes, we'll continue to follow. Patient is presently overflow from [facility]. Time with Patient: Less than 30
--- NOTE | 2019-01-03 12:21 | PN ---
PROGRESS NOTE DATE OF SERVICE: 01/02/2019 SUBJECTIVE: A 73-year-old white male still remains in ICU. He continues to do well. He has a poor ejection fraction, large hiatal hernia, COPD. He has been given diuretics for multiple days with IV and hemodialysis. Urine output is 20 to 25 mL/hour. Hemoglobin is down to 7.1. Chest x-ray, pulmonary edema. reviewed. PSYCH: He has given appropriate answers. CARDIOVASCULAR: S1, S2. ABDOMEN: Soft, nontender. EXTREMITIES: No cyanosis, clubbing, edema. NEUROLOGIC: Alert and oriented x3. PSYCH: Fair mood and affect. SKIN: No rashes. PLAN: Continue current treatments. Possible blood transfusion will be done. Treat systolic CHF. Monitor for any signs of bleeding. Gastroenterology as of yesterday did not do an EGD, possible an EGD will be needed. Coronary artery disease, congestive heart failure type symptoms. Lower extremity edema. Recent nim-UK-[id number] myocardial infarction. Gastric volvulus. Prognosis guarded. He has multiple medical problems. Continue with the dialysis, diuresis. Please see further orders. MMODL / IJN: [id number] /
[2019-01-03] MEDS: ISOSORBIDE MONONITRATE ER 30 MG TAB.ER.24H PO SCH (12:43)
[2019-01-03] MEDS: METOPROLOL TARTRATE 12.5 MG TAB PO SCH ×2 (12:43→20:41)
--- NOTE | 2019-01-03 14:09 | P.PN ---
Subjective Progress Note Date: 01/03/19 Principal diagnosis: Anemia Confused No episodes of hematemesis hematochezia or melena. Kidney function improving. Hemoglobin 7.1. Objective - Vital Signs Vital signs: Vital Signs Temp 97.7 F 01/03/19 11:43 Pulse 93 01/03/19 14:00 Resp 22 01/03/19 14:00 BP 123/79 01/03/19 14:00 Pulse Ox 96 01/03/19 14:00 Intake & Output 01/02/19 01/03/19 01/03/19 18:59 06:59 18:59 Intake Total 280 140 50 Output Total 2200 80 3600 Balance -1920 60 -3550 Weight 96.4 kg Intake: Oral 280 140 50 Output: Urine 200 80 Hemodialysis 2000 1800 Other 1800 Other: Voiding Method Indwelling Catheter Indwelling Catheter Indwelling Catheter - Exam General appearance: The patient is alert, oriented, in no acute distress. HET: Head is normocephalic and atraumatic. Pupils are equal and reactive. Oropharynx is clear without lesions. Neck: Supple without lymphadenopathy. Trachea midline. Heart: S1 S2. Lungs: Diminished bilaterally. Abdomen: Soft, nontender, nondistended with bowel sounds. No peritoneal signs. No palpable organomegaly or masses. Extremities: Anasarca. Neurological: No focal deficits. Strength and sensation are grossly intact. - Labs CBC & Chem 7: 01/03/19 05:05 01/03/19 05:05 Labs: Abnormal Lab Results - Last 24 Hours (Table) 01/03/19 01/03/19 Range/Units 05:05 05:05 RBC 3.14 L (4.30-5.90) m/uL Hgb 7.1 L (13.0-17.5) gm/dL Hct 23.7 L (39.0-53.0) % MCV 75.4 L (80.0-100.0) fL MCH 22.4 L (25.0-35.0) pg MCHC 29.7 L (31.0-37.0) g/dL RDW 26.1 H (11.5-15.5) % Neutrophils # 8.1 H (1.3-7.7) k/uL Lymphocytes # 0.7 L (1.0-4.8) k/uL Sodium 132 L (137-145) mmol/L BUN 131 H* (9-20) mg/dL Creatinine 3.79 H (0.66-1.25) mg/dL Glucose 117 H (74-99) mg/dL Calcium 7.6 L (8.4-10.2) mg/dL AST 16 L (17-59) U/L Total Protein 4.3 L (6.3-8.2) g/dL Albumin 2.1 L (3.5-5.0) g/dL Microbiology - Last 24 Hours (Table) 12/30/18 22:50 Blood Culture - Preliminary Blood No Growth after 72 hours Assessment and Plan (1) Anemia Narrative/Plan: 73-year-old gentleman admitted with symptomatic microcytic hypochromic iron deficiency anemia without overt bleeding and acute kidney injury with underlying chronic kidney disease. History of large intrathoracic stomach status post repair October 2018 with incomplete EGD. Colonoscopy November 2018 reported no evidence of bleeding sources or colorectal neoplasia. Current Visit: Yes Status: Acute Code(s): D64.9 - ANEMIA, UNSPECIFIED SNOMED Code(s): 161559772 (2) VALERIE (acute kidney injury) Current Visit: Yes Status: Acute Code(s): N17.9 - ACUTE KIDNEY FAILURE, UNSPECIFIED SNOMED Code(s): 77588104 (3) CHF exacerbation Current Visit: Yes Status: Acute Code(s): I50.9 - HEART FAILURE, UNSPECIFIED SNOMED Code(s): 176222390 Plan: 1. Confused today. Presently clinically no evidence to suggest active overt GI bleeding. Would recommend repeating EGD possible small bowel capsule endoscopy once medically optimized. Medical clearance not been obtained yet. We'll continue to monitor on a daily basis with CBC monitoring. Continue GI prophylaxis. We'll follow closely with you. Assessment and plan a care discussed with Dr. Monson
[2019-01-03] MEDS: ATORVASTATIN 40 MG TAB PO SCH (20:41)
[2019-01-03] MEDS: MONTELUKAST 10 MG TAB PO SCH (20:41)
[2019-01-04 07:32] LABS: Albumin 2.4 g/dL (3.5-5.0); Calcium 7.8 mg/dL (8.4-10.2); Potassium 5.2 mmol/L (3.5-5.1); Total Bilirubin 0.6 mg/dL (0.2-1.3); Total Protein 4.7 g/dL (6.3-8.2)
[2019-01-04 07:42] LABS: Anisocytosis Marked; Basophils % (A) 0 %; Eosinophils # (A) 0.3 k/uL (0-0.7); Eosinophils % (A) 5 %; HCT 23.2 % (39.0-53.0); Hypochromasia Marked; Lymphocytes # (A) 0.6 k/uL (1.0-4.8); Lymphocytes % (A) 9 %; MCH 22.3 pg (25.0-35.0); MCHC 29.3 g/dL (31.0-37.0); MCV 76.1 fL (80.0-100.0); Mean Platelet Volume 6.9; Microcytosis Marked; Monocytes # (A) 0.4 k/uL (0-1.0); Monocytes % (A) 6 %; Neutrophils # (A) 5.3 k/uL (1.3-7.7); Neutrophils % (A) 78 %; Platelet Count 174 k/uL (150-450); RBC 3.05 m/uL (4.30-5.90); WBC 6.8 k/uL (3.8-10.6)
[2019-01-04 07:47] LABS: HGB 6.8 gm/dL (13.0-17.5)
[2019-01-04 07:48] LABS: RDW 27.3 % (11.5-15.5)
[2019-01-04] MEDS: IPRATROPIUM-ALBUTEROL 3 ML NEB INHALATION SCH ×3 (08:13→20:37)
--- NOTE | 2019-01-04 08:28 | P.PN ---
Subjective Patient is seen in follow-up for acute kidney injury on chronic kidney disease. Patient has chronic kidney disease stage III with baseline creatinine in the range of 1-1.3. Due to worsening renal function and volume overload, he was started on hemodialysis on January 01. He is maintained on Lasix 80 mg IV twice daily. Patient is oliguric. Patient remains quite edematous. Patient did receive blood transfusions this admission. No active bleeding at this time. Hemoglobin is 6.8 today. Patient has been confused this admission. Currently seen while undergoing hemodialysis. Patient's femoral catheter is not working too well. Vital signs are stable. General: The patient appeared well nourished and normally developed. HEENT: Head exam is unremarkable. Neck is without jugular venous distension. LUNGS: Breath sounds decreased. HEART: Rate and Rhythm are regular. First and second heart sounds normal. No murmurs, rubs or gallops. ABDOMEN: Abdominal exam reveals normal bowel sounds. Non-tender and non- distended. EXTREMITITES: 2+ edema. Objective - Vital Signs Vital signs: Vital Signs Temp 97.0 F L 01/04/19 03:35 Pulse 91 01/04/19 08:13 Resp 18 01/04/19 08:13 BP 145/74 01/04/19 03:35 Pulse Ox 93 L 01/04/19 08:13 Intake & Output 01/03/19 01/04/19 01/04/19 18:59 06:59 18:59 Intake Total 410 Output Total 3900 100 Balance -3490 -100 Weight 94 kg Intake: Oral 410 Output: Urine 300 100 Hemodialysis 1800 Other 1800 Other: Voiding Method Indwelling Catheter Indwelling Catheter - Labs CBC & Chem 7: 01/04/19 05:33 01/04/19 05:33 Labs: Abnormal Lab Results - Last 24 Hours (Table) 01/04/19 01/04/19 Range/Units 05:33 05:33 RBC 3.05 L (4.30-5.90) m/uL Hgb 6.8 L* (13.0-17.5) gm/dL Hct 23.2 L (39.0-53.0) % MCV 76.1 L (80.0-100.0) fL MCH 22.3 L (25.0-35.0) pg MCHC 29.3 L (31.0-37.0) g/dL RDW 27.3 H (11.5-15.5) % Sodium 133 L (137-145) mmol/L Potassium 5.2 H (3.5-5.1) mmol/L BUN 115 H* (9-20) mg/dL Creatinine 4.06 H (0.66-1.25) mg/dL Calcium 7.8 L (8.4-10.2) mg/dL Total Protein 4.7 L (6.3-8.2) g/dL Albumin 2.4 L (3.5-5.0) g/dL Microbiology - Last 24 Hours (Table) 12/30/18 22:50 Blood Culture - Preliminary Blood No Growth after 96 hours Assessment and Plan Plan: Assessment: 1. Acute kidney injury secondary to ATN secondary to cardiorenal syndrome. Due to worsening renal function, uremia and volume overload, he was started on hemodialysis on January 01. No hydronephrosis noted on renal ultrasound. 2. Systolic CHF with ejection fraction of less than 20% and moderate mitral regurgitation. 3. Volume overload. Improving with ultrafiltration. 4. Acute blood loss anemia status post blood transfusion. GI following. No active bleeding noted. Iron deficiency noted. Hemoglobin 6.8 today. 5. Hyperkalemia secondary to acute kidney injury and metabolic acidosis. Improved with dialysis. 6. Encephalopathy. There is concern for uremia. Patient's BUN peaked at 223. Patient is not on any steroids. However there is concern for underlying GI bleed. 7. Metabolic acidosis secondary to acute kidney injury. Improved with dialysis. 8. Proteinuria. This can be nonspecific in the setting for acute kidney injury. However quantification was in the nephrotic range. Need to rule out GN -CARMENZA positive, rest of the serologies have been negative. 9. Chronic kidney disease stage III. Baseline creatinine in the range of 1- 1.3. Etiology is likely nephrosclerosis and cardiorenal syndrome. Plan: Currently seen while undergoing hemodialysis - will try for 2-3 L ultrafiltration. Another treatment tomorrow. Maintain IV Lasix. IV iron 2 doses. Second dose today. Patient will need a permacath placed as his current femoral catheter is not functioning well. Add Aranesp. 1 unit of blood to be transfused with dialysis today. Check phosphorus level.
[2019-01-04 08:52] LABS: Polychromasia Present
[2019-01-04 09:00] LABS: Poikilocytosis (M) Present; RBC Fragments Present
[2019-01-04] MEDS ORDERED: DARBEPOETIN ALFA 40 MCG/0.4 ML SYRINGE SQ SCH (09:00)
[2019-01-04] MEDS: PANTOPRAZOLE 40 MG TABLET PO SCH (09:24)
[2019-01-04] MEDS: ISOSORBIDE MONONITRATE ER 30 MG TAB.ER.24H PO SCH (11:17)
[2019-01-04] MEDS: SODIUM FERRIC GLUCONAT-SUCROSE 125 MG in SODIUM CHLORIDE 0.9% 100 ML IVPB SCH (11:17)
[2019-01-04] MEDS: METOPROLOL TARTRATE 12.5 MG TAB PO SCH ×2 (11:17→21:11)
[2019-01-04] MEDS: FUROSEMIDE 10 MG/ML 10 ML VIAL IV SCH ×2 (11:17→21:11)
--- NOTE | 2019-01-04 13:41 | P.PN ---
Subjective Progress Note Date: 01/04/19 Principal diagnosis: Acute systolic congestive heart failure and pulmonary edema 73-year-old male patient with known history of congestion heart failure with an ejection fraction of less than 20%, in addition to known history of coronary artery disease, previous bypass surgery, previous non-STEMI, known history of large hiatal hernia with a stomach volvulus, COPD, hypertension and hyperlipidemia, coming into the hospital because of worsening shortness of breath. The patient came into the hospital because of worsening shortness of breath. The patient apparently was not feeling well. The patient himself is a poor historian. Over the past 3 weeks, he was feeling weak and tired and had no energy. He was having also difficulties climbing up and down the stairs and he was very much fatigued. He had increased in lower extremity edema. He was experiencing exertional dyspnea and orthopnea. The patient was found to be anemic in the ED with a hemoglobin of 6.9. Note that based on hemoglobin was at 8.5. No reported history of any GI bleed. His creatinine was also had 3 with a baseline creatinine of 1.6. ProBNP level was 70,000. The patient was given 1 units of packed RBC transfusion. The patient was given IV Lasix and she was started dose of 40 mg IV push every 12 hours and the burst department. EKG was sinus. In addition, the patient is complaining of some lower back pain. CAT scan of the abdomen that was done showed a small infrarenal abdominal aortic aneurysm. I also some small bilateral pleural effusion. The patient is currently on Lasix 80 mg IV push every 12 hours. Barroso cath is in place. Response to diuretics is suboptimal. Reevaluated today on 01/01/2019, patient remains in the ICU, chest x-ray is showing worsening congestive heart failure, patient is on few liters nasal cannula, O2 saturation is marginal, not improving much with diuretics, his BUN is extremely elevated, and I discussed his condition with nephrology and gastroenterology. The plan is to start hemodialysis, and will consider EGD for further assessment of his anemia in the next few days. is at bedside, and she was updated on his condition. Hemoglobin is 7.5. Potassium is 5.9 BUN is 223 creatinine is 4.07. Reevaluated today on 01/02/2019, patient remains in the ICU, patient received hemodialysis and he is maintained on Lasix 80 mg IV twice a day. Urine output is marginal at 20-25 mL per hour, patient remains edematous, and his chest x-ray continues to show evidence of pulmonary edema. Patient is hemodynamically stable, in no form of respiratory distress, he does have intermittent episodes of confusion. All labs were reviewed, his BUN is down to 173 creatinine remains 4.03. No clinical evidence of overt GI bleeding patient may require eventually repeat EGD or possible small bowel capsule endoscopy once he is medically optimized. Today I plan to transfer the patient out of the ICU to a monitor bed on [facility] Patient was reevaluated today on 01/03/2019, he is presently an overflow from [facility] remains on hemodialysis, remains on diuretics, his hemodialysis was initiated on January 01, urine output is marginal 10-15 mL per hour, remains edematous and swollen, hemoglobin today is 7.1. Patient is intermittently confused, he is oriented 1 only. Hemodialysis staff are encountering problems with the dialysis catheter, and that may have to be addressed by vascular surgery again. CBC showed a hemoglobin of 7.1, O2 sat is 90.8, electrolytes are normal BUN is down to 131 creatinine is down to 3.79. Chest x-ray continues to show evidence of pulmonary edema On 01/04/2019 patient seen in follow-up on [facility] care unit. He was lethargic, but arousable to verbal stimuli, had dialysis again yesterday with removal of 1800 mL of fluid, remains on IV diuretics, patient produced about 400 mL of urine in the last 24 hours. Will has significant edema and upper and lower extremities. Current dose of Lasix is 80 mg every 12 hours, nephrology is following, no worsening dyspnea, remains on 2 L of oxygen with a pulse ox of 98%, afebrile, lung sounds are diminished, no new chest x-ray today. No complaints of chest pain. No fever or chills, blood culture showed no growth. Objective - Vital Signs Vital signs: Vital Signs Temp 98.2 F 01/04/19 12:00 Pulse 98 01/04/19 13:15 Resp 18 01/04/19 12:00 BP 118/73 01/04/19 12:00 Pulse Ox 98 01/04/19 12:00 Intake & Output 01/03/19 01/04/19 01/04/19 18:59 06:59 18:59 Intake Total 410 360 Output Total 3900 100 1100 Balance -3490 -100 -740 Weight 94 kg Intake: Oral 410 360 Output: Urine 300 100 100 Hemodialysis 1800 1000 Other 1800 Other: Voiding Method Indwelling Catheter Indwelling Catheter Indwelling Catheter - Exam GENERAL EXAM: Lethargic, 73-year-old white male, comfortable in no apparent d istress. HEAD: Normocephalic/atraumatic. EYES: Normal reaction of pupils, equal size. Conjunctiva pink, sclera white. NOSE: Clear with pink turbinates. THROAT: No erythema or exudates. NECK: No masses, no JVD, no thyroid enlargement, no adenopathy. CHEST: No chest wall deformity. Symmetrical expansion. LUNGS: Equal air entry with diminished breath sounds bilaterally, CVS: Regular rate and rhythm, normal S1 and S2, no gallops, no murmurs, no rubs ABDOMEN: Soft, nontender. No hepatosplenomegaly, normal bowel sounds, no guarding or rigidity. EXTREMITIES: No clubbing, or generalized edema of the lower extremities, no cyanosis, 2+ pulses and upper and lower extremities. MUSCULOSKELETAL: Muscle strength and tone normal. Left groin hemodialysis catheter SPINE: No scoliosis or deformity SKIN: No rashes CENTRAL NERVOUS SYSTEM: lethargic and oriented -1. No focal deficits, tone is normal in all 4 extremities. - Labs CBC & Chem 7: 01/04/19 05:33 01/04/19 05:33 Labs: Abnormal Lab Results - Last 24 Hours (Table) 01/04/19 01/04/19 01/04/19 Range/Units 05:33 05:33 08:50 RBC 3.05 L (4.30-5.90) m/uL Hgb 6.8 L* (13.0-17.5) gm/dL Hct 23.2 L (39.0-53.0) % MCV 76.1 L (80.0-100.0) fL MCH 22.3 L (25.0-35.0) pg MCHC 29.3 L (31.0-37.0) g/dL RDW 27.3 H (11.5-15.5) % Lymphocytes # 0.6 L (1.0-4.8) k/uL Sodium 133 L (137-145) mmol/L Potassium 5.2 H (3.5-5.1) mmol/L BUN 115 H* (9-20) mg/dL Creatinine 4.06 H (0.66-1.25) mg/dL Calcium 7.8 L (8.4-10.2) mg/dL Total Protein 4.7 L (6.3-8.2) g/dL Albumin 2.4 L (3.5-5.0) g/dL Crossmatch See Detail Microbiology - Last 24 Hours (Table) 12/30/18 22:50 Blood Culture - Preliminary Blood No Growth after 96 hours Assessment and Plan Plan: 1 acute systolic congestive heart failure, ejection fraction less than 20%. 2 acute hypoxic respiratory failure secondary to pulmonary edema 3 chronic anemia, being addressed by gastroenterology for possible ongoing GI blood losses. 4 history of COPD relatively under control, inactive. 5 coronary artery disease and previous CABG 6 chronic lower extremities edema 8 hyperlipidemia 9 recent non-ST elevation myocardial infarction 10 recent the gastric volvulus requiring surgery by Dr. Hoskins and hiatal hernia repair. 11 infrarenal abdominal aortic aneurysm, small, 12 acute kidney injury on top of chronic kidney disease stage III. 13 acute hyperkalemia secondary to acute on chronic renal failure. 14 mild uremic encephalopathy is suspected. 15 proteinuria being addressed by nephrology. Patient had abnormal CARMENZA, speckled pattern, may have underlying connective tissue disease process. May eventually require a kidney biopsy. Plan: Continue diuretics, patient is requiring hemodialysis, nephrology is following, no worsening dyspnea, patient remains lethargic, but maintaining stable oxygenation on 2 L of oxygen, still has significant amount of generalized edema. Overall prognosis is guarded. I performed a history & physical examination of the patient and discussed their management with my nurse practitioner, Holli Piedra. I reviewed the nurse practitioner's note and agree with the documented findings and plan of care. Lung sounds are positive for diminished breath sounds. The findings and the impression was discussed with the patient. I attest to the documentation by the nurse practitioner. Time with Patient: Less than 30
--- NOTE | 2019-01-04 16:33 | P.PN ---
Subjective Progress Note Date: 01/04/19 01/04/2018: Patient seen and examined covering for Dr. Oseguera. The patient's is at bedside. The patient had a bowel movement consistent of dark tarry stools. The patient's hemoglobin was 6.8 this morning. He is receiving 1 unit of packed red blood cells. The patient is undergoing HD intermittently per nephrology. The patient denies abdominal pain, nausea, vomiting. He denies fevers and chills. Objective - Vital Signs Vital signs: Vital Signs Temp 97.8 F 01/04/19 16:11 Pulse 94 01/04/19 16:11 Resp 20 01/04/19 16:11 BP 138/73 01/04/19 16:11 Pulse Ox 95 01/04/19 16:11 Intake & Output 01/03/19 01/04/19 01/04/19 18:59 06:59 18:59 Intake Total 410 360 Output Total 3900 100 1100 Balance -3490 -100 -740 Weight 94 kg Intake: Oral 410 360 Blood Product 0 Rc As-1 Unit 0 [id number] Output: Urine 300 100 100 Hemodialysis 1800 1000 Other 1800 Other: Voiding Method Indwelling Catheter Indwelling Catheter Indwelling Catheter - Exam Gen.: Patient is alert but confused Cardiovascular: Regular rate and rhythm, S1/S2 Lungs: Diminished breath sounds bilaterally Abdomen: Soft nontender nondistended positive bowel sounds Extremities: 2+ pitting edema - Labs CBC & Chem 7: 01/04/19 05:33 01/04/19 05:33 Labs: Abnormal Lab Results - Last 24 Hours (Table) 01/04/19 01/04/19 01/04/19 Range/Units 05:33 05:33 08:50 RBC 3.05 L (4.30-5.90) m/uL Hgb 6.8 L* (13.0-17.5) gm/dL Hct 23.2 L (39.0-53.0) % MCV 76.1 L (80.0-100.0) fL MCH 22.3 L (25.0-35.0) pg MCHC 29.3 L (31.0-37.0) g/dL RDW 27.3 H (11.5-15.5) % Lymphocytes # 0.6 L (1.0-4.8) k/uL Sodium 133 L (137-145) mmol/L Potassium 5.2 H (3.5-5.1) mmol/L BUN 115 H* (9-20) mg/dL Creatinine 4.06 H (0.66-1.25) mg/dL Calcium 7.8 L (8.4-10.2) mg/dL Total Protein 4.7 L (6.3-8.2) g/dL Albumin 2.4 L (3.5-5.0) g/dL Crossmatch See Detail Microbiology - Last 24 Hours (Table) 12/30/18 22:50 Blood Culture - Preliminary Blood No Growth after 96 hours Assessment and Plan Assessment: Acute on chronic systolic congestive heart failure, ejection fraction less than 20%. Acute hypoxic respiratory failure secondary to pulmonary edema Acute on chronic anemia Acute kidney injury on chronic kidney disease stage III, requiring hemodialysis Melena COPD, not acutely exacerbated Coronary artery disease and previous CABG ICM Chronic lower extremities edema Dyslipidemia Recent non-ST elevation myocardial infarction Recent the gastric volvulus requiring surgery by Dr. Hoskins and hiatal hernia repair. Infrarenal abdominal aortic aneurysm Uremic encephalopathy Proteinuria Abnormal CARMENZA, speckled pattern Hemodialysis per nephrology Gastroenterology for her melena and anemia Transfuse 1 unit of packed red blood cells Diuresis per nephrology Iron replacement Plan for permacath placement
[2019-01-04 18:29] LABS: Hepatitis A Antibody IgM Non-Reactive (Non-Reactive); Hepatitis B Core IgM Non-Reactive (Non-Reactive)
[2019-01-04] MEDS: MONTELUKAST 10 MG TAB PO SCH (21:11)
[2019-01-04] MEDS: ATORVASTATIN 40 MG TAB PO SCH (21:11)
--- NOTE | 2019-01-04 22:45 | P.PN ---
Subjective Progress Note Date: 01/04/19 Principal diagnosis: Iron deficiency anemia Patient seen lying in bed today. He is tolerating his diet. No abdominal pain reported. One dark bowel movement reported this morning. Objective - Vital Signs Vital signs: Vital Signs Temp 97.6 F 01/04/19 18:30 Pulse 99 01/04/19 20:47 Resp 18 01/04/19 20:00 BP 139/78 01/04/19 20:00 Pulse Ox 97 01/04/19 20:37 Intake & Output 01/04/19 01/04/19 01/05/19 06:59 18:59 06:59 Intake Total 1130 Output Total 100 1275 Balance -100 -145 Weight 94 kg Intake: IV 100 Sodium Ferric Gluconat- 100 Sucrose 125 mg In Sodium Chloride 0.9% 100 ml @ 100 mls/hr IVPB DAILY [facility] Rx#:[id number] Oral 720 Blood Product 310 Rc As-1 Unit 310 [id number] Output: Urine 100 275 Hemodialysis 1000 Other: Voiding Method Indwelling Catheter Indwelling Catheter Indwelling Catheter - Exam On physical examination, patient appears comfortable in no apparent distress. HEAD: Normocephalic, atraumatic. EYES: No scleral icterus. No conjunctival injection. MOUTH: No lesions, tongue midline. NECK: Trachea midline, no gross abnormalities. CHEST: Decreased air entry bilaterally. HEART: S1-S2 appreciated. ABDOMEN: Soft, obese. Bowel sounds are positive. No organomegaly. No guarding or rigidity. EXTREMITIES: Bilateral pedal edema. SKIN: No rashes, no jaundice. NEUROLOGIC: Alert and oriented to person and place. No focal deficits. - Labs CBC & Chem 7: 01/04/19 05:33 01/04/19 05:33 Labs: Abnormal Lab Results - Last 24 Hours (Table) 01/04/19 01/04/19 01/04/19 Range/Units 05:33 05:33 08:50 RBC 3.05 L (4.30-5.90) m/uL Hgb 6.8 L* (13.0-17.5) gm/dL Hct 23.2 L (39.0-53.0) % MCV 76.1 L (80.0-100.0) fL MCH 22.3 L (25.0-35.0) pg MCHC 29.3 L (31.0-37.0) g/dL RDW 27.3 H (11.5-15.5) % Lymphocytes # 0.6 L (1.0-4.8) k/uL Sodium 133 L (137-145) mmol/L Potassium 5.2 H (3.5-5.1) mmol/L BUN 115 H* (9-20) mg/dL Creatinine 4.06 H (0.66-1.25) mg/dL Calcium 7.8 L (8.4-10.2) mg/dL Total Protein 4.7 L (6.3-8.2) g/dL Albumin 2.4 L (3.5-5.0) g/dL Crossmatch See Detail Microbiology - Last 24 Hours (Table) 12/30/18 22:50 Blood Culture - Preliminary Blood No Growth after 96 hours Assessment and Plan (1) Acute anemia Narrative/Plan: 73-year-old with multiple medical comorbidities including anemia, microcytic hypochromic likely multifactorial in the setting of CK D and anemia of chronic disease with concerns of possible contribution from GI bleed with the patient having positive stool testing for blood. Patient has undergone endoscopic evaluation in incomplete EGD in 10/2018 secondary to a large intrathoracic stomach for which the patient subsequently underwent surgical repair as well as colonoscopy in 11/2018 with no evidence of bleeding or colorectal neoplasia. Current Visit: Yes Status: Acute Priority: Medium Code(s): D64.9 - ANEMIA, UNSPECIFIED SNOMED Code(s): 467938076 (2) VALERIE (acute kidney injury) Narrative/Plan: Acute kidney injury secondary to ATN on chronic kidney disease Current Visit: Yes Status: Acute Code(s): N17.9 - ACUTE KIDNEY FAILURE, UNSPECIFIED SNOMED Code(s): 11286317 Plan: Supportive care Okay for diet Continue to monitor hemoglobin and transfuse as needed Continue iron supplementation Continue to monitor stool output Patient currently receiving treatment for systolic heart failure as well as HPI on CK D with plan for hemodialysis catheter placement tomorrow, at this time discussion was with the patient's as well as the patient himself and we will continue to monitor and plan for EGD for further investigation when medically optimized with possibility of video capsule endoscopy if no source of bleeding is noted Thank you for allowing us to participate in the care of the patient we will continue to follow
[2019-01-05 07:38] LABS: Calcium 7.6 mg/dL (8.4-10.2); Magnesium 2.8 mg/dL (1.6-2.3); Phosphorus 8.9 mg/dL (2.5-4.5); Potassium 5.1 mmol/L (3.5-5.1)
[2019-01-05] MEDS ORDERED: SODIUM CHLORIDE 0.9% 250 ML IV ONE (08:25)
[2019-01-05] MEDS ORDERED: fentaNYL (PF) 50 MCG/ML 2 ML AMP IV ONE (08:30)
[2019-01-05] MEDS ORDERED: LIDOCAINE 1% INJ 10MG/ML (20 ML MDV) SQ ONE (08:30)
[2019-01-05] MEDS ORDERED: HEPARIN SODIUM 1,000 UN/ML (10ML VL) MISCELLANE ONE (08:47)
[2019-01-05] MEDS: IPRATROPIUM-ALBUTEROL 3 ML NEB INHALATION SCH ×3 (09:04→20:38)
--- NOTE | 2019-01-05 09:09 | P.PCN ---
Description of Procedure: Procedure note preoperative diagnoses is acute chronic failure Postoperative diagnosis same Procedure #1 removal of dialysis Catheter left femoral approach #2 placement of a ultrasound guided Proteus 1 cm does catheter right internal jugular approach with IV sedation sedation time was 30 minutes. Patient brought to the Artillery Specialist Homa of the neck and groin were prepped and draped cluster manner 1% lidocaine for infected the neck area ultrasound-guided micropuncture introducer right intrajugular vein micropuncture guidewire was passed and 4-Chinese dilator advanced top the guidewire. After that tendon was created through the terminal be brought 20 cm dialysis catheter then we place a regular guidewire under fluoroscopy the guide was parked at the inferior vena cava then tendon were advanced. The guidewire. Then we placed a sheath on the top of guidewire through the sheath we did use dialysis catheter tip of the catheter at superior vena cava and atrium sheath was removed catheter was flushed with heparin and hep-locked secured with 3-0 Vicryl and nylon dressing applied. After that attention was paid to the left groin left groin of the prep and drape for pressure manner 1% lidocaine for infected stitches removed catheter was removed pressure held patient prior the procedure well and transferred to the room in s atisfactory condition
--- NOTE | 2019-01-05 09:40 | XR ---
EXAMINATION TYPE: XR chest 1V portable DATE OF EXAM: 01/05/2019 HISTORY: Dialysis cath placement. REFERENCE: Previous study dated 01/03/2019. FINDINGS: There has been a midline sternotomy. A large-bore, double-lumen catheter is been inserted v ia a right internal jugular approach. Its tip is at the cavoatrial junction. The heart is enlarged. There is vascular congestion and mild edema. There is a small left effusion. IMPRESSION: 1. I DO NOT SEE A POST CATHETER INSERTION COMPLICATION. 2. FINDINGS CONSISTENT WITH MILD CONGESTIVE HEART FAILURE.
[2019-01-05] MEDS: FUROSEMIDE 10 MG/ML 10 ML VIAL IV SCH ×2 (10:24→20:12)
[2019-01-05] MEDS: SODIUM FERRIC GLUCONAT-SUCROSE 125 MG in SODIUM CHLORIDE 0.9% 100 ML IVPB SCH (10:24)
--- NOTE | 2019-01-05 12:43 | PN ---
PROGRESS NOTE Patient is seen for followup for acute kidney injury. He has been started on hemodialysis. Patient has just come from PermCath placement as his femoral catheter was not working pain. He will be dialyzed today. The patient was started on dialysis on January 01. Urine output is fair. The patient had about 1 L UF yesterday. He is currently lying flat. He is awake. He is answering questions. Not in any acute distress. The patient is sleepy as he has just returned from IJ PermCath placement. Blood pressure 140/78, heart rate 97 per minute. He is afebrile. Examination of the heart S1, S2. Examination lungs bilateral breath sounds are heard. Abdomen is soft, nontender. Examination lower extremities shows edema 2+ bilaterally. DICTAPHONE TRANSCRIBER exam is not performed. The patient has been moving all 4 extremities. LABS: Show sodium 132, potassium 5.1, BUN 107, serum creatinine 4.57. ASSESSMENT: 1. Acute kidney injury, nonoliguric, with volume overload and etiology mainly cardiorenal syndrome/acute tubular necrosis, maintained on dialysis. Patient will be dialyzed again today. We will try to remove about 1-2 L of fluid. 2. Cardiomyopathy, ejection fraction 20%. 3. Congestive heart failure, acute on top of chronic. 4. Hyperkalemia associated with acute kidney injury, currently improved with dialysis. 5. Encephalopathy, possibly related to uremia. BUN was as high as 223, currently improved. 6. Chronic kidney disease stage 3, baseline creatinine about 1-1.3 secondary to nephrosclerosis. 7. Hyponatremia, mainly hypervolemic. Expect further improvement with dialysis. PLAN: Continue with IV Lasix hemodialysis today. Repeat labs in a.m. We will likely hold off on dialysis tomorrow and plan again from Monday depending on the labs. MMODL / IJN: [id number] /
[2019-01-05] MEDS: METOPROLOL TARTRATE 12.5 MG TAB PO SCH ×3 (13:58→20:12)
[2019-01-05] MEDS: PANTOPRAZOLE 40 MG TABLET PO SCH ×2 (13:58→14:00)
[2019-01-05] MEDS: ISOSORBIDE MONONITRATE ER 30 MG TAB.ER.24H PO SCH ×2 (13:58→14:00)
--- NOTE | 2019-01-05 15:10 | PN ---
PROGRESS NOTE DATE OF SERVICE: 01/05/2019. HISTORY: Status post port placement. Awaiting dialysis today. Monitor electrolytes. His hemoglobin was low yesterday. Cardiovascular, S1, S2. Lungs clear. GI soft. Await further recommendations due to severe anemia. Continue on IV iron. Continue with diuresis for his congestive heart failure. ASSESSMENT: 1. Systolic CHF. 2. End-stage renal disease. 3. Severe anemia. 4. Possible GI bleeding, will have to be monitored. PLAN: Transfuse for hemoglobin under 7. MMODL / IJN: [id number] /
--- NOTE | 2019-01-05 15:16 | IR ---
EXAMINATION TYPE: IR cvc insert central tunneled DATE OF EXAM: 01/05/2019 CLINICAL HISTORY: Renal failure. TECHNIQUE: Fluoroscopy. COMPARISON: None. FINDINGS: Fluoroscopic guidance was provided during central venous catheter insertion procedure perf ormed by Dr. Stern. A total of 0.9 minutes of fluoroscopic time was utilized during the procedure and 2 cine runs are acquired. Images acquired show large bore right internal jugular dual-lumen dialy sis catheter with tips near cavoatrial junction. IMPRESSION: As Above.
[2019-01-05 15:18] LABS: Anisocytosis Marked; Basophils % (A) 0 %; Eosinophils # (A) 0.5 k/uL (0-0.7); Eosinophils % (A) 6 %; HCT 26.6 % (39.0-53.0); HGB 8.1 gm/dL (13.0-17.5); Hypochromasia Marked; Lymphocytes # (A) 0.9 k/uL (1.0-4.8); Lymphocytes % (A) 10 %; MCH 23.8 pg (25.0-35.0); MCHC 30.3 g/dL (31.0-37.0); MCV 78.5 fL (80.0-100.0); Mean Platelet Volume 7.9; Microcytosis Moderate; Monocytes # (A) 0.6 k/uL (0-1.0); Monocytes % (A) 6 %; Neutrophils # (A) 6.8 k/uL (1.3-7.7); Neutrophils % (A) 77 %; Platelet Count 129 k/uL (150-450); Poikilocytosis Slight; RBC 3.39 m/uL (4.30-5.90); RDW 24.9 % (11.5-15.5); WBC 8.9 k/uL (3.8-10.6)
--- NOTE | 2019-01-05 17:10 | PN ---
PROGRESS NOTE DATE OF DICTATION: January 05, 2019 The patient is a 73-year-old pleasant white male with history of acute kidney injury, was started on hemodialysis about 5 days ago. He just had a PermCath placement done early this morning. He was seen in consultation by Dr. Monson yesterday because of anemia. He was noted to have a hemoglobin of 6.8 g/dL requiring 2 units of blood transfusion. When he was admitted the hospital, hemoglobin was 7.3 and today it is 8.1 g/dL. In the meantime, patient denies any abdominal pain. He reports no nausea vomiting. No rectal bleeding or melena. He did have an upper endoscopy on October 11, 2018 that showed large hiatal hernia which most of the stomach in the intrathoracic area and subsequently underwent surgery for repair of a hiatal hernia. He also had a colonoscopy in November of 2018 in [place] that was unremarkable other than diverticulosis. PHYSICAL EXAMINATION: He appears comfortable. No apparent distress. VITAL SIGNS: Stable. Blood pressure is 140/78, pulse rate 97, temperature 97.6. HEENT examination unremarkable. Conjunctivae pink. Sclerae anicteric. Oral cavity no lesions. NECK: No JVD or lymph node enlargement. CHEST: Clear to auscultation. HEART: Regular rate and rhythm. PermCath placement in the right subclavian area. ABDOMEN was soft. Bowel sounds are positive. No organomegaly. EXTREMITIES: No pedal edema. SKIN no rashes. NEUROLOGIC: Alert and oriented x3. No focal deficits. LABS: WBC 8.9, hemoglobin 9.1, platelets are 129. Basic metabolic panel showed a BUN of 107, creatinine 4.57. Hepatitis A, B, and C were negative. IMPRESSION: Anemia, severe symptomatic anemia. Hemoglobin 6.8 g/dL. The patient with no active bleeding. Upper endoscopy done October of 2018 showed a large hiatal hernia that was subsequently repaired. Colonoscopy November of 2018 at the hospital was unremarkable. At this time, anemia is most likely multifactorial in etiology, probably dealing with anemia of chronic disease. RECOMMENDATION: 1. Obtain iron studies. 2. If for iron deficiency anemia we will consider further workup including an upper endoscopy as well as small bowel capsule endoscopy in the hospitalization. The plan was discussed with the patient and at bedside and they are agreeable to it. Thank you for this consultation. MMODL / IJN: [id number] /
[2019-01-05] MEDS: ATORVASTATIN 40 MG TAB PO SCH (20:12)
[2019-01-05] MEDS: MONTELUKAST 10 MG TAB PO SCH (20:12)
[2019-01-06 07:59] LABS: Albumin 2.4 g/dL (3.5-5.0); Anisocytosis Marked; Basophils % (A) 0 %; Calcium 7.6 mg/dL (8.4-10.2); Eosinophils # (A) 0.3 k/uL (0-0.7); Eosinophils % (A) 2 %; HGB 8.2 gm/dL (13.0-17.5); Hypochromasia Marked; Lymphocytes # (A) 0.6 k/uL (1.0-4.8); Lymphocytes % (A) 6 %; MCH 23.8 pg (25.0-35.0); MCHC 30.3 g/dL (31.0-37.0); MCV 78.4 fL (80.0-100.0); Microcytosis Marked; Monocytes # (A) 0.5 k/uL (0-1.0); Monocytes % (A) 5 %; Neutrophils # (A) 9.5 k/uL (1.3-7.7); Neutrophils % (A) 86 %; Platelet Count 112 k/uL (150-450); Poikilocytosis Slight; Potassium 4.7 mmol/L (3.5-5.1); RBC 3.44 m/uL (4.30-5.90); Total Bilirubin 0.6 mg/dL (0.2-1.3); Total Protein 4.7 g/dL (6.3-8.2); WBC 11.1 k/uL (3.8-10.6)
[2019-01-06] MEDS: FUROSEMIDE 10 MG/ML 10 ML VIAL IV SCH ×2 (08:05→20:16)
[2019-01-06] MEDS: METOPROLOL TARTRATE 12.5 MG TAB PO SCH ×2 (08:05→20:16)
[2019-01-06] MEDS: ISOSORBIDE MONONITRATE ER 30 MG TAB.ER.24H PO SCH (08:05)
[2019-01-06] MEDS: PANTOPRAZOLE 40 MG TABLET PO SCH (08:05)
[2019-01-06 08:15] LABS: RDW 25.9 % (11.5-15.5)
[2019-01-06] MEDS: IPRATROPIUM-ALBUTEROL 3 ML NEB INHALATION SCH ×3 (08:40→21:24)
--- NOTE | 2019-01-06 11:23 | PN ---
PROGRESS NOTE DATE OF DICTATION: January 06, 2019 Patient is a 73-year-old pleasant white male with acute kidney injury, started on hemodialysis a week ago. He underwent PermCath placement yesterday morning and underwent dialysis yesterday evening. This morning, he is more awake and alert. He denies any symptoms. He reports no abdominal pain. No nausea, vomiting. No rectal bleeding or melena. He was seen in consultation for anemia. He had an upper endoscopy done in October of 2018 that showed large hiatal hernia for which he underwent repair of a hiatal hernia during the same hospitalization. He had an outpatient colonoscopy in [place] in November 2018 that was unremarkable. PHYSICAL EXAMINATION: He appears comfortable. No apparent distress. VITAL SIGNS: Stable. Blood pressure is 151/98, pulse 89, temperature 97.8. HEENT examination unremarkable. Conjunctivae pink. Sclerae anicteric. Oral cavity no lesions. NECK: No JVD or lymph node enlargement. CHEST: Clear to auscultation. HEART: Regular rate and rhythm. ABDOMEN: Soft. Bowel sounds are positive. No organomegaly. EXTREMITIES: No pedal edema. SKIN no rashes. NEURO: He is alert and oriented x3. No focal deficits. LABS: From today WBC 11.1, hemoglobin 8.2, platelets 112 and BUN is 69, creatinine 4.01. IMPRESSION: 1. Acute kidney injury, status post dialysis started about a week ago, doing well. 2. Recurrent anemia. Iron studies have been requested and still pending. EGD and colonoscopy last month as mentioned above showed large hiatal hernia and diverticulosis. RECOMMENDATIONS: 1. Monitor hemoglobin on a daily basis. 2. No plans for any endoscopy intervention at the present time. If he continues to drop hemoglobin, we will consider further workup with a small bowel capsule endoscopy. Thank you for this consultation. MMODL / IJN: [id number] /
--- NOTE | 2019-01-06 11:53 | PN ---
PROGRESS NOTE Patient is seen for followup for acute kidney injury. He was dialyzed yesterday. We had about 2 L of ultrafiltration. The patient tolerated the procedure well. He continues to have some urine output. He has an indwelling Barroso catheter. The patient is maintained on IV Lasix. This morning he is awake. He is comfortable, is not in any acute distress. Blood pressure was 147/83, heart rate 110 per minute. He is afebrile. Examination of the heart S1, S2. Examination of the lungs, decreased breath sounds at the bases. Abdomen is soft, nontender. Left lower extremities shows edema 2+ bilaterally. FUEL OIL CLERK exam shows patient is moving all 4 extremities. LABS: Show sodium 134, potassium 4.7, BUN 69, serum creatinine 4.0, hemoglobin 8.2 g/dL. ASSESSMENT: 1. Acute kidney injury, nonoliguric, acute tubular necrosis and secondary to cardiorenal syndrome. Status post dialysis. We will hold off on dialysis today and reassess tomorrow for need for hemodialysis. I believe the patient will continue to need hemodialysis for at least another 1-2 treatments. His edema has improved. However, he still has significant edema. 2. Cardiomyopathy, ejection fraction 20%. 3. Congestive heart failure, acute on top of chronic, mainly systolic. 4. Hyperkalemia with acute kidney injury, currently improved. 5. Encephalopathy, seems to be improved. 6. Chronic kidney disease stage 3, baseline creatinine 1-1.3 secondary to nephrosclerosis. 7. Hypervolemic hyponatremia improved with dialysis. PLAN: Hold dialysis today. We will most likely dialyze the patient again tomorrow. Continue to monitor urine output and continue with IV Lasix for now. MMODL / IJN: [id number] /
[2019-01-06] MEDS: ATORVASTATIN 40 MG TAB PO SCH (20:16)
[2019-01-06] MEDS: MONTELUKAST 10 MG TAB PO SCH (20:16)
--- NOTE | 2019-01-06 23:54 | PN ---
PROGRESS NOTE SUBJECTIVE: 73-year-old white male with congestive heart failure exacerbation. Severe anemia. Continues to have low hemoglobins for which IV iron has been used. Diuresis is done. Catheterizations have been done. Would continue with dialysis. Continue current treatments. Cardiovascular S1, S2. Lungs transmitted upper air sounds. Hematology: 2 to 3+ edema. ASSESSMENT: 1. Congestive heart failure. 2. Severe anemia. 3. Right-sided heart failure. 4. Third-spacing of fluid. Continue current treatments. Follow up in the next 24-48 hours for possible discharge. MMODL / IJN: [id number] /
[2019-01-07] MEDS: IPRATROPIUM-ALBUTEROL 3 ML NEB INHALATION SCH ×3 (07:20→20:13)
[2019-01-07 09:44] LABS: Iron Saturation 12.64 (15.00-50.00)
[2019-01-07 10:03] LABS: Anisocytosis Marked; Basophils % (A) 0 %; Eosinophils # (A) 0.2 k/uL (0-0.7); Eosinophils % (A) 1 %; HCT 30.9 % (39.0-53.0); HGB 9.3 gm/dL (13.0-17.5); Hypochromasia Marked; Lymphocytes # (A) 0.6 k/uL (1.0-4.8); Lymphocytes % (A) 5 %; MCHC 30.2 g/dL (31.0-37.0); MCV 79.6 fL (80.0-100.0); Mean Platelet Volume 7.5; Microcytosis Moderate; Monocytes # (A) 0.5 k/uL (0-1.0); Monocytes % (A) 4 %; Neutrophils # (A) 10.2 k/uL (1.3-7.7); Neutrophils % (A) 89 %; Platelet Count 150 k/uL (150-450); Poikilocytosis Slight; RBC 3.88 m/uL (4.30-5.90); WBC 11.5 k/uL (3.8-10.6)
--- NOTE | 2019-01-07 11:26 | P.PN ---
Subjective Patient is seen in follow-up for acute kidney injury on chronic kidney disease. Patient has chronic kidney disease stage III with baseline creatinine in the range of 1-1.3. Due to worsening renal function and volume overload, he was started on hemodialysis on January 01. He is maintained on Lasix 80 mg IV twice daily. Urine output is not documented accurately. Patient remains quite edematous. Patient did receive blood transfusions this admission. No active bleeding at this time. Hemoglobin is 9.3 today. Patient has been confused this admission. Currently seen while undergoing hemodialysis. Patient has a permacath. Vital signs are stable. General: The patient appeared well nourished and normally developed. HEENT: Head exam is unremarkable. Neck is without jugular venous distension. LUNGS: Breath sounds decreased. HEART: Rate and Rhythm are regular. First and second heart sounds normal. No murmurs, rubs or gallops. ABDOMEN: Abdominal exam reveals normal bowel sounds. Non-tender and non- distended. EXTREMITITES: 2+ edema. Objective - Vital Signs Vital signs: Vital Signs Temp 98.1 F 01/07/19 07:00 Pulse 106 H 01/07/19 07:00 Resp 16 01/07/19 07:00 BP 157/81 01/07/19 07:00 Pulse Ox 93 L 01/07/19 07:00 Intake & Output 01/06/19 01/07/19 01/07/19 18:59 06:59 18:59 Intake Total 496 590 240 Output Total 250 100 Balance 496 340 140 Intake: Oral 496 590 240 Output: Urine 250 100 Uretheral (Barroso) 100 100 Other: Voiding Method Indwelling Catheter Indwelling Catheter Indwelling Catheter - Labs CBC & Chem 7: 01/07/19 09:13 01/06/19 06:34 Labs: Abnormal Lab Results - Last 24 Hours (Table) 01/06/19 01/06/19 01/07/19 Range/Units 06:34 06:34 09:13 WBC 11.5 H (3.8-10.6) k/uL RBC 3.88 L (4.30-5.90) m/uL Hgb 9.3 L (13.0-17.5) gm/dL Hct 30.9 L (39.0-53.0) % MCV 79.6 L (80.0-100.0) fL MCH 24.0 L (25.0-35.0) pg MCHC 30.2 L (31.0-37.0) g/dL RDW 25.9 H 26.0 H (11.5-15.5) % Neutrophils # 10.2 H (1.3-7.7) k/uL Lymphocytes # 0.6 L (1.0-4.8) k/uL Iron 33 L (65-175) ug/dL Iron Saturation 12.64 L (15.00-50.00) Ferritin 651.8 H (22.0-322.0) ng/mL Assessment and Plan Plan: Assessment: 1. Acute kidney injury secondary to ATN secondary to cardiorenal syndrome. Due to worsening renal function, uremia and volume overload, he was started on hemodialysis on January 01. No hydronephrosis noted on renal ultrasound. 2. Systolic CHF with ejection fraction of less than 20% and moderate mitral regurgitation. 3. Volume overload. Improving with ultrafiltration. 4. Acute blood loss anemia status post blood transfusion. GI following. No active bleeding noted. Iron deficiency noted - status post IV iron. Also on Aranesp. Hemoglobin 9.3 today. 5. Hyperkalemia secondary to acute kidney injury and metabolic acidosis. Improved with dialysis. 6. Encephalopathy. There is concern for uremia. Patient's BUN peaked at 223. Patient is not on any steroids. However there is concern for underlying GI bleed. 7. Metabolic acidosis secondary to acute kidney injury. Improved with dialysis. 8. Proteinuria. This can be nonspecific in the setting for acute kidney injury. However quantification was in the nephrotic range. Need to rule out GN -CARMENZA positive, rest of the serologies have been negative. 9. Chronic kidney disease stage III. Baseline creatinine in the range of 1- 1.3. Etiology is likely nephrosclerosis and cardiorenal syndrome. 10. Hyperphosphatemia secondary to acute kidney injury. Plan: Currently seen while undergoing hemodialysis - will try for 2-3 L ultrafiltration. Another treatment tomorrow. Maintain IV Lasix. Will consult mental health case manager to set up outpatient hemodialysis. Add PhosLo.
[2019-01-07] MEDS: CALCIUM ACETATE 667 MG CAP PO SCH ×2 (12:07→17:21)
[2019-01-07] MEDS: PANTOPRAZOLE 40 MG TABLET PO SCH (12:07)
[2019-01-07] MEDS: ISOSORBIDE MONONITRATE ER 30 MG TAB.ER.24H PO SCH (12:07)
[2019-01-07] MEDS: FUROSEMIDE 10 MG/ML 10 ML VIAL IV SCH ×2 (12:07→23:03)
[2019-01-07] MEDS: METOPROLOL TARTRATE 12.5 MG TAB PO SCH ×2 (12:07→23:03)
[2019-01-07 14:27] LABS: Calcium 7.6 mg/dL (8.4-10.2); Potassium 4.4 mmol/L (3.5-5.1)
--- NOTE | 2019-01-07 16:09 | P.PN ---
Subjective Progress Note Date: 01/07/19 01/04/2018: Patient seen and examined covering for Dr. Oseugera. The patient's is at bedside. The patient had a bowel movement consistent of dark tarry stools. The patient's hemoglobin was 6.8 this morning. He is receiving 1 unit of packed red blood cells. The patient is undergoing HD intermittently per nephrology. The patient denies abdominal pain, nausea, vomiting. He denies fevers and chills. 02/03/2019 receiving hemodialysis today. Hemoglobin 9.3,no active bleeding. telemetry sinus rhythm with right bundle branch block, first-degree AV block. Denies chest pain, palpitations or shortness of breath. Objective - Vital Signs Vital signs: Vital Signs Temp 97.9 F 01/07/19 15:00 Pulse 69 01/07/19 15:00 Resp 16 01/07/19 15:00 BP 143/76 01/07/19 15:00 Pulse Ox 91 L 01/07/19 15:00 Intake & Output 01/06/19 01/07/19 01/07/19 18:59 06:59 18:59 Intake Total 496 590 240 Output Total 250 3100 Balance 496 340 -2860 Intake: Oral 496 590 240 Output: Urine 250 100 Uretheral ([place]) 100 100 Hemodialysis 3000 Other: Voiding Method Indwelling Catheter Indwelling Catheter Indwelling Catheter - Exam Gen.: Patient is alertand oriented 3, fluctuating confusion Cardiovascular: Regular rate and rhythm, S1/S2, Positive Systolic Murmur. Lungs: Diminished breath sounds bilaterally Abdomen: Soft nontender nondistended positive bowel sounds Extremities: 2+ pitting edema - Labs CBC & Chem 7: 01/07/19 09:13 01/07/19 13:54 Labs: Abnormal Lab Results - Last 24 Hours (Table) 01/06/19 01/07/19 01/07/19 Range/Units 06:34 09:13 13:54 WBC 11.5 H (3.8-10.6) k/uL RBC 3.88 L (4.30-5.90) m/uL Hgb 9.3 L (13.0-17.5) gm/dL Hct 30.9 L (39.0-53.0) % MCV 79.6 L (80.0-100.0) fL MCH 24.0 L (25.0-35.0) pg MCHC 30.2 L (31.0-37.0) g/dL RDW 26.0 H (11.5-15.5) % Neutrophils # 10.2 H (1.3-7.7) k/uL Lymphocytes # 0.6 L (1.0-4.8) k/uL Sodium 131 L (137-145) mmol/L BUN 56 H (9-20) mg/dL Creatinine 3.64 H (0.66-1.25) mg/dL Glucose 149 H (74-99) mg/dL Calcium 7.6 L (8.4-10.2) mg/dL Iron 33 L (65-175) ug/dL Iron Saturation 12.64 L (15.00-50.00) Ferritin 651.8 H (22.0-322.0) ng/mL Assessment and Plan Assessment: cute on chronic systolic congestive heart failure, ejection fraction less than 20%. Acute hypoxic respiratory failure secondary to pulmonary edema Acute on chronic iron deficient anemia Acute kidney failure, secondary to ATN, on chronic kidney disease stage III, requiring hemodialysis Melena COPD, not acutely exacerbated Coronary artery disease and previous CABG ICM Chronic lower extremities edema Dyslipidemia Recent non-ST elevation myocardial infarction Recent the gastric volvulus requiring surgery by Dr. Hoskins and hiatal hernia repair. Infrarenal abdominal aortic aneurysm Acute Uremic encephalopathy Proteinuria Abnormal CARMENZA, speckled pattern plan: Continue on current medication regime ,monitoring and symptomatic treatment.Hemodialysis today and tomorrow. Diuretics as per nephrology.Gastroenterology regarding melena and anemia.Plan for permacath placement. Preauthorization in progress for [facility] subacute rehabilitation. case management to arrange outpatient hemodialysis.Discharge planning in progress. The impression and plan of care has been dictated as directed. : I performed a history and examination of this patient, discussed the same with the dictator. I agree with the dictator's note ,documented as a scribe. Any additional findings or plans will be noted.
[2019-01-07] MEDS: ATORVASTATIN 40 MG TAB PO SCH (23:03)
[2019-01-07] MEDS: MONTELUKAST 10 MG TAB PO SCH (23:03)
[2019-01-08] MEDS: CALCIUM ACETATE 667 MG CAP PO SCH ×3 (07:55→17:50)
[2019-01-08] MEDS: METOPROLOL TARTRATE 12.5 MG TAB PO SCH ×2 (07:55→23:11)
[2019-01-08] MEDS: PANTOPRAZOLE 40 MG TABLET PO SCH (07:55)
[2019-01-08] MEDS: FUROSEMIDE 10 MG/ML 10 ML VIAL IV SCH (07:56)
[2019-01-08] MEDS: ISOSORBIDE MONONITRATE ER 30 MG TAB.ER.24H PO SCH (07:56)
[2019-01-08 08:31] LABS: Calcium 7.6 mg/dL (8.4-10.2); Magnesium 2.5 mg/dL (1.6-2.3); Potassium 5.1 mmol/L (3.5-5.1)
[2019-01-08] MEDS: IPRATROPIUM-ALBUTEROL 3 ML NEB INHALATION SCH ×3 (09:09→20:52)
[2019-01-08 10:07] LABS: Anisocytosis Marked; Basophils # (A) 0.1 k/uL (0-0.2); Basophils % (A) 1 %; Eosinophils # (A) 0.2 k/uL (0-0.7); Eosinophils % (A) 1 %; HCT 28.6 % (39.0-53.0); HGB 9.3 gm/dL (13.0-17.5); Hypochromasia Marked; Lymphocytes # (A) 0.7 k/uL (1.0-4.8); Lymphocytes % (A) 6 %; MCH 26.7 pg (25.0-35.0); MCHC 32.5 g/dL (31.0-37.0); MCV 82.2 fL (80.0-100.0); Mean Platelet Volume 7.7; Microcytosis Moderate; Monocytes # (A) 1.5 k/uL (0-1.0); Monocytes % (A) 13 %; Neutrophils # (A) 9.2 k/uL (1.3-7.7); Neutrophils % (A) 78 %; Platelet Count 187 k/uL (150-450); RBC 3.47 m/uL (4.30-5.90); WBC 11.8 k/uL (3.8-10.6)
[2019-01-08 10:10] LABS: RDW 26.6 % (11.5-15.5)
[2019-01-08 10:21] LABS: Mixed Population RBC Present; Poikilocytosis (M) Present; RBC Fragments Present
--- NOTE | 2019-01-08 11:20 | P.PN ---
Subjective Progress Note Date: 01/08/19 01/04/2018: Patient seen and examined covering for Dr. Oseguera. The patient's is at bedside. The patient had a bowel movement consistent of dark tarry stools. The patient's hemoglobin was 6.8 this morning. He is receiving 1 unit of packed red blood cells. The patient is undergoing HD intermittently per nephrology. The patient denies abdominal pain, nausea, vomiting. He denies fevers and chills. 02/03/2019 receiving hemodialysis today. Hemoglobin 9.3,no active bleeding. telemetry sinus rhythm with right bundle branch block, first-degree AV block. Denies chest pain, palpitations or shortness of breath. 01/08/2019 creatinine up to 4.57, BUN 76, decreased urine output. Scheduled for hemodialysis again today. Hemoglobin 9.3. Wet loose cough. Maintaining O2 sats of 92-95% on room air. Good diet intake, consuming 100% of breakfast. Objective - Vital Signs Vital signs: Vital Signs Temp 97.8 F 01/08/19 07:00 Pulse 96 01/08/19 09:20 Resp 18 01/08/19 08:00 BP 146/85 01/08/19 07:00 Pulse Ox 92 L 01/08/19 07:00 Intake & Output 01/07/19 01/08/19 01/08/19 18:59 06:59 18:59 Intake Total 740 Output Total 3100 450 Balance -2360 -450 Weight 92 kg Intake: Oral 740 Output: Urine 100 50 Uretheral ([place]) 100 Stool 400 Hemodialysis 3000 Other: Voiding Method Indwelling Catheter Indwelling Catheter Indwelling Catheter # Bowel Movements 2 - Exam Gen.: Patient is alertand oriented 3, fluctuating confusion Cardiovascular: Regular rate and rhythm, S1/S2, Positive Systolic Murmur. Lungs: Diminished breath sounds bilaterally, loose wet productive cough Abdomen: Soft nontender nondistended positive bowel sounds Extremities: 2+ pitting edema - Labs CBC & Chem 7: 01/08/19 07:29 01/08/19 07:29 Labs: Abnormal Lab Results - Last 24 Hours (Table) 01/07/19 01/08/19 01/08/19 Range/Units 13:54 07:29 07:29 WBC 11.8 H (3.8-10.6) k/uL RBC 3.47 L (4.30-5.90) m/uL Hgb 9.3 L (13.0-17.5) gm/dL Hct 28.6 L (39.0-53.0) % RDW 26.6 H (11.5-15.5) % Neutrophils # 9.2 H (1.3-7.7) k/uL Lymphocytes # 0.7 L (1.0-4.8) k/uL Monocytes # 1.5 H (0-1.0) k/uL Sodium 131 L 131 L (137-145) mmol/L Carbon Dioxide 19 L (22-30) mmol/L BUN 56 H 76 H (9-20) mg/dL Creatinine 3.64 H 4.57 H (0.66-1.25) mg/dL Glucose 149 H 103 H (74-99) mg/dL Calcium 7.6 L 7.6 L (8.4-10.2) mg/dL Magnesium 2.5 H (1.6-2.3) mg/dL Assessment and Plan Assessment: Acute on chronic systolic congestive heart failure, ejection fraction less than 20%. Acute hypoxic respiratory failure secondary to pulmonary edema Acute on chronic iron deficient anemia Acute kidney failure, secondary to ATN, on chronic kidney disease stage III, requiring hemodialysis Melena COPD, not acutely exacerbated Coronary artery disease and previous CABG ICM Chronic lower extremities edema Dyslipidemia Recent non-ST elevation myocardial infarction Recent the gastric volvulus requiring surgery by Dr. Hoskins and hiatal hernia repair. Infrarenal abdominal aortic aneurysm Acute Uremic encephalopathy Proteinuria Abnormal CARMENZA, speckled pattern plan: Continue on current medication regime ,monitoring and symptomatic treatment.Hemodialysis today. Diuretics as per nephrology.Preauthorization in progress for [facility] subacute rehabiliton.Discharge planning in progress. The impression and plan of care has been dictated as directed. : I performed a history and examination of this patient, discussed the same with the dictator. I agree with the dictator's note ,documented as a scribe. Any additional findings or plans will be noted.
--- NOTE | 2019-01-08 11:37 | P.PN ---
Subjective Patient is seen in follow-up for acute kidney injury on chronic kidney disease. Patient has chronic kidney disease stage III with baseline creatinine in the range of 1-1.3. Due to worsening renal function and volume overload, he was started on hemodialysis on January 01. He is maintained on Lasix 80 mg IV twice daily. Patient is oliguric. Urine output in the last 24 hours was about 1 50 mL. Patient remains quite edematous. Patient did receive blood transfusions this admission. No active bleeding at this time. Hemoglobin is stable at 9.3 today. Vital signs are stable. General: The patient appeared well nourished and normally developed. HEENT: Head exam is unremarkable. Neck is without jugular venous distension. LUNGS: Breath sounds decreased. HEART: Rate and Rhythm are regular. First and second heart sounds normal. No murmurs, rubs or gallops. ABDOMEN: Abdominal exam reveals normal bowel sounds. Non-tender and non- distended. EXTREMITITES: 2+ edema. Objective - Vital Signs Vital signs: Vital Signs Temp 97.8 F 01/08/19 07:00 Pulse 96 01/08/19 09:20 Resp 18 01/08/19 08:00 BP 146/85 01/08/19 07:00 Pulse Ox 92 L 01/08/19 07:00 Intake & Output 01/07/19 01/08/19 01/08/19 18:59 06:59 18:59 Intake Total 740 Output Total 3100 450 100 Balance -2360 -450 -100 Weight 92 kg Intake: Oral 740 Output: Urine 100 50 100 Uretheral ([place]) 100 100 Stool 400 Hemodialysis 3000 Other: Voiding Method Indwelling Catheter Indwelling Catheter Indwelling Catheter # Bowel Movements 2 - Labs CBC & Chem 7: 01/08/19 07:29 01/08/19 07:29 Labs: Abnormal Lab Results - Last 24 Hours (Table) 01/07/19 01/08/19 01/08/19 Range/Units 13:54 07:29 07:29 WBC 11.8 H (3.8-10.6) k/uL RBC 3.47 L (4.30-5.90) m/uL Hgb 9.3 L (13.0-17.5) gm/dL Hct 28.6 L (39.0-53.0) % RDW 26.6 H (11.5-15.5) % Neutrophils # 9.2 H (1.3-7.7) k/uL Lymphocytes # 0.7 L (1.0-4.8) k/uL Monocytes # 1.5 H (0-1.0) k/uL Sodium 131 L 131 L (137-145) mmol/L Carbon Dioxide 19 L (22-30) mmol/L BUN 56 H 76 H (9-20) mg/dL Creatinine 3.64 H 4.57 H (0.66-1.25) mg/dL Glucose 149 H 103 H (74-99) mg/dL Calcium 7.6 L 7.6 L (8.4-10.2) mg/dL Magnesium 2.5 H (1.6-2.3) mg/dL Assessment and Plan Plan: Assessment: 1. Acute kidney injury secondary to ATN secondary to cardiorenal syndrome. Due to worsening renal function, uremia and volume overload, he was started on hemodialysis on January 01. No hydronephrosis noted on renal ultrasound. No evidence of renal recovery at this time. Patient remains oliguric. 2. Systolic CHF with ejection fraction of less than 20% and moderate mitral regurgitation. 3. Volume overload. Improving with ultrafiltration. 4. Acute blood loss anemia status post blood transfusion. GI following. No active bleeding noted. Iron deficiency noted - status post IV iron. Also on Aranesp. Hemoglobin 9.3 today. 5. Hyperkalemia secondary to acute kidney injury and metabolic acidosis. Improved with dialysis. 6. Encephalopathy. There is concern for uremia. Patient's BUN peaked at 223. Patient is not on any steroids. However there is concern for underlying GI bleed. 7. Metabolic acidosis secondary to acute kidney injury. Improved with dialysis. 8. Proteinuria. This can be nonspecific in the setting for acute kidney injury. However quantification was in the nephrotic range. Need to rule out GN -CARMENZA positive, rest of the serologies have been negative. 9. Chronic kidney disease stage III. Baseline creatinine in the range of 1- 1.3. Etiology is likely nephrosclerosis and cardiorenal syndrome. 10. Hyperphosphatemia secondary to acute kidney injury. Maintained on PhosLo. Plan: Hemodialysis today. He will now be maintained on a Monday schedule. Outpatient dialysis has been set up in [place]. I will change Lasix to 80 mg orally twice daily. I will give him a dose of IV iron today. Stable to be discharged to rehab from nephrology standpoint.
[2019-01-08] MEDS ORDERED: SODIUM FERRIC GLUCONAT-SUCROSE 125 MG in SODIUM CHLORIDE 0.9% 100 ML IVPB ONE (12:00)
[2019-01-08 14:11] VITALS: BMI 27.5
[2019-01-08] MEDS: FUROSEMIDE 80 MG TAB PO SCH (17:50)
[2019-01-08] MEDS: MONTELUKAST 10 MG TAB PO SCH (23:11)
[2019-01-08] MEDS: ATORVASTATIN 40 MG TAB PO SCH (23:11)
[2019-01-09] MEDS: CALCIUM ACETATE 667 MG CAP PO SCH ×2 (07:36→11:24)
[2019-01-09] MEDS: FUROSEMIDE 80 MG TAB PO SCH ×2 (08:41→16:07)
[2019-01-09] MEDS: ISOSORBIDE MONONITRATE ER 30 MG TAB.ER.24H PO SCH (08:41)
[2019-01-09] MEDS: METOPROLOL TARTRATE 12.5 MG TAB PO SCH (08:41)
[2019-01-09] MEDS: PANTOPRAZOLE 40 MG TABLET PO SCH (08:41)
[2019-01-09] MEDS: IPRATROPIUM-ALBUTEROL 3 ML NEB INHALATION SCH ×2 (09:35→13:17)
[2019-01-09] MEDS ORDERED: LIDOCAINE 1% INJ 10MG/ML (20 ML MDV) ONE (12:28)
[2019-01-09] MEDS ORDERED: fentaNYL (PF) 50 MCG/ML 2 ML AMP IV ONE (12:49)
[2019-01-09] MEDS ORDERED: SODIUM CHLORIDE 0.9% 250 ML IV ONE (12:49)
[2019-01-09] MEDS ORDERED: SODIUM CHLORIDE 0.9% 1,000 ML IV ONE (12:49)
[2019-01-09] MEDS ORDERED: fentaNYL (PF) 50 MCG/ML 2 ML AMP ONE (12:50)
[2019-01-09] MEDS ORDERED: LIDOCAINE 1% INJ 10MG/ML (20 ML MDV) SQ ONE (12:51)
[2019-01-09] MEDS ORDERED: HEPARIN SODIUM 1,000 UN/ML (10ML VL) ONE (13:02)
[2019-01-09] MEDS ORDERED: IOPAMIDOL-250 50ML BTL IV ONE (13:09)
--- NOTE | 2019-01-09 14:05 | IR ---
Fluoroscopy HISTORY: Central venous catheter placement 0.1 minutes fluoroscopy time supplied to the referring clinician. 235 intraoperative C-arm images do cument the procedure. See dictated report from vascular surgery.
--- NOTE | 2019-01-09 14:07 | P.DS ---
Providers Date of admission: 12/30/18 22:27 Expected date of discharge: 01/09/19 Attending physician: Eugenio Randall Consults: 12/30/18 22:27 Consult Physician Routine Consulting Provider: Lionel Ferrer Consult Reason/Comments: VALERIE, CHF, Acute anemia Do you want consulting provider notified?: Already Contacted Consult Physician Routine Consulting Provider: [facility] Consult Reason/Comments: CHF exacerbation. NSTEMI Do you want consulting provider notified?: Yes Consult Physician Routine Consulting Provider: Abiodun Lozano Consult Reason/Comments: VALERIE Do you want consulting provider notified?: Yes 01/01/19 10:06 Consult Physician Urgent Consulting Provider: Sj Stern Consult Reason/Comments: new dialysis patient per Dr. Davies Do you want consulting provider notified?: Yes Primary care physician: Stated None Dr. Randall Hospital Course: Final Diagnoses: Acute on chronic systolic congestive heart failure, ejection fraction less than 20%. Acute hypoxic respiratory failure secondary to pulmonary edema Acute on chronic iron deficient anemia Acute kidney failure, secondary to ATN, on chronic kidney disease stage III, requiring hemodialysis Melena COPD, not acutely exacerbated Coronary artery disease and previous CABG ICM Chronic lower extremities edema Dyslipidemia Recent non-ST elevation myocardial infarction Recent the gastric volvulus requiring surgery by Dr. Hoskins and hiatal hernia repair. Infrarenal abdominal aortic aneurysm Acute Uremic encephalopathy Proteinuria Abnormal CARMENZA, speckled pattern Hospital Course: This is a 73-year-old gentleman admitted with CHF exacerbation, severe anemia and multiple other medical issues. Received IV iron, packed RBCs on admission. Diuresed well on Lasix IV push. Hemodialysis initiated, catheter exchanged. Significant clinical improvement. Cleared by all consults for discharge. Patient being discharged to [facility] in a stable condition with guarded prognosis. Exam Gen.: Patient is alertand oriented 3, fluctuating confusion Cardiovascular: Regular rate and rhythm, S1/S2, Positive Systolic Murmur. Lungs: Diminished breath sounds bilaterally, loose wet productive cough Abdomen: Soft nontender nondistended positive bowel sounds The impression and plan of care has been dictated as directed. : I performed a history and examination of this patient, discussed the same with the dictator. I agree with the dictator's note ,documented as a scribe. Any additional findings or plans will be noted. Time Taken:35 MIN Patient Condition at Discharge: Stable Plan - Discharge Summary Discharge Rx Participant: Yes New Discharge Prescriptions: New Ipratropium-Albuterol Nebulize [Duoneb 0.5 mg-3 mg/3 ml Soln] 3 ml INHALATION RT-TID ampul.neb Ipratropium-Albuterol Nebulize [Duoneb 0.5 mg-3 mg/3 ml Soln] 3 ml INHALATION Q4H PRN ampul.neb PRN Reason: Shortness Of Breath Or Wheezing Furosemide [Lasix] 80 mg PO BID@0900,1600 tab Metoprolol Tartrate [Lopressor] 12.5 mg PO BID tab Calcium Acetate [PhosLo] 667 mg PO TID-W/MEALS cap Pantoprazole [Protonix] 40 mg PO DAILY tablet. Aspirin EC [Ecotrin Low Dose] 81 mg PO DAILY #1 tablet. Continue Montelukast [Singulair] 10 mg PO HS Atorvastatin [Lipitor] 40 mg PO HS Clopidogrel [Plavix] 75 mg PO DAILY Isosorbide Mononitrate ER [Imdur] 30 mg PO DAILY Multivitamins, Thera [Multivitamin (formulary)] 1 tab PO DAILY Cholecalciferol (Vitamin D3) [Vitamin D3] 2,000 unit PO DAILY Discontinued Aspirin 81 mg PO HS Furosemide [Lasix] 20 mg PO DAILY Fexofenadine/Pseudoephedrine [Hailey-D 24 Hour Tablet] 1 tab PO DAILY Discharge Medication List Atorvastatin [Lipitor] 40 mg PO HS 10/11/18 [History] Clopidogrel [Plavix] 75 mg PO DAILY 10/11/18 [History] Montelukast [Singulair] 10 mg PO HS 10/11/18 [History] Cholecalciferol (Vitamin D3) [Vitamin D3] 2,000 unit PO DAILY 12/30/18 [History] Isosorbide Mononitrate ER [Imdur] 30 mg PO DAILY 12/30/18 [History] Multivitamins, Thera [Multivitamin (formulary)] 1 tab PO DAILY 12/30/18 [History] Aspirin EC [Ecotrin Low Dose] 81 mg PO DAILY #1 tablet. 01/09/19 [Rx] Calcium Acetate [PhosLo] 667 mg PO TID-W/MEALS cap 01/09/19 [Rx] Furosemide [Lasix] 80 mg PO BID@0900,1600 tab 01/09/19 [Rx] Ipratropium-Albuterol Nebulize [Duoneb 0.5 mg-3 mg/3 ml Soln] 3 ml INHALATION Q4H PRN ampul.neb 01/09/19 [Rx] Ipratropium-Albuterol Nebulize [Duoneb 0.5 mg-3 mg/3 ml Soln] 3 ml INHALATION RT-TID ampul.neb 01/09/19 [Rx] Metoprolol Tartrate [Lopressor] 12.5 mg PO BID tab 01/09/19 [Rx] Pantoprazole [Protonix] 40 mg PO DAILY tablet. 01/09/19 [Rx] Follow up Appointment(s)/Referral(s): Eugenio Randall MD [STAFF PHYSICIAN] - 1 Week (After ECF) Jane Mcnally MD [STAFF PHYSICIAN] - 02/28/19 11:15 am ([place] office) José Miguel Davies DO [STAFF PHYSICIAN] - 1 Week Activity/Diet/Wound Care/Special Instructions: ASA & Plaxix resumed CBC,BMP in 3 days
[2019-01-09 16:24] VITALS: BP 149/88; PULSE 101; RESP 16; TEMP 96.8
--- NOTE | 2019-01-09 16:28 | XR ---
EXAMINATION TYPE: XR chest 1V DATE OF EXAM: 01/09/2019 CLINICAL HISTORY: Coughing type chest and status post hemodialysis catheter placement.. TECHNIQUE: Single AP portable upright view of the chest is obtained. COMPARISON: Chest x-ray from January 05, 2019 FINDINGS: There is right internal jugular dual-lumen dialysis catheter with tips ending in SVC. Over lying sternal wires and mediastinal clips are redemonstrated. There is persistent cardiomegaly with c entral vascular congestion and small left greater than right pleural effusions with associated left b asilar atelectasis and/or infiltrate all redemonstrated. Osseous structures are demineralized. IMPRESSION: No significant change from most recent x-ray, cardiomegaly with central vascular congesti on and small left greater than right pleural effusions with associated left basilar atelectasis and/o r infiltrate all redemonstrated. No pneumothorax is noted.
--- NOTE | 2019-01-09 18:27 | PN ---
PROGRESS NOTE The patient is seen for followup for acute kidney injury. He is currently hemodialysis dependent. Patient will be discharged possibly today. His catheter was not working and therefore he will be having a new catheter placed. The patient has been evaluated by Dr. Stern when he was seen this morning. He was mildly short of breath. No acute distress. Blood pressure this morning 122/73, heart rate of 96 per minute. He is afebrile. Examination of the heart S1, S2. Examination of the lungs bilateral breath sounds are heard. Wheezing is heard bilaterally. Abdomen is soft, nontender. Examination of lower extremities shows edema 1+ bilaterally. LAB: Show sodium of 131, potassium 5.1, BUN 76, serum creatinine 4.57, iron saturation 12%. ASSESSMENT: 1. Acute kidney injury, hemodialysis dependent with severe volume overload, currently oliguric. The patient will continue with renal replacement therapy post discharge. 2. Congestive heart failure, systolic, acute on top of chronic. 3. Cardiomyopathy, ejection fraction 20%. 4. Volume overload. 5. Chronic kidney disease stage 3, baseline creatinine 1-1.3 secondary to nephrosclerosis. PLAN: Hemodialysis today after new catheter is placed. Following which, patient can be discharged. He will be dialyzed tomorrow as outpatient. MMODL / IJN: [id number] /
--- NOTE | 2019-01-11 08:11 | PCN ---
PROCEDURE NOTE PREOP DIAGNOSIS: Acute on chronic renal failure, malfunction of dialysis catheter. PROCEDURE PERFORMED: Placement of a 19 cm dialysis catheter, right jugular approach. DESCRIPTION OF PROCEDURE: This patient had a dialysis catheter placed. The patient has difficulty during the dialysis and with 1 port is not working. The patient was brought to the record label internship. Right side of the chest and neck was prepped and draped in a sterile manner. 1% lidocaine was infiltrated at the neck area. A small incision was made and catheter was identified and divided and passed a Glidewire through it, which was parked in the inferior vena cava. Then new tunnel created. Through the tunnel we brought 19 cm dialysis catheter which was advanced on top of the Glidewire. The tip of the catheter was in good position. No flow restriction noted. Secured with 3-0 nylon and dressing applied. Patient tolerated the procedure well. MMODL / ADITIN: [id number] /
--- NOTE | 2019-01-15 12:31 | CDI ---
Documentation Clarification Form Date: 01/15/2019 11:40:06 AM From: Ina Vigil RN, CCDS Admit Date: 12/30/2018 10:27:00 PM Patient Name: Kemar Dawson Visit Number: [id number] Discharge Date: 01/09/2019 4:46:00 PM ATTENTION: The Clinical Documentation Specialists (CDI) and [facility] Coding Staff appreciate your assistance in clarifying documentation. Please respond to the clarification below the line at the bottom and electronically sign. The CDI & [facility] Coding staff will review the response and follow-up if needed. Please note: Queries are made part of the Legal Health Record. If you have any questions, please contact the author of this message via ITS. Dr. Radha Dahl The patient presented as a transfer related to fall and was found per ED evaluation to have CHF, and believe his elevated troponin is a type II and STEMI secondary to his CHF exacerbation and clarification is needed. History/Risk Factors: Heart Failure, COPD, CKD stage III, Coronary artery disease and prior CABG Clinical Indicators: 9-year-old male presenting with lower extremity 2+ edema, lungs sounds positive for bilateral rales. progressive exertional dyspnea. No symptoms of chest pain or chest discomfort. Lab findings: BNP 72, 200; Troponin of 0.098, 1.060 HGB 6.9, 7.9, HCT 23.0, 26.7, BUN 209, CR 3.92 Chest X-ray: Findings consistent with CHF CT abdomen/pelvis showed his bilateral pleural effusions with groundglass opacities. EKG: Normal sinus rhythm, possible left atrial enlargement Nonspecific intraventricular conduction delay, ST&T wave abnormality, consider inferolateral ischemia. Vital Signs: 139/98 95 18 96 % 2/L NC Other Clinical Indicators: H/P (Dr. Randall) Possible STEMI with elevated troponins. ECHO (October) severe ischemic cardiomyopathy EF OF 20 % Treatment: ICU/Telemetry monitoring Lasix IV Monitor labs: Kidney function, CBC, Electrolytes Metoprolol PO, Imdur PO Transfuse PRBC Heparin (hold r/t Fecal occult blood positive) In your professional opinion, can you please clarify if? STEMI ruled in this admission STEMI ruled out this admission Type 2 OR Secondary to CHF Type 2 OR Secondary to other etiology (please specify) Other, please specify Unable to determine (Last Revision: November 2017) MTDD
--- NOTE | 2019-01-31 09:22 | CDI ---
Documentation Clarification Form Date: 01/15/2019 11:40:00 AM From: Ina Vigil RN, CCDS Admit Date: 12/30/2018 10:27:00 PM Patient Name: Kemar Dawson Visit Number: [id number] Discharge Date: 01/09/2019 4:46:00 PM ATTENTION: The Clinical Documentation Specialists (CDI) and [facility] Coding Staff appreciate your assistance in clarifying documentation. Please respond to the clarification below the line at the bottom and electronically sign. The CDI & [facility] Coding staff will review the response and follow-up if needed. Please note: Queries are made part of the Legal Health Record. If you have any questions, please contact the author of this message via ITS. Dr. Radha Dahl The patient presented as a transfer related to fall and was found per ED evaluation to have CHF, and believe his elevated troponin is a type II and STEMI secondary to his CHF exacerbation and clarification is needed. History/Risk Factors: Heart Failure, COPD, CKD stage III, Coronary artery disease and prior CABG Clinical Indicators: 9-year-old male presenting with lower extremity 2+ edema, lungs sounds positive for bilateral rales. progressive exertional dyspnea. No symptoms of chest pain or chest discomfort. Lab findings: BNP 72, 200; Troponin of 0.098, 1.060 HGB 6.9, 7.9, HCT 23.0, 26.7, BUN 209, CR 3.92 Chest X-ray: Findings consistent with CHF CT abdomen/pelvis showed his bilateral pleural effusions with groundglass opacities. EKG: Normal sinus rhythm, possible left atrial enlargement Nonspecific intrabentricular conduction delay, ST&T wave abnormality, consider inferolateral ischemia. Vital Signs: 139/98 95 18 96 % 2/L NC Other Clinical Indicators: H/P (Dr. Randall) Possible STEMI with elevated troponins. ECHO (October) severe ischemic cardiomyopathy EF OF 20 % Treatment: ICU/Telemetry monitoring Lasix IV Monitor labs: Kidney function, CBC, Electrolytes Metoprolol PO Heparin (hold r/t Fecal occult blood positive) In your professional opinion, can you please clarify If? STEMI ruled in this admission STEMI ruled out this admission Type 2 CT Secondary to CHF Type 2 CT Secondary to other etiology (please specify) Other, please specify Unable to determine (Last Revision: November 2017) Troponin elevation secondary to chronic renal failure and acute exacerbation of chronic systolic heart failure. MTDD
== END 2019-01-09 16:46 | DRG 291 ==
LOC: EC 19:09 → 2SICU 22:27 → UNDOADMIN 22:27 → 2SICU 12-31 16:15 → 3SCARD 01-03 16:13 → 4SSUR 01-06 21:16
PROVIDERS: ADMIT Family Medicine; ATTEND Family Medicine
PROC: 30233N1 Transfusion of Nonautologous Red Blood Cells into Peripheral Vein, Percutaneous Approach (ICD-10-PCS; 2018-12-30)
PROC: 06HN33Z Insertion of Infusion Device into Left Femoral Vein, Percutaneous Approach (ICD-10-PCS; principal; 2019-01-01)
PROC: B54CZZA Ultrasonography of Left Lower Extremity Veins, Guidance (ICD-10-PCS; 2019-01-01)
PROC: 5A1D70Z Performance of Urinary Filtration, Intermittent, Less than 6 Hours Per Day (ICD-10-PCS; 2019-01-01)
PROC: 02HV33Z Insertion of Infusion Device into Superior Vena Cava, Percutaneous Approach (ICD-10-PCS; 2019-01-05)
PROC: 06PYX3Z Removal of Infusion Device from Lower Vein, External Approach (ICD-10-PCS; 2019-01-05)
DX: I13.2 Hypertensive heart and chronic kidney disease with heart failure and with stage 5 chronic kidney disease, or end stage renal disease (principal); I50.23 Acute on chronic systolic (congestive) heart failure; N17.0 Acute kidney failure with tubular necrosis; J96.01 Acute respiratory failure with hypoxia; N18.6 End stage renal disease; G93.41 Metabolic encephalopathy; J44.0 Chronic obstructive pulmonary disease with (acute) lower respiratory infection; J44.1 Chronic obstructive pulmonary disease with (acute) exacerbation; E87.2 Acidosis; D62 Acute posthemorrhagic anemia; E87.1 Hypo-osmolality and hyponatremia; K92.1 Melena; T82.41XA Breakdown (mechanical) of vascular dialysis catheter, initial encounter; E78.5 Hyperlipidemia, unspecified; D63.1 Anemia in chronic kidney disease; I34.0 Nonrheumatic mitral (valve) insufficiency; E87.5 Hyperkalemia; K31.89 Other diseases of stomach and duodenum; E83.39 Other disorders of phosphorus metabolism; F03.90 Unspecified dementia, unspecified severity, without behavioral disturbance, psychotic disturbance, mood disturbance, and anxiety; I71.4 Abdominal aortic aneurysm, without rupture; I25.10 Atherosclerotic heart disease of native coronary artery without angina pectoris; I25.5 Ischemic cardiomyopathy; I44.0 Atrioventricular block, first degree; I45.10 Unspecified right bundle-branch block; K44.9 Diaphragmatic hernia without obstruction or gangrene; K57.90 Diverticulosis of intestine, part unspecified, without perforation or abscess without bleeding; W19.XXXA Unspecified fall, initial encounter; Y71.2 Prosthetic and other implants, materials and accessory cardiovascular devices associated with adverse incidents; Z79.899 Other long term (current) drug therapy; Z79.82 Long term (current) use of aspirin; I25.2 Old myocardial infarction; Z79.02 Long term (current) use of antithrombotics/antiplatelets; Z95.1 Presence of aortocoronary bypass graft; Z99.2 Dependence on renal dialysis
CPT/HCPCS: 36415; 36558; 51702; 70450; 71045; 71046; 72125; 74176; 76770; 76937; 77001; 80048; 80053; 80074; 81001; 82272; 82570; 82728; 82803; 83540; 83550; 83605; 83735; 83880; 84100; 84132; 84156; 84484; 85025; 86038; 86039; 86160; 86162; 86225; 86255; 86334; 86335; 86850; 86900; 86901; 86920; 87040; 90935; 93005; 94640; 94760; 96365; 96366; 96374; 96375; 96376; 99285

== ENCOUNTER 2019-01-13 08:55 | Observation (INO) | payer MEDICARE ==
[2019-01-13] MEDS ORDERED: IPRATROPIUM-ALBUTEROL 3 ML NEB INHALATION STA (09:07)
--- NOTE | 2019-01-13 09:11 | ED ---
General Adult HPI - General Stated complaint: Dialysis port issues Time Seen by Provider: 01/13/19 08:55 Source: RN notes reviewed - History of Present Illness Initial comments: This is a 73-year-old male with past medical history significant for congestive heart failure COPD and dialysis. Patient had a Ascencio catheter in place and he pulled out last evening. Patient went to [facility] and the ER physician there did a chest x-ray determined that there was no pneumothorax and transfer the patient without an IV or lab work. Patient arrives without complaint other than his catheter is out. Patient denies any chest pain difficulty breathing shortness of breath per patient denies any recent fever chills or cough. Patient denies any headache. Patient denies bowel pain patient denies nausea vomiting diarrhea. - Related Data Home Medications Medication Instructions Recorded Confirmed Atorvastatin [Lipitor] 40 mg PO HS 10/11/18 01/13/19 Clopidogrel [Plavix] 75 mg PO DAILY 10/11/18 01/13/19 Montelukast [Singulair] 10 mg PO HS 10/11/18 01/13/19 Isosorbide Mononitrate ER [Imdur] 30 mg PO DAILY 12/30/18 01/13/19 Multivitamins, Thera [Multivitamin 1 tab PO DAILY 12/30/18 01/13/19 (formulary)] Acetaminophen Tab [Tylenol] 650 mg PO TID 01/13/19 01/13/19 Cholecalciferol (Vitamin D3) 2,000 unit PO DAILY 01/13/19 01/13/19 [Vitamin D3] Ipratropium-Albuterol Nebulize 3 ml INHALATION RT-Q4H PRN 01/13/19 01/13/19 [Duoneb 0.5 mg-3 mg/3 ml Soln] Previous Rx's Medication Instructions Recorded Aspirin EC [Ecotrin Low Dose] 81 mg PO DAILY #1 tablet. 01/09/19 Calcium Acetate [PhosLo] 667 mg PO TID-W/MEALS cap 01/09/19 Furosemide [Lasix] 80 mg PO BID@0900,1600 tab 01/09/19 Ipratropium-Albuterol Nebulize 3 ml INHALATION RT-TID ampul.neb 01/09/19 [Duoneb 0.5 mg-3 mg/3 ml Soln] Metoprolol Tartrate [Lopressor] 12.5 mg PO BID tab 01/09/19 Pantoprazole [Protonix] 40 mg PO DAILY tablet. 01/09/19 Allergies Allergy/AdvReac Type Severity Reaction Status Date / Time No Known Allergies Allergy Verified 01/13/19 11:26 Review of Systems ROS Statement: Those systems with pertinent positive or pertinent negative responses have been documented in the HPI. ROS Other: All systems not noted in ROS Statement are negative. Past Medical History Past Medical History: Heart Failure, COPD Additional Past Medical History / Comment(s): Coronary artery disease, previous bypass surgery, previous and STEMI, CHF systolic failure with an ejection fraction of less than 20%, stage III kidney disease chronic, hypertension, hyperlipidemia, bronchial asthma my large hiatal hernia, stomach volvulus, chronic anemia History of Any Multi-Drug Resistant Organisms: None Reported Past Surgical History: Coronary Bypass/CABG Additional Past Surgical History / Comment(s): 2005 CABG Covenent Past Anesthesia/Blood Transfusion Reactions: No Reported Reaction Past Psychological History: No Psychological Hx Reported Smoking Status: Never smoker Past Alcohol Use History: None Reported Past Drug Use History: None Reported - Past Family History family Family Medical History: No Reported History General Exam - General Exam Comments Initial Comments: GENERAL: Patient is well-developed and well-nourished. Patient is nontoxic and well- hydrated and is in mild distress. ENT: Neck is soft and supple. No significant lymphadenopathy is noted. Oropharynx is clear. Moist mucous membranes. Neck has full range of motion without e liciting any pain. EYES: The sclera were anicteric and conjunctiva were pink and moist. Extraocular movements were intact and pupils were equal round and reactive to light. Eyelids were unremarkable. PULMONARY: Patient has some crackles in the bases and respiratory wheezing. CARDIOVASCULAR: Patient is a regular rate and rhythm no murmurs are heard ABDOMEN: Soft and nontender with normal bowel sounds. SKIN: Skin is clear with no lesions or rashes and otherwise unremarkable. NEUROLOGIC: Patient is alert and oriented x2. Cranial nerves II through XII are grossly intact. Motor and sensory are also intact. Normal speech, volume and content. Symmetrical smile. MUSCULOSKELETAL: Normal extremities with adequate strength and full range of motion. 2+ edema. LYMPHATICS: No significant lymphadenopathy is noted PSYCHIATRIC: Normal psychiatric evaluation. Course Vital Signs 01/13/19 01/13/19 01/13/19 09:07 09:33 09:43 Temperature 98.0 F Pulse Rate 98 101 H Respiratory 16 Rate Blood Pressure 123/85 123/85 O2 Sat by Pulse 92 L 95 Oximetry 01/13/19 01/13/19 01/13/19 09:56 11:03 12:17 Temperature Pulse Rate 96 98 107 H Respiratory 16 16 Rate Blood Pressure 129/94 145/98 O2 Sat by Pulse 93 L 93 L Oximetry Medical Decision Making - Medical Decision Making Patient was tachycardic at about 100 so we did an EKG shows sinus tachycardia at 106 bpm AL interval is 178 QRSs 124 QT interval 350 QTC is 475. Patient's EKG showed inverted T waves inferiorly as well as in precordial leads V4 through V6 which were seen on a previous EKG. At this time I spoke with the patient he denied any shortness of breath or chest pain. I spoke with the depression agreed to admit the patient admitted the patient. Spoke with Dr. Stern he agreed to put a catheter in place this is a catheterization lab was available. - Lab Data Result diagrams: 01/13/19 09:21 01/13/19 09:21 Lab Results 01/13/19 01/13/19 01/13/19 Range/Units 09:21 09:21 09:21 WBC 7.6 (3.8-10.6) k/uL RBC 3.26 L (4.30-5.90) m/uL Hgb 8.2 L (13.0-17.5) gm/dL Hct 26.7 L (39.0-53.0) % MCV 81.8 (80.0-100.0) fL MCH 25.1 (25.0-35.0) pg MCHC 30.7 L (31.0-37.0) g/dL RDW 25.6 H (11.5-15.5) % Plt Count 164 (150-450) k/uL Neutrophils % 75 % Lymphocytes % 12 % Monocytes % 8 % Eosinophils % 2 % Basophils % 0 % Neutrophils # 5.7 (1.3-7.7) k/uL Lymphocytes # 0.9 L (1.0-4.8) k/uL Monocytes # 0.6 (0-1.0) k/uL Eosinophils # 0.2 (0-0.7) k/uL Basophils # 0.0 (0-0.2) k/uL Manual Slide Review Performed Hypochromasia Marked Poikilocytosis Slight Anisocytosis Marked Microcytosis Moderate Fragmented RBCs Present PT (9.0-12.0) sec INR (<1.2) APTT (22.0-30.0) sec Sodium 136 L (137-145) mmol/L Potassium 4.6 (3.5-5.1) mmol/L Chloride 99 (98-107) mmol/L Carbon Dioxide 30 (22-30) mmol/L Anion Gap 7 mmol/L BUN 55 H (9-20) mg/dL Creatinine 3.99 H (0.66-1.25) mg/dL Est GFR (CKD-EPI)AfAm 16 (>60 ml/min/1.73 sqM) Est GFR (CKD-EPI)NonAf 14 (>60 ml/min/1.73 sqM) Glucose 95 (74-99) mg/dL Calcium 7.7 L (8.4-10.2) mg/dL Total Bilirubin 0.6 (0.2-1.3) mg/dL AST 49 (17-59) U/L ALT 42 (21-72) U/L Alkaline Phosphatase 164 H (38-126) U/L NT-Pro-B Natriuret Pep [id number] pg/mL Total Protein 4.9 L (6.3-8.2) g/dL Albumin 2.4 L (3.5-5.0) g/dL 01/13/19 Range/Units 10:48 WBC (3.8-10.6) k/uL RBC (4.30-5.90) m/uL Hgb (13.0-17.5) gm/dL Hct (39.0-53.0) % MCV (80.0-100.0) fL MCH (25.0-35.0) pg MCHC (31.0-37.0) g/dL RDW (11.5-15.5) % Plt Count (150-450) k/uL Neutrophils % % Lymphocytes % % Monocytes % % Eosinophils % % Basophils % % Neutrophils # (1.3-7.7) k/uL Lymphocytes # (1.0-4.8) k/uL Monocytes # (0-1.0) k/uL Eosinophils # (0-0.7) k/uL Basophils # (0-0.2) k/uL Manual Slide Review Hypochromasia Poikilocytosis Anisocytosis Microcytosis Fragmented RBCs PT 10.9 (9.0-12.0) sec INR 1.0 (<1.2) APTT 25.9 (22.0-30.0) sec Sodium (137-145) mmol/L Potassium (3.5-5.1) mmol/L Chloride (98-107) mmol/L Carbon Dioxide (22-30) mmol/L Anion Gap mmol/L BUN (9-20) mg/dL Creatinine (0.66-1.25) mg/dL Est GFR (CKD-EPI)AfAm (>60 ml/min/1.73 sqM) Est GFR (CKD-EPI)NonAf (>60 ml/min/1.73 sqM) Glucose (74-99) mg/dL Calcium (8.4-10.2) mg/dL Total Bilirubin (0.2-1.3) mg/dL AST (17-59) U/L ALT (21-72) U/L Alkaline Phosphatase (38-126) U/L NT-Pro-B Natriuret Pep pg/mL Total Protein (6.3-8.2) g/dL Albumin (3.5-5.0) g/dL Disposition Clinical Impression: Displacement of vascular dialysis catheter Disposition: ADMITTED IP TO THIS [facility] Referrals: Joseph Rea MD [Primary Care Provider] - 1-2 days Time of Disposition: 13:00
[2019-01-13 09:39] LABS: Anisocytosis Marked; Basophils % (A) 0 %; Eosinophils # (A) 0.2 k/uL (0-0.7); Eosinophils % (A) 2 %; HCT 26.7 % (39.0-53.0); HGB 8.2 gm/dL (13.0-17.5); Hypochromasia Marked; Lymphocytes # (A) 0.9 k/uL (1.0-4.8); Lymphocytes % (A) 12 %; MCH 25.1 pg (25.0-35.0); MCHC 30.7 g/dL (31.0-37.0); MCV 81.8 fL (80.0-100.0); Microcytosis Moderate; Monocytes # (A) 0.6 k/uL (0-1.0); Monocytes % (A) 8 %; Neutrophils # (A) 5.7 k/uL (1.3-7.7); Neutrophils % (A) 75 %; Platelet Count 164 k/uL (150-450); Poikilocytosis Slight; RBC 3.26 m/uL (4.30-5.90); WBC 7.6 k/uL (3.8-10.6)
[2019-01-13 09:44] LABS: RDW 25.6 % (11.5-15.5)
[2019-01-13 09:50] LABS: Albumin 2.4 g/dL (3.5-5.0); Calcium 7.7 mg/dL (8.4-10.2); Potassium 4.6 mmol/L (3.5-5.1); Total Bilirubin 0.6 mg/dL (0.2-1.3); Total Protein 4.9 g/dL (6.3-8.2)
[2019-01-13 10:04] LABS: RBC Fragments Present
[2019-01-13 11:11] LABS: Partial Thromboplastin Time 25.9 sec (22.0-30.0); Prothrombin Time 10.9 sec (9.0-12.0)
[2019-01-13 16:24] VITALS: BMI 24.5
[2019-01-13] MEDS ORDERED: IPRATROPIUM-ALBUTEROL 3 ML NEB INHALATION PRN (17:00)
[2019-01-13] MEDS: CALCIUM ACETATE 667 MG CAP PO SCH (17:45)
[2019-01-13] MEDS: IPRATROPIUM-ALBUTEROL 3 ML NEB INHALATION SCH (20:52)
[2019-01-13] MEDS: ACETAMINOPHEN TAB 325 MG TAB PO SCH (21:49)
[2019-01-13] MEDS: METOPROLOL TARTRATE 12.5 MG TAB PO SCH (21:49)
[2019-01-13] MEDS: MONTELUKAST 10 MG TAB PO SCH (21:50)
[2019-01-13] MEDS: ATORVASTATIN 40 MG TAB PO SCH (21:50)
[2019-01-14] MEDS: IPRATROPIUM-ALBUTEROL 3 ML NEB INHALATION SCH ×3 (07:15→19:39)
[2019-01-14] MEDS: PANTOPRAZOLE 40 MG TABLET PO SCH (07:28)
[2019-01-14] MEDS: METOPROLOL TARTRATE 12.5 MG TAB PO SCH ×2 (07:28→20:11)
[2019-01-14] MEDS: ACETAMINOPHEN TAB 325 MG TAB PO SCH ×3 (07:28→20:10)
[2019-01-14] MEDS: ASPIRIN 81 MG PO SCH (07:28)
[2019-01-14] MEDS: ISOSORBIDE MONONITRATE ER 30 MG TAB.ER.24H PO SCH (07:28)
[2019-01-14] MEDS: CALCIUM ACETATE 667 MG CAP PO SCH ×3 (07:28→16:47)
[2019-01-14] MEDS: MULTIVITAMINS, THERA 1 EACH TAB PO SCH (07:28)
[2019-01-14] MEDS: CHOLECALCIFEROL 1,000 UNIT TAB PO SCH (07:29)
[2019-01-14] MEDS: FUROSEMIDE 80 MG TAB PO SCH ×2 (07:29→16:47)
[2019-01-14] MEDS: CLOPIDOGREL 75 MG TAB PO SCH (07:29)
[2019-01-14] MEDS: MONTELUKAST 10 MG TAB PO SCH (20:11)
[2019-01-14] MEDS: ATORVASTATIN 40 MG TAB PO SCH (20:11)
--- NOTE | 2019-01-14 23:02 | P.HPIM ---
History of Present Illness H&P Date: 01/14/19 Chief Complaint: Pulled out dialysis catheter History of present: Complaint: This is a 73-year-old patient of Dr. Joseph Rea. Chronic stable medical conditions include congestive heart failure EF 20%, chronic kidney disease stage III, COPD, coronary artery disease bypass, hypertension, hyperlipidemia, hiatal hernia. Patient recently had a dialysis catheter placed. And he pulled it out. Patient is currently at [facility]. Patient had a baseline is confused oftentimes not recognizing family members. Patient's really nonambulatory. Doesn't really communicate. When I came to see this patient this morning he was pleasantly confused. He thought some objects above being displayed. He thought people were coming of her shopping. He is otherwise other pleasant. Not able to give much of history. Patient did have a sitter in the room. Patient has been tolerating some diet intermittently. Family admission for the patient of the ER with a view to put the dialysis catheter. As of yesterday evening they decided to hold off until further discussions were held. Admitting review of systems: Patient not able to really give any history. Any supportive histories was given by the family as above above. Physical examination: VITAL SIGNS: 98, 98, 16, 08/29/1972, 92% room air GENERAL: Average built, laying in bed, comfortable, awake. EYES: Pupils equal. Conjunctiva normal. HEENT: External appearance of nose and ears normal, oral cavity grossly normal. NECK: JVD not raised; masses not palpable. HEART: First and second heart sounds are normal; no edema. LUNGS: Respiratory rate normal; clear to auscultation. ABDOMEN: Soft, nontender, liver spleen not palpable, no masses palpable. LYMPHATICS: No lymph nodes palpable in the axilla and neck. PSYCH: Patient is rather confused, but able to answer some occasional questions.l. NEUROLOGICAL: Cranial nerves grossly intact; no facial asymmetry, moving all 4 limbs. Social history: , currently at [facility] [place]. No history of alcohol or smoking. Retired. Investigations in the clinical context White count 7.6, and globally 0.2, platelets 164, potassium 4.6, BUN 55, creatinine 3.99 EKG tracing personally reviewed by me shows diffuse ST segment depression Assessment: -End-stage kidney disease advancing patient got a dialysis catheter that patient pulled out -Chronic congestive heart failure from systolic dysfunction EF 20% from underlying coronary artery disease -COPD in a nonsmoker -Essential hypertension -Hyperlipidemia -Hiatal hernia -Cor artery disease with prior history of coronary bypass -Severe cognitive impairment from underlying Alzheimer's dementia -Medical debility patient is really not able to get about Plan: Home medications be resumed. Dialysis catheter placement has been held back. I had spoken to Dr. Coughlin earlier for vascular surgery. Planning to have a family meeting. Prognosis is guarded. Advanced care planning: Had a meeting with patient's and 2 daughters. All of patient's medical conditions were discussed. All of all given is discussed. The AGREEMENT THAT PATIENT OVERALL CARDIOVASCULAR THE POOR. THEY WISH TO PROCEED WITH AN KEEP PATIENT'S NO CODE. IT WAS DECIDED THIS POINT NOT TO PROCEED WITH ANY PLACEMENT OF DIALYSIS CATHETER. It was also decided patient will go back to rehab with some [facility]. Patient medications are resumed. If patient was to continue to get worse then they would consider doing hospice care. Also the decided about do not hospitalize the patient. No artificial feeding be done. Patient be given comfort feeding. The also interested in looking at the hospice house in [place]. And will be looking at that for the future. Total time spent was about 30 minutes this discussion Past Medical History Past Medical History: Heart Failure, COPD Additional Past Medical History / Comment(s): Coronary artery disease, previous bypass surgery, previous and STEMI, CHF systolic failure with an ejection fraction of less than 20%, stage III kidney disease chronic, hypertension, hyperlipidemia, bronchial asthma my large hiatal hernia, stomach volvulus, chronic anemia History of Any Multi-Drug Resistant Organisms: None Reported Past Surgical History: Coronary Bypass/CABG Additional Past Surgical History / Comment(s): 2005 CABG Covenent. Dialysis catheter placement 12/2018 Past Anesthesia/Blood Transfusion Reactions: No Reported Reaction Past Psychological History: No Psychological Hx Reported Smoking Status: Never smoker Past Alcohol Use History: None Reported Past Drug Use History: None Reported - Past Family History family Family Medical History: No Reported History Medications and Allergies Home Medications Medication Instructions Recorded Confirmed Type Atorvastatin [Lipitor] 40 mg PO HS 10/11/18 01/13/19 History Clopidogrel [Plavix] 75 mg PO DAILY 10/11/18 01/13/19 History Montelukast [Singulair] 10 mg PO HS 10/11/18 01/13/19 History Isosorbide Mononitrate ER [Imdur] 30 mg PO DAILY 12/30/18 01/13/19 History Multivitamins, Thera [Multivitamin 1 tab PO DAILY 12/30/18 01/13/19 History (formulary)] Aspirin EC [Ecotrin Low Dose] 81 mg PO DAILY #1 tablet. 01/09/19 01/13/19 Rx Calcium Acetate [PhosLo] 667 mg PO TID-W/MEALS cap 01/09/19 01/13/19 Rx Furosemide [Lasix] 80 mg PO BID@0900,1600 tab 01/09/19 01/13/19 Rx Ipratropium-Albuterol Nebulize 3 ml INHALATION RT-TID ampul.neb 01/09/19 01/13/19 Rx [Duoneb 0.5 mg-3 mg/3 ml Soln] Metoprolol Tartrate [Lopressor] 12.5 mg PO BID tab 01/09/19 01/13/19 Rx Pantoprazole [Protonix] 40 mg PO DAILY tablet. 01/09/19 01/13/19 Rx Acetaminophen Tab [Tylenol] 650 mg PO TID 01/13/19 01/13/19 History Cholecalciferol (Vitamin D3) 2,000 unit PO DAILY 01/13/19 01/13/19 History [Vitamin D3] Ipratropium-Albuterol Nebulize 3 ml INHALATION RT-Q4H PRN 01/13/19 01/13/19 History [Duoneb 0.5 mg-3 mg/3 ml Soln] Allergies Allergy/AdvReac Type Severity Reaction Status Date / Time No Known Allergies Allergy Verified 01/13/19 11:26 Physical Exam Vitals: Vital Signs Temp Pulse Pulse Resp BP BP Pulse Ox 01/14/19 11:30 76 01/14/19 11:19 80 01/14/19 07:25 80 01/14/19 07:15 76 01/14/19 05:16 98 F 107 H 20 120/70 95 01/14/19 00:00 114 H 20 01/13/19 23:00 97.6 F 114 H 20 127/78 91 L 01/13/19 20:58 78 01/13/19 20:52 76 06/09/19 15:10 98.8 F 105 H 20 148/81 92 L 01/13/19 13:45 107 H 16 140/98 95 01/13/19 12:17 107 H 16 145/98 93 L Intake and Output 01/13/19 01/14/19 01/14/19 22:59 06:59 14:59 Intake Total 200 50 Balance 200 50 Intake: Oral 200 50 Other: # Voids 1 0 0 # Bowel Movements 1 Results CBC & Chem 7: 01/13/19 09:21 01/13/19 09:21 Thrombosis Risk Factor Assmnt - Choose All That Apply Any of the Below Risk Factors Present?: No Other Risk Factors: Yes Other congenital or acquired thrombophilia - If yes, enter type in comment: No
[2019-01-15] MEDS: IPRATROPIUM-ALBUTEROL 3 ML NEB INHALATION SCH ×2 (07:58→11:17)
[2019-01-15] MEDS: CHOLECALCIFEROL 1,000 UNIT TAB PO SCH (08:03)
[2019-01-15] MEDS: ISOSORBIDE MONONITRATE ER 30 MG TAB.ER.24H PO SCH (08:03)
[2019-01-15] MEDS: METOPROLOL TARTRATE 12.5 MG TAB PO SCH (08:03)
[2019-01-15] MEDS: MULTIVITAMINS, THERA 1 EACH TAB PO SCH (08:04)
[2019-01-15] MEDS: CALCIUM ACETATE 667 MG CAP PO SCH ×2 (08:04→11:57)
[2019-01-15] MEDS: CLOPIDOGREL 75 MG TAB PO SCH (08:04)
[2019-01-15] MEDS: ASPIRIN 81 MG PO SCH (08:04)
[2019-01-15] MEDS: ACETAMINOPHEN TAB 325 MG TAB PO SCH ×2 (08:04→08:09)
[2019-01-15] MEDS: PANTOPRAZOLE 40 MG TABLET PO SCH (08:05)
[2019-01-15] MEDS: FUROSEMIDE 80 MG TAB PO SCH (08:05)
[2019-01-15 14:26] VITALS: BP 114/72; PULSE 100; RESP 16; TEMP 97.9
--- NOTE | 2019-01-17 15:49 | DS ---
DISCHARGE SUMMARY DATE OF ADMISSION: 01/13/19 DATE OF DISCHARGE: 01/15/19 FINAL DIAGNOSES: 1. End-stage kidney disease, advancing. 2. Chronic congestive heart failure from systolic dysfunction, EF 20%, underlying coronary artery disease. 3. Chronic obstructive pulmonary disease in a nonsmoker. 4. Essential hypertension. 5. Hyperlipidemia. 6. Hiatal hernia. 7. Coronary artery disease with prior history of coronary bypass. 8. Severe cognitive impairment from underlying Alzheimer's dementia. 9. Medical debility with poor mobility. HOSPITAL COURSE: This patient with multiple medical problems, advanced dementia, not much quality of life, had just recently had a dialysis catheter placed, came in with after pulling out his dialysis catheter that was dislodged. After a family meeting with the and 2 daughters it was decided the patient will be made hospice. Initially the plan was for patient to go to back to his rehab place, but the patient's family finally decided to take him home. On day of discharge, care was coordinated. Arrangements are being made for patient to go home, including geriatric case managersports manager worker, professor of social work. No further dialysis to be done. PHYSICAL EXAMINATION: Temperature 97.9 pulse 116, blood pressure 140/72 pulse ox 96% on room air. Sitting in a chair, able to answer simple questions but pleasantly confused. INVESTIGATIONS: Hemoglobin 8.2. DISCHARGE MEDICATIONS: 1. Lipitor 40 mg q.h.s. 2. Plavix 75 mg a day. 3. Singulair 10 mg q.h.s. 4. Imdur ER 30 mg p.o. daily. 5. Multivitamin 1 tablet p.o. daily. 6. Aspirin 81 mg p.o. daily. 7. PhosLo 667 mg p.o. t.i.d. 8. Lasix 80 mg b.i.d. 9. Lopressor 12.5 p.o. b.i.d. 10.Protonix 40 mg p.o. daily. 11.Tylenol 650 mg p.o. t.i.d. 12.Vitamin D3 2000 units p.o. daily. 13.DuoNeb t.i.d. Follow up with Nataliia Urias. MMODL / ADITIN: [id number] /
== END 2019-01-15 16:41 | disposition home or self-care (01) ==
LOC: EC 08:55 → 4MS4W 13:01
PROVIDERS: ADMIT Hospitalist; ATTEND Hospitalist
DX: T82.42XA Displacement of vascular dialysis catheter, initial encounter (principal); I13.2 Hypertensive heart and chronic kidney disease with heart failure and with stage 5 chronic kidney disease, or end stage renal disease; N18.6 End stage renal disease; I50.22 Chronic systolic (congestive) heart failure; J44.9 Chronic obstructive pulmonary disease, unspecified; I25.10 Atherosclerotic heart disease of native coronary artery without angina pectoris; R41.0 Disorientation, unspecified; I25.2 Old myocardial infarction; E78.5 Hyperlipidemia, unspecified; J45.909 Unspecified asthma, uncomplicated; D64.9 Anemia, unspecified; R00.0 Tachycardia, unspecified; K44.9 Diaphragmatic hernia without obstruction or gangrene; G30.9 Alzheimer's disease, unspecified; F02.80 Dementia in other diseases classified elsewhere, unspecified severity, without behavioral disturbance, psychotic disturbance, mood disturbance, and anxiety; R53.81 Other malaise; Z79.899 Other long term (current) drug therapy; Z79.02 Long term (current) use of antithrombotics/antiplatelets; Z79.82 Long term (current) use of aspirin; Z95.1 Presence of aortocoronary bypass graft; Z66 Do not resuscitate
CPT/HCPCS: 36415; 80053; 83880; 85025; 85610; 85730; 94640; 99285